=== PATIENT | male | born 1940 | race Caucasian/White ===

== ENCOUNTER 2018-09-11 22:20 | Observation (INO) | payer OTHER, MEDICARE ==
--- OUTSIDE RECORDS SUMMARY | 2018-09-11 22:22 | XMS REPORT | Encounter Summary ---
:1940 Author Care Team Providers Name Role Phone Conner Maldonado MD Primary Care Provider [phone] Reason for Visit Follow Up Visit Instructions 1. Otitis media tympanogram 2. Polyp of middle ear 3. Tinnitus 4. Hearing loss Discussion Note: None recorded.Patient educational handouts: No information available. Plan of Care Patient Instructions Patient discharged with the following per Dr. Freire Follow up in 3 months If any other problems patient is to call my office Patient verbalized understanding the instructions given along with my office staff Reminders Provider Appointments Follow up Estelle Freire, 10/26/2018 11:00AM Lab None recorded. Referral None recorded. Procedures None recorded. Surgeries None recorded. Imaging Tympanogram In-House Results 07/06/2018 Medications Name Start Date alprazolam 2 mg tablet Take 1 tablet 3 times a day by oral route. azithromycin 250 mg tablet Ciprodex 0.3 %-0.1 % ear drops,suspension INSTILL 4 DROPS INTO AFFECTED EAR(S) BY OTIC ROUTE 2 TIMES PER DAY FOR 7 DAYS gabapentin 300 mg capsule hydrochlorothiazide 12.5 mg capsule hydrocodone 7.5 mg-acetaminophen 325 mg tablet levothyroxine 50 mcg tablet losartan 100 mg-hydrochlorothiazide 12.5 mg tablet pantoprazole 40 mg tablet,delayed release pravastatin 20 mg tablet prednisolone acetate 1 % eye drops,suspension Shingrix (PF) 50 mcg/0.5 mL intramuscular suspension, kit Suprep Bowel Prep Kit 17.5 gram-3.13 gram-1.6 gram oral solution testosterone cypionate 200 mg/mL intramuscular oil Medications Administered None recorded. Vitals Height Weight BMI 5 ft 8 in 219.5 lbs 33.4 kg/m2 Lab Results Date Name Specimen Result Interpretation Description Value Range Status Address 07/06/2018 Tympanogram Right Type B In-House Curve Flat Results: For Internal Use Only Left Type C In-House Peak is on Results: For Left Internal Use Only 06/15/2018 Tympanogram Right Type B In-House Curve Flat Results: For Internal Use Only Left Type A In-House Normal Results: For Internal Use Only Allergies Code Code System Name Reaction Severity Status Onset 2670 RxNorm Codeine Other Moderate Active Problems Name Status Onset Date Source Serous Otitis Media Active Encounter Tinnitus Active Encounter Bleeding from Ear Active Encounter Otalgia Active Encounter Hearing Loss Active Encounter Chronic Sinusitis Active Encounter Lesion of Larynx Active Encounter Leukoplakia Active Encounter Hoarse Active Encounter Procedures Date Name Performed by Prostate Ca Screening; Favian Information not available Cardiac Surgery Procedure Information not available Appendectomy Information not available 06/15/2018 Tympanogram In-House Results For Internal Use Only 01333 07/06/2018 Tympanogram In-House Results For Internal Use Only 73222 Vaccine List None recorded. Social History Smoking Status Former Smoker Past Encounters 07/06/2018 Otitis Media; Polyp of Middle Ear; Tinnitus; Hearing Loss Estelle Freire MD: [address] [place] [address], [address], [place] [address], Ph. 06/15/2018 Polyp of Middle Ear; Otitis Media; Tinnitus Estelle Freire MD: [address] [place] [address], [address], [place] [address], Ph. History of Present Illness None recorded. Review of Systems ENT ROS Reported By: Patient ENMT: ENMT: ear pain, hearing loss, hoarseness; fluid in right ear, ringing in both ears Physical Exam None recorded.
[2018-09-11 23:37] LABS: Absolute Lymphocytes (CBC) 0.9 K/uL (0.7-4.9); Absolute Monocytes 0.6 K/uL (0.1-1.3); Absolute Neutrophil 6.7 K/uL (1.8-8.0); Basophils % 0.9 % (0-1.3); Eosinophils % 0.2 % (0-4.4); Hematocrit 52.6 % (39.6-49.0); Lymphocytes % 11.3 % (15.3-44.8); MPV 8.4 fL (7.6-11.3); Monocytes % 7.1 % (3.3-12.3); RBC Red Blood Cell Count 5.66 M/uL (4.33-5.43)
[2018-09-11 23:44] LABS: Protime INR 1.08
[2018-09-11 23:51] LABS: ALT/SGPT 25 U/L (12-78); AST/SGOT 13 U/L (15-37); Alkaline Phosphatase 65 U/L (45-117); BUN Blood Urea Nitrogen 19 mg/dL (7-18); Bicarbonate 31 mmol/L (21-32); Bilirubin Direct 0.2 mg/dL (0-0.2); Bilirubin Total 0.7 mg/dL (0.2-1.0); Glucose Level 116 mg/dL (74-106); NT PRO-BNP 486 pg/mL (<450); Protein, Total 7.7 g/dL (6.4-8.2); Sodium Level 138 mmol/L (136-145); Troponin (Emerg Dept Use Only) < 0.02 ng/mL (0.0-0.045)
[2018-09-12] MEDS ORDERED: NA CHLORIDE 0.9% 1,000 ML ONE ×2 (01:51→03:46)
--- NOTE | 2018-09-12 03:20 | EDPHYS ---
Physician Documentation [facility] Name: Reford Derrell Age: 78 yrs Sex: Male : 1940 Arrival Date: 09/11/2018 Time: 22:27 Bed 7 Private MD: ED Physician Kristopher Long HPI: 09/11 23:05 This 78 yrs old Male presents to ER via Ambulatory with complaints of cp abdominal distention. 23:05 The patient presents to the emergency department with diarrhea, abdominal distention. cp Onset: The symptoms/episode began/occurred today. Associated signs and symptoms: Pertinent positives: belching, Pertinent negatives: abdominal pain, constipation, fever, GI bleeding, vomiting, chest pain. Severity of symptoms: in the emergency department the symptoms are unchanged despite home interventions. Historical: - Allergies: 22:32 Codeine; lp1 - Home Meds: 22:32 aspirin 81 mg Oral chew 1 tab once daily [Active]; Hydrochlorothiazide Oral [Active]; lp1 losartan Oral [Active]; Alprazolam Oral [Active]; - PMHx: 22:32 High Cholesterol; Hypertension; lp1 - PSHx: 22:32 CABG; Appendectomy; lp1 - Immunization history:: Adult Immunizations up to date. - Social history:: Smoking status: Patient/guardian denies using tobacco. - Ebola Screening: : No symptoms or risks identified at this time. ROS: 23:10 Constitutional: Negative for body aches, chills, fever, poor PO intake. cp 23:10 Eyes: Negative for injury, pain, redness, and discharge. cp 23:10 ENT: Negative for drainage from ear(s), ear pain, sore throat, difficulty swallowing, difficulty handling secretions. 23:10 Cardiovascular: Negative for chest pain, edema, palpitations. 23:10 Respiratory: Negative for cough, shortness of breath, wheezing. 23:10 Abdomen/GI: Positive for diarrhea, abdominal distension, flatulence, Negative for abdominal pain, vomiting, constipation, dysphagia, black/tarry stool, rectal bleeding. 23:10 Back: Negative for pain at rest, pain with movement, radiated pain. 23:10 : Negative for urinary symptoms. 23:10 Skin: Negative for cellulitis, rash. 23:10 Neuro: Negative for altered mental status, headache, weakness. 23:10 All other systems are negative. Exam: 23:15 Constitutional: The patient appears in no acute distress, alert, awake, cp non-diaphoretic, non-toxic, well developed, well nourished, uncomfortable. 23:15 Head/Face: Normocephalic, atraumatic. cp 23:15 Eyes: Periorbital structures: appear normal, Conjunctiva: normal, no exudate, no injection, Sclera: no appreciated abnormality, Lids and lashes: appear normal, bilaterally. 23:15 ENT: External ear(s): are unremarkable, Nose: is normal, Mouth: Lips: moist, Oral mucosa: pink and intact, moist, Posterior pharynx: Airway: no evidence of obstruction, patent, Uvula: midline, swelling, is not appreciated, erythema, that is mild, exudate, is not appreciated. 23:15 Neck: ROM/movement: is normal, is supple, without pain, no range of motions limitations, no meningismus, no nuchal rigidity. 23:15 Chest/axilla: Inspection: normal, Palpation: is normal, no crepitus, no tenderness. 23:15 Cardiovascular: Rate: normal, Rhythm: regular, Heart sounds: murmur, systolic, rub, not appreciated, gallop, not appreciated, Edema: is not appreciated, JVD: is not appreciated. 23:15 Respiratory: the patient does not display signs of respiratory distress, Respirations: normal, no use of accessory muscles, no retractions, no splinting, no tachypnea, labored breathing, is not present, Breath sounds: are clear throughout, no decreased breath sounds, no stridor, no wheezing. 23:15 Abdomen/GI: Inspection: distension, that is mild, Bowel sounds: active, all quadrants, Palpation: soft, in all quadrants, nontender, in all quadrants, rebound tenderness, is not appreciated, voluntary guarding, is not appreciated, involuntary guarding, is not appreciated. 23:15 Back: pain, is absent, ROM is normal. 23:15 Skin: cellulitis, is not appreciated, no rash present. Vital Signs: 22:30 BP 164 / 90; Pulse 98; Resp 18; Temp 99.1(O); Pulse Ox 99% on R/A; Weight 88.45 kg (R); lp1 Height 5 ft. 8 in. (172.72 cm); Pain 8/10; 23:00 BP 135 / 84 LA; Pulse 88; Resp 19 S; Pulse Ox 94% on R/A; rv 23:30 BP 149 / 87 LA; Pulse 87; Resp 21 S; Pulse Ox 93% on R/A; rv 0306 00:00 BP 170 / 96 LA; Pulse 81; Resp 19 S; Pulse Ox 94% on R/A; rv 00:30 BP 161 / 94; Pulse 83; Resp 18; Pulse Ox 94% on R/A; rv 01:00 BP 165 / 95 LA; Pulse 84; Resp 20 S; Pulse Ox 95% on R/A; rv 01:45 BP 180 / 90 LA; Pulse 84; Resp 16 S; Pulse Ox 97% on R/A; rv 04:03 BP 173 / 97; Pulse 80; Resp 18; Pulse Ox 96% on R/A; ea 05:30 BP 182 / 92; Pulse 83; Resp 18; Pulse Ox 97% on R/A; ea 07:00 BP 142 / 81; Pulse 88; Resp 16; Pulse Ox 94% ; bp 03 22:30 Body Mass Index 29.65 (88.45 kg, 172.72 cm) lp1 MDM: 09/11 22:53 Patient medically screened. cp 09/12 03:05 Data reviewed: vital signs, nurses notes, lab test result(s), EKG, radiologic studies, cp CT scan, plain films. 03:05 Test interpretation: by ED physician or midlevel provider: ECG, plain radiologic cp studies. 09/11 23:01 Order name: Basic Metabolic Panel; Complete Time: 00:26 cp 09/12 01:43 Interpretation: Normal except: GLUC 116; BUN 19; GFR 64. cp 09/11 23:01 Order name: CBC with Diff; Complete Time: 23:44 cp 09/12 00:27 Interpretation: Normal except: RBC 5.66; HCT 52.6; LYM% 11.3; RUBIN% 80.5. cp 09/11 23:01 Order name: LFT's; Complete Time: 00:26 cp 09/11 23:01 Order name: Magnesium; Complete Time: 00:26 cp 09/11 23:01 Order name: NT PRO-BNP; Complete Time: 00:26 cp 09/11 23: Order name: PT-INR; Complete Time: 00:26 cp 09/12 01:43 Interpretation: Reviewed. cp 09/11 23:01 Order name: Troponin (emerg Dept Use Only); Complete Time: 00:26 cp 09/11 23:01 Order name: XRAY Chest (1 view) cp 09/11 23:44 Order name: Lipase; Complete Time: 00:26 cp 09/11 23:45 Order name: CT Abd/Pelvis - W/Contrast: give oral contrast cp 09/11 23:01 Order name: EKG; Complete Time: 23:01 cp 09/11 23:01 Order name: Cardiac monitoring; Complete Time: 23:12 cp 09/11 23:01 Order name: EKG - Nurse/Tech; Complete Time: 23:12 cp 09/11 23:01 Order name: IV Saline Lock; Complete Time: 23:20 cp 09/11 23:01 Order name: Labs collected and sent; Complete Time: 23:20 cp 09/11 23:01 Order name: O2 Per Protocol; Complete Time: 23:12 cp 09/11 23:01 Order name: O2 Sat Monitoring; Complete Time: 23:12 cp Administered Medications: 01:43 Drug: NS 0.9% 500 ml Route: IV; Rate: bolus; Site: left antecubital; rv 03:56 Follow up: Response: No adverse reaction; IV Status: Completed infusion; IV Intake: ea 500ml 03:55 Drug: NS 0.9% 1000 ml Route: IV; Rate: 100 ml/hr; Site: left antecubital; ea 04:55 Follow up: Response: No adverse reaction; IV Status: Infusion continued upon admission ea 03:55 Drug: Ciprofloxacin 400 mg Volume: 200 ml; Route: IVPB; Infused Over: 60 mins; Site: ea left antecubital; 04:55 Follow up: Response: No adverse reaction; IV Status: Completed infusion; IV Intake: ea 200ml 03:55 Drug: metroNIDAZOLE 500 mg Volume: 100 ml; Route: IVPB; Infused Over: 30 mins; Site: ea left antecubital; 04:55 Follow up: Response: No adverse reaction; IV Status: Completed infusion; IV Intake: ea 100ml Disposition: 11:11 Co-signature as Attending Physician, Kristopher CARRILLO I agree with the assessment and mac plan of care. Disposition: 09/12/18 03:20 Hospitalization ordered by Ryder Moraes for Observation. Preliminary diagnosis is Ileus, unspecified - small bowel vs early obstruction. - Bed requested for Telemetry/MedSurg (observation). - Status is Observation. bp - Condition is Stable. - Problem is new. - Symptoms have improved. UTI on Admission? No Signatures: Dispatcher [employer] EDMS Ariella El RN Kristopher Bass MD MD cha Pena, Laura RN RN lp1 Kristopher Elkins PA PA cp Lexi Rudolph RN RN ea Peltier, Brian, RN RN Dl Polk RN RN rv Corrections: (The following items were deleted from the chart) 00:27 00:26 Normal except: RBC 5.66; HCT 52.6. cp cp 03:32 03:11 NG Tube ordered. cp tl2 04:56 03:20 Hospitalization Ordered by Ryder Moraes MD for Observation. Preliminary mw diagnosis is Ileus, unspecified - small bowel vs early obstruction. Bed requested for Telemetry/MedSurg (observation). Status is Observation. Condition is Stable. Problem is new. Symptoms have improved. UTI on Admission? No. cp 07:59 04:56 09/12/2018 03:20 Hospitalization Ordered by Ryder Moraes MD for Observation. bp Preliminary diagnosis is Ileus, unspecified - small bowel vs early obstruction. Bed requested for Telemetry/MedSurg (observation). Status is Observation. Condition is Stable. Problem is new. Symptoms have improved. UTI on Admission? No. mw
--- NOTE | 2018-09-12 03:20 | ER ---
Nurse's Notes [facility] Name: Soy Dove Age: 78 yrs Sex: Male : 1940 Arrival Date: 09/11/2018 Time: 22:27 Bed 7 Private MD: Diagnosis: Ileus, unspecified-small bowel vs early obstruction Presentation: 09/11 22:27 Presenting complaint: Patient states: "I had an upper GI procedure today by Dr. Roberto pitts and they said I would be bloated but it seems to have gotten worse now after I had lunch"; Patient states taking 18 Gaz-X pills, 8 Zantac pills with no relief, continued bloating. Transition of care: patient was not received from another setting of care. Onset of symptoms was September 11, 2018. Risk Assessment: Do you want to hurt yourself or someone else? Patient reports no desire to harm self or others. Initial Sepsis Screen: Does the patient meet any 2 criteria? No. Patient's initial sepsis screen is negative. Does the patient have a suspected source of infection? No. Patient's initial sepsis screen is negative. Care prior to arrival: None. 22:27 Method Of Arrival: Ambulatory lp1 22:27 Acuity: POPPY 3 lp1 Historical: - Allergies: 22:32 Codeine; lp1 - Home Meds: 22:32 aspirin 81 mg Oral chew 1 tab once daily [Active]; Hydrochlorothiazide Oral [Active]; lp1 losartan Oral [Active]; Alprazolam Oral [Active]; - PMHx: 22:32 High Cholesterol; Hypertension; lp1 - PSHx: 22:32 CABG; Appendectomy; lp1 - Immunization history:: Adult Immunizations up to date. - Social history:: Smoking status: Patient/guardian denies using tobacco. - Ebola Screening: : No symptoms or risks identified at this time. Screenin:32 Abuse screen: Denies threats or abuse. Denies injuries from another. Nutritional lp1 screening: No deficits noted. Tuberculosis screening: No symptoms or risk factors identified. Fall Risk None identified. Assessment: 22:35 General: Appears in no apparent distress. comfortable, Behavior is calm, cooperative, ca1 appropriate for age. Pain: Complains of pain in abdomen Pain does not radiate. Pain currently is 8 out of 10 on a pain scale. Pain began. Neuro: Level of Consciousness is awake, alert, obeys commands, Oriented to person, place, time, situation. Cardiovascular: Heart tones S1 S2 present Capillary refill < 3 seconds Patient's skin is warm and dry. Respiratory: Airway is patent Respiratory effort is even, unlabored, Respiratory pattern is regular, symmetrical, Breath sounds are clear bilaterally. GI: Abdomen is round non-distended, Bowel sounds present X 4 quads. Abd is soft X 4 quads Abdomen is tender to palpation in umbilical area Reports bloating, diarrhea, nausea. : EENT: No signs and/or symptoms were reported regarding the EENT system. Derm: Skin is intact, is healthy with good turgor, Skin is pink, warm \\T\\ dry. Musculoskeletal: Circulation, motion, and sensation intact. Capillary refill < 3 seconds. 09/12 00:48 Reassessment: Patient appears in no apparent distress at this time. No changes from rv previously documented assessment. Patient and/or family updated on plan of care and expected duration. Pain level reassessed. Patient is alert, oriented x 3, equal unlabored respirations, skin warm/dry/pink. 02:42 Reassessment: Patient appears in no apparent distress at this time. Patient and/or rv family updated on plan of care and expected duration. Pain level reassessed. Patient is alert, oriented x 3, equal unlabored respirations, skin warm/dry/pink. 03:32 Reassessment: Pt refused NG tube stating that he "doesn't think he has a blockage and tl2 he will talk to the surgeon himself". PA at bedside discussing risks of refusal with patient. Awaiting assessment from Dr. Shafer. 07:00 Reassessment: RECD REPORT FROM YULI POLANCO. 78YO WM P/W ABD PAIN AND BLOATING AFTER UPPER bp GI. ADMIT IN PROCESS FOR POSSIBLE ILEUS. Vital Signs: 09/11 22:30 BP 164 / 90; Pulse 98; Resp 18; Temp 99.1(O); Pulse Ox 99% on R/A; Weight 88.45 kg (R); lp1 Height 5 ft. 8 in. (172.72 cm); Pain 8/10; 23:00 BP 135 / 84 LA; Pulse 88; Resp 19 S; Pulse Ox 94% on R/A; rv 23:30 BP 149 / 87 LA; Pulse 87; Resp 21 S; Pulse Ox 93% on R/A; rv 03/06 00:00 BP 170 / 96 LA; Pulse 81; Resp 19 S; Pulse Ox 94% on R/A; rv 00:30 BP 161 / 94; Pulse 83; Resp 18; Pulse Ox 94% on R/A; rv 01:00 BP 165 / 95 LA; Pulse 84; Resp 20 S; Pulse Ox 95% on R/A; rv 01:45 BP 180 / 90 LA; Pulse 84; Resp 16 S; Pulse Ox 97% on R/A; rv 04:03 BP 173 / 97; Pulse 80; Resp 18; Pulse Ox 96% on R/A; ea 05:30 BP 182 / 92; Pulse 83; Resp 18; Pulse Ox 97% on R/A; ea 07:00 BP 142 / 81; Pulse 88; Resp 16; Pulse Ox 94% ; bp 09/11 22:30 Body Mass Index 29.65 (88.45 kg, 172.72 cm) lp1 ED Course: 09/11 22:27 Patient arrived in ED. es 22:30 Triage completed. lp1 22:30 Arm band placed on left wrist. lp1 22:35 Patient has correct armband on for positive identification. Bed in low position. Call ca1 light in reach. Side rails up X 1. Pulse ox on. NIBP on. Warm blanket given. 22:35 No provider procedures requiring assistance completed. ca1 22:53 Kristopher Elkins PA is PHCP. cp 22:53 Kristopher Long MD is Attending Physician. cp 23:15 Inserted saline lock: 20 gauge in left antecubital area, using aseptic technique. Blood rv collected. 23:21 Basic Metabolic Panel Sent. rv 23:21 CBC with Diff Sent. rv 23:21 LFT's Sent. rv 23:22 Magnesium Sent. rv 23:22 NT PRO-BNP Sent. rv 23:42 XRAY Chest (1 view) In Process Unspecified. EDMS 03/06 02:[address] via wheelchair. kw1 02:38 CT Abd/Pelvis - W/Contrast: give oral contrast In Process Unspecified. EDMS 03:18 Ryder Moraes MD is Hospitalizing Provider. cp 04:03 Patient admitted, IV remains in place. ea 07:10 Ezekiel Bullard, RN is Primary Nurse. bp Administered Medications: 01:43 Drug: NS 0.9% 500 ml Route: IV; Rate: bolus; Site: left antecubital; rv 03:56 Follow up: Response: No adverse reaction; IV Status: Completed infusion; IV Intake: ea 500ml 03:55 Drug: NS 0.9% 1000 ml Route: IV; Rate: 100 ml/hr; Site: left antecubital; ea 04:55 Follow up: Response: No adverse reaction; IV Status: Infusion continued upon admission ea 03:55 Drug: Ciprofloxacin 400 mg Volume: 200 ml; Route: IVPB; Infused Over: 60 mins; Site: ea left antecubital; 04:55 Follow up: Response: No adverse reaction; IV Status: Completed infusion; IV Intake: ea 200ml 03:55 Drug: metroNIDAZOLE 500 mg Volume: 100 ml; Route: IVPB; Infused Over: 30 mins; Site: ea left antecubital; 04:55 Follow up: Response: No adverse reaction; IV Status: Completed infusion; IV Intake: ea 100ml Intake: 03:56 IV: 500ml; Total: 500ml. ea 04:55 IV: 200ml; Total: 700ml. ea 04:55 IV: 100ml; Total: 800ml. ea Outcome: 03:20 Decision to Hospitalize by Provider. cp 03:56 Instructed on the need for admit. ea 04:45 Admitted to ER Hold. Please see [facility] for further documentation. tl2 04:45 Condition: stable 07:43 Admitted to Med/surg accompanied by tech, family with patient, via wheelchair, room bp 211, with chart, Report called to LUIS ARMANDO POLANCO 07:59 Patient left the ED. bp Signatures: Dispatcher [employer] EDFabi Campo Laura, RN RN lp1 Kristopher Elkins PA PA cp Yuli Irizarry RN RN tl2 Lexi Rudolph RN RN ea Peltier, Brian, RN RN bp Kadi Graves kw1 Dl Pang RN RN rv Acob, Cheryl RN RN ca1
[2018-09-12] MEDS ORDERED: CIPROFLOXACIN 400mg IV 400 MG/200 ML BAG IV ONE (03:46)
[2018-09-12] MEDS ORDERED: METRONIDAZOLE 500mg IVPB 500 MG/100 ML BAG IV ONE (03:47)
--- NOTE | 2018-09-12 04:26 | P.HP ---
Certification for Inpatient Patient admitted to: Observation With expected LOS: <2 Midnights Practitioner: I am a practitioner with admitting privileges, knowledge of patient current condition, hospital course, and medical plan of care. Services: Services provided to patient in accordance with Admission requirements found in Title 42 Section 412.3 of the Code of Federal Regulations Patient History Date of Service: 09/12/18 Reason for admission: SBO vs ileus History of Present Illness: Mr Dove is a 78 years old male with history of CAD, HTN, dylipiemia, COPD, who had an EGD done today by Dr Mejia. After the procedure, he went to eat a chicken sandwich. Subsequently, he start feeling bloating, with abdominal distention. He denied nausea or vomiting. Last bowel movement was this morning. The patient took several pills of Zantac and Gas-X-pills without improvement. Since he had this symptoms in the past and were consistent with a SBO, came to ED for evaluation. Lab work shows normal WBC count, no fever. CT abd/pelvis shows multiple air-fluid level in the small bowell concerning for ileus vs low grade SBO. Allergies codeine Allergy (Intermediate, Verified 05/30/17 21:46) Shortness of breath Home medications list reviewed: Yes Home Medications: Hydrocodone Bit/Acetaminophen [Hydrocodon-Acetaminoph 7.5-325] 1 tab PO TID Losartan/Hydrochlorothiazide [Losartan-Hctz 100-12.5 mg Tab] 1 tab PO DAILY Pravastatin Sodium [Pravachol] 20 mg PO DAILY 03/23/18 - Past Medical/Surgical History Diabetic: No -: htn -: Cad -: copd -: hyperlipidemia -: prostate surgery -: triple bypass -: CABG -: left foot surgery -: cataract surgery- both eyes - Family History Father -: Other (see notes) Notes: CHF Mother Notes: pneumonia - Social History Smoking Status: Former smoker Alcohol use: Yes CD- Drugs: No Caffeine use: Yes Place of Residence: Home Review of Systems 10-point ROS is otherwise unremarkable Physical Examination - Physical Exam General: Alert, In no apparent distress HEENT: Atraumatic, PERRLA, Mucous membr. moist/pink, EOMI, Sclerae nonicteric Neck: Supple, 2+ carotid pulse no bruit, No LAD, Without JVD or thyroid abnormality Respiratory: Clear to auscultation bilaterally, Normal air movement Cardiovascular: Regular rate/rhythm, Normal S1 S2 Gastrointestinal: Hypoactive, No tenderness, Distended Musculoskeletal: No tenderness Integumentary: No rashes Neurological: Normal speech, Normal strength at 5/5 x4 extr, Normal tone, Normal affect Lymphatics: No axilla or inguinal lymphadenopathy - Studies Laboratory Data (last 24 hrs) 09/11/18 23:15: Lipase 114 09/11/18 23:15: PT 12.7 H, INR 1.08 09/11/18 23:15: WBC 8.3, Hgb 17.9, Hct 52.6 H, Plt Count 236 09/11/18 23:15: Sodium 138, Potassium 4.0, BUN 19 H, Creatinine 1.12, Glucose 116 H, Magnesium 2.0, Total Bilirubin 0.7, AST 13 L, ALT 25, Alkaline Phosphatase 65 Assessment and Plan - Problems (Diagnosis) (1) COPD (chronic obstructive pulmonary disease) with chronic bronchitis Current Visit: No Status: Acute (2) SBO (small bowel obstruction) Onset Date: 03/26/18 Current Visit: No Status: Acute (3) Coronary artery disease Onset Date: 09/01/17 Current Visit: No Status: Chronic Qualifiers: Coronary Disease-Associated Artery/Lesion type: bypass graft [place] vs. transplanted heart: [place] heart Associated angina: without angina Qualified Code(s): I25.810 - Atherosclerosis of coronary artery bypass graft(s) without angina pectoris (4) Essential hypertension Onset Date: 09/01/17 Current Visit: No Status: Chronic - Plan Will admit the patient to the hospital due to SBO vs ileus post EGD procedure. He refused NGT placement. He is already better, less distended. Will keep him NPO, IV fluids, order an abdominal series to evaluate progression of the obstruction. Consult surgery team for evaluation and recommendations. - Advance Directives Does patient have a Living Will: Yes Does patient have a Durable POA for Healthcare: No - Code Status/Comfort Care Code Status Assessed: Yes Code Status: Full Code
[2018-09-12] MEDS ORDERED: ONDANSETRON 4 MG/2 ML VIAL IV PRN (04:42)
[2018-09-12] MEDS: NA CHLORIDE 0.9% 1,000 ML IV SCH ×4 (05:00→23:57)
[2018-09-12] MEDS ORDERED: PNEUMOCOCCAL VACCINE 0.5 ML IMVAC ONE (08:00)
[2018-09-12] MEDS ORDERED: INFLUENZA VACCINE (for 3y+) 0.5 ML DOSE IMVAC ONE (08:00)
[2018-09-12 08:15] VITALS: O2SAT 94
--- NOTE | 2018-09-12 08:22 | RAD REPORT ---
EXAM DESCRIPTION: RAD - Chest Single View - 09/11/2018 11:42 pm CLINICAL HISTORY: ABDOMINAL DISTENTION Chest pain. COMPARISON: Chest Single View dated 03/23/2018; Chest Pa And Lat (2 Views) dated 09/02/2017; Chest Sin gle View dated 08/31/2017; Chest Single View dated 07/11/2017 FINDINGS: Portable technique limits examination quality. The lungs are mildly emphysematous but clear. The heart is moderately enlarged in size with sternotom y wires present. No displaced fractures. IMPRESSION: No acute intrathoracic process suspected.
[2018-09-12 08:41] VITALS: BMI 29.9
--- NOTE | 2018-09-12 10:50 | RAD REPORT ---
EXAM DESCRIPTION: RAD - Abdomen Acute Series - 09/12/2018 10:32 am CLINICAL HISTORY: Abdominal pain FINDINGS: Free air is not seen beneath the diaphragm. The lungs appear clear of acute infiltrate. Air is present throughout large and small bowel in a nonspecific fashion. I suspect this represents a a gastroenteritis.
[2018-09-12] MEDS ORDERED: HOME MED 1 EA UNK (Alprazolam [Alprazolam] 2 MG) PO SCH (11:30)
--- NOTE | 2018-09-12 12:15 | RAD REPORT ---
EXAM DESCRIPTION: CT Abdomen and Pelvis With Intravenous Contrast CLINICAL HISTORY: The patient is 78 years old and is Male; ABDOMINAL DISTENTION TECHNIQUE: Axial computed tomography images of the abdomen and pelvis with intravenous contrast. S agittal and coronal reformatted images were created and reviewed. This CT exam was performed using one or more of the following dose reduction techniques: automated exposure control, adjustment of t he mA and/or kV according to patient size, and/or use of iterative reconstruction technique. COMPARISON: CT abdomen and pelvis with IV contrast dated March 23, 2018. FINDINGS: LUNG BASES: Lung bases are clear. HEART: Visualized heart is unremarkable. Partial visualization of sternotomy wire. ABDOMEN: LIVER: Unremarkable. No mass. GALLBLADDER AND BILE DUCTS: Unremarkable. No calcified stones. No ductal dilation. PANCREAS: Unremarkable. No mass. No ductal dilation. SPLEEN: Unremarkable. No splenomegaly. ADRENALS: Unremarkable. No mass. KIDNEYS AND URETERS: Bilateral subcentimeter renal hypodensities, likely cysts. No hydronephrosis. STOMACH AND BOWEL: Multiple mildly distended small bowel loops with air-fluid levels. However, con trast is seen throughout the small bowel. Terminal ileum is normal in caliber. There is a fluid level in the transverse colon. Mild fluid distention of the rectum. No mucosal thickening. PELVIS: APPENDIX: Prior appendectomy. BLADDER: The bladder is decompressed. REPRODUCTIVE: Marked heterogenous enlargement of the prostate measuring 6 x 4.8 x 4.2 cm. Calcific ation of the central zone also present. ABDOMEN and PELVIS: INTRAPERITONEAL SPACE: Unremarkable. No free air. No significant fluid collection. BONES/JOINTS: See above. SOFT TISSUES: Unremarkable. VASCULATURE: Atherosclerotic effusion of the abdominal aorta and iliac vasculature. No abdominal aortic aneurysm. LYMPH NODES: Unremarkable. No enlarged lymph nodes. IMPRESSION: 1. Multiple mildly distended small bowel loops with air-contrast levels. Terminal ileu m is normal in caliber and fluid-filled. Findings could be suggestive of small bowel ileus or low-gra de obstruction. 2. Marked heterogenous enlargement of the prostate Electronically signed by: Stephan Mcnally DO 09/12/2018 2:46 AM DIRECT MAIL CLERK Due to temporary technical issues with the PACS/Fluency reporting system, reports are being signed by the in house radiologist as a courtesy to ensure prompt reporting. The interpreting radiologist is f ully responsible for the content of the report.
--- NOTE | 2018-09-12 12:35 | EKG ---
Test Date: 2018-09-11 Test Time: 23:17:08 Enrollment Management Director: PRISCILA MEASUREMENT RESULTS: Intervals: Rate: 84 SD: 160 QRSD: 90 QT: 356 QTc: 420 [place]: P: 57 SD: 160 QRS: -13 T: 81 INTERPRETIVE STATEMENTS: Normal sinus rhythm Possible Left atrial enlargement Left ventricular hypertrophy Cannot rule out Septal infarct, age undetermined Abnormal ECG Compared to ECG 03/23/2018 01:16:03 T-wave abnormality no longer present Possible ischemia no longer present Myocardial infarct finding still present Electronically Signed On 09-12-18 12:34:53 [employer]ANT ENGINEER by Vish Gray
--- NOTE | 2018-09-12 17:23 | PN ---
Date of Progress Note: 09/12/2018 Subjective: The patient is seen and examined. Chart reviewed and case discussed with RN. The patie nt states he feels better, able to pass some gas and had multiple bowel movements last night. Medications: List reviewed. Code Status: Full. Physical Examination: Vital Signs: Temperature 99.1, heart rate 84, blood pressure 165/84, respirations 17, and O2 of 97% on room air. General: Awake, alert, and oriented x3. Elderly male, obese, somewhat ill appearing. CV: S1 and S2. Regular rate and rhythm. Peripheral pulses present. Respiratory: Moving air well bilaterally. No wheezing or stridor. Gastrointestinal: Abdomen is soft, nontender, and nondistended. Positive bowel sounds. No guarding or rigidity. Extremities: No clubbing, cyanosis, or edema. Neurologic: Nonfocal. Laboratory Data: Pending. Acute abdominal series personally reviewed, shows free air not seen benea th the diaphragm. Lungs appear clear of acute infiltrate. Air is present throughout the large and s mall bowel in a nonspecific fashion, likely represents gastroenteritis. Assessment And Plan: A 78-year-old male with, 1.Small bowel obstruction. The patient is now passing gas and loose stools. I appreciate Dr. Peg holloway's input. We will advance to clear liquids. Continue ambulation with assist. 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 Continue albuterol as needed. 3.Coronary artery disease, [place] artery and [place] heart without angina, status post coronary arter y bypass grafting. 4.Essential hypertension, stable. We will resume home medications. 5.Mixed hyperlipidemia. Continue statin. 6.Gastrointestinal and deep venous thrombosis prophylaxis addressed. PLAN: Advance diet. Follow up with surgical recommendations. /JANAK Voice ID: [id number] Report ID: [id number]
--- NOTE | 2018-09-12 17:29 | CON ---
Date of Consultation: 09/12/2018 Diagnosis: Ileus. History Of Present Illness: This is a case of a 78-year-old patient, who recently had an EGD done. After that procedure, he went out and ate a chicken sandwich with water and developed bloating and di stention. He got concerned and came to the ER. He was admitted to the hospital. He feels better ri ght now, is passing gas, having bowel movement. No dysuria, hematuria, hematochezia, melena. No rec ent traveling out of the country. No hematemesis. Allergies: CODEINE. Past Medical Problems: Hypertension, coronary artery disease, COPD. Past Surgical History: Includes coronary artery bypass, left foot surgery, cataract surgery, prostat e surgery. Family History: Noncontributory. Social History: He does not smoke. He drinks alcohol just occasionally. Review of Systems: Ten points otherwise remarkable. Physical Examination: General: Patient is awake and alert. No distress. HEENT: Pupils are equal and reactive, anicteric. Neck: Supple. Chest: Clear. Abdomen: Soft and depressible. No guarding, rebound, no peritoneal signs. Extremities: Good capillary refill. Laboratory Data: Blood work shows WBC count of 8.3, hemoglobin of 17.9. Imaging was reviewed, CAT scan and an x-ray from this morning. No free air. Assessment: This is a 78-year-old patient who developed an ileus after an esophagogastroduodenoscopy done. Patient feels a lot better. Right now, there is no surgical plan at this moment. 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 He may advance his diet. JASPREET/JANAK Voice ID: [id number] Report ID: [id number]
[2018-09-12] MEDS ORDERED: GABAPENTIN 100 MG CAP PO SCH (21:00)
[2018-09-12] MEDS ORDERED: ALPRAZOLAM 1 MG TABLET PO SCH (21:00)
[2018-09-13 06:23] LABS: Absolute Lymphocytes (CBC) 1.4 K/uL (0.7-4.9); Absolute Monocytes 0.5 K/uL (0.1-1.3); Absolute Neutrophil 2.7 K/uL (1.8-8.0); Basophils % 0.7 % (0-1.3); Eosinophils % 3.6 % (0-4.4); Hematocrit 46.1 % (39.6-49.0); Lymphocytes % 29.2 % (15.3-44.8); MPV 8.2 fL (7.6-11.3); Monocytes % 11.2 % (3.3-12.3); RBC Red Blood Cell Count 4.95 M/uL (4.33-5.43)
[2018-09-13 06:41] LABS: Albumin 3.2 g/dL (3.4-5.0); Bilirubin Total 0.7 mg/dL (0.2-1.0); Potassium 3.9 mmol/L (3.5-5.1); Protein, Total 6.1 g/dL (6.4-8.2)
[2018-09-13] MEDS ORDERED: GABAPENTIN 100 MG CAP PO SCH (09:00)
[2018-09-13] MEDS ORDERED: LOSARTAN POTASSIUM 50 MG TABLET PO SCH (09:00)
[2018-09-13] MEDS ORDERED: HOME MED 1 EA UNK (Mesalamine [Mesalamine] 1.2 GM) PO SCH (09:00)
[2018-09-13] MEDS ORDERED: hydroCHLOROthiazide 12.5 MG CAP PO SCH (09:00)
[2018-09-13] MEDS ORDERED: MESALAMINE 400 MG CAPSULE.DR PO SCH (09:00)
[2018-09-13] MEDS ORDERED: PANTOPRAZOLE 40MG TABLET PO SCH (09:00)
[2018-09-13] MEDS: NA CHLORIDE 0.9% 1,000 ML IV SCH (11:00)
[2018-09-13 12:09] VITALS: BP 162/88; TEMP 98.7
--- NOTE | 2018-09-14 06:55 | DS ---
Date of Discharge: 09/13/2018 Consultants: Dr. Valeriy Faustni with General Surgery. Discharge Diagnoses: 1.Small bowel obstruction, status post esophagogastroduodenoscopy. 2.Chronic obstructive pulmonary disease with emphysema. 3.Coronary artery disease, [place] artery, [place] heart without angina, status post coronary artery b ypass grafting. 4.Essential hypertension. 5.Mixed hyperlipidemia. 6.Obesity, BMI of 30. Hospital Course: The patient is a 78-year-old male with past medical history of coronary artery dise ase, hypertension, dyslipidemia, COPD, who had EGD done by GI physician, and had feelings of bloating and abdominal distention. The patient came into the ER. His workup revealed small bowel obstructio n. CT scan showed multiple air-fluid levels in the small bowel, concerning for ileus. This is likel y secondary to the EGD. The patient refused NG tube placement. The patient was treated with conserv ative management. He was ambulated, he did start passing some stool, and had significant amount of g as. Acute abdominal series was done, which showed air present throughout the large and small bowel i n nonspecific fashion. His lungs were clear of infiltrate. He was seen by Dr. Faustin, who agreed with conservative management. He did not recommend any surgical intervention at this time. The kortney ent's diet was advanced slowly, and he was able to tolerate his diet. He was then able to tolerate a soft diet. He did not have any further abdominal distention, pain, nausea, or vomiting. He was the n cleared for discharge, and sent home in a stable condition. Activity: As tolerated. Medications: As per medication reconciliation list. Followup: Follow up with primary care physician in 2 to 3 days. Return to ER for worsening conditio n. Follow up with GI doctor as needed. Diet: [place] diet for the next few days, and then resume a heart healthy diet. Physical Examination: General: Awake, alert, oriented x3. No acute distress. Elderly male, obese. CV: S1, S2. No murmurs. Respiratory: Moving air well bilaterally. Abdomen: Abdomen is soft, nontender, nondistended. Positive bowel sounds. Extremities: No clubbing, cyanosis, edema. Neurologic: Nonfocal. SA/MODL Voice ID: [id number] Report ID: [id number]
== END 2018-09-13 14:29 | disposition home or self-care (01) ==
LOC: ER 22:20 → ERHOLD 09-12 04:07 → 2ND 09-12 07:44
PROVIDERS: ADMIT Internal Medicine; ATTEND Internal Medicine
DX: K56.609 Unspecified intestinal obstruction, unspecified as to partial versus complete obstruction (principal); I25.10 Atherosclerotic heart disease of native coronary artery without angina pectoris; J44.9 Chronic obstructive pulmonary disease, unspecified; I10 Essential (primary) hypertension; E78.2 Mixed hyperlipidemia; E66.9 Obesity, unspecified; Z68.30 Body mass index [BMI] 30.0-30.9, adult; Z95.1 Presence of aortocoronary bypass graft; Z87.891 Personal history of nicotine dependence
CPT/HCPCS: 96365; 96361; 96368; 93005; 85025 ×2; 80048; 36415 ×2; 83735 ×2; 85610; 80076; 84484; 83690; 80053; 83880; 74177; 74022; 71045; 99285; Q9967; J7030 ×4; J0744; G0378 ×2

== ENCOUNTER 2019-05-11 18:25 | Inpatient (IN) | payer OTHER, MEDICARE ==
[2019-05-11 18:53] LABS: Absolute Lymphocytes (CBC) 1.3 K/uL (0.7-4.9); Basophils % 0.3 % (0-1.3); Hematocrit 55.2 % (39.6-49.0); Lymphocytes % 6.6 % (15.3-44.8); MPV 8.2 fL (7.6-11.3); RBC Red Blood Cell Count 6.05 M/uL (4.33-5.43)
[2019-05-11] MEDS ORDERED: ONDANSETRON 4 MG/2 ML VIAL ONE (18:53)
[2019-05-11 19:10] LABS: Albumin 4.3 g/dL (3.4-5.0); Bilirubin Direct 0.2 mg/dL (0-0.2); Potassium 3.8 mmol/L (3.5-5.1); Protein, Total 8.1 g/dL (6.4-8.2)
[2019-05-11 19:43] LABS: Blood Morphology Comment NOT SEEN (NOT SEEN); Platelet Estimate ADEQ; Urine White Blood Cell Casts OK
--- NOTE | 2019-05-11 20:14 | RAD REPORT ---
EXAM DESCRIPTION: CT - Abdomen Pelvis W Contrast - 05/11/2019 7:44 pm CLINICAL HISTORY: Abdominal pain COMPARISON: September 2018 TECHNIQUE: Computed axial tomography of the abdomen pelvis was obtained. 100 cc Isovue-300 was admin istered intravenously. Oral contrast was not requested which limits evaluation of bowel. All CT scans are performed using dose optimization technique as appropriate and may include automated exposure control or mA/KV adjustment according to patient size. FINDINGS: The liver, spleen, pancreas, adrenal and kidneys appear unremarkable. There is no evidence of diverticulitis. The colon is decompressed Jejunum and proximal ileum are moderately dilated. Distal ileum is decompressed Gastric distention Small inguinal hernias The prostate gland is markedly enlarged Small fluid collection within the region of the right iliacus muscle may indicate bursitis IMPRESSION: Mechanical small bowel obstruction
[2019-05-11] MEDS ORDERED: FENTANYL CITR 100 MCG/2 ML ONE (20:25)
[2019-05-11] MEDS ORDERED: ACETAMINOPHEN 500 MG TAB PO PRN (20:39)
[2019-05-11] MEDS ORDERED: HYDROMORPHONE HCL 1 MG/ML INJ IV PRN (20:39)
[2019-05-11] MEDS ORDERED: ONDANSETRON 4 MG/2 ML VIAL IV PRN (20:39)
--- NOTE | 2019-05-11 20:39 | EDPHYS ---
Physician Documentation [facility] Name: Refbrice Dove Age: 78 yrs Sex: Male : 1940 Arrival Date: 05/11/2019 Time: 18:29 Bed 6 Private MD: ED Physician Cristóbal Aguilar HPI: 05/11 18:35 This 78 yrs old Male presents to ER via Ambulatory with complaints of jmm Abdominal Pain. 18:35 The patient presents with abdominal pain. Onset: The symptoms/episode began/occurred jmm today. The symptoms do not radiate. Associated signs and symptoms: Pertinent positives: vomiting. The symptoms are described as achy. Modifying factors: The symptoms are alleviated by nothing, the symptoms are aggravated by. This is a 78 year old male with a history of bowel obstruction, htn, hlp that presents to the ED with complaints of abdominal pain with 2 episodes of vomiting today. Patient has had similar episodes with previous bowel obstructions. . Historical: - Allergies: 18:42 Codeine; mg2 - Home Meds: 18:42 Alprazolam Oral [Active]; Hydrochlorothiazide Oral [Active]; mg2 18:43 aspirin 81 mg Oral chew 1 tab once daily [Active]; losartan Oral [Active]; mg2 - PMHx: 18:42 High Cholesterol; Hypertension; bowel obstruction; mg2 - Immunization history:: Adult Immunizations up to date. - Social history:: Smoking status: Patient/guardian denies using tobacco, Patient uses alcohol, but reports only rare drinking. - Ebola Screening: : Patient negative for fever greater than or equal to 101.5 degrees Fahrenheit, and additional compatible Ebola Virus Disease symptoms Patient denies exposure to infectious person Patient denies travel to an Ebola-affected area in the 21 days before illness onset No symptoms or risks identified at this time. ROS: 18:35 Constitutional: Negative for fever, chills, and weight loss, Cardiovascular: Negative jm for chest pain, palpitations, and edema. 18:35 Back: Negative for injury and pain, MS/Extremity: Negative for injury and deformity, Skin: Negative for injury, rash, and discoloration, Neuro: Negative for headache, weakness, numbness, tingling, and seizure. 18:35 Abdomen/GI: Positive for abdominal pain, nausea and vomiting, Negative for diarrhea. 18:35 All other systems are negative. Exam: 18:35 Constitutional: This is a well developed, well nourished patient who is awake, alert, jmm and in no acute distress. Head/Face: atraumatic. Eyes: EOMI, no conjunctival erythema appreciated ENT: Moist Mucus Membranes Neck: Trachea midline, Supple Chest/axilla: Normal chest wall appearance and motion. Cardiovascular: Regular rate and rhythm. No edema appreciated Respiratory: Normal respirations, no respiratory distress appreciated 18:35 Back: Normal ROM Skin: General appearance color normal MS/ Extremity: Moves all extremities, no obvious deformities appreciated, no edema noted to the lower extremities Neuro: Awake and alert, normal gait Psych: Behavior is normal, Mood is normal, Patient is cooperative and pleasant 18:35 Abdomen/GI: Inspection: distension, Bowel sounds: normal, Palpation: mild abdominal tenderness, in all quadrants. Vital Signs: 18:43 BP 168 / 107; Pulse 110; Resp 20 S; Pulse Ox 93% on R/A; Weight 95.25 kg; Height 5 ft. iw 8 in. (172.72 cm); Pain 10/10; 18:57 Temp 98(O); mg2 19:14 BP 165 / 102; Pulse 102; Resp 18; Pulse Ox 94% on 2 lpm NC; mg2 20:20 Pulse 106; Resp 18; Pulse Ox 100% on R/A; mg2 20:29 BP 177 / 100; mg2 21:36 BP 163 / 92; Pulse 93; Resp 18; Temp 98.6(O); Pulse Ox 94% on 2 lpm NC; mg2 18:43 Body Mass Index 31.93 (95.25 kg, 172.72 cm) iw MDM: 18:39 Patient medically screened. [facility] 20:37 Data reviewed: vital signs, nurses notes. Counseling: I had a detailed discussion with [facility] the patient and/or guardian regarding: the historical points, exam findings, and any diagnostic results supporting the discharge/admit diagnosis, lab results, radiology results, the need for further work-up and treatment in the hospital. ED course: I discussed the patient with Dr. Hightower and Dr. Christie whom accepted admission. . 05/11 18:35 Order name: Basic Metabolic Panel; Complete Time: 19:18 mg2 05/11 18:35 Order name: CBC with Diff; Complete Time: 19:43 mg2 05/11 18:35 Order name: Creatinine for Radiology; Complete Time: 19:03 [facility] [place] 05/11 18:35 Order name: Hepatic Function; Complete Time: 19:18 [facility] [place] 05/11 18:35 Order name: Lipase; Complete Time: 19:18 [facility] [place] 05/11 18:48 Order name: Troponin (emerg Dept Use Only); Complete Time: 19:18 [facility] 05/11 19:09 Order name: CBC Smear Scan; Complete Time: 19:43 [facility] 05/11 20:46 Order name: CBC with Automated Diff [facility] 05/11 20:47 Order name: CBC with Automated Diff [facility] 05/11 20:47 Order name: Comprehensive Metabolic Panel [facility] 05/11 20:47 Order name: Comprehensive Metabolic Panel [facility] 05/11 20:47 Order name: Lipase [facility] 05/11 20:47 Order name: Lipase [facility] 05/11 20:47 Order name: Magnesium [facility] 05/11 18:45 Order name: CT Abd/Pelvis - IV Contrast Only; Complete Time: 20:22 [facility] 05/11 20:46 Order name: CONS Physician Consult [facility] 05/11 20:47 Order name: Magnesium [facility] 05/11 20:47 Order name: Phosphorus [facility] 05/11 20:47 Order name: Phosphorus [facility] 05/11 20:47 Order name: Protime (+INR) [facility] 05/11 20:47 Order name: Protime (+INR) [facility] 05/11 20:47 Order name: PTT, Activated Partial Thromb [facility] 05/11 20:47 Order name: PTT, Activated Partial Thromb [facility] 05/11 20:49 Order name: Abdomen Acute Series [facility] 05/11 20:49 Order name: Abdomen Acute Series [facility] 05/11 22:26 Order name: Urine Dipstick--Ancillary (enter results) ar[facility] 05/11 18:35 Order name: IV Saline Lock; Complete Time: 18:41 [facility] [place] 05/11 18:35 Order name: Labs collected and sent; Complete Time: 18:41 [facility] [place] 05/11 18:48 Order name: EKG - Nurse/Tech; Complete Time: 18:56 [facility] 05/11 20:30 Order name: NG Tube; Complete Time: 20:56 [facility] 05/11 20:46 Order name: NPO EDMS Administered Medications: 18:57 Drug: Zofran 4 mg Route: IVP; Site: right forearm; mg2 21:56 Follow up: Response: No adverse reaction mg2 20:26 Drug: fentaNYL (PF) 50 mcg Route: IVP; Site: right forearm; mg2 21:55 Follow up: Response: No adverse reaction mg2 21:35 Drug: Flagyl 500 mg Volume: 100 ml; Route: IVPB; Rate: 200 ml/hr; Infused Over: 30 mg2 mins; Site: right forearm; 21:54 Follow up: IV Status: Infusion continued upon admission mg2 21:53 Drug: Cipro 400 mg Volume: 200 ml; Route: IVPB; Infused Over: 60 mins; Site: right mg2 forearm; 21:55 Follow up: Response: No adverse reaction; IV Status: Infusion continued upon admission mg2 Disposition: 05/12 07:06 Co-signature as Attending Physician, Cristóbal Aguilar MD. rn Disposition: 05/11/19 20:38 Hospitalization ordered by Rex Christie for Inpatient Admission. Preliminary diagnosis is Bowel Obstruction. - Bed requested for Telemetry/MedSurg (Inpatient). - Status is Inpatient Admission. mg2 - Condition is Stable. - Problem is an acute exacerbation. - Symptoms have improved. UTI on Admission? No Signatures: Dispatcher [employer] EDMS Noel Simmons PA PA [facility] Marquita Guido RN RN Cristóbal Aguilar MD MD rn Garcia, Cindy, RN RN cg Gardose, Michele, RN RN mg2 Corrections: (The following items were deleted from the chart) 05/11 21:36 20:38 Hospitalization Ordered by Rex Christie MD for Inpatient Admission. Preliminary cg diagnosis is Bowel Obstruction. Bed requested for Telemetry/MedSurg (Inpatient). Status is Inpatient Admission. Condition is Stable. Problem is an acute exacerbation. Symptoms have improved. UTI on Admission? No. vijay 22:42 21:36 05/11/2019 20:38 Hospitalization Ordered by Rex Christie MD for Inpatient mg2 Admission. Preliminary diagnosis is Bowel Obstruction. Bed requested for Telemetry/MedSurg (Inpatient). Status is Inpatient Admission. Condition is Stable. Problem is an acute exacerbation. Symptoms have improved. UTI on Admission? No. cg
--- NOTE | 2019-05-11 20:39 | ER ---
Nurse's Notes [facility] Tristen Name: Soy Dove Age: 78 yrs Sex: Male : 1940 Arrival Date: 05/11/2019 Time: 18:29 Bed 6 Private MD: Diagnosis: Bowel Obstruction Presentation: 05/11 18:43 Presenting complaint: Patient states: abd pain/distention since last night, vomited iw twice today, hx of bowel obstruction, last BM today and was normal. Transition of care: patient was not received from another setting of care. Onset of symptoms was May 10, 2019. Risk Assessment: Do you want to hurt yourself or someone else? Patient reports no desire to harm self or others. Initial Sepsis Screen: Does the patient meet any 2 criteria? No. Patient's initial sepsis screen is negative. Does the patient have a suspected source of infection? No. Patient's initial sepsis screen is negative. Care prior to arrival: None. 18:43 Method Of Arrival: Ambulatory iw 18:43 Acuity: POPPY 3 iw Historical: - Allergies: 18:42 Codeine; mg2 - Home Meds: 18:42 Alprazolam Oral [Active]; Hydrochlorothiazide Oral [Active]; mg2 18:43 aspirin 81 mg Oral chew 1 tab once daily [Active]; losartan Oral [Active]; mg2 - PMHx: 18:42 High Cholesterol; Hypertension; bowel obstruction; mg2 - Immunization history:: Adult Immunizations up to date. - Social history:: Smoking status: Patient/guardian denies using tobacco, Patient uses alcohol, but reports only rare drinking. - Ebola Screening: : Patient negative for fever greater than or equal to 101.5 degrees Fahrenheit, and additional compatible Ebola Virus Disease symptoms Patient denies exposure to infectious person Patient denies travel to an Ebola-affected area in the 21 days before illness onset No symptoms or risks identified at this time. Screenin:42 Abuse screen: Denies threats or abuse. Denies injuries from another. Nutritional mg2 screening: No deficits noted. Tuberculosis screening: No symptoms or risk factors identified. Fall Risk IV access (20 points). Assessment: 18:43 General: Appears in no apparent distress. comfortable, Behavior is calm, cooperative. mg2 Pain: Complains of pain in abdomen Pain does not radiate. Quality of pain is described as aching, Pain began gradually. Neuro: Level of Consciousness is awake, alert, obeys commands, Oriented to person, place, time, situation. Cardiovascular: Capillary refill < 3 seconds Patient's skin is warm and dry. Respiratory: Airway is patent Respiratory effort is even, unlabored, Respiratory pattern is regular, symmetrical. GI: Bowel sounds present X 4 quads. Abd is soft and non tender Reports lower abdominal pain, upper abdominal pain, vomiting. EENT: No signs and/or symptoms were reported regarding the EENT system. Derm: Skin is intact, is healthy with good turgor, Skin is pink, warm \T\ dry. normal. Musculoskeletal: Circulation, motion, and sensation intact. Capillary refill < 3 seconds. 21:58 Reassessment: called for report but nurse is still busy with another patient. she will mg2 call me back as per COLLIN Garcia. Vital Signs: 18:43 BP 168 / 107; Pulse 110; Resp 20 S; Pulse Ox 93% on R/A; Weight 95.25 kg; Height 5 ft. iw 8 in. (172.72 cm); Pain 10/10; 18:57 Temp 98(O); mg2 19:14 BP 165 / 102; Pulse 102; Resp 18; Pulse Ox 94% on 2 lpm NC; mg2 20:20 Pulse 106; Resp 18; Pulse Ox 100% on R/A; mg2 20:29 BP 177 / 100; mg2 21:36 BP 163 / 92; Pulse 93; Resp 18; Temp 98.6(O); Pulse Ox 94% on 2 lpm NC; mg2 18:43 Body Mass Index 31.93 (95.25 kg, 172.72 cm) ED Course: 18:29 Patient arrived in ED. jg7 18:33 Noel Simmons PA is PHCP. jmm 18:33 Cristóbal Augilar MD is Attending Physician. jmm 18:41 No provider procedures requiring assistance completed. Inserted saline lock: 20 gauge mg2 in right forearm, using aseptic technique. Blood collected. 18:43 Arm band placed on. iw 18:44 Triage completed. iw 18:44 Patient has correct armband on for positive identification. Pulse ox on. NIBP on. Door mg2 closed. 18:50 Jonathan Morales, COLLIN is Primary Nurse. mg2 19:43 CT completed. Patient tolerated procedure well. Patient moved back from CT. kw1 19:44 CT Abd/Pelvis - IV Contrast Only In Process Unspecified. EDMS 20:38 Rex Christie MD is Hospitalizing Provider. jmm 21:35 NGT: inserted 16 Fr. via left nare. verified placement of air over stomach, verified mg2 return of gastric contents, to intermittent suction. Returned gastric contents. Returned bile. Patient tolerated well. Patient admitted, IV remains in place. Administered Medications: 18:57 Drug: Zofran 4 mg Route: IVP; Site: right forearm; mg2 21:56 Follow up: Response: No adverse reaction mg2 20:26 Drug: fentaNYL (PF) 50 mcg Route: IVP; Site: right forearm; mg2 21:55 Follow up: Response: No adverse reaction mg2 21:35 Drug: Flagyl 500 mg Volume: 100 ml; Route: IVPB; Rate: 200 ml/hr; Infused Over: 30 mg2 mins; Site: right forearm; 21:54 Follow up: IV Status: Infusion continued upon admission mg2 21:53 Drug: Cipro 400 mg Volume: 200 ml; Route: IVPB; Infused Over: 60 mins; Site: right mg2 forearm; 21:55 Follow up: Response: No adverse reaction; IV Status: Infusion continued upon admission mg2 Output: 21:56 Gastric: 1800ml (NGT); Total: 1800ml. mg2 Outcome: 20:38 Decision to Hospitalize by Provider. jmm 22:07 Admitted to Tele accompanied by tech, via wheelchair, room 406, with oxygen, with mg2 chart, Report called to COLLIN Elliott 22:07 Condition: stable 22:07 Instructed on the need for admit, Demonstrated understanding of instructions. 22:42 Patient left the ED. mg2 Signatures: Dispatcher [employer] EDMS Noel Simmons PA PA jmm Williams, Irene, RN RN Kadi Graves kw1 Jonathan Morales RN RN mg2 Kiley Bergerg7 Corrections: (The following items were deleted from the chart) 22:07 21:36 BP 163 / 92; Pulse 93bpm; Resp 18bpm; Pulse Ox 94% 2 lpm Nasal Cannula; mg2 mg2
[2019-05-11] MEDS ORDERED: CIPROFLOXACIN 400mg IV 400 MG/200 ML BAG IV ONE (21:33)
[2019-05-11] MEDS ORDERED: METRONIDAZOLE 500mg IVPB 500 MG/100 ML BAG IV ONE (21:33)
[2019-05-11 22:44] LABS: Urine Blood NEGATIVE (NEG); Urine Glucose NEGATIVE (NEG); Urine Protein NEGATIVE (NEG); Urine Specific Gravity 1.015 (1.005-1.030)
[2019-05-11 22:58] VITALS: BMI 31.4
[2019-05-12] MEDS: METRONIDAZOLE 500mg IVPB 500 MG/100 ML BAG IV SCH ×5 (00:46→23:24)
[2019-05-12] MEDS: NA CHLORIDE 0.9% 1,000 ML IV SCH ×3 (00:52→23:25)
[2019-05-12 06:41] LABS: Basophils % 0.2 % (0-1.3); Lymphocytes % 7.6 % (15.3-44.8); MPV 8.2 fL (7.6-11.3); RBC Red Blood Cell Count 5.61 M/uL (4.33-5.43)
[2019-05-12 06:55] LABS: Albumin 3.8 g/dL (3.4-5.0); Bilirubin Total 1.2 mg/dL (0.2-1.0); Magnesium 2.1 mg/dL (1.8-2.4); Phosphorus 2.8 mg/dL (2.5-4.9); Potassium 3.9 mmol/L (3.5-5.1); Protein, Total 7.4 g/dL (6.4-8.2); Protime INR 1.05
[2019-05-12] MEDS ORDERED: KCL 20 MEQ/100 mL IVPB 20 MEQ/100 ML BAG IV SCH (08:00)
[2019-05-12] MEDS: Levofloxacin500mg IV 500 MG/100 ML BAG IV SCH (08:37)
[2019-05-12] MEDS: ENOXAPARIN 30 MG/0.3 ML SQ SCH (08:37)
--- NOTE | 2019-05-12 08:52 | P.HP ---
Certification for Inpatient Patient admitted to: Inpatient With expected LOS: >2 Midnights Patient will require the following post-hospital care: None Practitioner: I am a practitioner with admitting privileges, knowledge of patient current condition, hospital course, and medical plan of care. Services: Services provided to patient in accordance with Admission requirements found in Title 42 Section 412.3 of the Code of Federal Regulations Patient History Date of Service: 05/11/19 Reason for admission: Small-bowel obstruction History of Present Illness: Patient is a 78-year-old gentleman who comes into the hospital with abdominal discomfort. Patient was eating at a restaurant and afterwards developed severe abdominal discomfort along with nausea and vomiting. He came to the emergency room and CT scan revealed a mechanical small bowel obstruction. Patient was given an NG tube and IV hydration. General surgery was notified and they wanted to admit the patient. Patient will be admitted to the hospital for further evaluation. Allergies codeine Allergy (Intermediate, Verified 05/30/17 21:46) Shortness of breath Home Medications: Hydrocodone Bit/Acetaminophen [Hydrocodon-Acetaminoph 7.5-325] 7.5 - 325 mg PO TID 03/23/18 Losartan/Hydrochlorothiazide [Losartan-Hctz 100-12.5 mg Tab] 12.5 mg PO DAILY ALPRAZolam [Alprazolam] 2 mg PO BEDTIME 09/12/18 Gabapentin [Neurontin*] 300 mg PO TID 09/12/18 Pantoprazole Sodium 40 mg PO DAILY 09/12/18 Calcium/Magnesium/Zinc [Mswhtpt-Sfeaglejx-Tcej Tablet] 1 each PO DAILY 05/11/19 Cholecalciferol (Vitamin D3) [Vitamin D3] 4 tab PO DAILY 05/11/19 Cyanocobalamin [Vitamin B-12*] 1,000 mcg PO DAILY 05/11/19 Glucosamine/D3/Boswellia Dee [Osteo Bi-Flex Tablet] 1 each PO DAILY 05/11/19 Krill/Om-3/Dha/Epa/Phospho/Ast [Krill Oil 500 mg Softgel] 1 each PO DAILY Multivitamin [Multiple Vitamins] 1 each PO DAILY 05/11/19 Pravastatin Sodium 20 mg pe PO DAILY 05/11/19 Thyroid Tab [[place] Thyroid] 180 mg PO DAILY 05/11/19 - Past Medical/Surgical History Has patient received pneumonia vaccine in the past: Yes Diabetic: No -: Hypertension -: CAD -: Chronic obstructive pulmonary disease -: hyperlipidemia -: prostate surgery -: triple bypass -: CABG -: left foot surgery -: cataract surgery- both eyes -: appedectomy - Family History Father Medical History: Other (see notes) Notes: CHF Mother Notes: pneumonia - Social History Smoking Status: Former smoker Alcohol use: Yes CD- Drugs: No Caffeine use: Yes Place of Residence: Home Review of Systems 10-point ROS is otherwise unremarkable Physical Examination - Vital Signs Temperature: 98.7 F Blood Pressure: 160/95 Pulse: 84 Respirations: 18 Pulse Ox (%): 96 - Physical Exam General: Alert, In no apparent distress, Oriented x3 HEENT: Atraumatic, PERRLA, Mucous membr. moist/pink, Other ( NG tube in place), EOMI, Sclerae nonicteric Neck: Supple, 2+ carotid pulse no bruit, No LAD, Without JVD or thyroid abnormality Respiratory: Clear to auscultation bilaterally, Normal air movement Cardiovascular: Regular rate/rhythm, Normal S1 S2, No murmurs Gastrointestinal: Normal bowel sounds, Soft and benign, Non-distended, No tenderness Musculoskeletal: No clubbing, No swelling, No tenderness Integumentary: No rashes Neurological: Normal gait, Normal speech, Normal strength at 5/5 x4 extr, Normal tone, Sensation intact, Cranial nerves 3-12 intact, Normal affect Lymphatics: No axilla or inguinal lymphadenopathy - Studies Laboratory Data (last 24 hrs) 05/11/19 18:40: Creatinine 1.09 05/11/19 18:40: WBC 19.4 H, Hgb 19.3 H, Hct 55.2 H, Plt Count 221 05/11/19 18:40: Sodium 141, Potassium 3.8, BUN 30 H, Creatinine 1.09, Glucose 131 H, Total Bilirubin 1.0, AST 25, ALT 35, Alkaline Phosphatase 72, Lipase 113 Assessment & Plan - Problems (Diagnosis) (1) Small bowel obstruction Current Visit: Yes Status: Acute (2) COPD (chronic obstructive pulmonary disease) with chronic bronchitis Current Visit: No Status: Acute (3) Coronary artery disease Onset Date: 09/01/17 Current Visit: No Status: Chronic Qualifiers: (4) Essential hypertension Onset Date: 09/01/17 Current Visit: No Status: Chronic (5) Hyperlipidemia Onset Date: 07/12/17 Current Visit: No Status: Chronic Qualifiers: - Plan -management per surgery -NG tube in place -IV hydration and IV antibiotics -NPO -strict blood pressure and blood sugar control -monitor electrolytes and blood count closely -Dc [place] catheter in 24 hr -pain control Discharge Plan: Home Plan to discharge in: Greater than 2 days - Advance Directives Does patient have a Living Will: Yes Does patient have a Durable POA for Healthcare: Yes - Code Status/Comfort Care Code Status Assessed: Yes Code Status: Full Code Critical Care: No Time Spent Managing PTS Care (In Minutes): 45
[2019-05-12] MEDS ORDERED: LORazepam 2 MG/ML VIAL IV PRN (10:53)
[2019-05-12] MEDS ORDERED: SODIUM CHLORIDE 0.9% 10ML INJ IV PRN (10:53)
--- NOTE | 2019-05-12 10:53 | P.PN ---
Subjective Date of Service: 05/12/19 Primary Care Provider: Dr. Maldonado Chief Complaint: Small-bowel obstruction Subjective: Other (Patient had BM and passage of gas this morning. Less distention noted. NG tube in place.) Physical Examination - Vital Signs Temperature: 98.7 F Blood Pressure: 160/95 Pulse: 84 Respirations: 18 Pulse Ox (%): 96 - Physical Exam General: Alert, Other (NG tube in place.) HEENT: Atraumatic Neck: Supple Respiratory: Clear to auscultation bilaterally, Normal air movement Cardiovascular: Normal pulses, Regular rate/rhythm Gastrointestinal: Normal bowel sounds, Soft and benign, Non-distended, No masses , No rebound, No guarding, Tenderness (Minimal pain to the abdomen. Less distention noted as reported by patient.) Musculoskeletal: No erythema, No tenderness, No warmth Integumentary: No erythema, No warmth, No cyanosis Neurological: Normal speech, Normal strength at 5/5 x4 extr, Normal tone, Normal affect - Studies Laboratory Data (last 24 hrs) 05/11/19 18:40: Creatinine 1.09 05/11/19 18:40: WBC 19.4 H, Hgb 19.3 H, Hct 55.2 H, Plt Count 221 05/11/19 18:40: Sodium 141, Potassium 3.8, BUN 30 H, Creatinine 1.09, Glucose 131 H, Total Bilirubin 1.0, AST 25, ALT 35, Alkaline Phosphatase 72, Lipase 113 Medications List Reviewed: Yes Assessment & Plan Discharge Plan: Home Plan to discharge in: Greater than 2 days Physician Review Additional Text: Impression: Nausea, vomiting, abdominal pain secondary to mechanical small bowel obstruction Hypertension Hyperlipidemia Hypothyroidism GERD Obesity, BMI 31.4 Plan: Nausea, vomiting, abdominal pain secondary to mechanical small bowel obstruction : Case discussed with surgery. Continue with NG tube. Continue monitor closely. Patient NPO at this time. Will monitor closely. Bowel rest to be continued. Will reassess tomorrow. Likely discharge in the next 1-3 days. Hypertension: Will provide medication IV. Hyperlipidemia: Hold home medication at this time. Hypothyroidism: Hold home medication at this time. GERD: Will continue with medication IV Obesity, BMI 31.4: Will address lifestyle modification education. Time Spent Managing Pts Care (In Minutes): 55
[2019-05-12] MEDS: HYDRALAZINE HCL 20 MG/ML VIAL IV PRN ×2 (12:08→20:41)
--- NOTE | 2019-05-12 12:12 | RAD REPORT ---
EXAM DESCRIPTION: RAD - Abdomen Acute Series - 05/12/2019 6:26 am CLINICAL HISTORY: SBO COMPARISON: Chest Pa And Lat (2 Views) dated 04/03/2019; Abdomen Acute Series dated 09/12/2018; Chest S marcelo View dated 09/11/2018; Chest Single View dated 03/23/2018; Abdomen Pelvis W Contrast dated 2018 FINDINGS: Multiple small bowel loops are dilated in the upper abdomen compatible with mild to modera te mechanical bowel obstruction. Severe of obstruction appears mildly improved since the comparative CT study. Enteric tube tip is in the stomach. No pneumoperitoneum.
--- NOTE | 2019-05-12 12:14 | CON ---
Date of Consultation: 05/12/2019 Reason For Consultation: Small bowel obstruction. History Of Present Illness: Patient is a 78-year-old gentleman, who is feeling unwell since Monday n ight, had 1 episode of nausea and vomiting. He is passing gas, did have a bowel movement yesterday, last night actually and his pain was diffuse initially and now it is better. He is awake, alert, in no distress at this time. He has an NG tube in place and he had a CAT scan done, and abdominal x-ray done this morning. No sore throat, runny nose, cough, headaches, or dizziness. No chest pain. Review of Systems: Otherwise unremarkable. Past Medical History: Significant for hypercholesterolemia, hypertension, and previous history of sergey wel obstruction in September of this year. Past Surgical History: Appendectomy approximately 22 years ago. Allergies: INCLUDE CODEINE. Social History: He does not smoke. Drinks very occasionally. Family History: Noncontributory. Physical Examination: Vital Signs: Stable. He is currently afebrile. General: He is awake, alert, oriented x3. Head and Neck: Cranial nerves 2 through 12 grossly within normal limits. No neck masses. No JVD. Throat clear. Neck is supple. Chest: Clear. Heart: S1 and S2. Abdomen: Soft, nondistended. Positive bowel sounds. Hypoactive in nature. No tenderness. No rebo und, rigidity or guarding. Extremities: Adequately perfused. Nontender. Neuro: Nonfocal. CT of the abdomen and pelvis reviewed shows mechanical small bowel obstruction with jejunum and proxi mal ileum moderately dilated. Distal ileum is decompressed. Gastric is distended and the colon is d ecompressed. There is no free air or abscess. His abdominal x-ray I looked at this morning but asif madrigal report is not out. On the x-ray he still has dilated small bowel but there is air in the colon. Assessment: Small-bowel obstruction, slowly improving. Recommendation: Continue n.p.o. NG tube, IV fluid, IV antibiotics. We will check another x-ray sienna rrow. Do serial abdominal exams. There is no need for any acute surgical intervention. Patient cli nically is stable. We will follow this patient while in the hospital. MARTY/JANAK Voice ID: [id number] Report ID: [id number]
--- NOTE | 2019-05-13 05:24 | EKG ---
Test Date: 2019-05-11 Test Time: 18:58:53 Sewing Trimmer: JULI MEASUREMENT RESULTS: Intervals: Rate: 105 OR: 164 QRSD: 100 QT: 352 QTc: 465 [place]: P: 67 OR: 164 QRS: -2 T: 98 INTERPRETIVE STATEMENTS: Sinus tachycardia Possible Left atrial enlargement Left ventricular hypertrophy with repolarization abnormality Cannot rule out Septal infarct, age undetermined Abnormal ECG Compared to ECG 09/11/2018 23:17:08 Sinus rhythm no longer present Myocardial infarct finding still present Electronically Signed On 05-13-19 05:23:50 BUILDING CARPENTER by Vish Gray
[2019-05-13] MEDS: METRONIDAZOLE 500mg IVPB 500 MG/100 ML BAG IV SCH ×2 (05:26→12:00)
[2019-05-13 05:53] LABS: Absolute Lymphocytes (CBC) 1.1 K/uL (0.7-4.9); Basophils % 0.5 % (0-1.3); Hematocrit 48.9 % (39.6-49.0); Lymphocytes % 10.5 % (15.3-44.8); MPV 8.3 fL (7.6-11.3); RBC Red Blood Cell Count 5.32 M/uL (4.33-5.43)
[2019-05-13 05:56] LABS: Potassium 3.9 mmol/L (3.5-5.1)
[2019-05-13] MEDS: HYDRALAZINE HCL 20 MG/ML VIAL IV PRN (05:57)
--- NOTE | 2019-05-13 08:16 | RAD REPORT ---
EXAM DESCRIPTION: RAD - Abdomen Single View - 05/13/2019 5:58 am CLINICAL HISTORY: SBO Pain COMPARISON: Abdomen Pelvis W Contrast dated 05/11/2019 FINDINGS: Improvement in a small bowel obstruction pattern is seen since the prior study. Mildly dil ated upper abdominal small bowel loops persists, however mildly improved since prior study. No free a ir.
--- NOTE | 2019-05-13 08:29 | RAD REPORT ---
EXAM DESCRIPTION: RAD - Abdomen W Erect - 05/13/2019 7:57 am CLINICAL HISTORY: SBO Pain COMPARISON: Abdomen W Erect dated 03/25/2018; Abdomen Single View dated 05/13/2019; Abdomen Pelvis W Contrast dated 05/11/2019 FINDINGS: A few stacked small bowel loops persist in the upper abdomen caliber overall, there has be en moderate improvement in the previously noted SBO. No pneumoperitoneum. No pathologic calcification .
[2019-05-13] MEDS: ENOXAPARIN 30 MG/0.3 ML SQ SCH (08:43)
[2019-05-13] MEDS: Levofloxacin500mg IV 500 MG/100 ML BAG IV SCH (08:44)
[2019-05-13] MEDS ORDERED: KCL 20 MEQ/100 mL IVPB 20 MEQ/100 ML BAG IV SCH (09:00)
[2019-05-13] MEDS ORDERED: PANTOPRAZOLE 40 MG INJ IVP SCH (09:00)
[2019-05-13 09:55] VITALS: O2SAT 95
[2019-05-13 12:58] VITALS: TEMP 97.6
[2019-05-13] MEDS: NA CHLORIDE 0.9% 1,000 ML IV SCH (13:00)
[2019-05-13 13:05] VITALS: BP 152/78
--- NOTE | 2019-05-13 14:36 | P.DS ---
Admission Date: 05/11/19 Discharge Date: 05/13/19 Primary Care Provider: Dr. Maldonado Disposition: ROUTINE DISCHARGE Discharge Condition: GOOD Reason for Admission: Small-bowel obstruction Consultations: General surgery - Problems (1) Small bowel obstruction Current Visit: Yes Status: Acute (2) Coronary artery disease Onset Date: 09/01/17 Current Visit: No Status: Chronic Qualifiers: Coronary Disease-Associated Artery/Lesion type: circle artery [place] vs. transplanted heart: circle heart Associated angina: without angina Qualified Code(s): I25.10 - Atherosclerotic heart disease of circle coronary artery without angina pectoris (3) Essential hypertension Onset Date: 09/01/17 Current Visit: No Status: Chronic (4) GERD (gastroesophageal reflux disease) Current Visit: No Status: Chronic Qualifiers: Esophagitis presence: with esophagitis Qualified Code(s): K21.0 - Gastro- esophageal reflux disease with esophagitis (5) Hyperlipidemia Onset Date: 07/12/17 Current Visit: No Status: Chronic Qualifiers: Hyperlipidemia type: mixed hyperlipidemia Brief History of Present Illness: Patient is a 78-year-old gentleman who comes into the hospital with abdominal discomfort. Patient was eating at a restaurant and afterwards developed severe abdominal discomfort along with nausea and vomiting. He came to the emergency room and CT scan revealed a mechanical small bowel obstruction. Patient was given an NG tube and IV hydration. General surgery was notified and they wanted to admit the patient. Patient will be admitted to the hospital for further evaluation. Hospital Course: Overall during the hospital stay patient remained stable Patient was initially admitted to the hospital for nausea vomiting was found to have small bowel obstruction mechanical in nature. General surgery was consulted. Patient was kept NPO and NG tube was placed. Was also started on IV antibiotics here in the hospital. IV fluids as well. Patient had marked improvement in his symptoms. Was passing gas and had a bowel movement in next 24 hr. At that time patient's NG tube was clamped and patient pulled out his NG tube for his diet was advanced. Once patient was feeling better. Patient was advanced to a clear liquid diet which she tolerated well and then to soft liquid diet as well. Once patient was tolerating his diet well and has lab work had marked improvement he was discharged home under stable condition was asked to follow up with general surgery about 1-2 days post discharge. Patient demonstrate understanding and thus was discharged home under stable condition Vital Signs/Physical Exam: Temp Pulse Resp BP Pulse Ox 97.6 F 95 H 18 152/78 H 97 05/13/19 12:00 05/13/19 12:00 05/13/19 12:00 05/13/19 13:00 05/13/19 12:00 General: Alert, In no apparent distress HEENT: Atraumatic, PERRLA, EOMI Neck: Supple, JVD not distended Respiratory: Clear to auscultation bilaterally, Normal air movement Cardiovascular: Regular rate/rhythm, Normal S1 S2 Gastrointestinal: Normal bowel sounds, No tenderness Musculoskeletal: No tenderness Integumentary: No rashes Neurological: Normal speech, Normal tone, Normal affect Lymphatics: No axilla or inguinal lymphadenopathy Laboratory Data at Discharge: WBC 10.3 K/uL (4.3-10.9) D 05/13/19 05:27 Hgb 16.9 g/dL (13.6-17.9) 05/13/19 05:27 Hct 48.9 % (39.6-49.0) 05/13/19 05:27 Plt Count 220 K/uL (152-406) 05/13/19 05:27 PT 12.4 SECONDS (9.5-12.5) 05/12/19 05:34 INR 1.05 05/12/19 05:34 APTT 30.1 SECONDS (24.3-36.9) 05/12/19 05:34 Sodium 142 mmol/L (136-145) 05/13/19 05:27 Potassium 3.9 mmol/L (3.5-5.1) 05/13/19 05:27 BUN 32 mg/dL (7-18) H 05/13/19 05:27 Creatinine 1.01 mg/dL (0.55-1.3) 05/13/19 05:27 Glucose 134 mg/dL (74-106) H 05/13/19 05:27 Phosphorus 2.8 mg/dL (2.5-4.9) 05/12/19 05:34 Magnesium 2.0 mg/dL (1.8-2.4) 05/13/19 05:27 Total Bilirubin 1.2 mg/dL (0.2-1.0) H 05/12/19 05:34 AST 14 U/L (15-37) L 05/12/19 05:34 ALT 26 U/L (12-78) 05/12/19 05:34 Alkaline Phosphatase 60 U/L (45-117) 05/12/19 05:34 Lipase 88 U/L (73-393) 05/12/19 05:34 Home Medications: Hydrocodone Bit/Acetaminophen [Hydrocodon-Acetaminoph 7.5-325] 7.5 - 325 mg PO TID 03/23/18 Losartan/Hydrochlorothiazide [Losartan-Hctz 100-12.5 mg Tab] 12.5 mg PO DAILY ALPRAZolam [Alprazolam] 2 mg PO BEDTIME 09/12/18 Gabapentin [Neurontin*] 300 mg PO TID 09/12/18 Pantoprazole Sodium 40 mg PO DAILY 09/12/18 Calcium/Magnesium/Zinc [Fnipsmc-Lrcofwnvd-Ohqd Tablet] 1 each PO DAILY 05/11/19 Cholecalciferol (Vitamin D3) [Vitamin D3] 4 tab PO DAILY 05/11/19 Cyanocobalamin [Vitamin B-12*] 1,000 mcg PO DAILY 05/11/19 Glucosamine/D3/Boswellia Dee [Osteo Bi-Flex Tablet] 1 each PO DAILY 05/11/19 Krill/Om-3/Dha/Epa/Phospho/Ast [Krill Oil 500 mg Softgel] 1 each PO DAILY Multivitamin [Multiple Vitamins] 1 each PO DAILY 05/11/19 Pravastatin Sodium 20 mg pe PO DAILY 05/11/19 Thyroid Tab [[place] Thyroid*] 180 mg PO DAILY 05/11/19 Diet: ADA Activity: Ad bryan Followup: Kurt Hightower MD [ACTIVE - CAN ADMIT] - 1 Week (surgery- Call to schedule an appointment )
--- NOTE | 2019-05-13 15:33 | PN ---
Date of Progress Note: 05/13/2019 Subjective: Patient is awake, alert. No complaints. He says that the NG tube fell out. He has had a couple of bowel movements. NG tube . Laboratory Data: His laboratory data reviewed. White count is normal. There is a left shift, [facility] er. Chemistry reviewed. Objective: ABDOMEN: Soft, nondistended, nontender. Positive bowel sounds. VITAL SIGNS: stable, afebrile. Assessment: Small bowel obstruction, resolving. Recommendations: Advance diet if tolerated, GI soft. Can be discharged home. Patient was advised f or small frequent meals. Follow up on his colonoscopy, was told to avoid big heavy meals. MARTY/JANAK Voice ID: [id number] Report ID: [id number]
== END 2019-05-13 14:10 | disposition home or self-care (01) | DRG 390 ==
LOC: ER 18:25 → SUPCPDRO 18:25 → ERHOLD 20:51 → 4TH 22:07
PROVIDERS: ADMIT Hospitalist; ATTEND Hospitalist
DX: K56.609 Unspecified intestinal obstruction, unspecified as to partial versus complete obstruction (principal); I25.10 Atherosclerotic heart disease of native coronary artery without angina pectoris; I10 Essential (primary) hypertension; K21.9 Gastro-esophageal reflux disease without esophagitis; E78.5 Hyperlipidemia, unspecified; E03.9 Hypothyroidism, unspecified; E66.9 Obesity, unspecified; Z68.31 Body mass index [BMI] 31.0-31.9, adult; Z95.1 Presence of aortocoronary bypass graft
CPT/HCPCS: 36415; 74018; 74019; 74022; 74177; 80048; 80053; 80076; 81003; 83690; 83735; 84100; 84484; 85025; 85610; 85730; 93005; 96365; 96375; 99285; C9113; J0360; J0744; J1650; J2405; J3010; J7030; Q9967

== ENCOUNTER 2019-08-17 21:14 | Inpatient (IN) | payer OTHER, MEDICARE ==
[2019-08-17] MEDS ORDERED: AZITHROMYCIN 500 MG INJ IVPB ONE (21:35)
[2019-08-17] MEDS ORDERED: NA CHLORIDE 0.9% 250 ML ONE (21:36)
[2019-08-17] MEDS ORDERED: CEFTRIAXONE/SWI 1gm 1 GM/10 ML SYR ONE (21:36)
[2019-08-17 21:54] LABS: Absolute Lymphocytes (CBC) 0.5 K/uL (0.7-4.9); Basophils % 0.3 % (0-1.3); Hematocrit 41.2 % (39.6-49.0); Lymphocytes % 4.9 % (15.3-44.8); MPV 8.5 fL (7.6-11.3); RBC Red Blood Cell Count 4.36 M/uL (4.33-5.43)
[2019-08-17 21:58] LABS: Protime INR 1.23
--- NOTE | 2019-08-17 22:08 | ER ---
Nurse's Notes [facility] Name: Syo Dove Age: 79 yrs Sex: Male : 1940 Arrival Date: 08/17/2019 Time: 21:17 Bed 16 Private MD: Diagnosis: Other pneumonia, unspecified organism;Other specified sepsis Presentation: 08/17 21:28 Presenting complaint: EMS states: they were toned out for report of pt with dyspnea, bb productive cough, and fever x 3 days pt O2 sats on room air on their arrival were 87%. Transition of care: patient was not received from another setting of care. Onset of symptoms was August 14, 2019. Risk Assessment: Do you want to hurt yourself or someone else? Patient reports no desire to harm self or others. Initial Sepsis Screen: Does the patient meet any 2 criteria? RR > 20 per min. Temp <36.0*C (96.8*F)) or > 38.3*C (100.9*F). HR > 90 bpm. Yes Does the patient have a suspected source of infection? Yes: Productive cough/pneumonia If YES to both, name of provider notified: Joseph Garcia MD Care prior to arrival: Medication(s) given: Albuterol Neb x 1, Atrovent Neb x 1, Tylenol, 1000 mg, IV initiated. 18 GA, in the left forearm, Glucose check: 187 Med neb given. Oxygen administered. via nasal cannula. 21:28 Method Of Arrival: EMS: [facility] bb 21:28 Acuity: POPPY 2 bb Historical: - Allergies: 21:39 Codeine; bb - Home Meds: 21:39 Alprazolam Oral [Active]; aspirin 81 mg Oral chew 1 tab once daily [Active]; bb Hydrochlorothiazide Oral [Active]; losartan Oral [Active]; - PMHx: 21:39 bowel obstruction; High Cholesterol; Hypertension; bb - PSHx: 21:39 CABG; CPAP; bb - Immunization history:: Adult Immunizations up to date. - Coronavirus screen:: The patient has NOT traveled to [place], [place], or [place] in the past 14 days. Proceed with normal triage process as indicated. - Social history:: Smoking status: unknown. - Ebola Screening: : No symptoms or risks identified at this time. Screenin:37 Abuse screen: Denies threats or abuse. Denies injuries from another. Nutritional ls4 screening: No deficits noted. Tuberculosis screening: No symptoms or risk factors identified. Fall Risk None identified. Assessment: 21:20 General: Appears distressed, uncomfortable, Behavior is calm, cooperative. Pain: Denies ls4 pain. Neuro: No deficits noted. Cardiovascular: Denies chest pain, Heart tones S1 S2 Capillary refill < 3 seconds Clubbing of nail beds is absent JVD is absent Pulses are 2+ in right radial artery and left radial artery Edema is absent. Respiratory: Reports shortness of breath cough that is labored breathing Airway is patent Respiratory effort is labored, Respiratory pattern is regular, symmetrical, tachypnea Breath sounds are diminished bilaterally. the patient has severe shortness of breath. GI: No deficits noted. : No deficits noted. Derm: Skin is clammy, Skin is flushed, Skin temperature is warm. Musculoskeletal: No deficits noted. Vital Signs: 21:20 BP 147 / 72; Pulse 124; Resp 28 S; Temp 102.8(O); Pulse Ox 87% on R/A; Weight 95.25 kg bb (R); Height 5 ft. 8 in. (172.72 cm) (R); Pain 0/10; 21:21 Weight 95.25 kg; ls4 22:20 BP 116 / 69; Pulse 104; Resp 22; Pulse Ox 95% on 4 lpm NC; ls4 23:33 BP 109 / 66; Pulse 98; Resp 25; Temp 98.7(O); Pulse Ox 94% on 4 lpm NC; Pain 3/10; ls4 21:20 Body Mass Index 31.93 (95.25 kg, 172.72 cm) ED Course: 21:17 Patient arrived in ED. tw4 21:19 Gerri Tomlin, RN is Primary Nurse. ls4 21:20 Patient has correct armband on for positive identification. Allergy band placed. Bed in ls4 low position. Call light in reach. Side rails up X2. media monitor on. Pulse ox on. NIBP on. 21:21 Joseph Garcia MD is Attending Physician. tw4 21:23 No provider procedures requiring assistance completed. Inserted saline lock: 18 gauge ls4 Maintain EMS IV. Dressing intact. Good blood return noted. Site clean \T\ dry. Gauge \T\ site: 18g lac. Oxygen administration via nasal cannula \T\ 3L/min Response to oxygen therapy: 92 %. 21:32 Chest Single View XRAY In Process Unspecified. EDMS 21:37 Triage completed. bb 21:39 Arm band placed on Patient placed in an exam room, on a stretcher, on oxygen, on bb groundwater monitoring technician, on pulse oximetry. 21:55 Troponin (Emerg Dept Use Only) Sent. ls4 22:01 Kalia Woods is Hospitalizing Provider. tw4 22:26 Notified ED physician of a critical lab result(s). Bands of 19% Dr Garcia notified. bb 22:34 Oxygen administration via nasal cannula \T\ 4L/min Response to oxygen therapy: 95%. ls4 02 00:34 Patient admitted, IV remains in place. intact. ls4 Administered Medications: 08/17 21:22 Drug: NS 0.9% (30 ml/kg) 30 ml/kg Route: IV; Rate: bolus; Site: left antecubital; ls4 23:55 Follow up: IV Status: Completed infusion; IV Intake: 2900ml ls4 21:22 Drug: Rocephin - (cefTRIAXone) 1 grams Route: IVPB; Rate: calculated rate; Infused ls4 Over: 10 mins; Site: left antecubital; 21:32 Follow up: IV Status: Completed infusion; IV Intake: 10ml ls4 21:32 Drug: Zithromax 500 mg Route: IVPB; Infused Over: 1 hrs; Site: left antecubital; ls4 22:32 Follow up: Response: No adverse reaction; IV Status: Completed infusion; IV Intake: ls4 250ml 22:00 Drug: Motrin 800 mg Route: PO; ls4 22:30 Follow up: Response: No adverse reaction; Marked relief of symptoms ls4 Intake: 21:32 IV: 10ml; Total: 10ml. ls4 22:32 IV: 250ml; Total: 260ml. ls4 23:55 IV: 2900ml; Total: 3160ml. ls4 Outcome: 22:03 Decision to Hospitalize by Provider. tw4 23:35 Condition: stable ls4 08/18 00:32 Admitted to Tele via stretcher, room 404, with oxygen, on monitor, with chart, Report ls4 called to LALO POLANCOoperations administrative assistant instructions given to patient, Instructed on the need for admit, Demonstrated understanding of 00:34 Patient left the ED. ls4 Signatures: Dispatcher [employer] Berta Acuña RN RN Joseph Curry MD MD 4 Gerri Tomlin RN RN ls4 Corrections: (The following items were deleted from the chart) 08/17 23:55 23:47 IV Status: Completed infusion; IV Intake: 2700ml ls4 ls4 08/18 00:00 08/17 23:33 BP 109 / 66; Pulse 98bpm; Resp 16bpm; Pulse Ox 94% 4 lpm Nasal Cannula; ls4 Temp 98.7F Oral; Pain 3/10; ls4
[2019-08-17 22:14] LABS: ALT/SGPT 32 U/L (12-78); AST/SGOT 22 U/L (15-37); Albumin 2.8 g/dL (3.4-5.0); Alkaline Phosphatase 76 U/L (45-117); Amylase Level 19 U/L (25-115); BUN Blood Urea Nitrogen 28 mg/dL (7-18); Bicarbonate 24 mmol/L (21-32); Bilirubin Direct 0.6 mg/dL (0-0.2); Bilirubin Total 1.5 mg/dL (0.2-1.0); CKMB Creatine Kinase MB < 1.0 ng/mL (0.3-3.6); Creatine Phosphokinase 55 U/L (39-308); Glucose Level 159 mg/dL (74-106); Lipase 51 U/L (73-393); Potassium 3.5 mmol/L (3.5-5.1); Protein, Total 6.2 g/dL (6.4-8.2); Sodium Level 140 mmol/L (136-145); Troponin (Emerg Dept Use Only) 0.03 ng/mL (0.0-0.045)
[2019-08-17] MEDS ORDERED: IBUPROFEN 400 MG TAB ONE (22:19)
[2019-08-17 22:27] LABS: Blood Morphology Comment NOT SEEN (NOT SEEN); Platelet Estimate ADEQ
--- NOTE | 2019-08-17 23:12 | P.HP ---
Certification for Inpatient Patient admitted to: Inpatient With expected LOS: >2 Midnights Practitioner: I am a practitioner with admitting privileges, knowledge of patient current condition, hospital course, and medical plan of care. Services: Services provided to patient in accordance with Admission requirements found in Title 42 Section 412.3 of the Code of Federal Regulations Patient History Date of Service: 08/17/19 Reason for admission: Shortness of breath History of Present Illness: 79-year-old man with a history of COPD, coronary artery disease, status post CABG, obstructive sleep apnea and hypertension called EMS due to progressing shortness of breath of 2 days duration. Patient reports feeling sick over the past couple of days. He has been coughing for 2 days. He stated that cough is productive of greenish to brownish sputum. He stated he uses CPAP every night. He woke up from sleep this evening and felt very short of breath. EMS found him with oxygen saturation of 87%. Chest x-ray in the ED demonstrated right lung pneumonia. Patient was febrile with temperature up to 102, and tachycardic, meeting criteria for sepsis. Patient is admitted for further management of pneumonia with sepsis. Allergies codeine Allergy (Intermediate, Verified 05/30/17 21:46) Shortness of breath Home Medications: Hydrocodone Bit/Acetaminophen [Hydrocodon-Acetaminoph 7.5-325] 7.5 - 325 mg PO TID 03/23/18 ALPRAZolam [Alprazolam] 2 mg PO BEDTIME 09/12/18 Gabapentin [Neurontin*] 300 mg PO TID 09/12/18 Pantoprazole Sodium 40 mg PO DAILY 09/12/18 Calcium/Magnesium/Zinc [Hhvcxzo-Uwfpbqaxi-Qekx Tablet] 1 each PO DAILY 05/11/19 Cholecalciferol (Vitamin D3) [Vitamin D3] 4 tab PO DAILY 05/11/19 Cyanocobalamin [Vitamin B-12*] 1,000 mcg PO DAILY 05/11/19 Glucosamine/D3/Boswellia Dee [Osteo Bi-Flex Tablet] 1 each PO DAILY 05/11/19 Krill/Om-3/Dha/Epa/Phospho/Ast [Krill Oil 500 mg Softgel] 1 each PO DAILY Multivitamin [Multiple Vitamins] 1 each PO DAILY 05/11/19 Pravastatin Sodium 20 mg pe PO DAILY 05/11/19 Thyroid Tab [Gilmer Thyroid*] 180 mg PO DAILY 05/11/19 Losartan Potassium 1 tab PO DAILY 08/18/19 hydroCHLOROthiazide [Hydrochlorothiazide*] 1 tab PO DAILY 08/18/19 - Past Medical/Surgical History Diabetic: No -: Hypertension -: CAD -: Chronic obstructive pulmonary disease -: hyperlipidemia -: prostate surgery -: triple bypass -: CABG -: left foot surgery -: cataract surgery- both eyes -: appedectomy - Family History Father -: Other (see notes) Notes: CHF Mother Notes: pneumonia - Social History Alcohol use: Yes CD- Drugs: No Caffeine use: Yes Review of Systems Other: General: No unintentional weight loss. Eyes: No eye discharge, CVS: No chest pain, no palpitation, no lightheadedness. GI: No abdominal pain, no nausea no vomit, no constipation, no diarrhea. Genitourinary: No dysuria, no urinary frequency, no incontinence, no hematuria. Musculoskeletal: No joint pains, or joint swelling, no gait instability. Neurology: No headache, no asymmetric weakness, no problem with swallowing. Except as documented, all other systems reviewed and negative. Physical Examination - Physical Exam General: Alert, In no apparent distress, Oriented x3 HEENT: Mucous membr. moist/pink, Sclerae nonicteric Neck: Supple, JVD not distended Respiratory: Normal air movement, Crackles/rales (Bilateral) Cardiovascular: No edema, Normal S1 S2, Other (Tachycardic, regular rhythm.) Capillary refill: <2 Seconds Gastrointestinal: Normal bowel sounds, Soft and benign, Non-distended, No tenderness Musculoskeletal: No swelling, No erythema Integumentary: No rashes Neurological: Normal speech, Normal strength at 5/5 x4 extr, Cranial nerves 3- 12 intact - Studies Laboratory Data (last 24 hrs) 08/17/19 21:30: PT 14.4 H, INR 1.23, APTT 26.0 08/17/19 21:30: WBC 10.9, Hgb 13.7, Hct 41.2, Plt Count 168 08/17/19 21:30: Sodium 140, Potassium 3.5, BUN 28 H, Creatinine 1.15, Glucose 159 H, Total Bilirubin 1.5 H, AST 22, ALT 32, Alkaline Phosphatase 76, Amylase 19 L, Lipase 51 L 08/17/19 21:19: APTT Cancelled Assessment and Plan - Problems (Diagnosis) (1) Acute respiratory failure with hypoxia Current Visit: Yes Status: Acute (2) Pneumonia Onset Date: 09/01/17 Current Visit: No Status: Acute (3) COPD with acute exacerbation Current Visit: Yes Status: Acute (4) Sepsis Current Visit: No Status: Acute (5) Essential hypertension Onset Date: 09/01/17 Current Visit: No Status: Chronic (6) Obstructive sleep apnea Current Visit: Yes Status: Chronic - Plan Admit to the medical floor Schedule nebs, oral prednisone. IV Rocephin and Zithromax Follow blood cultures. Obtain sputum culture Follow blood cultures Nasal swab for flu screen Supplemental oxygen as needed CPAP at night. - Advance Directives Does patient have a Living Will: Yes Does patient have a Durable POA for Healthcare: Yes
--- NOTE | 2019-08-17 23:18 | RAD REPORT ---
EXAM DESCRIPTION: RAD - Chest Single View - 08/17/2019 9:28 pm CLINICAL HISTORY: COUGH Chest pain. COMPARISON: Abdomen Acute Series dated 05/12/2019; Chest Pa And Lat (2 Views) dated 04/03/2019; Abdome n Acute Series dated 09/12/2018; Chest Single View dated 09/11/2018 FINDINGS: Portable technique limits examination quality. Mild interstitial pulmonary edema suspected. The heart is mildly enlarged in size. No displaced fract ures.Sternotomy wires noted. IMPRESSION: Mild CHF.
[2019-08-17] MEDS ORDERED: NA CHLORIDE 0.9% 1,000 ML ONE (23:46)
[2019-08-18] MEDS ORDERED: ONDANSETRON 4 MG/2 ML VIAL IV PRN (00:31)
[2019-08-18] MEDS ORDERED: ACETAMINOPHEN 500 MG TAB PO PRN (00:31)
[2019-08-18] MEDS: NA CHLORIDE 0.9% 1,000 ML IV SCH ×3 (00:31→23:22)
[2019-08-18 00:50] VITALS: BMI 33.4
[2019-08-18] MEDS: ALBUTEROL 2.5 MG/3 ML NEB SOL NEB SCH ×4 (02:00→20:00)
[2019-08-18] MEDS: IPRATROPIUM BROM 0.5MG/2.5ML NEB SCH ×6 (02:00→20:00)
[2019-08-18 02:08] LABS: Urine Appearance TURBID; Urine Bilirubin NEGATIVE (NEG); Urine Blood NEGATIVE (NEG); Urine Color DK YELLOW; Urine Glucose NEGATIVE (NEG); Urine Protein 1+ (NEG); Urine Specific Gravity >=1.030 (1.005-1.030); Urine Urobilinogen 0.2 mg/dL (0.2-1.0); Urine pH 5.5 (5.0-7.0)
[2019-08-18 03:42] LABS: Urine Bacteria <20 /HPF (NONE SEEN); Urine Culture Reflex Order NOT NEEDED; Urine RBC <5 /HPF (NONE SEEN)
[2019-08-18 05:36] LABS: Basophils % 0.2 % (0-1.3); Hematocrit 38.3 % (39.6-49.0); Lymphocytes % 9.9 % (15.3-44.8); MPV 8.4 fL (7.6-11.3); RBC Red Blood Cell Count 4.09 M/uL (4.33-5.43)
[2019-08-18 05:37] LABS: Protime INR 1.23
[2019-08-18 05:57] LABS: Magnesium 2.1 mg/dL (1.8-2.4); Phosphorus 2.4 mg/dL (2.5-4.9); Potassium 3.9 mmol/L (3.5-5.1)
[2019-08-18] MEDS: ENOXAPARIN 40 MG/0.4 ML SQ SCH (07:53)
[2019-08-18] MEDS: CEFTRIAXONE/SWI 1gm 1 GM/10 ML SYR IVP SCH ×2 (07:54→20:54)
[2019-08-18] MEDS: POTASS/SODIUM PHOSPHATE 1 PKT POWD.PACK PO SCH ×3 (07:54→11:07)
[2019-08-18] MEDS: predniSONE 20 MG TAB PO SCH (07:54)
[2019-08-18] MEDS ORDERED: CEFTRIAXONE 1 GM/NS 50 ML 1 GM/50 ML BAG IV SCH (09:00)
[2019-08-18] MEDS ORDERED: POTASSIUM 25 MEQ EFFERV TAB PO ONE (09:00)
--- NOTE | 2019-08-18 09:23 | P.PN ---
Subjective Date of Service: 08/18/19 Chief Complaint: Shortness of breath Subjective: No new changes, C/O voiced (still cough , SOB improving - he has questions about his home CPAP use as he is worried he uses a high pressure at 20 mmhg) Review of Systems General: Weakness, Malaise Physical Examination - Vital Signs Temperature: 98.2 F Blood Pressure: 144/65 Pulse: 92 Respirations: 18 Pulse Ox (%): 95 - Physical Exam General: In no apparent distress, Oriented x3, Cooperative HEENT: Atraumatic, Normocephalic, PERRLA, Mucous membr. moist/pink Neck: 2+ carotid pulse no bruit, JVD not distended Respiratory: Normal air movement, Crackles/rales Cardiovascular: No edema, Regular rate/rhythm, Normal S1 S2 Gastrointestinal: Normal bowel sounds, Soft and benign, Non-distended Musculoskeletal: No clubbing, No swelling Neurological: Normal speech, Normal tone, Sensation intact, Cranial nerves 3-12 intact - Studies Laboratory Data (last 24 hrs) 08/17/19 21:30: PT 14.4 H, INR 1.23, APTT 26.0 08/17/19 21:30: WBC 10.9, Hgb 13.7, Hct 41.2, Plt Count 168 08/17/19 21:30: Sodium 140, Potassium 3.5, BUN 28 H, Creatinine 1.15, Glucose 159 H, Total Bilirubin 1.5 H, AST 22, ALT 32, Alkaline Phosphatase 76, Amylase 19 L, Lipase 51 L 08/17/19 21:19: APTT Cancelled Microbiology Data (last 24 hrs): 08/17/19 21:30 Blood - Blood Anaerobic Blood Culture - Final Medications List Reviewed: Yes Assessment & Plan Physician Review: Patient Assessed, Agree with Above Assessment and Plan Physician Review Additional Text: # Right PNA -on abx -c/w regime -follow blood cx and sputum c/s -no growth till date # COPD excarbation -improving , will wean o2 down to 2 L now -c/w steroids /nebs #OBSA- on home cpap , c/w use here -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
[2019-08-18] MEDS: GUAIFENESIN 600 MG SA TAB PO SCH ×2 (09:47→20:54)
[2019-08-18] MEDS ORDERED: AZITHROMYCIN IV 500 MG in NA CHLORIDE 0.9% 250 ML IVPB SCH (21:00)
--- NOTE | 2019-08-19 00:41 | EDPHYS ---
Physician Documentation [facility] Name: Refbrice Dove Age: 79 yrs Sex: Male : 1940 Arrival Date: 08/17/2019 Time: 21:17 Bed 16 Private MD: ED Physician Joseph Garcia HPI: 08/18 05:59 This 79 yrs old Male presents to ER via EMS with complaints of SOB. tw4 05:59 The patient has shortness of breath at rest. Onset: The symptoms/episode began/occurred tw4 3 day(s) ago. Duration: The symptoms are continuous, and are steadily getting worse. The patient's shortness of breath has no apparent modifying factors. Associated signs and symptoms: Pertinent positives: productive cough, fever. Severity of symptoms: At their worst the symptoms were moderate in the emergency department the symptoms are unchanged. The patient has not experienced similar symptoms in the past. Historical: - Allergies: 08/17 21:39 Codeine; bb - Home Meds: 21:39 Alprazolam Oral [Active]; aspirin 81 mg Oral chew 1 tab once daily [Active]; bb Hydrochlorothiazide Oral [Active]; losartan Oral [Active]; - PMHx: 21:39 bowel obstruction; High Cholesterol; Hypertension; bb - PSHx: 21:39 CABG; CPAP; bb - Immunization history:: Adult Immunizations up to date. - Coronavirus screen:: The patient has NOT traveled to [place], [place], or [place] in the past 14 days. Proceed with normal triage process as indicated. - Social history:: Smoking status: unknown. - Ebola Screening: : No symptoms or risks identified at this time. ROS: 08/18 05:59 Neck: Negative for injury, pain, and swelling, Cardiovascular: Negative for chest pain, tw4 palpitations, and edema, Abdomen/GI: Negative for abdominal pain, nausea, vomiting, diarrhea, and constipation, Back: Negative for injury and pain, MS/Extremity: Negative for injury and deformity, Skin: Negative for injury, rash, and discoloration, Neuro: Negative for headache, weakness, numbness, tingling, and seizure. Constitutional: Positive for fatigue, fever, malaise. Respiratory: Positive for cough, dyspnea on exertion, shortness of breath, wheezing, Negative for hemoptysis, orthopnea, pleurisy. Exam: 05:59 Head/Face: Normocephalic, atraumatic. Eyes: Pupils equal round and reactive to light, tw4 extra-ocular motions intact. Lids and lashes normal. Conjunctiva and sclera are non-icteric and not injected. Cornea within normal limits. Periorbital areas with no swelling, redness, or edema. Chest/axilla: Normal chest wall appearance and motion. Nontender with no deformity. No lesions are appreciated. Cardiovascular: Regular rate and rhythm with a normal S1 and S2. No gallops, murmurs, or rubs. Normal PMI, no JVD. No pulse deficits. 05:59 Constitutional: The patient appears in obvious distress, moderately distressed, obviously ill. 05:59 Respiratory: moderate respiratory distress is noted, Respirations: asymmetrical chest movement, Breath sounds: rhonchi, that are moderate, are scattered. Vital Signs: 08/17 21:20 BP 147 / 72; Pulse 124; Resp 28 S; Temp 102.8(O); Pulse Ox 87% on R/A; Weight 95.25 kg bb (R); Height 5 ft. 8 in. (172.72 cm) (R); Pain 0/10; 21:21 Weight 95.25 kg; ls4 22:20 BP 116 / 69; Pulse 104; Resp 22; Pulse Ox 95% on 4 lpm NC; ls4 23:33 BP 109 / 66; Pulse 98; Resp 25; Temp 98.7(O); Pulse Ox 94% on 4 lpm NC; Pain 3/10; ls4 21:20 Body Mass Index 31.93 (95.25 kg, 172.72 cm) bb MDM: 22:00 Patient medically screened. tw4 08/18 05:59 Differential diagnosis: Anemia Anxiety Reaction reactive airway disease, Sepsis. Data tw4 reviewed: vital signs, nurses notes. Counseling: I had a detailed discussion with the patient and/or guardian regarding: the historical points, exam findings, and any diagnostic results supporting the discharge/admit diagnosis. 06:13 Antibiotic administration: Rocephin and Zithromax given. Data interpreted: Pulse tw4 oximetry: Interpretation: hypoxia. Plan: O2 by NC applied. Test interpretation: by ED physician or midlevel provider: ECG, plain radiologic studies. Physician consultation: Kalia Woods regarding admission, to the telemetry unit. patient's condition, and will see patient in ED. 06:14 ED course: Pt met criteria for sepsis alert and was treated per sepsis protocol. tw4 antibiotics were initiated within one hour of arrival, Pt received IVF resuscitation 30cc.kg. 08/17 21:19 Order name: Amylase, Serum tw4 08/17 21:19 Order name: Basic Metabolic Panel tw4 08/17 21:19 Order name: Blood Culture Adult (2) tw4 08/17 21:19 Order name: CBC with Diff tw4 08/17 21:19 Order name: Ckmb tw4 08/17 21:19 Order name: CPK tw4 08/17 21:19 Order name: Lactate tw4 08/17 21:19 Order name: LFT's tw4 08/17 21:19 Order name: Lipase tw4 08/17 21:19 Order name: Procalcitonin tw4 08/17 21:19 Order name: Protime (+inr) tw4 08/17 21:19 Order name: Urine Microscopic Only tw4 08/17 21:19 Order name: Chest Single View XRAY tw4 08/17 21:29 Order name: Amylase Level EDMS 08/17 21:29 Order name: Basic Metabolic Panel EDMS 08/17 21:29 Order name: Blood Culture EDMS 08/17 21:29 Order name: CBC with Automated Diff EDMS 08/17 21:29 Order name: CKMB Creatine Kinase MB EDMS 08/17 21:30 Order name: Creatine Phosphokinase EDMS 08/17 21:30 Order name: Lactate EDMS 08/17 21:30 Order name: Liver (Hepatic) Function EDMS 08/17 21:30 Order name: Lipase EDMS 08/17 21:30 Order name: Procalcitonin EDMS 08/17 21:30 Order name: Protime (+INR) EDMS 08/17 21:51 Order name: PTT, Activated Partial Thromb EDMS 08/17 21:52 Order name: Troponin (Emerg Dept Use Only) EDMS 08/17 22:25 Order name: Manual Differential EDMS 08/17 21:19 Order name: Accucheck; Complete Time: 22:02 tw4 08/17 21:19 Order name: Cardiac monitoring; Complete Time: 22:02 tw4 08/17 21:19 Order name: EKG - Nurse/Tech; Complete Time: 21:55 tw4 08/17 21:19 Order name: IV Saline Lock - Large Bore; Complete Time: 21:56 tw4 08/17 21:19 Order name: Labs collected and sent; Complete Time: 22:02 tw4 08/17 21:19 Order name: O2 Per Protocol; Complete Time: 22:02 tw4 08/17 21:19 Order name: O2 Sat Monitoring tw4 08/17 21:19 Order name: Urine Dipstick-Ancillary (obtain specimen) tw4 EC:59 Rate is 122 beats/min. Rhythm is regular, Sinus tachycardia with Occasional PVCs. QRS tw4 [place] is Normal. TN interval is normal. QRS interval is normal. QT interval is normal. No Q waves. T waves are Peaked in leads V1, V2. No ST changes noted. Clinical impression: Sinus tachycardia. Interpreted by me. Reviewed by me. Administered Medications: 08/17 21:22 Drug: NS 0.9% (30 ml/kg) 30 ml/kg Route: IV; Rate: bolus; Site: left antecubital; ls4 23:55 Follow up: IV Status: Completed infusion; IV Intake: 2900ml ls4 21:22 Drug: Rocephin - (cefTRIAXone) 1 grams Route: IVPB; Rate: calculated rate; Infused ls4 Over: 10 mins; Site: left antecubital; 21:32 Follow up: IV Status: Completed infusion; IV Intake: 10ml ls4 21:32 Drug: Zithromax 500 mg Route: IVPB; Infused Over: 1 hrs; Site: left antecubital; ls4 22:32 Follow up: Response: No adverse reaction; IV Status: Completed infusion; IV Intake: ls4 250ml 22:00 Drug: Motrin 800 mg Route: PO; ls4 22:30 Follow up: Response: No adverse reaction; Marked relief of symptoms ls4 Disposition: 08/18 06:13 Critical Care:. tw4 Disposition: 08/17/19 22:03 Hospitalization ordered by Kalia Woods for Inpatient Admission. Preliminary diagnosis are Other pneumonia, unspecified organism, Other specified sepsis. - Bed requested for Telemetry/MedSurg (Inpatient). - Status is Inpatient Admission. ls4 - Condition is Stable. - Problem is new. - Symptoms have improved. Critical care time excluding procedures: 06:13 Critical care time: Bedside Care: 30 minutes, Consultation: 5 minutes. Total time: 35 tw4 minutes Signatures: Dispatcher [employer] EDIL Berta Fischer, RN RN Bhumi Noel RN RN cg Wadley, Terrence, MD [facility] Gerri Tomlin RN RN ls4 Corrections: (The following items were deleted from the chart) 08/17 21:51 21:25 PTT, ACTIVATED+COAG.LAB.BRZ ordered. EDIL EDMS 21:51 21:25 TROPONIN (EMERG DEPT USE ONLY)+C.LAB.BRZ ordered. EDIL EDMS 22:25 21:56 CBC Smear Scan ordered. [facility] EDMS 23:21 22:03 Hospitalization Ordered by Kalia Woods for Inpatient Admission. Preliminary cg diagnosis is Other pneumonia, unspecified organism; Other specified sepsis. Bed requested for Telemetry/MedSurg (Inpatient). Status is Inpatient Admission. Condition is Stable. Problem is new. Symptoms have improved. tw4 08/18 00:34 08/17 23:21 08/17/2019 22:03 Hospitalization Ordered by Kalia Woods for Inpatient ls4 Admission. Preliminary diagnosis is Other pneumonia, unspecified organism; Other specified sepsis. Bed requested for Telemetry/MedSurg (Inpatient). Status is Inpatient Admission. Condition is Stable. Problem is new. Symptoms have improved. cg
[2019-08-19] MEDS: IPRATROPIUM BROM 0.5MG/2.5ML NEB SCH ×4 (03:45→12:00)
[2019-08-19] MEDS: ALBUTEROL 2.5 MG/3 ML NEB SOL NEB SCH ×3 (03:45→14:00)
[2019-08-19 04:24] LABS: Albumin 2.8 g/dL (3.4-5.0); Bilirubin Total 0.5 mg/dL (0.2-1.0); Phosphorus 3.4 mg/dL (2.5-4.9); Potassium 3.7 mmol/L (3.5-5.1); Protein, Total 6.3 g/dL (6.4-8.2)
[2019-08-19 04:30] LABS: Absolute Lymphocytes (CBC) 1.1 K/uL (0.7-4.9); Basophils % 0.6 % (0-1.3); Hematocrit 38.3 % (39.6-49.0); Lymphocytes % 13.2 % (15.3-44.8); MPV 9.1 fL (7.6-11.3); RBC Red Blood Cell Count 4.09 M/uL (4.33-5.43)
[2019-08-19] MEDS ORDERED: POTASSIUM CL SA 10 MEQ TAB PO ONE (04:57)
[2019-08-19 06:08] LABS: Magnesium 2.2 mg/dL (1.8-2.4)
[2019-08-19] MEDS: CEFTRIAXONE/SWI 1gm 1 GM/10 ML SYR IVP SCH (07:33)
[2019-08-19] MEDS: predniSONE 20 MG TAB PO SCH (07:37)
[2019-08-19] MEDS: GUAIFENESIN 600 MG SA TAB PO SCH (07:37)
[2019-08-19] MEDS: ENOXAPARIN 40 MG/0.4 ML SQ SCH (07:37)
--- NOTE | 2019-08-19 09:21 | EKG ---
Test Date: 2019-08-17 Test Time: 21:15:46 Rig Builder: JULI MEASUREMENT RESULTS: Intervals: Rate: 122 WY: 164 QRSD: 92 QT: 318 QTc: 453 [place]: P: 59 WY: 164 QRS: -10 T: 97 INTERPRETIVE STATEMENTS: Sinus tachycardia with occasional premature ventricular complexes Left ventricular hypertrophy with repolarization abnormality Abnormal ECG Compared to ECG 05/11/2019 18:58:53 Ventricular premature complex(es) now present Myocardial infarct finding no longer present Electronically Signed On 08-19-19 09:21:10 CRUSHER OPERATOR by Vish Gray
[2019-08-19 12:03] VITALS: BP 110/60; TEMP 97.6
[2019-08-19 12:16] VITALS: O2SAT 94
--- NOTE | 2019-08-19 12:24 | P.CNS ---
Date of Consult: 08/19/19 Reason for Consult: Weakness and shortness of breath Chief Complaint: Shortness of breath History of Present Illness: Patient is 79 years of age admitted with weakness patient has chronic shortness of breath he has obstructive sleep apnea a problem with compliance a loss saw him a couple of weeks ago in the clinic and prescribed him Lunesta apparently is not helping a.m. is still not resting well feels fine now the chronic dyspnea with normal pulmonary function tests possible diastolic dysfunction Allergies codeine Allergy (Intermediate, Verified 05/30/17 21:46) Shortness of breath Home Medications: Hydrocodone Bit/Acetaminophen [Hydrocodon-Acetaminoph 7.5-325] 7.5 - 325 mg PO TID 03/23/18 ALPRAZolam [Alprazolam] 2 mg PO BEDTIME 09/12/18 Gabapentin [Neurontin*] 300 mg PO TID 09/12/18 Pantoprazole Sodium 40 mg PO DAILY 09/12/18 Calcium/Magnesium/Zinc [Mwzheer-Cpyunbrky-Nhyh Tablet] 1 each PO DAILY 05/11/19 Cholecalciferol (Vitamin D3) [Vitamin D3] 4 tab PO DAILY 05/11/19 Cyanocobalamin [Vitamin B-12*] 1,000 mcg PO DAILY 05/11/19 Glucosamine/D3/Boswellia Dee [Osteo Bi-Flex Tablet] 1 each PO DAILY 05/11/19 Krill/Om-3/Dha/Epa/Phospho/Ast [Krill Oil 500 mg Softgel] 1 each PO DAILY Multivitamin [Multiple Vitamins] 1 each PO DAILY 05/11/19 Pravastatin Sodium 20 mg pe PO DAILY 05/11/19 Thyroid Tab [Gardena Thyroid*] 180 mg PO DAILY 05/11/19 Losartan Potassium 1 tab PO DAILY 08/18/19 hydroCHLOROthiazide [Hydrochlorothiazide*] 1 tab PO DAILY 08/18/19 - Past Medical/Surgical History Diabetic: No -: Hypertension -: CAD -: hyperlipidemia -: Possible diastolic dysfunction -: prostate surgery -: triple bypass -: CABG -: left foot surgery -: cataract surgery- both eyes -: appedectomy - Family History Father Medical History: Other (see notes) Notes: CHF Mother Notes: pneumonia - Social History Smoking Status: Unknown if ever smoked Alcohol use: Yes CD- Drugs: No Caffeine use: Yes Place of Residence: Home Review of Systems 10-point ROS is otherwise unremarkable Physical Examination Temp Pulse Resp BP Pulse Ox 97.6 F 70 16 110/60 94 08/19/19 12:00 08/19/19 12:00 08/19/19 12:00 08/19/19 12:00 08/19/19 12:00 General: Alert, Oriented x3 HEENT: Atraumatic Neck: Supple Respiratory: Clear to auscultation bilaterally, Friction rub Cardiovascular: Regular rate/rhythm, Normal S1 S2 - Problems (1) Weakness Current Visit: Yes Status: Acute Plan: Patient is 79 years of age admitted with weakness chronic dyspnea possible underlying diastolic dysfunction by an echo done in 2017 patient has had normal pulmonary function tests recently for response to bronchodilator is feeling well now no evidence of sepsis laboratory data is unremarkable vital signs stable oxygenation satisfactory patient Welsh is a portable oxygen concentrator at home uses rated night this problems sleeping not resting with Lunesta some interstitial changes no evidence of pneumonia I recommend adding some mild spironolactone and follow up with me in 2 weeks
--- NOTE | 2019-08-20 02:14 | DS ---
Date of Discharge: 08/19/2019 Hospital Course: This patient is a 79-year-old gentleman, who presented for shortness of breath. He has a history of COPD, coronary artery disease, status post CABG, sleep apnea, and hypertension. He had been short of breath for 2 days PTA_. This was associated with coughing with greenish sputum. EMS was called and found his oxygen saturation 87%. Chest x-ray in the ED demonstrated right lung pneumonia. He has temperature up to 102 with tachycardia. He meets criteria for sepsis. He was admitted and was treated with IV Rocephin and azithromycin. He also received nebulization treatment. He was put on steroids. Blood culture negative. Influenza screen negative. He has been getting much better with the above treatment. Pulmonology was consulted. He agreed with treatment and thought there is a component of diastolic dysfunction and recommended adding spironolactone. The patient is getting much better and cubing machine tender has recommended discharge. Instructed him to follow cubing machine tender in 2 weeks. Physical Examination: Vital Signs: Temperature 97.6, pulse 70, respiratory rate 16, blood pressure 110/60. HEENT: Unremarkable. PERRLA. EOMI. Chest: Decreased breath sounds. No respiratory distress. No wheezing. Heart: Normal S1 and S2. No murmur. Abdomen: Soft, nontender. Bowel sounds present. Neuro: Patient is awake, alert, and oriented x3. No distress. Skin: No rashes. No eczema. Extremities: No edema. No cyanosis. Laboratory Data: WBC 8, hemoglobin 12.9, platelet 163. Sodium 142, potassium 3.7, creatinine 1.18. Discharge Diagnoses: 1. Pneumonia. 2. Chronic obstructive pulmonary disease exacerbation. 3. Hypertension. 4. Coronary artery disease. 5. Diastolic congestive heart failure. Discharge Medications: 1. Levaquin 500 mg daily for 5 days. 2. Prednisone tapering 40 mg daily for 2 days, 20 mg daily for 2 days, and then 10 mg daily. 3. Spironolactone 25 mg daily. Discharge Instructions: 1. Please follow PCP in 1 week. 2. Please follow cubing machine tender in 2 weeks. Discharge Activity: As tolerated. I spent at least 30 minutes for discharge including physical examination, patient education, and instruction. QT/MODL Voice ID: [id number] Report ID: [id number]
== END 2019-08-19 14:30 | disposition home or self-care (01) | DRG 193 ==
LOC: ER 21:14 → ERHOLD 23:17 → 4TH 08-18 00:19
PROVIDERS: ADMIT Internal Medicine; ATTEND Internal Medicine
DX: J18.9 Pneumonia, unspecified organism (principal); J96.01 Acute respiratory failure with hypoxia; J44.0 Chronic obstructive pulmonary disease with (acute) lower respiratory infection; I50.32 Chronic diastolic (congestive) heart failure; J44.1 Chronic obstructive pulmonary disease with (acute) exacerbation; G47.33 Obstructive sleep apnea (adult) (pediatric); I25.10 Atherosclerotic heart disease of native coronary artery without angina pectoris; Z95.1 Presence of aortocoronary bypass graft; I11.0 Hypertensive heart disease with heart failure
CPT/HCPCS: 36415; 71045; 80048; 80053; 80061; 80076; 81001; 82150; 82550; 82553; 83605; 83690; 83735; 84100; 84145; 84484; 85025; 85610; 85730; 87040; 87804; 93005; 94640; 94760; 96365; 96366; 96375; 97162; 99285; J0456; J0696; J1650; J7030; J7512

== ENCOUNTER 2022-04-25 04:54 | Inpatient (IN) | payer OTHER, MEDICARE ==
--- OUTSIDE RECORDS SUMMARY | 2022-04-25 04:57 | XMS REPORT | Continuity of Care Document ---
:1940 Author Organization [facility] t Address [address] [place] [address] Care Team Providers Name Role Phone Conner Maldonado MD Primary Care Physician Unavailable Mikael Awan MD Attending Clinician MIKAEL AWAN Attending Clinician Unavailable MIKAEL AWAN Attending Clinician Unavailable Rolando Attending Clinician Unavailable Rajwandy_P Attending Clinician Unavailable MIKAEL AWAN Admitting Clinician Unavailable Rolando Admitting Clinician Unavailable Rajwandy_P Admitting Clinician Unavailable Payers Payer Name Policy Type Policy Number Effective Date Expiration Date S suha MEDICARE A B [id number] 2006 00:00:00 [facility] [id number] 2021 HEALTHCARE 00:00:00 [place] B-[place]: [id number] 2006 [employer] 00:00:00 [facility] [id number] 2006 OPTION - PLAN F 00:00:00 (MEDICARE SUPPLEMENT) Problems Condition Condition Condition Status Onset Resolution Last Treating Co mments Source Name Details Category Date Date Treatment Clinician Date Serous Serous Problem Active [facility] ot[facility] Tinnitus Tinnitus Problem Active [facility] Bleeding Bleeding Problem Active [facility] from ear from [facility] Otalgia Otalgia Problem Active [facility] Hearing Hearing Problem Active [facility] loss Loss [facility] Chronic Chronic Problem Active [facility] sinusitis Sinusitis [facility] Lesion of Lesion of Problem Active [facility] larynx Larynx [facility] Leukoplaki Leukoplaki Problem Active [facility] Hoarse Hoarse Problem Active [facility] Allergies, Adverse Reactions, Alerts Allergy Allergy Status Severity Reaction(s) Onset Inactive Treating Comm ents Source Name Type Date Date Clinician Marta Propensi Active Hallucinatio B aylor ty to ns 4 College adverse 00:00: of reaction 00 Medicin s to e drug CODEINE Allergy Active Other [facility] Codeine Allergy Active Moderate Other [facility] to da substanc [facility] Group Social History Social Habit Start Date Stop Date Quantity Comments Source Alcohol intake 2021-11-10 2021-11-10 Ex-drinker [facility] Col lege 00:00:00 00:00:00 (finding) of Medicine Exposure to 2021-10-30 2021-11-09 Not sure [facility] Collehipolito e SARS-CoV-2 00:00:00 15:14:00 of Medicine (event) Tobacco use and 2021-09-01 2021-09-01 Former smokeless [facility] exposure 00:00:00 00:00:00 tobacco user of Medicine Tobacco Comment 2021-09-01 2021-09-01 stopped smoking [facility] 00:00:00 00:00:00 in 1986 of Medicine Sex Ass[birth year] At [birth year] [facility] Co llege 00:00:00 00:00:00 of Medicine Smoking Status Start Date Stop Date Source Ex-smoker 2021-09-01 00:00:00 2021-09-01 00:00:00 [facility] Kirk gillis of Medicine Medications Ordered Filled Start Stop Current Ordering Indication Dosage Frequency Signature Comments Components Source Medication Medication Date Date Medication? Clinician (SIG) Name Name pantoprazol Yes 20mg Take 20 mg Pravin e 5-04 by mouth [facility] (PROTONIX) 14:56: daily. of 20 MG 35 Medicin tablet e Vitamin E Yes Take by [facility] r 100 units 5-04 mouth. College CAPS 14:56: of 35 Medicin e Coenzyme Yes Take by [facility] Q10 (CO 5-04 mouth. [facility]nor Q-10) 300 14:56: of MG CAPS 35 Medicin e Calcium Yes Take by [facility] Carbonate-V 5-04 mouth. Colleg e it D-Min 14:56: of (CALCIUM 35 Medicin 1200) e [id number] MG-UNIT CHEW [place]-3 2021-0 Yes Take by [facility] Fatty Acids 5-04 mouth. Colleg e (OMEGA 3 14:56: of 500) 500 MG 35 Medicin CAPS e Aspirin 81 2021-0 Yes Take by [facility] MG CAPS 5-04 mouth. Milnor 14:56: of 35 Medicin e Cholecalcif 0 Yes Take by Berne iman demetria 5-04 mouth. [facility] (VITAMIN 14:56: of D3) 25 MCG 35 Medicin (1000 UT) e CAPS hydrocodone 0 Yes 1{tbl} Take 1 Ba ylor -acetaminop 4-25 Tablet by Col yanira doherty ([employer]) 00:00: mouth of 10-325 MG 00 Every 6 Medicin per tablet hours. e pantoprazol 0 Yes 20mg Take 20 mg [facility] e 2-23 by mouth [facility] (PROTONIX) 15:42: daily. of 20 MG 13 Medicin tablet e Vitamin E 0 Yes Take by B[facility] r 100 units 2- mouth. [facility] CAPS 15:42: of 13 Medicin e Coenzyme 2021-0 Yes Take by [facility] Q10 (CO 2-23 mouth. [facility]nor Q-10) 300 15:42: of MG CAPS 13 Medicin e Calcium 2021-0 Yes Take by [facility] Carbonate-V 2- mouth. Colleg e it D-Min 15:42: of (CALCIUM 13 Medicin 1200) e [id number] MG-UNIT CHEW [place]-3 0 Yes Take by [facility] Fatty Acids 2-23 mouth. Colleg e (OMEGA 3 15:42: of 500) 500 MG 13 Medicin CAPS e Aspirin 81 2021-0 Yes Take by [facility] MG CAPS 2-23 mouth. [facility]nor 15:42: of 13 Medicin e Cholecalcif 2021-0 Yes Take by Berne iman demetria 2- mouth. [facility] (VITAMIN 15:42: of D3) 25 MCG 13 Medicin (1000 UT) e CAPS losartan-hy 2021-0 Yes [facility] drochloroth 2-21 [facility] iazide 00:00: of (HYZAAR) 00 Medicin 100-12.5 MG e per tablet losartan-hy Yes [facility] drochloroth 2-[address] [facility] 00:[facility]: of (HYZAAR) 00 Medicin 100-12.5 MG e per tablet hydrocodone Yes TAKE 1 [facility] or -acetaminop 2-18 TABLET BY Col lege hen (NORCO) 00:00: MOUTH of 10-325 MG 00 EVERY 4 Medicin per tablet HOURS e NEEDED ketoconazol Yes APPLY [facility] (NIZORAL) 2-15 TOPICALLY Col lege 2 % shampoo 00:00: 3 TO 4 of 00 TIMES Medicin WEEKLY. e LEAVE ON FOR 5-10 MINUTES BEFORE RINSING ketoconazol Yes APPLY [facility] (NIZORAL) 2-15 TOPICALLY Col lege 2 % shampoo 00:00: 3 TO 4 of 00 TIMES Medicin WEEKLY. e LEAVE ON FOR 5-10 MINUTES BEFORE RINSING quetiapine Yes TAKE 1 [facility] (SEROQUEL) 2-14 TABLET BY Simba ege 100 MG 00:00: MOUTH of tablet 00 EVERY DAY Medicin AT BEDTIME e pravastatin Yes TAKE 1 [facility] (PRAVACHOL) 2-14 TABLET BY Col lege 20 MG 00:00: MOUTH of tablet 00 EVERY DAY Medicin e quetiapine Yes TAKE 1 [facility] (SEROQUEL) 2-14 TABLET BY Simba ege 100 MG 00:00: MOUTH of tablet 00 EVERY DAY Medicin AT BEDTIME e pravastatin Yes TAKE 1 [facility] (PRAVACHOL) 2-14 TABLET BY Col lege 20 MG 00:00: MOUTH of tablet 00 EVERY DAY Medicin e ARMOUR 2020-07 Yes TAKE 1 Pravin THYROID 180 2-15 TABLET BY Col lege MG tablet 00:00: MOUTH of 00 EVERY DAY Medicin e ARMOUR 2020-07 Yes TAKE 1 [facility] THYROID 180 2-15 TABLET BY Col lege MG tablet 00:00: MOUTH of 00 EVERY DAY Medicin e eszopiclone eszopiclone No eszopiclon [place] 2 mg tablet 2 mg tablet e 2 mg da tablet Medical Group Fluzone Fluzone No Fluzone [facility] [facility] High-Dose High-Dose High-Dose da Quad Quad [facility] (PF) 240 (PF) 240 (PF) 240 mcg/0.7 mL mcg/0.7 mL mcg/0.7 mL IM syringe IM syringe IM syringe ADMINISTER ADMINISTER ADMINISTER 0.7ML IN 0.7ML IN 0.7ML IN THE MUSCLE THE MUSCLE THE MUSCLE DIRECTED DIRECTED DIRECTED gabapentin gabapentin No gabapentin [place] 300 mg 300 mg 300 mg da capsule capsule capsule Medica l TAKE 1 TAKE 1 TAKE 1 Group CAPSULE BY CAPSULE BY CAPSULE BY MOUTH THREE MOUTH THREE MOUTH TIMES DAILY TIMES DAILY THREE TIMES DAILY hydrochloro hydrochloro No hydrochlor [facility] thiazide thiazide othiazide da 12.5 mg 12.5 mg 12.5 mg Medica l tablet tablet tablet Group hydrocodone hydrocodone No hydrocodon [facility] 7.5 7.5 e 7.5 da mg-acetamin mg-acetamin mg-acetami Medical ophen 325 ophen 325 nophen 325 Group mg tablet mg tablet mg tablet TAKE 1 TAKE 1 TAKE 1 TABLET BY TABLET BY TABLET BY MOUTH THREE MOUTH THREE MOUTH TIMES DAILY TIMES DAILY THREE TIMES DAILY hydroxychlo hydroxychlo No hydroxychl [place] roquine 200 roquine 200 oroquine da mg tablet mg tablet 200 mg Med ical TAKE 1 TAKE 1 tablet Group TABLET BY TABLET BY TAKE 1 MOUTH TWICE MOUTH TWICE TABLET BY DAILY DAILY MOUTH TWICE DAILY levothyroxi levothyroxi No levothyrox [place] ne 50 mcg ne 50 mcg ine 50 mcg da tablet tablet tablet Medical Group losartan losartan No losartan [facility] 100 100 100 da mg-hydrochl mg-hydrochl mg-hydroch Medical orothiazide orothiazide lorothiazi Group 12.5 mg 12.5 mg de 12.5 mg tablet TAKE tablet TAKE tablet 1 TABLET BY 1 TABLET BY TAKE 1 MOUTH EVERY MOUTH EVERY TABLET BY DAY DAY MOUTH EVERY DAY mesalamine mesalamine No mesalamine [facility] 1.2 gram 1.2 gram 1.2 gram da tablet,justin tablet,justin tablet,del Medical yed release yed release ayed G roup release metformin metformin No metformin [place] 500 mg 500 mg 500 mg da tablet tablet tablet Medical Group pantoprazol pantoprazol No pantoprazo [place] e 20 mg e 20 mg le 20 mg da tablet,justin tablet,justin tablet,del Medical yed release yed release ayed G roup TAKE 1 TAKE 1 release TABLET BY TABLET BY TAKE 1 MOUTH EVERY MOUTH EVERY TABLET BY DAY DAY MOUTH EVERY DAY pravastatin pravastatin No pravastati [facility] 20 mg 20 mg n 20 mg da tablet TAKE tablet TAKE tablet Medical 1 TABLET BY 1 TABLET BY TAKE 1 Group MOUTH EVERY MOUTH EVERY TABLET BY DAY DAY MOUTH EVERY DAY spironolact spironolact No spironolac [place] one 25 mg one 25 mg tone 25 mg da tablet tablet tablet Medical Group testosteron testosteron No testostero [place] e cypionate e cypionate ne d a 200 mg/mL 200 mg/mL cypionate Medical intramuscul intramuscul 200 mg/mL Group ar oil ar oil intramuscu INJECT 1 ML INJECT 1 ML lar oil IN THE IN THE INJECT 1 MUSCLE ONCE MUSCLE ONCE ML IN THE A WEEK A WEEK MUSCLE ONCE A WEEK trazodone trazodone No trazodone [place] 50 mg 50 mg 50 mg da tablet TAKE tablet TAKE tablet Medical 1 TABLET BY 1 TABLET BY TAKE 1 Group MOUTH EVERY MOUTH EVERY TABLET BY DAY AT DAY AT MOUTH BEDTIME BEDTIME EVERY DAY NEEDED NEEDED AT BEDTIME NEEDED zaleplon 10 zaleplon 10 No zaleplon [facility] mg capsule mg capsule 10 mg da capsule Medical Group alprazolam alprazolam No alprazolam [place] 2 mg tablet 2 mg tablet 2 mg d a Take 1 Take 1 tablet Medical tablet 3 tablet 3 Take 1 Group times a day times a day tablet 3 by oral by oral times a route. route. day by oral route. [place]ford Glenford No [place]ford [facility] Thyroid 180 Thyroid 180 Thyroid da mg tablet mg tablet 180 mg Med ical TAKE 1 TAKE 1 tablet Group TABLET BY TABLET BY TAKE 1 MOUTH EVERY MOUTH EVERY TABLET BY DAY ON AN DAY ON AN MOUTH EMPTY EMPTY EVERY DAY STOMACH STOMACH ON AN EMPTY STOMACH diclofenac diclofenac No diclofenac [place] 1 % topical 1 % topical 1 % d a gel APPLY gel APPLY topical Me dical TOPICALLY TOPICALLY gel APPLY Group TO THE TO THE TOPICALLY AFFECTED AFFECTED TO THE AREA FOUR AREA FOUR AFFECTED TIMES DAILY TIMES DAILY AREA FOUR FOR 25 DAYS FOR 25 DAYS TIMES DAILY FOR 25 DAYS doxepin 25 doxepin 25 No doxepin 25 [facility] mg capsule mg capsule mg capsule da TK 1 C PO TK 1 C PO TK 1 C PO Medical QHS QHS QHS Group doxepin 50 doxepin 50 No doxepin 50 [facility] mg capsule mg capsule mg capsule da TAKE 1 TAKE 1 TAKE 1 Medical CAPSULE BY CAPSULE BY CAPSULE BY Group MOUTH EVERY MOUTH EVERY MOUTH NIGHT AT NIGHT AT EVERY BEDTIME BEDTIME NIGHT AT BEDTIME Vital Signs Vital Name Observation Time Observation Value Comments Source Systolic blood 2021-11-10 19:55:00 148 mm[Hg] [facility] Medicine Diastolic blood 2021-11-10 19:55:00 72 mm[Hg] [facility] Medicine Heart rate 2021-11-10 19:55:00 68 /min [facility] Body height 2021-11-10 19:55:00 172.7 cm [facility] Body weight 2021-11-10 19:55:00 90.719 kg [facility] BMI 2021-11-10 19:55:00 30.41 kg/m2 [facility] HEIGHT 2021-11-01 09:23:00 172.7 cm WEIGHT 2021-11-01 09:23:00 89.721 kg HEIGHT 2021-10-29 11:02:00 172.7 cm WEIGHT 2021-10-29 11:02:00 90.719 kg HEIGHT 2021-09-13 10:00:00 172.7 cm WEIGHT 2021-09-13 10:00:00 93.7 kg HEIGHT 2021-09-13 10:00:00 172.7 cm WEIGHT 2021-09-13 10:00:00 93.7 kg Systolic blood 2021-09-01 19:36:00 166 mm[Hg] [facility] Medicine Diastolic blood 2021-09-01 19:36:00 87 mm[Hg] [facility] Medicine Heart rate 2021-09-01 19:36:00 80 /min [facility] Body height 2021-09-01 19:36:00 172.7 cm [facility] Body weight 2021-09-01 19:36:00 90.719 kg [facility] BMI 2021-09-01 19:36:00 30.41 kg/m2 [facility] BP Diastolic 2020-10-29 00:00:00 80 mm[Hg] [facility] Height 2020-10-29 00:00:00 68 [in_i] [facility] BMI (Body Mass 2020-10-29 00:00:00 32.1 kg/m2 [facility] Medical Index) Group BP Systolic 2020-10-29 00:00:00 144 mm[Hg] [facility] Body Weight 2020-10-29 00:00:00 211.3 [lb_av] [facility] BP Diastolic 2020-05-26 00:00:00 89 mm[Hg] [facility] Height 2020-05-26 00:00:00 68 [in_i] [facility] BMI (Body Mass 2020-05-26 00:00:00 32.7 kg/m2 [facility] Medical Index) Group BP Systolic 2020-05-26 00:00:00 153 mm[Hg] [facility] Body Weight 2020-05-26 00:00:00 215 [lb_av] [facility] BP Diastolic 2020-05-22 00:00:00 74 mm[Hg] [facility] Height 2020-05-22 00:00:00 68 [in_i] [facility] BMI (Body Mass 2020-05-22 00:00:00 32.7 kg/m2 [facility] Medical Index) Group BP Systolic 2020-05-22 00:00:00 163 mm[Hg] [facility] Body Weight 2020-05-22 00:00:00 215.1 [lb_av] [facility] Height 2018-07-06 00:00:00 68 [in_i] [facility] BMI (Body Mass 2018-07-06 00:00:00 33.4 kg/m2 [facility] Medical Index) Group Body Weight 2018-07-06 00:00:00 219.5 [lb_av] [facility] Procedures Procedure Date / Time Performing Clinician Source Performed TYMPANOMETRY 2018-07-06 00:00:00 [facility] TYMPANOMETRY 2018-06-15 00:00:00 [facility] Prostate Ca Screening; [facility] Plan of Care Planned Activity Planned Date Details Comments Source Future Scheduled 2021-11-16 BMI FOLLOW UP PLAN [facility] Test 16:19:46 [code = BMI FOLLOW UP Medici ne PLAN] Future Scheduled 2021-11-16 ZOSTER VACCINE (1 of [facility] of Test 16:19:46 2) [code = ZOSTER Medicine VACCINE (1 of 2)] Future Scheduled 2021-11-16 FALL SCREEN [code = [facility] of Test 16:19:46 FALL SCREEN] Medicine Future Scheduled 2021-11-16 Pneumococcal 65+ (1 of [facility] of Test 16:19:46 1 - PPSV23) [code = Medicine Pneumococcal 65+ (1 of 1 - PPSV23)] Future Scheduled 2021-11-16 MEDICARE IPPE (WELCOME [facility] of Test 16:19:46 TO MEDICARE) [code = Medicin e MEDICARE IPPE (WELCOME TO MEDICARE)] Future Scheduled 2021-11-16 FLU VACCINE > 6 MONTHS [facility] of Test 16:19:46 [code = FLU VACCINE > Medici ne 6 MONTHS] Future Scheduled 2021-11-16 COVID-19 Vaccine (1) [facility] of Test 16:19:46 [code = COVID-19 Medicine Vaccine (1)] Future Scheduled 2021-11-16 TETANUS SHOT (ADULT) [facility] [employer] [facility] 16:19:46 [code = TETANUS SHOT Medicin e (ADULT)] Future Scheduled 2021-09-10 COVID-19 Vaccine (1) [facility] [employer] [facility] 09:14:48 [code = COVID-19 Medicine Vaccine (1)] Future Scheduled 2021-09-10 TETANUS SHOT (ADULT) [facility] [employer] [facility] 09:14:48 [code = TETANUS SHOT Medicin e (ADULT)] Future Scheduled 2021-09-10 BMI FOLLOW UP PLAN [facility] 09:14:48 [code = BMI FOLLOW UP Medici ne PLAN] Future Scheduled 2021-09-10 ZOSTER VACCINE (1 of [facility] [employer] [facility] 09:14:48 2) [code = ZOSTER Medicine VACCINE (1 of 2)] Future Scheduled 2021-09-10 FALL SCREEN [code = [facility] of Test 09:14:48 FALL SCREEN] Medicine Future Scheduled 2021-09-10 Pneumococcal 65+ (1 of [facility] of Test 09:14:48 1 - PPSV23) [code = Medicine Pneumococcal 65+ (1 of 1 - PPSV23)] Future Scheduled 2021-09-10 FLU VACCINE > 6 MONTHS [facility] of Test 09:14:48 [code = FLU VACCINE > Medici ne 6 MONTHS] Future Scheduled 2021-09-10 MEDICARE IPPE (WELCOME [facility] of Test 09:14:48 TO MEDICARE) [code = Medicin e MEDICARE IPPE (WELCOME TO MEDICARE)] Encounters Start End Encounter Admission Attending Care Care Encounter Source Date/Time Date/Time Type Type Clinicians Facility Department ID 2021-11-10 2021-11-10 Office ELVIN Awan [id number] [facility] 14:30:00 15:45:32 Visit Mikael Penn AMBULATOR [id number] College Y [id number] Medi adele 800 e 2021-11-01 2021-11-01 Outpatient MICHEAL AWAN [facility] Surgery [id number] [facility] 08:18:00 18:20:00 MIKAEL 2021-10-29 2021-10-29 Outpatient [facility] [id number] [facility] 11:29:45 23:59:00 2021-10-29 2021-10-29 Outpatient MICHEAL AWAN [facility] [id number] [facility] 15:29:30 11:24:00 MIKAEL 2021-10-29 2021-10-29 Outpatient [facility] [id number] [facility] 00:00:00 00:00:00 2021-10-29 2021-10-29 Outpatient [facility] [id number] [facility] 00:00:00 00:00:00 2021-09-13 2021-09-13 Outpatient MICHEAL AWAN [facility] Surgery [id number] [facility] 10:33:00 14:09:00 MIKAEL 2021-09-01 2021-09-01 Office ELVIN AAWN [id number] [facility] 12:43:59 15:52:34 Visit MIKAEL AMBULATOR [id number] College Y [id number] [facility] 800 e 2020-10-29 2020-10-29 Preet Desmond Desmond_[place] - [id number] [id number] [facility] 00:00:00 00:00:00 : Jerrell Ontiveros [address] [facility] [address], [facility], Otolaryngol [facility] [address] , Ph. 2020-05-28 2020-05-28 Outpatient Yan_W MM[place] [id number] [place] 09:45:00 09:45:00 1119 [facility] 2020-05-27 2020-05-27 Outpatient Yan_W [place] [id number] [place] 02:22:00 02:22:00 1118 [facility] 2020-05-26 2020-05-26 [place] - [id number] [id number] [place] 00:00:00 00:00:00 DERRICK Ontiveros [address] [facility] [address], [facility], Otolaryngol [facility] [address] , Ph. 2020-05-25 2020-05-25 Outpatient Yan_W MM[place] [id number] [place] 06:01:00 06:01:00 1116 [facility] 2020-05-22 2020-05-22 Desmond Granados_W [place] - [id number] [id number] [place] 00:00:00 00:00:00 DERRICK Ontiveros [address] [facility], [facility] Group [address], [facility], Otolaryngol [place] [facility] [place] [address] , Ph. 2020-05-04 2020-05-04 Outpatient Yan_W MMG MM[place] [id number] [place] 09:53:00 09:53:00 1026 [facility] 2018-11-05 2018-11-05 Outpatient Raju_P MMG MM[place] [id number] [place] 03:17:00 03:17:00 0429 Medical Group 2018-07-06 2018-07-06 [place] - [id number] [facility] 00:00:00 00:00:00 MD Tani: [address] [place] [address], [place] [facility] [address], [facility], [facility] [place] [address] , Ph. 2018-06-15 2018-06-15 [place] - [id number] [place] 00:00:00 00:00:00 MD Tani: [address] [place] [address], [place] [facility] [address], [facility], [facility] [place] [address] , Ph. Results Test Description Test Time Test Comments Results Result Comments Source SARS-COV2/RT-PCR ([facility]) 2021-10-30 01:40:45 Test Item Value Reference Range Interpretation Comme nts SARS-COV2/RT-PCR (test code = 5838304) Negative Negative Negative result for this test determines that SARS-CoV-2 RNA was not present in the specimen above the Limit of Detection (LOD). However, Negative results do not preclude SARS-CoV-2 infection and should not be used as the sole basis for treatment or patient management decisions. Negative results must be combined with clinical observations, patient history, and epidemiological information. A false negative result may occur if a specimen is improperly collected, transported, or handled. A false negative result should be considered if patient's recent exposures or clinical presentation indicate that COVID-19 (SARS-CoV-2) is likely and diagnostic tests for other causes of illness are negative. Re-testing should be considered in cases of suspected false negatives.The limit of detection for this assay is 100 copies/mL.This SARS-CoV-2 test is a real-time RT_PCR test intended for the qualitative detection of nucleic acid from SARS-CoV-2 in a nasopharyngeal swab specimen collected from individuals suspected of COVID-19 by their healthcare provider.This test has not been Food and Drug Administration (FDA) cleared or approved. This is a modified version of an approved Emergency Use Authorization (EUA) and is in the process of review by the FDA. Once authorized by the FDA, the issued EUA will be effective until the declaration that circumstances exist justifying the authorization of the emergency use of in vitro diagnostic tests for detection and/or diagnosis of COVID-19 is terminated under Section 564(b)(2) of the Act or the EUA is revoked under Section 564(g) of the Act.Testing was performed using [employer] SARS-CoV-2 assay.Fact Sheet for Healthcare Providers:https://www.MedCPU/yuri/RT SARS-CoV-2 HCP Fact Sheet 51- 125766.pdfFact Sheet for Healthcare Patients:https://www.MedCPU/yuri/RT SARS-CoV-2 Patient Fact Sheet EN 51-208623C6.pdfBASIC METABOLIC [id number] 16:53:09 Test Item Value Reference Range Interpretation Comments SODIUM (BEAKER) 140 meq/L 136-145 (test code = 381) POTASSIUM (BEAKER) 3.9 meq/L 3.5-5.1 (test code = 379) CHLORIDE (BEAKER) 105 meq/L 98-107 (test code = 382) CO2 (BEAKER) (test 25 meq/L 22-29 code = 355) BLOOD UREA NITROGEN 36 mg/dL 7-21 H (BEAKER) (test code = 354) CREATININE (BEAKER) 1.10 mg/dL 0.57-1.25 (test code = 358) GLUCOSE RANDOM 144 mg/dL 70-105 H (BEAKER) (test code = 652) CALCIUM (BEAKER) 9.6 mg/dL 8.4-10.2 (test code = 697) EGFR (BEAKER) (test 64 mL/min/1.73 ESTIMA CHELA GFR IS code = 1092) sq m NOT ACCURATE CREATININE CLEARANCE IN PREDICTING GLOMERULAR FILTRATION RATE . ESTIMATED GFR I S NOT APPLICABLE FOR DIALYSIS PATIEN TS. Histology Technician ID - [id number] 16:24:17 Test Item Value Reference Range Interpretation Comments HEMOGLOBIN (BEAKER) (test code = 14.7 GM/DL 13.7-17.5 410) Histology Technician ID - [id number] METABOLIC [id number] 12:05:23 Test Item Value Reference Range Interpretation Comments SODIUM (BEAKER) 140 meq/L 136-145 (test code = 381) POTASSIUM (BEAKER) 4.1 meq/L 3.5-5.1 (test code = 379) CHLORIDE (BEAKER) 105 meq/L 98-107 (test code = 382) CO2 (BEAKER) (test 28 meq/L 22-29 code = 355) BLOOD UREA NITROGEN 25 mg/dL 7-21 H (BEAKER) (test code = 354) CREATININE (BEAKER) 1.10 mg/dL 0.57-1.25 (test code = 358) GLUCOSE RANDOM 107 mg/dL 70-105 H (BEAKER) (test code = 652) CALCIUM (BEAKER) 9.2 mg/dL 8.4-10.2 (test code = 697) EGFR (BEAKER) (test 64 mL/min/1.73 ESTIMA CHELA GFR IS code = 1092) sq m NOT ACCURATE CREATININE CLEARANCE IN PREDICTING GLOMERULAR FILTRATION RATE . ESTIMATED GFR I S NOT APPLICABLE FOR DIALYSIS PATIEN TS. Histology Technician ID - [id number] 11:44:38 Test Item Value Reference Range Interpretation Comments HEMOGLOBIN (BEAKER) (test code = 14.6 GM/DL 13.7-17.5 410) Histology Technician ID - [id number] 11:34:47 Test Item Value Reference Range Interpretation Comments POC-GLUCOSE METER 104 mg/dL 70-110 : Notified RN/MD: (ADAM) (test code = TESTED AT [facility] [id number]) [facility], [id number]: Histology Technician/Techni leny ID = [id number] for MYRON SPENCER [id number] 10:49:28 Test Item Value Reference Range Interpretation Comments Right (test code = Type B Curve Flat Right) Left (test code = Left) Type C Peak is on Left [id number] 10:50:41 Test Item Value Reference Range Interpretation Comments Right (test code = Right) Type B Curve Flat Left (test code = Left) Type A Normal [facility]
[2022-04-25 06:25] LABS: Absolute Lymphocytes (CBC) 0.7 K/uL (0.7-4.9); Hematocrit 42.5 % (39.6-49.0); MPV 8.3 fL (7.6-11.3); RBC Red Blood Cell Count 4.57 M/uL (4.33-5.43)
[2022-04-25 06:42] LABS: Potassium 3.6 mmol/L (3.5-5.1); Troponin High Sensitivity 36.2 pg/mL (<58.9)
--- NOTE | 2022-04-25 11:26 | RAD REPORT ---
EXAM DESCRIPTION: RAD - Chest Single View - 04/25/2022 5:48 am CLINICAL HISTORY: hypoxia FINDINGS: Mild bilateral pulmonary opacities likely interstitial pulmonary edema. Cardiomegaly Pacemaker leads in place. Postsurgical changes involve the chest. Small pleural effusions
[2022-04-25] MEDS ORDERED: LORazepam 2 MG/ML VIAL ONE (11:27)
--- NOTE | 2022-04-25 11:49 | RAD REPORT ---
EXAM DESCRIPTION: CT - Chest For Pe Angio - 04/25/2022 11:34 am CLINICAL HISTORY: Shortness of breath COMPARISON: None. TECHNIQUE: Dynamically enhanced axial 3 mm thick images of the chest were obtained during administra tion of <100> mL Isovue 370 IV contrast. Coronal and oblique reconstruction images were generated and reviewed. Exam utilizes a protocol for optimal evaluation of pulmonary arterial tree. Maximum intensity projections 3D imaging was utilized All CT scans are performed using dose optimization technique as appropriate and may include automated exposure control or mA/KV adjustment according to patient size. FINDINGS: A pulmonary embolus is not seen. A thoracic aortic aneurysm is not noted. Small bilateral pleural effusions. A pericardial effusion is not seen. Mild bilateral interstitial lung opacities IMPRESSION: Negative for a pulmonary embolism. Mild CHF
--- NOTE | 2022-04-25 12:23 | EDPHYS ---
Physician Documentation [facility] Name: Soy Dove Age: 81 yrs Sex: Male : 1940 Arrival Date: 04/25/2022 Time: 04:55 Bed 2 Private MD: ED Physician Iris Alexis HPI: 04/25 05:20 This 81 yrs old Male presents to ER via Unassigned with complaints of Breathing ms3 Difficulty. 05:20 81-year-old male with past medical history of asbestosis, coronary artery disease ms3 presents for shortness of breath that became worse at 430. Patient states he has had congestion and shortness of breath for 2 days. Patient denies pain at this time. Patient states his symptoms are better after walking around. Patient denies inciting factors. Patient denies fevers, chills, nausea, vomiting.. Historical: - Allergies: 05:22 Codeine; bb - Home Meds: 05:22 Unable to obtain [Active]; bb - PMHx: 05:22 bowel obstruction; High Cholesterol; Hypertension; Coronary atherosclerosis; bb - PSHx: 05:22 bypass; bb - Immunization history:: Moderna x 3. - Social history:: Smoking status: Patient/guardian denies using tobacco, but has a distant history of tobacco abuse. ROS: 05:20 Constitutional: Negative for fever, and chills. Neck: Negative for injury, pain, and ms3 swelling, Cardiovascular: Negative for chest pain, and palpitations. Abdomen/GI: Negative for abdominal pain, nausea, vomiting, diarrhea, and constipation, MS/Extremity: Negative for injury and deformity, Skin: Negative for injury, rash, and discoloration. 05:20 Respiratory: Positive for shortness of breath. 05:20 All other systems are negative. Exam: 05:20 Constitutional: This is a well developed, well nourished patient who is awake, alert, ms3 and in no acute distress. Head/Face: Normocephalic, atraumatic. Neck: Trachea midline, no cervical lymphadenopathy. Supple, full range of motion without nuchal rigidity, or vertebral point tenderness. No Meningismus. Chest/axilla: Normal chest wall appearance and motion. Nontender with no deformity. Cardiovascular: Regular rate and rhythm with a normal S1 and S2. No gallops, murmurs, or rubs. Normal PMI, no JVD. No pulse deficits. 05:20 Respiratory: the patient does not display signs of respiratory distress, Respirations: normal, Breath sounds: decreased breath sounds, that are moderate, are heard in the left posterior lower lobe. 05:36 ECG was reviewed by the Attending Physician. ms3 Vital Signs: 05:16 BP 161 / 82; Pulse 98; Resp 22 S; Temp 97.8(O); Pulse Ox 88% on R/A; Weight 90.72 kg bb (R); Height 5 ft. 8 in. (172.72 cm) (R); Pain 0/10; 05:33 BP 147 / 71; Pulse 90; Resp 18; Pulse Ox 90% on 2 lpm NC; tw5 05:38 Pulse Ox 91% on 4 lpm NC; tw5 06:39 BP 125 / 80; Pulse 89; Resp 18; Pulse Ox 93% on 6 lpm NC; tw5 07:21 BP 134 / 74; Pulse 83; Resp 18; Pulse Ox 95% on 6 lpm NC; ll1 10:52 BP 136 / 78; Pulse 97; Resp 20; Pulse Ox 97% on 6 lpm NC; jd3 12:00 BP 141 / 89; Pulse 89; Resp 18; Pulse Ox 97% on 6 lpm NC; ll1 13:55 Pulse 87; Resp 20; ll1 14:12 BP 153 / 95; Pulse 89; Resp 18; Pulse Ox 95% on 6 lpm NC; ll1 15:18 BP 149 / 86; Pulse 91; Resp 18; Pulse Ox 100% 6 lpm ; ll1 16:20 BP 138 / 84; Pulse 92; Resp 18; Pulse Ox 99% on 6 lpm NC; ll1 16:48 BP 146 / 77; Pulse 91; Resp 19; Pulse Ox 99% on 6 lpm NC; ll1 05:16 Body Mass Index 30.41 (90.72 kg, 172.72 cm) bb MDM: 05:14 Patient medically screened. ms3 05:20 Differential diagnosis: Bronchitis Chronic Obstructive Pulmonary Disease pneumonia, ms3 pulmonary edema, Pulmonary Embolism. 07:53 Transition of care: After a detail discussion of the patient's case, care is ms3 transferred to Iris Alexis MD. 12:21 ED course: Labs and imaging reviewed. CTA negative for PE. Mild CHF present. BNP sent sd2 for further evaluation. Will admit to hospitalist at this time. . 04/25 05:16 Order name: COVID-19 SARS RT PCR (Document "Date of Onset" if Symptomatic) bb 04/25 05:20 Order name: Basic Metabolic Panel ms3 04/25 05:20 Order name: CBC with Diff ms3 04/25 05:20 Order name: D-Dimer ms3 04/25 05:20 Order name: Troponin HS ms3 04/25 06:00 Order name: SARS-COV-2 RT PCR EDMS 04/25 06:29 Order name: CBC with Automated Diff EDMS 04/25 06:42 Order name: Basic Metabolic Panel EDMS 04/25 06:42 Order name: Troponin High Sensitivity EDMS 04/25 06:50 Order name: D-Dimer EDMS 04/25 12:06 Order name: BNP sd2 04/25 15:24 Order name: CBC with Automated Diff EDMS 04/25 15:24 Order name: CBC with Automated Diff EDMS 04/25 15:24 Order name: Comprehensive Metabolic Panel EDMS 04/25 05:20 Order name: XRAY Chest (1 view) ms3 04/25 05:20 Order name: EKG; Complete Time: 05:21 ms3 04/25 05:20 Order name: Cardiac monitoring; Complete Time: 05:37 ms3 04/25 05:20 Order name: EKG - Nurse/Tech; Complete Time: 05:33 ms3 04/25 11:06 Order name: Chest For Pe Angio; Complete Time: 12:03 EDMS 04/25 15:24 Order name: CONS Physician Consult EDMS 04/25 15:24 Order name: Heart Healthy EDMS 04/25 15:24 Order name: Echo with Doppler EDMS 04/25 15:24 Order name: Echo with Doppler EDMS 04/25 15:24 Order name: Comprehensive Metabolic Panel EDMS 04/25 15:24 Order name: Magnesium EDMS 04/25 15:24 Order name: Magnesium EDMS 04/25 15:24 Order name: NT PRO-BNP EDMS 04/25 15:24 Order name: NT PRO-BNP EDMS 04/25 05:20 Order name: IV Saline Lock; Complete Time: 05:37 ms3 04/25 05:20 Order name: Labs collected and sent; Complete Time: 05:37 ms3 04/25 05:20 Order name: O2 Per Protocol; Complete Time: 05:37 ms3 04/25 05:20 Order name: O2 Sat Monitoring; Complete Time: 05:37 ms3 EC:36 Rate is 91 beats/min. Rhythm is regular. QRS [place] is Normal. MO interval is normal. ms3 Clinical impression: NSR w/ Non-specific ST/T Changes. Interpreted by me. Reviewed by me. Administered Medications: 11:33 Drug: Ativan (LORazepam) 0.5 mg Route: IVP; Site: right forearm; ll1 11:51 Follow up: Response: No adverse reaction; RASS: Alert and Calm (0) ll1 Disposition Summary: 04/25/22 12:23 Hospitalization Ordered Hospitalization Status: Inpatient Admission sd2 Provider: Rex Christie2 Location: Telemetry/MedSurg (Inpatient) sd2 Condition: Stable sd2 Problem: an acute exacerbation sd2 Symptoms: have improved sd2 Bed/Room [facility]: [facility] Room Assignment: 426(04/25/22 16:06) ja1 Diagnosis - Acute respiratory failure with hypoxia sd2 Forms: - Medication Reconciliation Form sd2 - SBAR form sd2 Signatures: Dispatcher [employer] EDDanitza Calvo Brenda RN RN bb Vincent Greene RN RN ja1 Concepción Perry RN RN ll1 Epifanio Chatman DO DO ms3 Iris Alexis MD MD sd2 Corrections: (The following items were deleted from the chart) 14:07 12:23 sd2 bd 14:12 14:07 232 bd bd 16:06 14:12 bd ja1
--- NOTE | 2022-04-25 12:23 | ER ---
Nurse's Notes [facility] Name: Soy Dove Age: 81 yrs Sex: Male : 1940 Arrival Date: 04/25/2022 Time: 04:55 Bed 2 Private MD: Diagnosis: Acute respiratory failure with hypoxia Presentation: 04/25 05:16 Chief complaint: Patient states: he has been having difficulty breathing for several bb days but woke up this morning with worsening of symtoms. Coronavirus screen: difficulty breathing, Client presents with at least one sign or symptom that may indicate coronavirus-19. Ebola Screen: No symptoms or risks identified at this time. Initial Sepsis Screen: Does the patient meet any 2 criteria? RR > 20 per min. HR > 90 bpm. Yes Does the patient have a suspected source of infection? Yes: Other: difficulty breathing, hypoxia. Risk Assessment: Do you want to hurt yourself or someone else? Patient reports no desire to harm self or others. Onset of symptoms was April 23, 2022. 05:16 Method Of Arrival: Ambulatory bb 05:16 Acuity: POPPY 3 bb Triage Assessment: 15:19 General: Appears in no apparent distress. Behavior is cooperative, appropriate for age. ll1 Respiratory: Reports shortness of breath Onset: The symptoms/episode began/occurred at an unknown time. the patient has moderate shortness of breath. Historical: - Allergies: 05:22 Codeine; bb - Home Meds: 05:22 Unable to obtain [Active]; bb - PMHx: 05:22 bowel obstruction; High Cholesterol; Hypertension; Coronary atherosclerosis; bb - PSHx: 05:22 bypass; bb - Immunization history:: Moderna x 3. - Social history:: Smoking status: Patient/guardian denies using tobacco, but has a distant history of tobacco abuse. Screenin:33 Abuse screen: Denies threats or abuse. Denies injuries from another. Nutritional tw5 screening: No deficits noted. Tuberculosis screening: No symptoms or risk factors identified. Fall Risk IV access (20 points). Assessment: 05:33 Pain: Denies pain. Neuro: No deficits noted. Cardiovascular: Rhythm is sinus rhythm tw5 with unifocal PVCs. Cardiovascular: feet purple. Respiratory: Airway is patent Trachea midline Respiratory effort is labored, Breath sounds are diminished. 06:39 Reassessment: No changes from previously documented assessment. Patient and/or family tw5 updated on plan of care and expected duration. Pain level reassessed. Pain: Denies pain. 06:39 General: Reports "I am okay I think.". tw5 07:00 Reassessment: No changes from previously documented assessment. Patient and/or family ll1 updated on plan of care and expected duration. Pain level reassessed. Report received from date night caregiver RN. 08:00 Reassessment: No changes from previously documented assessment. ll1 09:00 Reassessment: No changes from previously documented assessment. Patient and/or family ll1 updated on plan of care and expected duration. Pain level reassessed. 10:00 Reassessment: No changes from previously documented assessment. Patient and/or family ll1 updated on plan of care and expected duration. Pain level reassessed. 10:52 Reassessment: No changes from previously documented assessment. Patient and/or family jd3 updated on plan of care and expected duration. Pain level reassessed. 12:00 Reassessment: No changes from previously documented assessment. Patient and/or family ll1 updated on plan of care and expected duration. Pain level reassessed. 13:00 Reassessment: No changes from previously documented assessment. Patient and/or family ll1 updated on plan of care and expected duration. Pain level reassessed. 14:00 Reassessment: No changes from previously documented assessment. Patient and/or family ll1 updated on plan of care and expected duration. Pain level reassessed. 15:00 Reassessment: No changes from previously documented assessment. Patient and/or family ll1 updated on plan of care and expected duration. Pain level reassessed. Patient is alert, oriented x 3, equal unlabored respirations, skin warm/dry/pink. 16:00 Reassessment: No changes from previously documented assessment. Patient and/or family ll1 updated on plan of care and expected duration. Pain level reassessed. 16:46 Reassessment: No changes from previously documented assessment. Patient and/or family ll1 updated on plan of care and expected duration. Pain level reassessed. Patient is alert, oriented x 3, equal unlabored respirations, skin warm/dry/pink. 16:54 Reassessment: No changes from previously documented assessment. Patient and/or family ll1 updated on plan of care and expected duration. Pain level reassessed. Vital Signs: 05:16 BP 161 / 82; Pulse 98; Resp 22 S; Temp 97.8(O); Pulse Ox 88% on R/A; Weight 90.72 kg bb (R); Height 5 ft. 8 in. (172.72 cm) (R); Pain 0/10; 05:33 BP 147 / 71; Pulse 90; Resp 18; Pulse Ox 90% on 2 lpm NC; tw5 05:38 Pulse Ox 91% on 4 lpm NC; tw5 06:39 BP 125 / 80; Pulse 89; Resp 18; Pulse Ox 93% on 6 lpm NC; tw5 07:21 BP 134 / 74; Pulse 83; Resp 18; Pulse Ox 95% on 6 lpm NC; ll1 10:52 BP 136 / 78; Pulse 97; Resp 20; Pulse Ox 97% on 6 lpm NC; jd3 12:00 BP 141 / 89; Pulse 89; Resp 18; Pulse Ox 97% on 6 lpm NC; ll1 13:55 Pulse 87; Resp 20; ll1 14:12 BP 153 / 95; Pulse 89; Resp 18; Pulse Ox 95% on 6 lpm NC; ll1 15:18 BP 149 / 86; Pulse 91; Resp 18; Pulse Ox 100% 6 lpm ; ll1 16:20 BP 138 / 84; Pulse 92; Resp 18; Pulse Ox 99% on 6 lpm NC; ll1 16:48 BP 146 / 77; Pulse 91; Resp 19; Pulse Ox 99% on 6 lpm NC; ll1 05:16 Body Mass Index 30.41 (90.72 kg, 172.72 cm) ED Course: 04:55 Patient arrived in ED. ag3 04:56 Epifanio Chatman DO is Attending Physician. ms3 05:22 Triage completed. bb 05:22 Natacha Delcid is Primary Nurse. tw5 05:22 Arm band placed on Patient placed in an exam room, on a stretcher, on oxygen, on bb cardiac tech, on pulse oximetry. 05:33 COVID-19 SARS RT PCR (Document "Date of Onset" if Symptomatic) Sent. jb4 05:33 EKG done, by ED staff, reviewed by Epifanio Chatman DO. tw5 05:37 No apparent distress. Awaiting lab results. tw5 05:37 Patient has correct armband on for positive identification. Placed in gown. Bed in low tw5 position. Call light in reach. Side rails up X 1. Client placed on continuous cardiac and pulse oximetry monitoring. NIBP monitoring applied. Door closed. Moved to private room. Warm blanket given. Verbal reassurance given. 05:37 Troponin HS Sent. tw5 05:37 D-Dimer Sent. tw5 05:37 CBC with Diff Sent. tw5 05:37 Basic Metabolic Panel Sent. tw5 05:37 Initial lab(s) drawn, by ED staff, sent to lab. Inserted saline lock: 18 gauge in right tw5 antecubital area, using aseptic technique. Blood collected. Started by Alan NR. 05:38 Oxygen administration via nasal cannula \\T\\ 4L/min. tw5 06:48 Notified ED physician of a critical lab result(s). DDimer of [id number] Dr Chatman notified. bb 07:54 Attending Physician role handed off by Epifanio Chatman DO ms3 07:54 Iris Alexis MD is Attending Physician. ms3 10:10 XRAY Chest (1 view) In Process Unspecified. EDMS 10:51 Assisted to bathroom. jd3 11:36 Chest For Pe Angio In Process Unspecified. EDMS 12:22 Rex Christie MD is Hospitalizing Provider. sd2 16:52 No provider procedures requiring assistance completed. Patient did not have IV access ll1 during this emergency room visit. Administered Medications: 11:33 Drug: Ativan (LORazepam) 0.5 mg Route: IVP; Site: right forearm; ll1 11:51 Follow up: Response: No adverse reaction; RASS: Alert and Calm (0) ll1 Medication: 05:33 VIS not applicable for this client. tw5 Outcome: 12:23 Decision to Hospitalize by Provider. sd2 16:53 Admitted to Med/surg accompanied by tech, via wheelchair, room 426, with chart, Report ll1 called to Roslyn Hudson RN 16:53 Condition: stable 16:53 Instructed on the need for admit. 17:37 Patient left the ED. ll1 Signatures: Dispatcher [employer] EDMS Berta Fischer RN RN Jonatan Trevino RN RN Lars Mcintyre RN RN jd3 Jojo Ball3 Concepción Perry RN RN ll1 Epifanio Chatman, DO DO ms3 Natacha Delcid tw5 Iris Alexis MD MD sd2 Corrections: (The following items were deleted from the chart) 07:21 07:00 Reassessment: No changes from previously documented assessment. Patient and/or ll1 family updated on plan of care and expected duration. Pain level reassessed. Patient is alert, oriented x 3, equal unlabored respirations, skin warm/dry/pink. Report received from date night caregiver RN ll1
[2022-04-25] MEDS ORDERED: ONDANSETRON 4 MG/2 ML VIAL IV PRN (15:16)
[2022-04-25] MEDS ORDERED: ACETAMINOPHEN 500 MG TAB PO PRN (15:16)
[2022-04-25] MEDS: METOPROLOL TAR 25 MG TAB PO SCH ×2 (15:30→20:53)
--- NOTE | 2022-04-25 15:30 | P.HP ---
Certification for Inpatient Patient admitted to: Inpatient With expected LOS: >2 Midnights Patient will require the following post-hospital care: None Practitioner: I am a practitioner with admitting privileges, knowledge of patient current condition, hospital course, and medical plan of care. Services: Services provided to patient in accordance with Admission requirements found in Title 42 Section 412.3 of the Code of Federal Regulations Patient History Date of Service: 04/25/22 Reason for admission: Shortness of breath History of Present Illness: Patient is an 81-year-old gentleman who came to the hospital with difficulty breathing. Patient was hypoxic with oxygen saturations in the 70s. Patient has a questionable history of asbestosis as well as a history of diastolic heart failure. Patient also has obstructive sleep apnea. Patient was very tachypneic on arrival. Patient was started on nebs, steroids, and antibiotics. Patient was placed on 8 L of oxygen to keep oxygen saturations greater than 90%. Patient was brought into the emergency room for further evaluation. Patient is clinically feeling better. We will continue to wean down patient's O2. We will get an echocardiogram as well as pulmonary consultation. Allergies codeine Allergy (Intermediate, Verified 05/30/17 21:46) Shortness of breath Home Medications: Hydrocodone Bit/Acetaminophen [Hydrocodon-Acetaminoph 7.5-325] 7.5 - 325 mg PO TID 03/23/18 ALPRAZolam [Alprazolam] 2 mg PO BEDTIME 09/12/18 Gabapentin [Neurontin*] 300 mg PO TID 09/12/18 Pantoprazole Sodium 40 mg PO DAILY 09/12/18 Calcium/Magnesium/Zinc [Njdleav-Uiikldgab-Kpbo Tablet] 1 each PO DAILY 05/11/19 Cholecalciferol (Vitamin D3) [Vitamin D3] 4 tab PO DAILY 05/11/19 Cyanocobalamin [Vitamin B-12*] 1,000 mcg PO DAILY 05/11/19 Glucosamine/D3/Boswellia Dee [Osteo Bi-Flex Tablet] 1 each PO DAILY 05/11/19 Krill/Om-3/Dha/Epa/Phospho/Ast [Krill Oil 500 mg Softgel] 1 each PO DAILY 05/11/19 Multivitamin [Multiple Vitamins] 1 each PO DAILY 05/11/19 Pravastatin Sodium 20 mg pe PO DAILY 05/11/19 Thyroid Tab [[place] Thyroid*] 180 mg PO DAILY 05/11/19 Losartan Potassium 1 tab PO DAILY 08/18/19 hydroCHLOROthiazide [Hydrochlorothiazide*] 1 tab PO DAILY 08/18/19 Levofloxacin [Levaquin] 500 mg PO DAILY 5 Days #5 tablet 08/19/19 Prednisone [Sterapred Ds] 10 mg PO DAILY #20 tab.ds.pk 08/19/19 Spironolactone [Aldactone*] 25 mg PO DAILY #30 tab 08/19/19 - Past Medical/Surgical History Diabetic: No -: Hypertension -: CAD -: Chronic obstructive pulmonary disease -: hyperlipidemia -: Possible diastolic dysfunction -: prostate surgery -: triple bypass -: CABG -: left foot surgery -: cataract surgery- both eyes -: appedectomy - Family History Father Medical History: Other (see notes) Notes: CHF Mother Notes: pneumonia - Social History Smoking Status: Never smoker Alcohol use: Yes CD- Drugs: No Caffeine use: Yes Review of Systems 10-point ROS is otherwise unremarkable Physical Examination - Vital Signs Temperature: 99 F Blood Pressure: 130/80 Pulse: 80 Respirations: 24 Pulse Ox (%): 95 - Physical Exam General: Alert, In no apparent distress, Oriented x3 HEENT: Atraumatic, PERRLA, Mucous membr. moist/pink, EOMI, Sclerae nonicteric Neck: Supple, 2+ carotid pulse no bruit, No LAD, Without JVD or thyroid abnormality Respiratory: Diminished, Expiratory wheezes Cardiovascular: Regular rate/rhythm, Normal S1 S2, No murmurs, Systolic murmur Gastrointestinal: Normal bowel sounds, Soft and benign, Non-distended, No tenderness, No rebound, No guarding Musculoskeletal: No clubbing, No swelling, No tenderness Integumentary: No rashes Neurological: Normal gait, Normal speech, Normal strength at 5/5 x4 extr, Normal tone, Sensation intact, Cranial nerves 3-12 intact, Normal affect Lymphatics: No axilla or inguinal lymphadenopathy - Studies Laboratory Data (last 24 hrs) 04/25/22 06:13: WBC 10.20, Hgb 13.8, Hct 42.5, Plt Count 172 04/25/22 06:13: Sodium 139, Potassium 3.6, BUN 32 H, Creatinine 1.28, Glucose 99 Assessment & Plan - Problems (Diagnosis) (1) Acute respiratory distress Current Visit: No Status: Acute (2) COPD with acute exacerbation Current Visit: No Status: Acute (3) Hypoxia Current Visit: No Status: Acute (4) History of coronary artery bypass graft Current Visit: Yes Status: Acute (5) Coronary artery disease Onset Date: 09/01/17 Current Visit: No Status: Chronic Qualifiers: (6) Essential hypertension Onset Date: 09/01/17 Current Visit: No Status: Chronic (7) Hyperlipidemia Onset Date: 07/12/17 Current Visit: No Status: Chronic Qualifiers: (8) Obstructive sleep apnea Current Visit: No Status: Chronic - Plan Plan: 1. Continue with albuterol and Atrovent nebs 2. Continue with IV steroids 3. Continue with IV diuretics 4. Pulmonary consultation 5. Echocardiogram 6. Repeat chest x-ray in the morning 7. Wean down O2 8. GI and DVT prophylaxis Discharge Plan: Home Plan to discharge in: Greater than 2 days - Advance Directives Does patient have a Living Will: Yes Does patient have a Durable POA for Healthcare: Yes - Code Status/Comfort Care Code Status Assessed: Yes Code Status: Full Code Critical Care: No Time Spent Managing PTS Care (In Minutes): 45
[2022-04-25] MEDS ORDERED: KCL 20 MEQ/100 mL IVPB 20 MEQ/100 ML BAG IV SCH (16:00)
[2022-04-25] MEDS ORDERED: POTASSIUM CL SA 10 MEQ TAB PO ONE (17:34)
[2022-04-25] MEDS: ENOXAPARIN 40 MG/0.4 ML SQ SCH (17:49)
[2022-04-25] MEDS: METHYLPREDNISOLONE 125 MG INJ IV SCH (17:50)
[2022-04-25] MEDS: FUROSEMIDE 40 MG/4 ML VIAL IV SCH (17:50)
[2022-04-25 18:16] VITALS: BMI 30.4
[2022-04-25] MEDS: IPRATROPIUM BROM 0.5MG/2.5ML NEB SCH (20:50)
[2022-04-25] MEDS: ALBUTEROL 2.5 MG/3 ML NEB SOL NEB SCH (20:50)
[2022-04-26] MEDS: METHYLPREDNISOLONE 125 MG INJ IV SCH ×3 (00:12→16:52)
[2022-04-26] MEDS: IPRATROPIUM BROM 0.5MG/2.5ML NEB SCH ×4 (01:10→20:10)
[2022-04-26] MEDS: ALBUTEROL 2.5 MG/3 ML NEB SOL NEB SCH ×4 (01:10→20:10)
[2022-04-26] MEDS ORDERED: DIPHENHYDRAMINE 25 MG TAB/CAP PO PRN (01:12)
[2022-04-26 05:34] LABS: Absolute Lymphocytes (CBC) 0.4 K/uL (0.7-4.9); Hematocrit 44.8 % (39.6-49.0); Lymphocytes % 8.4 % (15.3-44.8); MCV 92.1 fL (80-100); MPV 8.9 fL (7.6-11.3); RBC Red Blood Cell Count 4.87 M/uL (4.33-5.43)
[2022-04-26 05:54] LABS: Albumin 3.3 g/dL (3.4-5.0); Bilirubin Total 0.6 mg/dL (0.2-1.0); Magnesium 2.2 mg/dL (1.8-2.4); Phosphorus 3.9 mg/dL (2.5-4.9); Potassium 4.8 mmol/L (3.5-5.1)
[2022-04-26 06:44] LABS: Blood Morphology Comment NOT SEEN (NOT SEEN); Platelet Estimate ADEQ; White Blood Cell Scan OK (OK)
[2022-04-26] MEDS: ENOXAPARIN 40 MG/0.4 ML SQ SCH (08:48)
[2022-04-26] MEDS: FUROSEMIDE 40 MG/4 ML VIAL IV SCH ×2 (08:49→16:51)
[2022-04-26] MEDS: METOPROLOL TAR 25 MG TAB PO SCH ×2 (08:49→21:46)
--- NOTE | 2022-04-26 14:02 | ECHO ---
HEIGHT: 5 ft 8 in WEIGHT: 200 lb 0.054 oz DATE OF STUDY: 04/26/[address]: Rex Christie MD 2-DIMENSIONAL: YES M.MODE: YES DOPPLER: YES COLOR FLOW: YES TDS: NO PORTABLE: YES DEFINITY: NO BUBBLE STUDY: NO DIAGNOSIS: CONGESTIVE HEART FAILURE CARDIAC HISTORY: CATHERIZATION: YES SURGERY: YES PROSTHETIC VALVE: NO PACEMAKER: NO MEASUREMENTS (cm) DIASTOLIC (NORMALS) SYSTOLIC (NORMALS) IVSd 1.2 (0.6-1.2) LA Diam 3.8 (1.9-4.0) LVEF 55% LVIDd 5.1 (3.5-5.7) LVIDs 4.1 (2.0-3.5) %FS % LVPWd 1.3 (0.6-1.2) Ao Diam 3.2 (2.0-3.7) 2 DIMENSIONAL ASSESSMENT: RIGHT ATRIUM: NORMAL LEFT ATRIUM: ENLARGED RIGHT VENTRICLE: NORMAL LEFT VENTRICLE: NORMAL TRICUSPID VALVE: MILD TRICUSPID REGURGITATION MITRAL VALVE: MODERATE MITRAL REGURGITATION PULMONIC VALVE: NORMAL AORTIC VALVE: MILD AORTIC INSUFFICIENCY PERICARDIAL EFFUSION: NONE AORTIC ROOT: NORMAL LEFT VENTRICULAR WALL MOTION: NORMAL. DOPPLER/COLOR FLOW: SEE BELOW. COMMENTS: NORMAL LEFT VENTRICULAR EJECTION FRACTION 55-60% WITH NORMAL WALL MOTION. MODERATE DIASTOLIC DYSFUNCTION. SEVERE PULMONARY HYPERTENSION WITH RIGHT VENTRICULAR SYSTOLIC PRESSURE OF GREATER THAN 60mmHg. ELEVATED LEFT FILLING PRESSURE. MODERATE MITRAL REGURGITATION, MODERATE TRICUSPID REGURGITATION, AND MILD AORTIC INSUFFICIENCY. TECHNOLOGIST: ANASTASIYA GEE
--- NOTE | 2022-04-26 14:07 | EKG ---
Test Date: 2022-04-25 Test Time: 05:36:40 Bleacher Operator: MEASUREMENT RESULTS: Intervals: Rate: 91 UT: 168 QRSD: 106 QT: 382 QTc: 469 [place]: P: 46 UT: 168 QRS: -23 T: 108 INTERPRETIVE STATEMENTS: Sinus rhythm with premature supraventricular complexes Left ventricular hypertrophy with repolarization abnormality Abnormal ECG Compared to ECG 08/17/2019 21:15:46 Atrial premature complex(es) now present Sinus tachycardia no longer present Ventricular premature complex(es) no longer present Electronically Signed On 04-26-22 14:02:50 CDT by Juan Dockery
[2022-04-27] MEDS: METHYLPREDNISOLONE 125 MG INJ IV SCH ×2 (00:31→08:28)
[2022-04-27] MEDS: IPRATROPIUM BROM 0.5MG/2.5ML NEB SCH ×2 (01:54→08:50)
[2022-04-27] MEDS: ALBUTEROL 2.5 MG/3 ML NEB SOL NEB SCH ×2 (01:55→08:50)
[2022-04-27] MEDS: METOPROLOL TAR 25 MG TAB PO SCH (08:28)
[2022-04-27] MEDS: FUROSEMIDE 40 MG/4 ML VIAL IV SCH (08:29)
[2022-04-27] MEDS: ENOXAPARIN 40 MG/0.4 ML SQ SCH (08:29)
[2022-04-27 08:30] VITALS: BP 131/76
[2022-04-27 09:36] VITALS: O2SAT 96
[2022-04-27 10:03] VITALS: TEMP 97
== END 2022-04-27 11:18 | disposition home or self-care (01) | DRG 190 ==
LOC: ER 04:54 → ERHOLD 15:16 → 4TH 16:56
PROVIDERS: ADMIT Hospitalist; ATTEND Hospitalist
DX: J44.1 Chronic obstructive pulmonary disease with (acute) exacerbation (principal); J96.01 Acute respiratory failure with hypoxia; I10 Essential (primary) hypertension; E78.5 Hyperlipidemia, unspecified; G47.33 Obstructive sleep apnea (adult) (pediatric); I25.10 Atherosclerotic heart disease of native coronary artery without angina pectoris; Z88.5 Allergy status to narcotic agent; Z95.0 Presence of cardiac pacemaker; Z79.52 Long term (current) use of systemic steroids; Z90.49 Acquired absence of other specified parts of digestive tract; Z79.899 Other long term (current) drug therapy; Z20.822 Contact with and (suspected) exposure to COVID-19
CPT/HCPCS: 36415; 71045; 71275; 80048; 80053; 83735; 83880; 84100; 84484; 85025; 85379; 93005; 93306; 94640; 94760; 96374; 99285; J1650; J1940; J2930; Q9967; U0003

== ENCOUNTER 2022-05-21 22:52 | Inpatient (IN) | payer OTHER, MEDICARE ==
--- OUTSIDE RECORDS SUMMARY | 2022-05-21 22:56 | XMS REPORT | Continuity of Care Document ---
:1940 Author Organization [facility] t Address [address] [place] [address] Care Team Providers Name Role Phone Conner Maldonado MD Primary Care Physician Unavailable Mikael Awan MD Attending Clinician MIKAEL AWAN Attending Clinician Unavailable Mikael Awan MD Attending Clinician Nikos Dey MD Attending Clinician Samina Peng CRNA Attending Clinician [phone] Shoaib Valles MD Attending Clinician Cornelius Zarco CRNA Attending Clinician [phone] MIKAEL AWAN Attending Clinician Unavailable Rolando Attending Clinician Unavailable Tani_Topher Attending Clinician Unavailable MIKAEL AWAN Admitting Clinician Unavailable Rolando Admitting Clinician Unavailable Rajwandy_P Admitting Clinician Unavailable Payers Payer Name Policy Type Policy Number Effective Date Expiration Date Maday borden MEDICARE A B [id number] 2006 00:00:00 [facility] [id number] 2021 HEALTHCARE 00:00:00 [place]ICARE B-[place]: [id number] 2006 [place] 00:00:00 [facility] [id number] 2006 OPTION - PLAN F 00:00:00 (MEDICARE SUPPLEMENT) Problems Condition Condition Condition Status Onset Resolution Last Treating Co mments Source Name Details Category Date Date Treatment Clinician Date Obstructiv Obstructiv Disease Active [facility] ap[facility] 00 Center KD KD Disease Active [facility] (obstructi 3-07 [facility] kes ve sleep ve sleep 00:00: Medica l apnea) apnea) 00 Center Serous Serous Problem Active [place] otitis Otitis [...] ents Source Name Type Date Date Clinician Codeine Propensi Active Hallucinatio B aylor ty to ns 4-04 College adverse 00:00: of reaction 00 Medicin s to e drug Codeine Drug Active Other (See Other [facility] Allergy Comments) 10-11 reaction( Chacha es 00:00: s): Medical 00 [facility] tions CODEINE Allergy Active Other [facility]04 [facility] Codeine Allergy Active Moderate Other [place] [facility] to da substanc Medical e Group Social History Social Habit Start Date Stop Date Quantity Comments Source History SDOH [facility] Alcohol Frequency Medical Center History SDOH [facility] Alcohol Std Drinks Medica l Center History SDOH [facility] Alcohol Binge Medical Eloy ter Exposure to 2021-10-30 2021-11-09 Not sure Praviniman berg SARS-CoV-2 (event) 00:00:00 15:14:00 of Med icine Alcohol intake 2021-11-02 2021-11-02 [facility] alcohol Medical Center (finding) Cigarettes smoked 2021-10-29 2021-10-[address] [facility] current (pack per 00:00:00 00:00:00 Medical Center day) - Reported Tobacco use and 2021-10-29 2021-10-[address] [facility] kes exposure 00:00:00 00:00:00 Medical Center History SDOH 2021-10-29 2021-10-[address] [facility] Alcohol Comment 00:00:00 00:00:00 Medical C enter Tobacco Comment 2021-10-29 2021-10-29 quit [address] [facility] 00:00:00 00:00:00 turned [address] old Sex Assigned At [address] [facility] kemaday 00:00:00 00:00:00 Medical Center Smoking Status Start Date Stop Date Source Ex-smoker 2021-09-01 00:00:00 2021-09-01 00:00:00 [facility] Medicine Medications Ordered Filled Start Stop Current Ordering Indication Dosage Frequency Signature Comments Components Source Medication Medication Date Date Medication? Clinician (SIG) Name Name pantoprazol Yes 20mg Take 20 mg Pravin e 5-04 by mouth [place] (PROTONIX) 14:56: daily. of 20 MG 35 Medicin tablet e Vitamin E Yes Take by [facility] r 100 units - mouth. [place] CAPS 14:56: of 35 Medicin e Coenzyme Yes Take by [facility] Q10 (CO - mouth. [place] Q-10) 300 14:56: of MG CAPS 35 Medicin e Calcium Yes Take by [facility] Carbonate-V - mouth. Marie berg it D-Min 14:56: of (CALCIUM 35 Medicin 1200) e [id number] MG-UNIT CHEW Eldred-3 Yes Take by [facility] Fatty Acids -04 [facility]. [facility] ([facility]GA 3 14:56: of 500) 500 MG 35 Medicin CAPS e Aspirin 81 Yes Take by [facility] or MG CAPS -04 mouth. [place] 14:56: of 35 Medicin e Cholecalcif Yes Take by [facility] demetria -04 mouth. [place] (VITAMIN 14:56: of D3) 25 MCG 35 Medicin (1000 UT) e CAPS HYDROcodone Yes 1{tbl} Take [address] -acetaminop 4-25 tablet by Chacha doherty (SaveUpCO 18:30: mouth Medica l 10-325) 41 every 6 Center 10-325 mg (six) per tablet hours as needed for Pain. losartan-hy Yes 1{tbl} QD Take [address] drochloroth 4-25 tablet by Chacha merrill iazide 18:30: mouth Medical (HYZAAR) 41 every Center 100-12.5 mg morning . per tablet QUEtiapine Yes 100mg QD Take [address] (SEROquel) 4-25 mg by [facility] 100 MG 18:30: mouth Medical tablet 41 nightly. Center pravastatin 0 Yes 20mg QD Take [address] (PRAVACHOL) 4-25 by mouth Luke s 20 MG 18:30: every Medical tablet 41 morning . Center thyroid, 0 Yes QD Take by [facility] pork, 180 4-25 mouth [facility] mg Tab 18:30: every Medical 41 morning . Center pantoprazol Yes 20mg QD Take [address] e 4-25 by mouth [facility] (PROTONIX) 18:30: every Medica l 20 MG 41 morning . Center tablet aspirin 81 0 Yes 81mg QD Take [address] MG EC 4-25 by mouth [facility] tablet 18:30: daily. Medical 41 Center hydrocodone Yes 1{tbl} Take 1 Ba ylor -acetaminop 4-25 Tablet by Col yanira doherty (NORCO) 00:00: mouth of 10-325 MG 00 Every 6 Medicin per tablet hours. e amoxicillin 0 2021- No 1{tbl} Q.5D Take [address] -clavulanat 4-25 05-02 tablet by Chen berg 00:00: 23:59 mouth 2 Medical (Augmentin) 00 :00 (two) Center 875-125 mg times per tablet daily for 7 days. pantoprazol Yes 20mg Take 20 mg [facility] e 2-23 by mouth College (PROTONIX) 15:42: daily. of 20 MG 13 Medicin tablet e Vitamin E Yes Take by Julissa r 100 units 2-23 mouth. College CAPS 15:42: of 13 Medicin e Coenzyme Yes Take by [facility] Q10 (CO 2-23 mouth. [place] Q-10) 300 15:42: of MG CAPS 13 Medicin e Calcium Yes Take by [facility] Carbonate-V - mouth. Marie berg it D-Min 15:42: of (CALCIUM 13 Medicin 1200) e [id number] MG-UNIT CHEW Eldred-3 Yes Take by [facility] Fatty Acids 2- mouth. [facility] (OMEGA 3 15:42: of 500) 500 MG 13 Medicin CAPS e Aspirin 81 Yes Take by [place] or MG CAPS - mouth. [place] 15:42: of 13 Medicin e Cholecalcif Yes Take by [place] iman demetria - mouth. [place] (VITAMIN 15:42: of D3) 25 MCG 13 Medicin (1000 UT) e CAPS losartan-hy Yes [facility] drochloroth 2 [place] iazide 00:00: of (HYZAAR) 00 Medicin 100-12.5 MG e per tablet losartan-hy Yes [facility] drochloroth 08-30 [place] iazid 00:00: of (HYZAAR) 00 Medicin 100-12.5 MG [...] ON FOR 5-10 MINUTES BEFORE RINSING ketoconazol 0 Yes APPLY [facility] (NIZORAL) 2-15 [...] Medicin e ARMOUR 2020-07 Yes TAKE 1 [facility] THYROID 180 2-15 TABLET BY Col lege MG tablet 00:00: MOUTH of 00 EVERY DAY Medicin e eszopiclone eszopiclone No eszopiclon [place] 2 mg tablet 2 mg tablet e 2 mg da tablet Medical Group Fluzone Fluzone No Fluzone [place] High-Dose High-Dose High-Dose da [facility] (PF) 240 (PF) 240 (PF) [...] a route. route. day by oral route. [place] Thyroid 180 Thyroid 180 Thyroid da [...] Source Systolic blood 2021-11-10 19:55:00 148 mm[Hg] [facility] pressure Medicine Diastolic blood 2021-11-10 19:55:00 72 mm[Hg] [facility] pressure Medicine Heart rate 2021-11-10 19:55:00 68 /min [facility] Body height 2021-11-10 19:55:00 172.7 cm [facility] Body weight 2021-11-10 19:55:00 90.719 kg [facility] BMI 2021-11-10 19:55:00 30.41 kg/m2 [facility] HEIGHT 2021-11-01 09:23:00 172.7 cm WEIGHT 2021-11-01 09:23:00 89.721 kg HEIGHT 2021-10-29 11:02:00 172.7 cm WEIGHT 2021-10-29 11:02:00 90.719 kg HEIGHT 2021-11-01 09:23:00 172.7 cm WEIGHT 2021-11-01 09:23:00 89.721 kg HEIGHT 2021-10-29 11:02:00 172.7 cm WEIGHT 2021-10-29 11:02:00 90.719 kg HEIGHT 2021-09-13 10:00:00 172.7 cm WEIGHT 2021-09-13 10:00:00 93.7 kg HEIGHT 2021-09-13 10:00:00 172.7 cm WEIGHT 2021-09-13 10:00:00 93.7 kg HEIGHT 2021-09-13 10:00:00 172.7 cm WEIGHT 2021-09-13 10:00:00 93.7 kg Systolic blood 2021-09-01 19:36:00 166 mm[Hg] [facility] pressure Medicine Diastolic blood 2021-09-01 19:36:00 87 mm[Hg] [facility] pressure Medicine Heart rate 2021-09-01 19:36:00 80 /min [facility] Body height 2021-09-01 19:36:00 172.7 cm [facility] Body weight 2021-09-01 19:36:00 90.719 kg [facility] BMI 2021-09-01 19:36:00 30.41 kg/m2 [facility] BP Diastolic 2020-10-29 00:00:00 80 mm[Hg] [facility] Height 2020-10-29 00:00:00 68 [in_i] [facility] BMI (Body Mass 2020-10-29 00:00:00 32.1 kg/m2 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 BP Systolic 2020-10-29 00:00:00 144 mm[Hg] [facility] Body Weight 2020-10-29 00:00:00 211.3 [lb_av] [facility] BP Diastolic 2020-05-26 00:00:00 89 mm[Hg] [facility] Height 2020-05-26 00:00:00 68 [in_i] [facility] BMI (Body Mass 2020-05-26 00:00:00 32.7 [facility]/m[facility] BP Systolic 2020-05-26 00:00:00 153 mm[Hg] [facility] Body Weight 2020-05-26 00:00:00 215 [lb_av] [facility] BP Diastolic 2020-05-22 00:00:00 74 mm[Hg] [facility] Height 2020-05-22 00:00:00 68 [in_i] [facility] BMI (Body Mass 2020-05-22 00:00:00 32.7 kg/m2 [facility]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 BP Systolic 2020-05-22 00:00:00 163 mm[Hg] [facility] Body Weight 2020-05-22 00:00:00 215.1 [lb_av] [facility] Height 2018-07-06 00:00:00 68 [in_i] [facility] BMI (Body Mass 2018-07-06 00:00:00 33.4 kg/m2 [facility] Medical Index) Group Body Weight 2018-07-06 00:00:00 219.5 [lb_av] [facility] Systolic blood 2021-11-01 17:08:00 167 mm[Hg] [facility] Diastolic blood 2021-11-01 17:08:00 83 mm[Hg] [facility] Heart rate 2021-11-01 17:08:00 83 /min [facility] Body temperature 2021-11-01 17:08:00 36.56 Molly [facility] Respiratory rate 2021-11-01 17:08:00 14 /min [facility] Oxygen saturation in 2021-11-01 17:08:00 97 /min [facility] Arterial blood by Medical Ce nter Pulse oximetry Body height 2021-11-01 09:23:00 172.7 cm [facility] Body weight 2021-11-01 09:23:00 89.721 kg [facility] BMI 2021-11-01 09:23:00 30.08 kg/m2 [facility] Procedures Procedure Date / Time Performing Clinician Source Performed INSERTION, 2021-11-01 13:39:00 Mikael Awan [facility] NEUROSTIMULATOR, Center HYPOGLOSSAL SARS-COV2/RT-PCR ([facility] & 2021-10-29 15:58:00 Mikael Awan [facility] REF LABS) Center HEMOGLOBIN 2021-10-29 15:58:00 Jaciel Castaneda [facility] BASIC METABOLIC PANEL 2021-10-29 15:58:00 Jaciel Castaneda [facility] ENDOSCOPY, WITH SEDATION 2021-09-13 12:17:00 Mikael Awan [facility] HEMOGLOBIN 2021-09-13 11:28:00 Shoaib Valles [facility] BASIC METABOLIC PANEL 2021-09-13 11:28:00 Shoaib Valles [facility] POCT-GLUCOSE METER 2021-09-13 11:23:00 Mikael Awan [facility] TYMPANOMETRY 2018-07-06 00:00:00 [facility] TYMPANOMETRY 2018-06-15 00:00:00 [facility] Prostate Ca Screening; [facility] Plan of Care Planned Activity Planned Date Details Comments Source Future Scheduled 2022-03-10 INFLUENZA VACCINE (#1) [facility] Test 00:00:00 [code = INFLUENZA Medical Ce nter VACCINE (#1)] Future Scheduled 2021-11-16 COVID-19 Vaccine (1) [facility] Test 16:19:46 [code = COVID-19 Medicine Vaccine (1)] Future Scheduled 2021-11-16 TETANUS SHOT (ADULT) [facility] Test 16:19:46 [code = TETANUS SHOT Medicin e (ADULT)] Future Scheduled 2021-11-16 BMI FOLLOW UP PLAN [facility] Test 16:19:46 [code = BMI FOLLOW UP Medici ne PLAN] Future Scheduled 2021-11-16 ZOSTER VACCINE (1 of [facility] Test 16:19:46 2) [code = ZOSTER Medicine VACCINE (1 of 2)] Future Scheduled 2021-11-16 FALL SCREEN [code = [employer] [facility] Test 16:19:46 FALL SCREEN] Medicine Future Scheduled 2021-11-16 Pneumococcal 65+ (1 of [facility] of Test 16:19:46 1 - PPSV23) [code = Medicine Pneumococcal 65+ (1 of 1 - PPSV23)] Future Scheduled 2021-11-16 MEDICARE IPPE (WELCOME [facility] of Test 16:19:46 TO MEDICARE) [code = Medicin e MEDICARE IPPE (WELCOME TO MEDICARE)] Future Scheduled 2021-11-16 FLU VACCINE > 6 MONTHS [facility] Test 16:19:46 [code = FLU VACCINE > Medici ne 6 MONTHS] Future Scheduled 2021-09-10 COVID-19 Vaccine (1) [facility] of Test 09:14:48 [code = COVID-19 Medicine Vaccine (1)] Future Scheduled 2021-09-10 TETANUS SHOT (ADULT) [facility] of Test 09:14:48 [code = TETANUS SHOT Medicin e (ADULT)] Future Scheduled 2021-09-10 BMI FOLLOW UP PLAN [facility] of Test 09:14:48 [code = BMI FOLLOW UP Medici ne PLAN] Future Scheduled 2021-09-10 ZOSTER VACCINE (1 of [facility] of Test 09:14:48 2) [code = ZOSTER Medicine VACCINE (1 of 2)] Future Scheduled 2021-09-10 FALL SCREEN [code = [facility] or College of Test 09:14:48 FALL SCREEN] Medicine Future Scheduled 2021-09-10 Pneumococcal 65+ (1 of [facility] Test 09:14:48 1 - PPSV23) [code = Medicine Pneumococcal 65+ (1 of 1 - PPSV23)] Future Scheduled 2021-09-10 FLU VACCINE > 6 MONTHS [facility] Test 09:14:48 [code = FLU VACCINE > Medici ne 6 MONTHS] Future Scheduled 2021-09-10 MEDICARE IPPE (WELCOME [facility] Test 09:14:48 TO MEDICARE) [code = Medicin e MEDICARE IPPE (WELCOME TO MEDICARE)] Future Scheduled 2021-07-[address] [facility] Test 00:00:00 (12+) [code = Medical Center DEPRESSION SCREENING (12+)] Future Scheduled 2021-07-10 FALLS RISK SCREENING [facility] Test 00:00:00 [code = FALLS RISK Medical C enter SCREENING] Future Scheduled 2007-05-[address] [facility] Test 00:00:00 WELLNESS (YEAR 2 or Medical Center FIRST YEAR if no IPPE) [code = MEDICARE ANNUAL WELLNESS (YEAR 2 or FIRST YEAR if no IPPE)] Future Scheduled 2006 PNEUMOCOCCAL 65+ YRS [facility] Test 00:00:00 (1 - PCV) [code = Medical Ce nter PNEUMOCOCCAL 65+ YRS (1 - PCV)] Future Scheduled 1991 SHINGLES VACCINES ([address] [facility] Test 00:00:00 of 2) [code = SHINGLES Medic al Center VACCINES (1 of 2)] Future Scheduled 1960 DTAP/TDAP/TD VACCINES [facility] Test 00:00:00 (1 - Tdap) [code = Medical C enter DTAP/TDAP/TD VACCINES (1 - Tdap)] Future Scheduled 1940 COVID-19 VACCINE (#1) [facility] Test 00:00:00 [code = COVID-[address] VACCINE (#1)] Encounters Start End Encounter Admission Attending Care Care Encounter Source Date/Time Date/Time Type Type Clinicians Facility Department ID 2021-11-10 2021-11-10 Office ELVIN Awan [id number] [facility] 14:30:00 15:45:32 Visit Mikael Isamar AMBULATOR [id number] College Y [id number] of [id number] Medi adele 800 e 2021-11-01 2021-11-01 Outpatient MICHEAL AWAN [facility] Surgery [id number] [facility] 08:18:00 18:20:00 MIKAEL 2021-11-01 2021-11-01 Hospital [facility] [id number] 08:18:00 18:20:00 Encounter Mikael Penn [facility] 2021-11-01 2021-11-01 Anesthesia Nikos Dey [facility] [id number] [facility] 13:54:00 15:46:00 Event Samina Peng [facility] 2021-11-01 2021-11-01 Surgery [facility] [id number] 11:30:00 13:00:00 [facility] 2021-11-01 2021-11-01 Travel [facility] [id number] [facility] 00:[facility]00 00:00:00 [facility] 2021-10-29 2021-10-29 Outpatient EL [facility] [id number] [facility] 11:29:45 23:59:00 2021-10-29 2021-10-29 [facility] [id number] 11:25:00 23:59:00 Encounter [facility] 2021-10-29 2021-10-29 Outpatient LEBRON BOOTH SLE [id number] [facility] 15:29:30 11:24:00 [place] 2021-10-29 2021-10-29 [facility] [id number] 09:00:00 11:24:00 Encounter [facility] 2021-10-29 2021-10-29 Outpatient EL SLEH SLEH [id number] [facility] 00:00:00 00:00:00 2021-10-29 2021-10-29 Outpatient EL [facility]H [facility] [id number] [facility] 00:00:00 00:00:00 2021-09-13 2021-09-13 Outpatient LEBRON BOOTH Surgery [id number] [facility] 10:33:00 14:09:00 [place] 2021-09-13 2021-09-13 [facility] [id number] 10:33:00 14:09:00 Encounter [facility] 2021-09-13 2021-09-13 Anesthesia Shoaib Valles [facility] [id number] [facility] 12:21:00 12:48:00 Event Cornelius Zarco [facility] 2021-09-13 2021-09-13 Surgery [facility] [id number] 12:00:00 12:30:00 [facility] 2021-09-13 2021-09-13 Travel [facility] [id number] [facility] 00:00:00 00:00:00 [facility] 2021-09-01 2021-09-01 Office ELVIN AWAN [id number] [place] [address] 12:43:59 15:52:34 Visit MIKAEL AMBULATOR [id number] College Y [id number] [facility] 800 e 2020-10-29 2020-10-29 Preet Logan Desmond_[place] - [id number] [place] 00:00:00 00:00:00 MD: Jerrell Ontiveros [address] [facility] [address], [facility], [place] [address] , Ph. 2020-05-28 2020-05-28 Outpatient Yan_W MM[facility] MMG [id number] [place] 09:45:00 09:45:00 1119 [facility] 2020-05-27 2020-05-27 Outpatient Yan_W MMG MM[place] [id number] [place] 02:22:00 02:22:00 1118 [facility] 2020-05-26 2020-05-26 [place] GranadosW [place] - [id number] [place] 00:00:00 00:00:00 : Jerrell Ontiveros [address] [facility] [address], [facility], [place] [address] , Ph. 2020-05-25 2020-05-25 Outpatient Yan_W MMG MMG [id number] [place] 06:01:00 06:01:00 [facility]6 [facility] 2020-05-22 2020-05-22 [place] - [id number] [place] 00:00:00 00:00:00 : Jerrell Ontiveros [address] [facility] [address], [facility], [place] [address] , Ph. 2020-05-04 2020-05-04 Outpatient Desmond_W [facility] [id number] [place] 09:53:00 09:53:00 1026 [facility] 2018-11-05 2018-11-05 Outpatient Tani_P [facility] [id number] [place] 03:17:00 03:17:00 0429 [facility] 2018-07-06 2018-07-06 [place] - [id number] [place] 00:00:00 00:00:00 MD Tani: [address], [facility] [address] , Ph. 2018-06-15 2018-06-15 Estelle [facility] [place] - [id number] [place] 00:00:00 00:00:00 MD Tani: [address] [address], [facility] [address] , Ph. Results Test Description Test Time Test Comments Results Result Comments Source SARS-CoV2/RT-PCR (Asymptomatic ONLY) 2021-10-30 01:40:45 Test Item Value Reference Range Interpretation Comme nts SARS-COV2/RT-PCR (test code = Negative Negative 71596-6) RONAK (test code = RONAK) Negative result for this test determines that [...] be considered in cases of suspected false negatives. The limit of detection for this assay is 100 copies/mL. This SARS-CoV-2 test is a real-time RT_PCR test intended for the qualitative detection of nucleic acid from SARS-CoV-2 in a nasopharyngeal swab specimen collected from individuals suspected of COVID-19 by their healthcare provider. This test has not been Food and Drug [...] is revoked under Section 564(g) of the Act. Testing was performed using the Márquez SARS-CoV-2 assay. Fact Sheet for Healthcare Providers:https://www.griddig.Healtheo360 lela/yuri/RT SARS-CoV-2 HCP Fact Sheet 51-107433.pdf Fact Sheet for Healthcare Patients:https://www.griddig.Vigno tt/yuri/RT SARS-CoV-2 Patient Fact Sheet EN 51-078737M3.pdf Lab Interpretation (test code = Normal 17910-6) [facility])2021-10-30 01:40:45 Test Item Value Reference Range Interpretation Comments SARS-COV2/RT-PCR (test code = Negative Negative [id number]) Negative result for this test determines that [...] 564(g) of the Act.Testing was performed using [employer] SARS-CoV-2 assay.Fact Sheet for Healthcare Providers:https://www.dscout/yuri/RT SARS-CoV-2 HCP Fact Sheet 51- 812793.pdfFact Sheet for Healthcare Patients:https://www.dscout/yuri/RT SARS-CoV-2 Patient Fact Sheet EN 51-239497L1.pdfBASIC METABOLIC [id number] 16:53:09 Test Item Value Reference Range Interpretation [...] S NOT APPLICABLE FOR DIALYSIS PATIEN TS. [employer] ID - [id number] 16:24:17 Test Item Value Reference Range Interpretation Comments HEMOGLOBIN (BEAKER) (test code = 14.7 GM/DL 13.7-17.5 410) [employer] ID - [id number] METABOLIC [id number] 12:05:23 Test Item Value Reference Range Interpretation [...] S NOT APPLICABLE FOR DIALYSIS PATIEN TS. [employer] ID - [id number] 11:44:38 Test Item Value Reference Range Interpretation Comments HEMOGLOBIN (BEAKER) (test code = 14.6 GM/DL 13.7-17.5 410) [employer] ID - [id number]-Glucose [id number] 11:34:47 Test Item Value Reference Range Interpretation Comments POC-Glucose Meter (test 104 mg/dL 70-110 : No tified RN/MD: code = 1538) TESTED AT [facility] [address] [facility], 770 30: [employer] Professional/Techni leny ID = [id number] for MYRON VENTURA Lab Interpretation (test Normal code = 43327-4) [facility] [id number] 11:34:47 Test Item Value Reference Range Interpretation Comments POC-GLUCOSE METER 104 mg/dL 70-110 : Notified RN/: (ADAM) (test code = TESTED AT [facility] 6720 1538) [facility], [address]: [employer] Professional/Techni leny ID = [id number] for MYRON SPENCER [id number] 10:49:28 Test Item Value Reference Range Interpretation Comments Right (test code = Type B Curve Flat Right) Left (test code = Left) Type C Peak is on Left [id number] 10:50:41 Test Item Value Reference Range Interpretation Comments Right (test code = Right) Type B Curve Flat Left (test code = Left) Type A Normal [facility]
[2022-05-21] MEDS ORDERED: ASPIRIN 81 MG CHEWABLE TABLET ONE (23:20)
[2022-05-21 23:28] LABS: Absolute Lymphocytes (CBC) 1.3 K/uL (0.7-4.9); Hematocrit 43.9 % (39.6-49.0); Lymphocytes % 20.9 % (15.3-44.8); MCV 91.5 fL (80-100); MPV 8.2 fL (7.6-11.3)
[2022-05-21 23:49] LABS: Magnesium 2.2 mg/dL (1.8-2.4); Potassium 3.9 mmol/L (3.5-5.1); Troponin High Sensitivity 33.7 pg/mL (<58.9)
--- NOTE | 2022-05-22 00:04 | ER ---
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 Pt denies N/V/sweating. Coronavirus screen: Vaccine status: Patient reports receiving the 2nd dose of the covid vaccine. Client denies travel out of the [place] in the last 14 days. Ebola Screen: Patient negative for fever greater than or equal to 101.5 degrees Fahrenheit, and additional compatible Ebola Virus Disease symptoms Patient denies exposure to infectious person. Patient denies travel to an Ebola-affected area in the 21 days before illness onset. Initial Sepsis Screen: Does the patient meet any 2 criteria? No. Patient's initial sepsis screen is negative. Does the patient have a suspected source of infection? No. Patient's initial sepsis screen is negative. Risk Assessment: Do you want to hurt yourself or someone else? Patient reports no desire to harm self or others. Onset of symptoms was May 21, 2022 at 22:30. 23:09 Method Of Arrival: Ambulatory kb3 23:09 Acuity: POPPY 2 kb3 Triage Assessment: 23:11 General: Appears in no apparent distress. uncomfortable, Behavior is calm, cooperative. kb3 Pain: Complains of pain in anterior aspect of left upper chest and left breast Pain does not radiate. Pain currently is 4 out of 10 on a pain scale. Quality of pain is described as pressure, Pain began 30 min ago. Cardiovascular: Reports chest pain, shortness of breath, Denies diaphoresis, lightheadedness, syncope, vomiting. Respiratory: Reports shortness of breath at rest Airway is patent. Historical: - Allergies: 23:11 Codeine; kb3 - Home Meds: 23:11 Alprazolam Oral [Active]; aspirin 81 mg Oral chew 1 tab once daily [Active]; kb3 losartan-hydrochlorothiazide 100-25 mg oral tab [Active]; hydrocodone-acetaminophen 10-325 mg Oral tab 1 tab every 6 hours [Active]; - PMHx: 23:11 bowel obstruction; coronary atherosclerosis; High Cholesterol; Hypertension; KD; kb3 Chronic back pain; Asbestosis; - PSHx: 23:11 Coronary artery bypass graft; Inspire UAS-right chest wall; Bowel resection; kb3 - Immunization history:: Adult Immunizations up to date, Client reports receiving the 2nd dose of the Covid vaccine, Last tetanus immunization: up to date. - Social history:: Smoking status: Patient denies any tobacco usage or history of. Screenin:17 Abuse screen: Denies threats or abuse. Nutritional screening: No deficits noted. kl Tuberculosis screening: No symptoms or risk factors identified. Fall Risk None identified. Assessment: 23:30 General: Appears in no apparent distress. comfortable, Behavior is calm, cooperative. kl Pain: Complains of pain in chest and left breast and anterior aspect of left upper chest Pain currently is 3 out of 10 on a pain scale. at worst was 10 out of 10 on a pain scale. Quality of pain is described as aching, pressure, Pain began this am. Neuro: No deficits noted. Cardiovascular: Reports chest pain, Capillary refill < 3 seconds Rhythm is sinus rhythm. Respiratory: No deficits noted. GI: No deficits noted. No signs and/or symptoms were reported involving the gastrointestinal system. : No deficits noted. No signs and/or symptoms were reported regarding the genitourinary system. 05/22 00:30 Reassessment: No changes from previously documented assessment. Patient and/or family ll3 updated on plan of care and expected duration. Pain level reassessed. Patient is alert, oriented x 3, equal unlabored respirations, skin warm/dry/pink. 02:54 Reassessment: No changes from previously documented assessment. Patient and/or family ll3 updated on plan of care and expected duration. Pain level reassessed. Patient is alert, oriented x 3, equal unlabored respirations, skin warm/dry/pink. Vital Signs: 05/21 23:09 BP 161 / 102; Pulse 96; Resp 15; Temp 98; Pulse Ox 96% ; Weight 90.72 kg; Height 5 ft. kb3 8 in. (172.72 cm); Pain 4/10; 05/22 00:30 BP 138 / 77; Pulse 80; Resp 14; Pulse Ox 95% on R/A; ll3 02:00 BP 156 / 90; Pulse 89; Resp 18; Pulse Ox 94% on R/A; ll3 03:25 BP 139 / 79; Pulse 73; Resp 14; Pulse Ox 96% on R/A; ll3 11 23:09 Body Mass Index 30.41 (90.72 kg, 172.72 cm) kb3 ED Course: 05/21 22:55 Patient arrived in ED. bp1 23:01 Epifanio Chatman DO is Attending Physician. ms3 23:11 Triage completed. kb3 23:11 Arm band placed on right wrist. Patient placed in an exam room, on a stretcher, on kb3 value stream coach, on pulse oximetry. 23:17 Inserted saline lock: 20 gauge in right forearm, using aseptic technique. kl 23:19 Basic Metabolic Panel Sent. kl 23:19 CBC with Diff Sent. kl 23:19 Magnesium Sent. kl 23:19 NT PRO-BNP Sent. kl 23:19 Troponin HS Sent. kl 23:34 XRAY Chest (1 view) In Process Unspecified. EDMS 05/22 00:03 Easton Jang MD is Hospitalizing Provider. ms3 02:52 Sung Ornelas RN is Primary Nurse. ll3 02:54 Patient has correct armband on for positive identification. Placed in gown. Bed in low ll3 position. Call light in reach. Side rails up X 1. Client placed on continuous cardiac and pulse oximetry monitoring. NIBP monitoring applied. 02:54 No provider procedures requiring assistance completed. Patient maintains SpO2 ll3 saturation greater than 95% on room air. 03:52 Patient admitted, IV remains in place. kl Administered Medications: 05/21 23:22 Drug: Aspirin Chewable Tablet 324 mg Route: PO; ll3 05/22 06:37 Follow up: Response: No adverse reaction ll3 00:40 Drug: Lasix (furosemide) 20 mg Route: IVP; Site: right forearm; ll3 06:37 Follow up: Response: No adverse reaction ll3 Medication: 02:54 VIS not applicable for this client. ll3 Outcome: 00:03 Decision to Hospitalize by Provider. ms3 03:51 Admitted to ER Hold. Please see [facility] for further documentation. kl 03:51 Condition: stable 03:51 Instructed on the need for admit, Demonstrated understanding of instructions. 1114 05:18 Patient left the ED. faraz Signatures: Dispatcher [employer] EDMS Kadi Perry RN RN kl Ballard, Brenda, RN RN bb Sims, Marcus, DO DO ms3 Angelika Myers Lynsea, RN RN ll3 Nydia Nash RN RN kb3 Corrections: (The following items were deleted from the chart) 05/21 23:14 23:11 Home Meds: Hydrochlorothiazide Oral; kb3 kb3 23:14 23:11 Home Meds: losartan Oral; kb3 kb3 23:14 23:11 PSHx: bypass; kb3 kb3
--- NOTE | 2022-05-22 00:04 | EDPHYS ---
Physician Documentation [facility] Name: Refbrice Dove Age: 82 yrs Sex: Male : 1940 Arrival Date: 05/21/2022 Time: 22:55 Bed 28 Private MD: ED Physician Epifanio Chatman HPI: 05/22 00:31 This 82 yrs old Unknown Male presents to ER via Ambulatory with complaints of Chest ms3 Pressure, Shortness Of Breath. 00:31 The patient or guardian reports chest pain that is located primarily in the substernal ms3 area. Onset: acutely, today. The pain does not radiate. Associated signs and symptoms: Pertinent positives: shortness of breath, Pertinent negatives: abdominal pain, nausea, shortness of breath, vomiting. The chest pain is described as a pressure. Duration: The patient or guardian reports a single episode, that is still ongoing, but improving. Modifying factors: The symptoms are alleviated by nothing. the symptoms are aggravated by exertion. Severity of pain: At its worst the pain was severe in the emergency department the pain has improved. Historical: - Allergies: 05/21 23:11 Codeine; kb3 - Home Meds: 23:11 Alprazolam Oral [Active]; aspirin 81 mg Oral chew 1 tab once daily [Active]; kb3 losartan-hydrochlorothiazide 100-25 mg oral tab [Active]; hydrocodone-acetaminophen 10-325 mg Oral tab 1 tab every 6 hours [Active]; - PMHx: 23:11 bowel obstruction; coronary atherosclerosis; High Cholesterol; Hypertension; KD; kb3 Chronic back pain; Asbestosis; - PSHx: 23:11 Coronary artery bypass graft; Inspire UAS-right chest wall; Bowel resection; kb3 - Immunization history:: Adult Immunizations up to date, Client reports receiving the 2nd dose of the Covid vaccine, Last tetanus immunization: up to date. - Social history:: Smoking status: Patient denies any tobacco usage or history of. ROS: 23:13 Constitutional: Negative for fever, and chills. ENT: Negative for injury, pain, and ms3 discharge, Neck: Negative for injury, pain, and swelling, Respiratory: Negative for shortness of breath, cough, wheezing, and pleuritic chest pain. 23:13 MS/Extremity: Negative for injury and deformity, Skin: Negative for injury, rash, and discoloration. 23:13 Cardiovascular: Positive for chest pain. 23:13 All other systems are negative. Exam: 23:13 Constitutional: This is a well developed, well nourished patient who is awake, alert, ms3 and in no acute distress. Head/Face: Normocephalic, atraumatic. Eyes: Pupils equal round and reactive to light, extra-ocular motions intact. Lids and lashes normal. Conjunctiva and sclera are non-icteric and not injected. Periorbital areas with no swelling, redness, or edema. Neck: Trachea midline, no cervical lymphadenopathy. Supple, full range of motion without nuchal rigidity, or vertebral point tenderness. No Meningismus. Cardiovascular: Regular rate and rhythm with a normal S1 and S2. No gallops, murmurs, or rubs. Normal PMI, no JVD. No pulse deficits. Respiratory: Lungs have equal breath sounds bilaterally, clear to auscultation and percussion. No rales, rhonchi or wheezes noted. No increased work of breathing, no retractions or nasal flaring. Abdomen/GI: Soft, non-tender, with normal bowel sounds. No distension or tympany. No guarding or rebound. No evidence of tenderness throughout. Back: No spinal tenderness. No costovertebral tenderness. Full range of motion. Skin: Warm, dry with normal turgor. Normal color with no rashes, no lesions, and no evidence of cellulitis. MS/ Extremity: Pulses equal, no cyanosis. Neurovascular intact. Full, normal range of motion. 23:13 ECG was reviewed by the Attending Physician. Vital Signs: 23:09 BP 161 / 102; Pulse 96; Resp 15; Temp 98; Pulse Ox 96% ; Weight 90.72 kg; Height 5 ft. kb3 8 in. (172.72 cm); Pain 410; 05/22 00:30 BP 138 / 77; Pulse 80; Resp 14; Pulse Ox 95% on R/A; ll3 02:00 BP 156 / 90; Pulse 89; Resp 18; Pulse Ox 94% on R/A; ll3 03:25 BP 139 / 79; Pulse 73; Resp 14; Pulse Ox 96% on R/A; ll3 12 23:09 Body Mass Index 30.41 (90.72 kg, 172.72 cm) kb3 MDM: 00:03 Patient medically screened. ms3 00:32 Differential diagnosis: abnormal EKG, acute myocardial infarction, coronary artery ms3 disease congestive heart failure. HEART Score: History: Moderately Suspicious (1), ECG: Normal (0), Age: > or = 65 years (2), Risk Factors: > or = 3 Risk factors for atherosclerotic disease (2), [Hypercholesterolemia] [Hypertension] Troponin: < or = 1 x Normal Limit (0), Total Score = 5. The patient was given aspirin in the Emergency Department. Data reviewed: vital signs, nurses notes, lab test result(s), EKG, radiologic studies, and as a result, I will admit patient. Data interpreted: air sampling and monitoring: rate is 95 beats/min, rhythm is normal sinus rhythm, with no ectopy, Interpretation: normal rate, normal rhythm. Counseling: I had a detailed discussion with the patient and/or guardian regarding: the historical points, exam findings, and any diagnostic results supporting the discharge/admit diagnosis, lab results, radiology results, the need for further work-up and treatment in the hospital. ED course: Discussed case with Glen Tello NP and he accepts patient on behalf of Dr Jang.. 05/21 23:01 Order name: Basic Metabolic Panel; Complete Time: 00:01 ms3 05/21 23:01 Order name: CBC with Diff; Complete Time: 00:01 ms3 05/21 23:01 Order name: Magnesium; Complete Time: 00:01 ms3 05/21 23:01 Order name: NT PRO-BNP; Complete Time: 00:01 ms3 05/21 23:01 Order name: Troponin HS; Complete Time: 00:01 ms3 05/22 00:13 Order name: SARS RAPID; Complete Time: 04:56 ll3 05/22 04:57 Order name: CBC with Automated Diff; Complete Time: 17:53 EDMS 05/22 05:23 Order name: Comprehensive Metabolic Panel; Complete Time: 17:53 EDMS 05/22 05:23 Order name: Troponin High Sensitivity; Complete Time: 17:53 EDMS 05/22 05:23 Order name: Lipid Profile; Complete Time: 17:53 EDMS 05/22 11:09 Order name: Troponin High Sensitivity; Complete Time: 17:53 EDMS 05/23 03:11 Order name: CBC with Automated Diff EDMS 05/23 03:30 Order name: Comprehensive Metabolic Panel EDMS 05/23 05:00 Order name: Manual Differential EDMS 05/21 23:01 Order name: XRAY Chest (1 view) ms3 05/21 23:01 Order name: EKG; Complete Time: 23:02 ms3 05/21 23:01 Order name: Cardiac monitoring; Complete Time: 23:19 ms3 05/21 23:01 Order name: EKG - Nurse/Tech; Complete Time: 23:18 ms3 05/21 23:01 Order name: IV Saline Lock; Complete Time: 23:19 ms3 05/21 23:01 Order name: Labs collected and sent; Complete Time: 23:19 ms3 05/21 23:01 Order name: O2 Per Protocol; Complete Time: 23:19 ms3 05/21 23:01 Order name: O2 Sat Monitoring; Complete Time: 23:19 ms3 EC/12 23:13 Rate is 92 beats/min. Rhythm is regular. Right axis deviation noted. [place] interval is ms3 normal. QRS interval is normal. Interpreted by me. Reviewed by me. Administered Medications: 23:22 Drug: Aspirin Chewable Tablet 324 mg Route: PO; ll3 05/22 06:37 Follow up: Response: No adverse reaction ll3 00:40 Drug: Lasix (furosemide) 20 mg Route: IVP; Site: right forearm; ll3 06:37 Follow up: Response: No adverse reaction ll3 Disposition Summary: 05/22/22 00:03 Hospitalization Ordered Hospitalization Status: Observation ms3 Provider: Easton Jang ms3 Condition: Stable ms3 Problem: new ms3 Symptoms: are unchanged ms3 Bed/Room Type: Standard ms3 Location: Telemetry/MedSurg (observation)(05/23/22 03:09) cg Room Assignment: [facility](05/23/22 03:09) cg Diagnosis - Chest pain, unspecified ms3 - Heart failure, unspecified ms3 Forms: - Medication Reconciliation Form ms3 - SBAR form ms3 Signatures: Dispatcher [employer] EDMS Glen Tello, HERNANDEZ-C PRINTING TECHNICIAN-Cla1 Bhumi Noel RN RN Epifanio Chatman DO DO ms3 Sung Ornelas RN RN ll3 Nydia Nash RN RN kb3 Corrections: (The following items were deleted from the chart) 05/21 23:14 23:11 Home Meds: Hydrochlorothiazide Oral; kb3 kb3 23:14 23:11 Home Meds: losartan Oral; kb3 kb3 :14 23:11 PSHx: bypass; kb3 kb3 05/22 00:51 00:03 Telemetry/MedSurg (observation) ms3 cg 00:51 00:03 ms3 cg 05/23 03:09 05/22 00:51 [facility] ER HOLD cg cg 05/23 03:09 05/22 00:51 ERHOLD- cg cg
[2022-05-22] MEDS ORDERED: FUROSEMIDE 20 MG/ 2ML VIAL ONE ×2 (00:36→07:33)
--- NOTE | 2022-05-22 00:37 | P.HP ---
Certification for Inpatient Patient admitted to: Observation With expected LOS: <2 Midnights Patient will require the following post-hospital care: None Practitioner: I am a practitioner with admitting privileges, knowledge of patient current condition, hospital course, and medical plan of care. Services: Services provided to patient in accordance with Admission requirements found in Title 42 Section 412.3 of the Code of Federal Regulations <ClarissamatheusGlen Trevizo - Last Filed: 05/22/22 00:37> Patient History Date of Service: 05/22/22 Reason for admission: Chest pain History of Present Illness: 82-year-old male with history of CAD status post CABG, chronic diastolic ingestive heart failure, hypertension, KD, chronic pain presents emergency department for chest pain. He reports has been experiencing intermittent chest pressure all day with associated mild shortness of breath. He reports that his pain/dyspnea are associated with exertion. He was evaluated in the emergency department his first set of cardiac enzymes/troponin high-sensitivity was 33 x- ray shows pulmonary congestion, cardiomegaly. Patient reports 10 pound weight gain over the course last 1 week he was given aspirin in the ED, ED provider wishes to admit under observation for ACS rule out. - Past Medical/Surgical History Diabetic: No -: Hypertension -: CAD -: Chronic obstructive pulmonary disease -: hyperlipidemia -: Possible diastolic dysfunction -: prostate surgery -: triple bypass -: CABG -: left foot surgery -: cataract surgery- both eyes -: appedectomy -: inspire upper airway stimulator - Family History Father -: Other (see notes) Notes: CHF Mother Notes: pneumonia - Social History Smoking Status: Never smoker Alcohol use: Yes CD- Drugs: No Caffeine use: Yes Place of Residence: Home <Glen Tello - Last Filed: 05/22/22 00:37> Date of Service: 05/22/22 <Easton Jang - Last Filed: 05/22/22 09:46> Allergies codeine Allergy (Intermediate, Verified 05/30/17 21:46) Shortness of breath Home Medications: RX: Pravastatin Sodium 20 mg pe PO DAILY 05/11/19 RX: Thyroid Tab [Garner Thyroid*] 180 mg PO DAILY 05/11/19 RX: Ascorbic Acid [Vitamin C] 1,000 mg PO DAILY 04/25/22 RX: Aspirin Chewable [Aspirin Chewable*] 81 mg PO DAILY 04/25/22 RX: Calcium Carbonate [Calcium] 600 mg PO DAILY 04/25/22 RX: Cholecalciferol (Vitamin D3) [Vitamin D3] 6,000 unit PO DAILY 04/25/22 RX: Glucosamine/Chondr Dee A Sod [Osteo Bi-Flex Caplet] 2 each PO DAILY 04/25/22 RX: Hydrocodone Bit/Acetaminophen [Hydrocodon-Acetaminophn 10-325] 1 each PO Q4HP PRN 04/25/22 RX: Losartan/Hydrochlorothiazide [Losartan-Hctz 100-12.5 mg Tab] 1 each PO DAILY 04/25/22 RX: Magnesium Oxide [Magnesium] 400 mg PO DAILY 04/25/22 RX: Pantoprazole Sodium [Protonix] 20 mg PO DAILY 04/25/22 RX: S-Adenosylmethionine Sul Tosyl [Tiburcio-E] 400 mg PO DAILY 04/25/22 RX: Testosterone Cypionate [Testone Cik] 200 mg IM UD 04/25/22 RX: Ubidecarenone [Co Q-10] 300 mg PO DAILY 04/25/22 RX: Vitamin B Complex [Vitamin B Complex*] 1 cap PO DAILY 04/25/22 RX: Vitamin E (Dl,Tocopheryl Acet) [Vitamin E] 180 mg PO DAILY 04/25/22 Cefdinir [Omnicef] 300 mg PO BID #14 04/27/22 Cefdinir [Omnicef] 300 mg PO BID #14 tab 04/27/22 Furosemide [Lasix] 40 mg PO BIDL #60 tab 04/27/22 RX: Albuterol Neb [Proventil 0.083% Neb Soln] 2.5 mg NEB [id number] #60 amp 04/27/22 RX: Ipratropium Neb [Atrovent*] 0.5 mg NEB [id number] #60 amp 04/27/22 RX: Metoprolol Tartrate [Lopressor*] 25 mg PO BID #60 tab 04/27/22 predniSONE [Deltasone] 20 mg PO BID #11 tab 04/27/22 Review of Systems 10-point ROS is otherwise unremarkable Respiratory: Shortness of Breath, SOB with Excertion Cardiovascular: Chest Pain <AttemGlen jarvis Santhosh - Last Filed: 05/22/22 00:37> Physical Examination - Physical Exam General: Alert, In no apparent distress, Oriented x3 HEENT: Atraumatic, PERRLA, Mucous membr. moist/pink, EOMI, Sclerae nonicteric Neck: Supple, 2+ carotid pulse no bruit, No LAD, Without JVD or thyroid abnormality Respiratory: Clear to auscultation bilaterally, Normal air movement Cardiovascular: Regular rate/rhythm, Normal S1 S2 Capillary refill: <2 Seconds Gastrointestinal: Normal bowel sounds, No tenderness Musculoskeletal: No tenderness Integumentary: No rashes Neurological: Normal speech, Normal strength at 5/5 x4 extr, Normal tone, Normal affect - Studies Laboratory Data (last 24 hrs) 05/21/22 23:15: WBC 6.40, Hgb 14.5, Hct 43.9, Plt Count 188 05/21/22 23:15: Sodium 138, Potassium 3.9, BUN 29 H, Creatinine 1.18, Glucose 98, Magnesium 2.2 <Glen Tello - Last Filed: 05/22/22 00:37> - Studies Laboratory Data (last 24 hrs) 05/21/22 23:15: WBC 6.40, Hgb 14.5, Hct 43.9, Plt Count 188 05/21/22 23:15: Sodium 138, Potassium 3.9, BUN 29 H, Creatinine 1.18, Glucose 98, Magnesium 2.2 <Easton Jang - Last Filed: 05/22/22 09:46> Assessment and Plan - Plan Assessment: Chest pain R/O ACS-HX CAD/CABG Acute on chronic diastolic congestive heart failure HTN HLD KD S/P Inspire UAS Plan: Chest pain R/O ACS-HX CAD/CABG: Exertional chest pain, dyspnea, no hypoxia/tachycarida. Last stress test >10 years, last intervention 2012 with three vessel CABG. Trend trops, ASA, statin, beta cosmo. Cardiology consult. Last echo 04/26/2022 with EF 55-60%, diastolic dysfunction, severe pulmonary HTN. CTA on 04/26/2022 negative for PE. Acute on chronic diastolic congestive heart failure: Reports WAITE, 10lb weight gain this week. Added low dose iv lasix. recent echo above. HTN: Continue home meds. HLD:Continue home meds. KD S/P Inspire UAS: Functioning, no longer needs CPAP. DVT PPX: Lovenox Code status:Full Discharge Plan: Home Plan to discharge in: 24 Hours - Advance Directives Does patient have a Living Will: No Does patient have a Durable POA for Healthcare: Yes - Code Status/Comfort Care Code Status Assessed: Yes (Full code) Critical Care: No Time Spent Managing Pts Care (In Minutes): 70 <Glen eTllo - Last Filed: 05/22/22 00:37> Physician Review: Patient Assessed, Agree with Above Assessment and Plan <Easton Jang - Last Filed: 05/22/22 09:46>
[2022-05-22 01:00] LABS: SARS-CoV-2 Antigen Rapid Res Negative (Negative)
[2022-05-22 04:54] LABS: Absolute Lymphocytes (CBC) 1.4 K/uL (0.7-4.9); Hematocrit 43.6 % (39.6-49.0); Lymphocytes % 19.1 % (15.3-44.8); MCV 91.9 fL (80-100); MPV 8.6 fL (7.6-11.3); RBC Red Blood Cell Count 4.75 M/uL (4.33-5.43)
[2022-05-22 05:17] LABS: Albumin 3.4 g/dL (3.4-5.0); Bilirubin Total 0.9 mg/dL (0.2-1.0); Potassium 3.7 mmol/L (3.5-5.1); Protein, Total 6.6 g/dL (6.4-8.2)
[2022-05-22 05:23] LABS: Troponin High Sensitivity 67.6 pg/mL (<58.9)
[2022-05-22] MEDS: METOPROLOL TAR 25 MG TAB PO SCH ×2 (06:00→17:12)
[2022-05-22] MEDS ORDERED: METOPROLOL TAR 25 MG TAB ONE ×2 (06:36→17:03)
[2022-05-22] MEDS ORDERED: ASPIRIN EC 81 MG TAB PO ONE (07:33)
[2022-05-22] MEDS: ASPIRIN EC 81 MG TAB PO SCH (08:36)
[2022-05-22] MEDS: FUROSEMIDE 20 MG/ 2ML VIAL IV SCH (08:36)
[2022-05-22] MEDS ORDERED: ENOXAPARIN 40 MG/0.4 ML SQ ONE (08:38)
[2022-05-22] MEDS: ENOXAPARIN 40 MG/0.4 ML SQ SCH (08:39)
[2022-05-22] MEDS ORDERED: POTASSIUM CL SA 10 MEQ TAB PO ONE ×2 (10:39→10:52)
[2022-05-22] MEDS: ATORVASTATIN 40 MG TAB PO SCH (21:00)
[2022-05-22] MEDS ORDERED: ONDANSETRON 4 MG/2 ML VIAL IV PRN (22:02)
[2022-05-22] MEDS ORDERED: ATORVASTATIN 20 MG TAB ONE (22:07)
[2022-05-22] MEDS ORDERED: ONDANSETRON 4 MG/2 ML VIAL ONE (22:07)
[2022-05-23 03:00] LABS: Absolute Lymphocytes (CBC) 0.4 K/uL (0.7-4.9); Hematocrit 45.8 % (39.6-49.0); MCV 91.2 fL (80-100); MPV 8.2 fL (7.6-11.3); RBC Red Blood Cell Count 5.03 M/uL (4.33-5.43)
[2022-05-23 03:30] LABS: Albumin 3.1 g/dL (3.4-5.0); Bilirubin Total 1.9 mg/dL (0.2-1.0); Potassium 4.1 mmol/L (3.5-5.1); Protein, Total 6.4 g/dL (6.4-8.2)
[2022-05-23 05:00] LABS: Blood Morphology Comment NOT SEEN (NOT SEEN); Platelet Estimate ADEQ
[2022-05-23] MEDS: METOPROLOL TAR 25 MG TAB PO SCH ×2 (05:46→18:42)
[2022-05-23] MEDS: ENOXAPARIN 40 MG/0.4 ML SQ SCH (07:06)
[2022-05-23] MEDS: ASPIRIN EC 81 MG TAB PO SCH (07:35)
[2022-05-23] MEDS: FUROSEMIDE 20 MG/ 2ML VIAL IV SCH (09:00)
[2022-05-23] MEDS ORDERED: NA CHLORIDE 0.9% 500 ML ONE (12:29)
--- NOTE | 2022-05-23 12:40 | RAD REPORT ---
EXAM DESCRIPTION: RAD - Chest Single View - 05/21/2022 11:32 pm CLINICAL HISTORY: 82 years, Male, CHEST PAIN COMPARISON: 04/25/2022. FINDINGS: Single view of the chest was obtained portable. Prior films were compared. External EKG le ads within the [id number] limits diagnosis. Again there is a neurostimulator with the distal lead at the level of the right upper neck/jugular region. The heart is enlarged. Sternotomy wires and card iac clips correspond to previous CABG. Mild increased interstitial pulmonary markings suggest pulmona ry venous congestion. Costophrenic no significant pleural effusions. No focal areas of consolidations . The rest of the soft tissue and bony structures demonstrate to be unremarkable. IMPRESSION: Cardiomegaly with pulmonary venous congestion. Status post CABG. Electronically signed by: Jaciel Hernandez MD 05/21/2022 11:45 PM MED ADMIN Due to temporary technical issues with the PACS/Fluency reporting system, reports are being signed by the in house radiologists without review as a courtesy to insure prompt reporting. The interpreting radiologist is fully responsible for the content of the report.
[2022-05-23] MEDS ORDERED: ATROPINE SULF 1 MG/10 ML SYR IV ONE (13:12)
[2022-05-23] MEDS ORDERED: HEPARIN 10,000 UNIT/10 ML VIAL IV ONE (13:12)
[2022-05-23] MEDS ORDERED: FENTANYL CITR 100 MCG/2 ML ONE (13:12)
[2022-05-23] MEDS ORDERED: MIDAZOLAM HCL 2 MG/2 ML INJ ONE (13:12)
[2022-05-23] MEDS ORDERED: HEPA 1000U/500MLS 1,000 UNIT/500 ML BAG IV ONE (13:13)
--- NOTE | 2022-05-23 14:19 | P.PN ---
Date of Service: 05/23/22 Subjective Patient still having some chest discomfort. Scheduled for cardiac catheterization later today. Patient with a history of severe pulmonary hypertension. Physical Examination - Physical Exam General: Alert, In no apparent distress, Oriented x3 Respiratory: Clear to auscultation bilaterally, Normal air movement Cardiovascular: Regular rate/rhythm, Normal S1 S2 Gastrointestinal: Normal bowel sounds, No tenderness Neurological: No focal deficits Assessment and Plan - Assessment Assessment: -Unstable angina -History of coronary artery disease status post CABG -Acute on chronic diastolic congestive heart failure -HTN -HLD -KD S/P Inspire UAS - Plan Plan: -Chest pain R/O ACS-HX CAD/CABG: Exertional chest pain, dyspnea, no hypoxia/tachycarida. Last stress test >10 years, last intervention 2012 with three vessel CABG. Trend trops, ASA, statin, beta cosmo. Cardiology consult. Last echo 04/26/2022 with EF 55-60%, diastolic dysfunction, severe pulmonary HTN. CTA on 04/26/2022 negative for PE. -Acute on chronic diastolic congestive heart failure: Reports WAITE, 10lb weight gain this week. Added low dose iv lasix. recent echo above. -HTN: Continue home meds. -HLD:Continue home meds. -KD S/P Inspire UAS: Functioning, no longer needs CPAP. DVT PPX: Lovenox Code status:Full Discharge Plan: Home Plan to discharge in: 24 Hours
--- NOTE | 2022-05-23 14:45 | CON ---
Date of Consultation: 05/22/2022 Reason For Consultation: Chest pain. History Of Present Illness: An 82-year-old male with history of coronary artery disease, status post 3-vessel CABG a long time ago, who has history of diastolic heart failure, hypertension, dyslipidemi a, presented with worsening shortness of breath on minimal exertion and chest pressure. The patient started having symptoms a few months back, but in the past few days doing minimal activities triggers all the above symptoms. At the resting position, he is having no chest pain. Past Medical History: As outlined above in the HPI. Medications: Refer to reconciliation sheet for detailed list. Allergies: CODEINE. Family History: No premature coronary artery disease or cancer. Social History: Does not smoke or drink. Does not use any drugs. Review of Systems: All systems reviewed and they were negative except what mentioned in HPI. Physical Examination: Vital Signs: Reviewed. Head and Neck: Pupils are equal, reactive to light. Intact eye movements. No JVD. No cervical lym phadenopathy. Neck is supple. Thyroid is not enlarged. Lungs: Clear to auscultation bilaterally. No rhonchi, wheezing, or crackles. No accessory muscle u se. Heart: Regular rate and rhythm. No extra sounds. Abdomen: Soft, nontender. Bowel sounds positive. No organomegaly. No masses or hernia. No rigidi ty or rebound. Extremities: No edema, clubbing, or cyanosis. Intact pulses. Skin: No rash. Neurologic: Alert, awake, oriented x3. No acute focal deficits appreciated. Investigations: Troponin was 67, BUN 27, creatinine 1.03. Hemoglobin is 14.3. Assessment And Recommendations: 1.Chest pain and shortness of breath, typical angina symptoms. No coronary artery disease with elizabeth nary artery bypass graft in the past. Keep n.p.o. past midnight for coronary angiogram. This sounds like as his symptoms are more consistent with acute coronary syndrome. Baby aspirin to be started a nd hold off on anticoagulants unless the troponin increases substantially. 2.Congestive heart failure. Started on Lasix 40 mg IV daily and monitor BUN, creatinine, electrolyt es, and response to treatment. 3.Hypertension. Blood pressure is controlled. SR/MODL Voice ID: [id number] Report ID: [id number]
--- NOTE | 2022-05-23 15:10 | EKG ---
Test Date: 2022-05-21 Test Time: 23:13:03 Sales Manager [place]: JACKY MEASUREMENT RESULTS: Intervals: Rate: 92 IL: 150 QRSD: 110 QT: 374 QTc: 462 [place]: P: IL: 150 QRS: 209 T: 74 INTERPRETIVE STATEMENTS: Normal sinus rhythm Right superior axis deviation Incomplete right bundle branch block Abnormal ECG Compared to ECG 04/25/2022 05:36:40 Right superior axis now present Incomplete right bundle-branch block now present Atrial premature complex(es) no longer present Left ventricular hypertrophy no longer present Early repolarization no longer present Electronically Signed On 05-23-22 15:08:48 SALES AND SERVICE ENGINEER by Juan Dockery
--- NOTE | 2022-05-23 19:13 | PN ---
Date of Progress Note: 05/23/2022 Subjective: Seen by bedside, doing clinically well and feeling slightly better. Review of Systems: Positive on and off chest pain and shortness of breath on minimal exertion. No nausea, vomiting, or diarrhea. No abdominal pain. No dysuria, polyuria, or urinary urgency. All other systems reviewed and are negative. Physical Examination: Vital Signs: Reviewed. Head And Neck: Pupils are equal and reactive to light. Intact eye movements. No JVD. No cervical lymphadenopathy. Neck is supple. Thyroid is not enlarged. Lungs: Clear to auscultation bilaterally. No rhonchi, wheezing, or crackles. No accessory muscle u se. Heart: Regular rate and rhythm. No extra sounds. Abdomen: Soft, nontender. Bowel sounds positive. No organomegaly. No masses or hernia. No rigidi ty or rebound. Extremities: No edema, clubbing, or cyanosis. Intact pulses. Skin: No rashes. Neurologic: Alert, awake, oriented x3. No acute focal deficits appreciated. Investigations: Labs were reviewed. Assessment And Recommendation: 1.Chest pain with positive troponin and typical symptoms suggestive of unstable angina. Plan for co ronary angiogram today with bypass graft study. Further recommendations accordingly. 2.Shortness of breath, likely congestive heart failure. Please obtain echocardiogram and further recommendations after the coronary angiogram today. /JANAK Voice ID: [id number] Report ID: [id number]
[2022-05-23] MEDS: ATORVASTATIN 40 MG TAB PO SCH (20:57)
[2022-05-23 22:08] VITALS: BMI 30.2
--- NOTE | 2022-05-24 02:45 | OP ---
Date of Procedure: 05/23/2022 Surgeon: DESMOND CAMARA Procedure Performed: Selective coronary angiogram with bypass graft study. Indication: Non-ST elevation myocardial infarction and acute heart failure. Access: Right femoral artery 6-Citizen [place] closed with StarClose. Complications: None. Estimated Blood Loss: Bleeding less than 10 mL. Description Of Procedure: After risks, benefits, alternatives were explained, patient agreed to proc edure and signed informed consent. The patient was brought into the cardiac catheterization laborato ry and prepped and draped in sterile fashion. Then I accessed right femoral artery using micropunctu re kit and ultrasound guidance and placed a 6-Citizen [place] Cyril sheath and then took a 6-[place] JL4 cat heter into the aortic root, engaged left main, took standard views and exchanged for 6-[place] JR4 cat heter and engaged the RCA, SVG that is occluded to unknown artery and the SVG to OM and took standard views and then I exchanged for MIKEY catheter and engaged the PLEITEZ and took standard views and then be cause of the groin tortuosity, could not navigate the catheter very well to cross the aortic valve, s o decided to stop the procedure. Removed the catheter and sheath and placed StarClose with good hemo stasis. Findings: 1.Left main is large and normal. 2.LAD: Proximal diffuse 30% to 40% and then it becomes totally occluded in the mid section with pat ent PLEITEZ to distal LAD. 3.Left circumflex: Proximal 50%, then OM1 branch becomes 100% occluded. The rest of the left circu mflex is large and codominant with no significant disease. 4.RCA: Codominant circulation with proximal 50%, mid 50%, and diffuse 30% to 40%. Grafts: 1.Patent SVG to OM. 2.Patent PLEITEZ to LAD. 3.Occluded SVG graft, unknown to which artery it was connected as it seems like it could be to the R CA; however, RCA did not have significant disease. Conclusion: Severe [place] coronary artery disease as above with patent saphenous vein graft to obtus e marginal and patent left internal mammary artery to left anterior descending and occluded saphenous vein graft, which is his 3rd graft that I do not know where it was connected to originally. Recommendations: Nuclear stress test and echocardiogram and if the stress test shows ischemia, then we will target the diffuse moderate disease of the RCA. In the interim, diuretics for congestive hea rt failure symptoms. SR/MODL Voice ID: [id number] Report ID: [id number]
[2022-05-24] MEDS: METOPROLOL TAR 25 MG TAB PO SCH ×2 (06:00→17:43)
[2022-05-24 06:33] LABS: Absolute Lymphocytes (CBC) 1.5 K/uL (0.7-4.9); MCV 91.6 fL (80-100); MPV 8.4 fL (7.6-11.3); RBC Red Blood Cell Count 5.02 M/uL (4.33-5.43)
[2022-05-24 07:13] LABS: Magnesium 2.6 mg/dL (1.8-2.4); Potassium 4.6 mmol/L (3.5-5.1); Troponin High Sensitivity 37.9 pg/mL (<58.9)
[2022-05-24] MEDS: FUROSEMIDE 20 MG/ 2ML VIAL IV SCH (08:51)
[2022-05-24] MEDS: ENOXAPARIN 40 MG/0.4 ML SQ SCH (08:52)
[2022-05-24] MEDS: ASPIRIN EC 81 MG TAB PO SCH (08:52)
[2022-05-24] MEDS ORDERED: ALPRAZOLAM 0.5 MG TABLET PO ONE (11:44)
--- NOTE | 2022-05-24 19:09 | PN ---
Date of Progress Note: 05/24/2022 Subjective: Seen by bedside. No chest pain. Doing well. No significant shortness of breath. Review of Systems: No chest pain. No shortness of breath. No nausea, vomiting, or diarrhea. No abdominal pain. No dy suria, polyuria, or urinary urgency. No skin rash, headache. All other systems reviewed and they we re negative. Physical Examination: Vital Signs: Reviewed. Head and Neck: Pupils are equal, reactive to light. Intact eye movements. No JVD. No cervical lym phadenopathy. Neck is supple. Thyroid is not enlarged. Lungs: Clear to auscultation bilaterally. No rhonchi, wheezing, or crackles. No accessory muscle u se. Heart: Regular rate and rhythm. No extra sounds. Abdomen: Soft, nontender. Bowel sounds positive. No organomegaly. No masses or hernia. No rigidi ty or rebound. Extremities: No edema. No clubbing or cyanosis. Intact pulses. Skin: No rash. Neurologic: Alert, awake, oriented x3. No acute focal deficits appreciated. Investigations: BUN 44, creatinine 1.48. Assessment And Recommendations: 1.Chest pain, status post coronary angiogram. His heart is well vascularized. The PLEITEZ to LAD is p atent, SVG to OM is patent and the RCA has only moderate disease. There was a graft that is occluded , which I could not tell to which artery was attached to. It was probably to the RCA; however, the R CA does not look severe. I recommend evaluation as an outpatient of this tissue by outpatient stress test and echocardiogram. From Cardiology standpoint, the patient can be released once he is medical ly otherwise stable. 2.Acute renal failure, probably over diuresis. Stop the Lasix and re-evaluate labs in the morning. 3.Congestive heart failure. Appears to be euvolemic. SR/MODL Voice ID: [id number] Report ID: [id number]
[2022-05-24] MEDS: ATORVASTATIN 40 MG TAB PO SCH (21:34)
[2022-05-24 23:39] VITALS: O2SAT 95
[2022-05-25 04:54] LABS: Potassium 4.6 mmol/L (3.5-5.1)
[2022-05-25] MEDS: METOPROLOL TAR 25 MG TAB PO SCH (06:35)
[2022-05-25] MEDS: ENOXAPARIN 40 MG/0.4 ML SQ SCH (08:38)
[2022-05-25] MEDS: ASPIRIN EC 81 MG TAB PO SCH (08:38)
[2022-05-25 09:05] VITALS: BP 136/74; TEMP 97.4
== END 2022-05-25 11:57 | disposition home or self-care (01) | DRG 286 ==
LOC: ER 22:52 → ERHOLD 05-22 01:26 → 4TH 05-23 04:27 → OBSVTOIN 05-24 12:45
PROVIDERS: ADMIT Internal Medicine; ATTEND Hospitalist
PROC: 4A023N7 Measurement of Cardiac Sampling and Pressure, Left Heart, Percutaneous Approach (ICD-10-PCS; principal; 2022-05-24)
PROC: B2111ZZ Fluoroscopy of Multiple Coronary Arteries using Low Osmolar Contrast (ICD-10-PCS; 2022-05-24)
PROC: B2181ZZ Fluoroscopy of Left Internal Mammary Bypass Graft using Low Osmolar Contrast (ICD-10-PCS; 2022-05-24)
PROC: B2131ZZ Fluoroscopy of Multiple Coronary Artery Bypass Grafts using Low Osmolar Contrast (ICD-10-PCS; 2022-05-24)
DX: I25.110 Atherosclerotic heart disease of native coronary artery with unstable angina pectoris (principal); I50.33 Acute on chronic diastolic (congestive) heart failure; N17.9 Acute kidney failure, unspecified; I11.0 Hypertensive heart disease with heart failure; G89.29 Other chronic pain; M54.9 Dorsalgia, unspecified; J44.9 Chronic obstructive pulmonary disease, unspecified; G47.33 Obstructive sleep apnea (adult) (pediatric); E78.5 Hyperlipidemia, unspecified; Z95.1 Presence of aortocoronary bypass graft; Z88.5 Allergy status to narcotic agent; Z79.82 Long term (current) use of aspirin; Z90.49 Acquired absence of other specified parts of digestive tract; Z79.899 Other long term (current) drug therapy; Z20.822 Contact with and (suspected) exposure to COVID-19
CPT/HCPCS: 36415; 71045; 76937; 80048; 80053; 80061; 82607; 82947; 83735; 83880; 84484; 85025; 87811; 93005; 93455; 96374; 99285; C1887; C1893; J1644; J1650; J1940; J2250; J2405; J3010; J7040; Q9967

== ENCOUNTER 2022-08-05 11:10 | Day surgery (SDC) | payer OTHER, MEDICARE ==
[2022-08-03 15:18] LABS: Absolute Lymphocytes (CBC) 1.6 K/uL (0.7-4.9); Hematocrit 41.7 % (39.6-49.0); MPV 7.4 fL (7.6-11.3); RBC Red Blood Cell Count 4.74 M/uL (4.33-5.43)
--- NOTE | 2022-08-03 15:18 | RAD REPORT ---
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 COMPARISON: Chest Single View dated 05/21/2022; Chest Single View dated 04/25/2022; Chest Single Vie w dated 08/17/2019; Abdomen Acute Series dated 05/12/2019 FINDINGS: The lungs are emphysematous. Mildly prominent cardiac silhouette. Sternotomy wires. IMPRESSION: Possible COPD.
[2022-08-03 15:24] LABS: Protime INR 1.05
[2022-08-03 15:34] LABS: Potassium 3.7 mmol/L (3.5-5.1)
--- NOTE | 2022-08-04 18:11 | EKG ---
Test Date: 2022-08-03 Test Time: 14:53:55 Mandrel Maker: TOM MEASUREMENT RESULTS: Intervals: Rate: 73 NH: 190 QRSD: 104 QT: 392 QTc: 431 [place]: P: 64 NH: 190 QRS: -11 T: 38 INTERPRETIVE STATEMENTS: Normal sinus rhythm Voltage criteria for left ventricular hypertrophy Nonspecific ST and T wave abnormality Abnormal ECG Compared to ECG 05/21/2022 23:13:03 Left ventricular hypertrophy now present ST (T wave) deviation now present Right superior axis no longer present Incomplete right bundle-branch block no longer present Electronically Signed On 08-04-22 18:10:29 ETL SOFTWARE ENGINEER by Juan Dockery
[~2022-08-05 11:10] MED LIST: ASPIRIN 325 MG TAB ONE; ATROPINE SULF 1 MG/10 ML SYR IV ONE; CLOPIDOGREL 75 MG TABLET ONE; FENTANYL CITR 100 MCG/2 ML ONE; HEPA 1000U/500MLS 2,000 UNIT/1,000 ML BAG IV ONE; HEPARIN 10,000 UNIT/10 ML VIAL IV ONE; HEPARIN 5000 UNIT/ML 1 ML VIAL ONE; LIDOCAINE 1% 20 ML MDV ONE; MIDAZOLAM HCL 2 MG/2 ML INJ ONE; NITROGLYCERIN 100 MCG/ML SYR (for cath lab use only) IV ONE; NITROGLYCERIN/D5W 0 MG/0 ML BTL IV ONE; TICAGRELOR 90 MG TABLET PO ONE; VERAPAMIL HCL 10 MG/4 ML VIAL IV ONE
[2022-08-05] MEDS ORDERED: NA CHLORIDE 0.9% 500 ML ONE (11:15)
[2022-08-05 11:17] VITALS: TEMP 98
[2022-08-05] MEDS ORDERED: HEPA 1000U/500MLS 1,000 UNIT/500 ML BAG IV ONE (13:38)
--- NOTE | 2022-08-05 16:04 | OP ---
Date of Procedure: 08/05/2022 Surgeon: DESMOND CAMARA Procedures Performed: 1.Right coronary artery angiogram. 2.Peripheral angiogram with runoff. Indication: 1.Coronary artery disease with positive stress test. 2.Peripheral vascular disease on arterial Doppler. Access: Right femoral artery 6-[place] closed with manual pressure. Complications: None. Bleeding: Less than 10 mL. Total sedation time was 35 minutes. Description Of Procedure: After risks, benefits, alternatives were explained, the patient agreed to procedure and signed informed consent. The patient was brought into the [facility], prepped and draped in the usual sterile fashion. Then, I accessed the right femoral artery u sing micropuncture kit, fluoroscopy, and ultrasound guidance and placed a 6-[place] sheath an d took a 6-[place] 3DRC guide into the aortic root, engaged the RCA and there was significant dampenin g of pressure upon engagement, and the angiogram showed severely heavily calcified RCA from the ostiu m all the way to the mid, so decided to do this intervention in high level of care facility for ather ectomy and then I removed the guide and took a 6-[place] straight pigtail catheter into the distal aor ta, performed distal aortogram and runoff, and then removed the catheter and sheath was removed and m anual pressure was used for hemostasis. Findings: 1.Right coronary artery angiogram;. a.RCA is large and dominant with diffuse disease at about 80% ostial and 70% in the mid segment, hea vily calcified. 2.Peripheral angiogram;. a.Distal aorta is patent. No significant distal stenosis. b.Right common iliac, internal iliac artery, severe disease ranging between 70% to 80% and the commo n femoral artery on the right has about also 50% to 60% heavily calcified stenosis. Then, the right profunda appears to be patent. The right SFA with multiple areas of diffuse 30% to 40% stenosis. Th ere was a 3-vessel runoff below the knee with diffuse 20% to 30% stenosis. 3.Left common iliac is with 40% stenosis. Then, left common femoral artery appears normal. The lef t profunda is patent, the left SFA has diffuse multiple lesions of 50% to 60% and there was a 3-vesse l runoff with diffuse 30% to 40% stenosis. Conclusion: 1.Severe RCA stenosis. 2.Severe right iliac artery stenosis. Plan: 1.PCI of the RCA with atherectomy, access to be the right radial artery, avoid right groin due to to rtuosity and limited intervention today. The tortuosity in the groin arteries that did not allow a p liliam manipulation of the catheters, so the access will be right radial artery with atherectomy. 2.A staged intervention of the right common iliac at a later session as well with shockwave. SR/MODL Voice ID: [id number] Report ID: [id number]
[2022-08-05 20:25] VITALS: BP 146/57; O2SAT 97
== END 2022-08-05 20:26 | disposition home or self-care (01) ==
LOC: CCL 11:10
PROVIDERS: ATTEND Internal Medicine
DX: I25.10 Atherosclerotic heart disease of native coronary artery without angina pectoris (principal); I70.203 Unspecified atherosclerosis of native arteries of extremities, bilateral legs; I10 Essential (primary) hypertension; E78.5 Hyperlipidemia, unspecified; R09.89 Other specified symptoms and signs involving the circulatory and respiratory systems; Z87.891 Personal history of nicotine dependence; Z79.899 Other long term (current) drug therapy
CPT/HCPCS: 93005; 85025; 80048; 36415; 85610; 85347 ×2; 85730; 71046; 36200; 75630; 93454; 76937; C1893; Q9966; J2001; J1644 ×3; J2250; J3010; J7040; J0461

== ENCOUNTER 2022-11-22 16:22 | Emergency (ER) | payer OTHER, MEDICARE ==
--- OUTSIDE RECORDS SUMMARY | 2022-11-22 16:33 | XMS REPORT | Continuity of Care Document ---
:[address] [facility] [place], [place] t Address [address] [place] [address] [place] [id number] Care Team Providers Name Role Phone Conner Maldonado MD Primary Care Physician Unavailable Conner Zaldivar Attending Clinician Unavailable Mauro Morillo Attending Clinician Unavailable Mikael Awan MD Attending Clinician Mikael Awan MD Attending Clinician MIKAEL AWAN Attending Clinician Unavailable Nikos Dey MD Attending Clinician Samina Peng CRNA Attending Clinician [phone] Shelley Valles MD Attending Clinician Cornelius Zarco CRNA Attending Clinician [phone] MIKAEL AWAN Attending Clinician Unavailable Rolando Attending Clinician Unavailable Venita Attending Clinician Unavailable Conner Zaldivar Admitting Clinician Unavailable Physician, No Primary or Family Admitting Clinician Unavaila MIKAEL Gonzales Admitting Clinician Unavailable Rolando Admitting Clinician Unavailable Venita Admitting Clinician Unavailable Payers Payer Name Policy Type Policy Number Effective Date Expiration Date S ource MEDICARE B-[place]: [id number] 2006 [employer] 00:00:00 [facility] [id number] 2006 OPTION - PLAN F 00:00:00 (MEDICARE [...] ents Source Name Type Date Date Clinician No Known DA Active U [facility] Clear s 00:00: [place] 00 [facility] No Known DA Active U [facility] Allergie 4-03 Gonzalez s 00:00: [facility] 00 [facility] Codeine Propensi Active Hallucinatio B aylor ty to ns 4-04 College adverse 00:00: of reaction 00 Medicin s to e drug CODEINE Allergy [facility] Codeine Drug Active Other (See Other [facility] Allergy Comments) 404 reaction( [facility] es 00:00: s): Medical 00 [facility] tions No Known DA Active [place] [facility] 3-10 Clear Intolera 00:00: [place] n[place] 00 [facility] Codeine Allergy Active Moderate Other [place] [facility] to da substanc Medical e Group Social History Social Habit Start Date Stop Date Quantity Comments Source History SDOH [facility] Alcohol Frequency Medical Center History SDOH [facility] Alcohol Std Drinks Medica l Center History SDOH [facility] Alcohol Binge Medical [facility] [facility] History of tobacco Cigarette Smoker [facility] use Medical Center Exposure to 2021-10-30 2021-11-09 Not sure [facility] Marie berg SARS-CoV-2 (event) 00:00:00 15:14:00 of Med icine Alcohol intake 2021-11-02 2021-11-02 [facility] alcohol [facility] Center (finding) Tobacco use and 2021-10-29 2021-10-29 Smokeless tobacco [facility] exposure 00:[facility]00 00[facility]00:00 non-user Medical Center Alcohol Comment 2021-10-29 2021-10-[address] [facility] 00:00:00 00:00:00 [facility] Cigarettes smoked 2021-10-29 2021-10-[address] [facility] current (pack per 00:00:00 00:00:00 Medical Center day) - Reported Tobacco Comment 2021-10-29 2021-10-29 quit once he [facility] 00:00:00 00:00:00 turned 41 yrs old [facility] Sex Assigned At [birth year] ATA Thomas 00:00:00 00:00:00 [facility] Smoking Status Start Date Stop Date Source Ex-smoker 2021-09-01 00:00:00 2021-09-01 00:00:00 [facility] Medications Ordered Filled Start Stop Current Ordering Indication Dosage Frequency Signature Comments Components Source Medication Medication Date Date Medication? Clinician (SIG) Name Name pantoprazol Yes 20mg Take 20 mg [facility] e 5-04 by mouth College (PROTONIX) 14:56: daily. of 20 MG 35 Medicin tablet e Vitamin E Yes Take by [facility] r 100 units 5-04 mouth. College CAPS 14:56: of 35 Medicin e Coenzyme Yes Take by [facility] Q10 (CO 5-04 mouth. College Q-10) 300 14:56: of MG CAPS 35 Medicin e Calcium Yes Take by [facility] Carbonate-V 5-04 mouth. Marie e it D-Min 14:56: of (CALCIUM 35 Medicin 1200) e [id number] MG-UNIT CHEW [place]-3 Yes Take by [facility] Fatty Acids 5-04 [facility] 3 14:56: of 500) 500 MG 35 Medicin CAPS e Aspirin 81 Yes Take by [place] or MG CAPS 5-04 mouth. [place] 14:56: of 35 Medicin e Cholecalcif Yes Take by [place] iman demetria 5-04 mouth. [place] (VITAMIN 14:56: of D3) 25 MCG 35 Medicin (1000 UT) e CAPS losartan-hy Yes 1{tbl} QD Take [address] drochloroth 4-25 tablet by [place] es iazide 18:30: mouth Medical (HYZAAR) 41 every Center 100-12.5 mg morning . per tablet QUEtiapine Yes 100mg QD Take [address] (SEROquel) 4-25 mg by [facility] 100 MG 18:30: mouth Medical tablet 41 nightly. [place] pravastatin Yes 20mg QD Take [address] (PRAVACHOL) 4-25 by mouth Luke s 20 MG 18:30: every Medical tablet 41 morning . Center thyroid, 0 Yes QD Take by [facility] pork, 180 4-25 mouth [facility] mg Tab 18:30: every Medical 41 morning . [place] pantoprazol Yes 20mg QD Take [address] e 4-25 by mouth [facility]ukes (PROTONIX) 18:30: every Medica l 20 MG 41 morning . [place] tablet aspirin 81 Yes 81mg QD Take [address] MG EC 4-25 by mouth [facility] tablet 18:30: daily. Medical 41 Center HYDROcodone Yes 1{tbl} Take [address] -acetaminop 4-25 tablet by [place] es hen (NORCO 18:30: mouth Medica l 10-325) 41 every 6 Center 10-325 mg (six) per tablet hours as needed for Pain. losartan-hy Yes 1{tbl} QD Take [address] drochloroth 4-25 tablet by [place] es iazide 18:30: mouth Medical (HYZAAR) 41 every Center 100-12.5 mg morning . per tablet QUEtiapine Yes 100mg QD Take [address] (SEROquel) 4-25 mg by [facility]ukes 100 MG 18:30: mouth Medical tablet 41 nightly. Center pravastatin Yes 20mg QD Take [address] (PRAVACHOL) 4-25 by mouth Luke s 20 MG 18:30: every Medical tablet 41 morning . Center thyroid, Yes QD Take by [facility] pork, 180 4-25 mouth [facility]ukes mg Tab 18:30: every Medical 41 morning . Center pantoprazol Yes 20mg QD Take [address] e 4-25 by mouth [facility]ukes (PROTONIX) 18:30: every Medica l 20 MG 41 morning . Center tablet aspirin 81 Yes 81mg QD Take [address] MG EC 4-25 by mouth [facility] tablet 18:30: daily. Medical 41 Center HYDROcodone Yes 1{tbl} Take [address] -acetaminop 4-25 tablet by [place] merrill hen (NORCO 18:30: mouth Medica l 10-325) 41 every 6 Center 10-325 mg (six) per tablet hours as needed for Pain. losartan-hy Yes 1{tbl} QD Take [address] drochloroth 4-25 tablet by [place] iazide 18:30: mouth Medical (HYZAAR) 41 every Center 100-12.5 mg morning . per tablet QUEtiapine Yes 100mg QD Take [address] (SEROquel) 4-25 mg by [facility] 100 MG 18:30: mouth Medical tablet 41 nightly. Center pravastatin Yes 20mg QD Take [address] (PRAVACHOL) 4-25 by mouth Luke s 20 MG 18:30: every Medical tablet 41 morning . Center thyroid, Yes QD Take by [facility] pork, 180 4-25 mouth [facility]ukes mg Tab 18:30: every Medical 41 morning . Center pantoprazol Yes 20mg QD Take [address] e 4-25 by mouth [facility]ukes (PROTONIX) 18:30: every Medica l 20 MG 41 morning . Center tablet aspirin 81 Yes 81mg QD Take [address] MG EC 4-25 by mouth [facility] tablet 18:30: daily. Medical 41 Center HYDROcodone Yes 1{tbl} Take [address] -acetaminop 4-25 tablet by [place] doherty (NORCO 18:30: mouth Medica l 10-325) 41 every 6 Center 10-325 mg (six) per tablet hours as needed for Pain. HYDROcodone Yes 1{tbl} Take [address] -acetaminop 4-25 tablet by [place] doherty (NORCO 18:30: mouth Medica l 10-325) 41 every 6 Center 10-325 mg (six) per tablet hours as needed for Pain. losartan-hy Yes 1{tbl} QD Take [address] drochloroth 4-25 tablet by [place] es iazide 18:30: mouth Medical (HYZAAR) 41 every Center 100-12.5 mg morning . per tablet QUEtiapine Yes 100mg QD Take [address] (SEROquel) 4-25 mg by [facility] 100 MG 18:30: mouth Medical tablet 41 nightly. [place] pravastatin Yes 20mg QD Take [address] (PRAVACHOL) 4-25 by mouth Luke s 20 MG 18:30: every Medical tablet 41 morning . Center thyroid, Yes QD Take by [facility] pork, 180 4-25 mouth [facility]ukes mg Tab 18:30: every Medical 41 morning . [place] pantoprazol Yes 20mg QD Take [address] e 4-25 by mouth [facility]ukes (PROTONIX) 18:30: every Medica l 20 MG 41 morning . Center tablet aspirin 81 Yes 81mg QD Take [address] MG EC 4-25 by mouth [facility] tablet 18:30: daily. Medical 41 Center hydrocodone Yes 1{tbl} Take 1 [facility] -acetaminop 4-25 Tablet by Col yanira doherty (Deligic) 00:00: mouth of 10-325 MG 00 Every 6 Medicin per tablet hours. e amoxicillin 2021- No 1{tbl} Q.5D Take [address] -clavulanat 4-25 05-02 tablet by Chen kes e 00:00: 23:59 mouth 2 Medical (Augmentin) 00 :00 (two) Center 875-125 mg times per tablet daily for 7 days. amoxicillin 2022-0 2022- No 1{tbl} Q.5D Take [address] -clavulanat 4-25 05-02 tablet by Chen kes e 00:00: 23:59 mouth 2 Medical (Augmentin) 00 :00 (two) Center 875-125 mg times per tablet daily for 7 days. amoxicillin 2022-0 2022- No 1{tbl} Q.5D Take [address] -clavulanat 4-25 05-02 tablet by Chen kes e 00:00: 23:59 mouth 2 Medical (Augmentin) 00 :00 (two) Center 875-125 mg times per tablet daily for 7 days. pantoprazol 0 Yes 20mg Take 20 mg Pravin e 2-23 by mouth [place] (PROTONIX) 15:42: daily. of 20 MG 13 Medicin tablet e Vitamin E 0 Yes Take by [facility] r 100 units - mouth. [facility] 15:42: of 13 Medicin e Coenzyme 0 Yes Take by [facility] Q10 (CO - mouth. [place] Q-10) 300 15:42: of MG CAPS 13 Medicin e Calcium 0 Yes Take by [facility] Carbonate-V - mouth. Marie berg it D-Min 15:42: of (CALCIUM 13 Medicin 1200) e [id number] MG-UNIT CHEW [place]-3 0 Yes Take by [facility] Fatty Acids - mouth. Marie berg (OMEGA 3 15:42: of 500) 500 MG 13 Medicin CAPS e Aspirin 81 0 Yes Take by [facility] or MG CAPS - mouth. [place] 15:42: of 13 Medicin e Cholecalcif 0 Yes Take by [facility] demetria - mouth. [place] (VITAMIN 15:42: of D3) 25 MCG 13 Medicin (1000 UT) e CAPS losartan-hy 2021-0 Yes [facility] drochloroth 2- [place] iazide 00:00: of (HYZAAR) 00 Medicin 100-12.5 MG e per tablet losartan-hy 2021-0 Yes [facility] drochloroth 2- College iazide 00:00: of (HYZAAR) 00 Medicin 100-12.5 [...] Medicin e ARMOUR 2020-07 Yes TAKE 1 [facility] THYROID 180 2-15 TABLET BY [...] r High-Dose High-Dose High-Dose da [facility] (PF) 240 (PF) 240 (PF) [...] a route. route. day by oral route. [place] No [place] Thyroid 180 Thyroid 180 Thyroid da [...] Source Systolic blood 2021-11-10 19:55:00 148 mm[Hg] [facility] Medicine Diastolic blood 2021-11-10 19:55:00 72 mm[Hg] [facility] Medicine Heart rate 2021-11-10 19:55:00 68 /min [facility] Body height 2021-11-10 19:55:00 172.7 cm [facility] Body weight 2021-11-10 19:55:00 90.719 kg [facility] BMI 2021-11-10 19:55:00 30.41 kg/m2 [facility] HEIGHT 2021-11-01 09:23:00 172.7 cm WEIGHT 2021-11-01 [...] kg Systolic blood 2021-09-01 19:36:00 166 mm[Hg] [facility] Medicine Diastolic blood 2021-09-01 19:36:00 87 mm[Hg] [facility] Medicine Heart rate 2021-09-01 19:36:00 80 /min [facility] Body height 2021-09-01 19:36:00 172.7 cm [facility] Body weight 2021-09-01 19:36:00 90.719 kg [facility] BMI 2021-09-01 19:36:00 30.41 kg/m2 [facility] BP Diastolic 2020-10-29 00:00:00 80 mm[Hg] [facility] Height 2020-10-29 00:00:00 68 [in_i] [facility] BMI (Body Mass 2020-10-29 00:00:00 32.1 kg/m2 [facility] BP Systolic 2020-10-29 00:00:00 144 mm[Hg] [facility] Body Weight 2020-10-29 00:00:00 211.3 [lb_av] [facility] BP Diastolic 2020-05-26 00:00:00 89 mm[Hg] [facility] Height 2020-05-26 00:00:00 68 [in_i] [facility] BMI (Body Mass 2020-05-26 00:00:00 32.7 kg/m2 [facility] BP Systolic 2020-05-26 00:00:00 153 mm[Hg] [facility] Body Weight 2020-05-26 00:00:00 215 [lb_av] [facility] BP Diastolic 2020-05-22 00:00:00 74 mm[Hg] [facility] Height 2020-05-22 00:00:00 68 [in_i] [facility] BMI (Body Mass 2020-05-22 00:00:00 32.7 kg/m2 [facility] BP Systolic 2020-05-22 00:00:00 163 mm[Hg] [facility] Body Weight 2020-05-22 00:00:00 215.1 [lb_av] [facility] Height 2018-07-06 00:00:00 68 [in_i] [facility] BMI (Body Mass 2018-07-06 00:00:00 33.4 kg/m2 [facility] Body Weight 2018-07-06 00:00:00 219.5 [lb_av] [facility] Systolic blood 2021-11-01 17:08:00 167 mm[Hg] [facility] Diastolic blood 2021-11-01 17:08:00 83 mm[Hg] [facility] Heart rate 2021-11-01 17:08:00 83 /min [facility] Body temperature 2021-11-01 17:08:00 36.56 Molly [facility] Respiratory rate 2021-11-01 17:08:00 14 /min [facility] Oxygen saturation in 2021-11-01 17:08:00 97 /min [facility] Arterial blood by Medical Ce nter Pulse oximetry Body height 2021-11-01 09:23:00 172.7 cm [facility] Body weight 2021-11-01 09:23:00 89.721 kg [facility] BMI 2021-11-01 09:23:00 30.08 kg/m2 [facility] Procedures Procedure Date / Time Performing Clinician Source Performed INSERTION, 2021-11-01 13:39:00 Mikael Awan Isamar [facility] NEUROSTIMULATOR, Center HYPOGLOSSAL SARS-COV2/RT-PCR ([facility] & 2021-10-29 15:58:00 Mikael Awan Isamar [facility] REF LABS) Center HEMOGLOBIN 2021-10-29 15:58:00 Jaciel Castaneda [facility] BASIC METABOLIC PANEL 2021-10-29 15:58:00 Jaciel Castaneda [facility] ENDOSCOPY, WITH SEDATION 2021-09-13 12:17:00 Mikael Awan Isamar [facility] HEMOGLOBIN 2021-09-13 11:28:00 Shelley Valles [facility] BASIC METABOLIC PANEL 2021-09-13 11:28:00 Shelley Valles [facility] POCT-GLUCOSE METER 2021-09-13 11:23:00 Mikael Awan Isamar [facility] TYMPANOMETRY 2018-07-06 00:00:00 [facility] TYMPANOMETRY 2018-06-15 00:00:00 [facility] dical Group Prostate Ca Screening; [facility] Cardiac Surgery [facility] Appendectomy [facility] Plan of Care Planned Activity Planned Date Details Comments Source Future Scheduled 2023-03-[address] [facility] Test 00:00:00 (Season Ended) [code = Medic al Center INFLUENZA VACCINE (Season Ended)] Future Scheduled 2023-03-[address] [facility] Test 00:00:00 (Season Ended) [code = Medic al Center INFLUENZA VACCINE (Season Ended)] Future Scheduled 2023-03-[address] [facility] Test 00:00:00 (Season Ended) [code = Medic al Center INFLUENZA VACCINE (Season Ended)] Future Scheduled 2022-11-[address] [facility] Test 00:00:00 [facility]ing [facility] Medical Cente r Screening (12+) [code = Tobacco Cessation Counseling and Screening (12+)] Future Scheduled 2022-11-[address] [facility] Test 00:00:00 [facility]ing and Medical Cente r Screening (12+) [code = Tobacco Cessation Counseling and Screening (12+)] Future Scheduled 2022-11-[address] [facility] Test 00:00:00 Counseling and Medical Cente r Screening (12+) [code = Tobacco Cessation Counseling and Screening (12+)] Future Scheduled 2022-07-[address] [facility] Test 00:00:00 (12+) [code = Medical Center DEPRESSION SCREENING (12+)] Future Scheduled 2022-07-10 FALLS RISK SCREENING [facility] Test 00:00:00 [code = FALLS RISK Medical C enter SCREENING] Future Scheduled 2022-07-[address] [facility] Test 00:00:00 (12+) [code = Medical Center DEPRESSION SCREENING (12+)] Future Scheduled 2022-07-10 FALLS RISK SCREENING [facility] Test 00:00:00 [code = FALLS RISK Medical C enter SCREENING] Future Scheduled 2022-07-[address] [facility] Test 00:00:00 (12+) [code = Medical Center DEPRESSION SCREENING (12+)] Future Scheduled 2022-07-10 FALLS RISK SCREENING [facility] Test 00:00:00 [code = FALLS RISK Medical C enter SCREENING] Future Scheduled 2022-03-10 INFLUENZA VACCINE (#1) [facility] 00:00:00 [code = INFLUENZA Medical Ce nter VACCINE (#1)] Future Scheduled 2021-11-16 COVID-19 Vaccine (1) [facility] Test 16:19:46 [code = COVID-19 Medicine Vaccine (1)] Future Scheduled 2021-11-16 TETANUS SHOT (ADULT) [facility] Test 16:19:46 [code = TETANUS SHOT Medicin e (ADULT)] Future Scheduled 2021-11-16 BMI FOLLOW UP PLAN [facility] Test 16:19:46 [code = BMI FOLLOW UP Medici ne PLAN] Future Scheduled 2021-11-16 ZOSTER VACCINE (1 of [facility] Test 16:19:46 2) [code = ZOSTER Medicine VACCINE (1 of 2)] Future Scheduled 2021-11-16 FALL SCREEN [code = [facility] Test 16:19:46 FALL SCREEN] Medicine Future Scheduled 2021-11-16 Pneumococcal 65+ (1 of [facility] Test 16:19:46 1 - PPSV23) [code = Medicine Pneumococcal 65+ (1 of 1 - PPSV23)] Future Scheduled 2021-11-16 MEDICARE IPPE (WELCOME [facility] Test 16:19:46 TO MEDICARE) [code = Medicin e MEDICARE IPPE (WELCOME TO MEDICARE)] Future Scheduled 2021-11-16 FLU VACCINE > 6 MONTHS [facility] Test 16:19:46 [code = FLU VACCINE > Medici ne 6 MONTHS] Future Scheduled 2021-09-10 ZOSTER VACCINE (1 of [facility] Test 09:14:48 2) [code = ZOSTER Medicine VACCINE (1 of 2)] Future Scheduled 2021-09-10 FALL SCREEN [code = [facility] Test 09:14:48 FALL SCREEN] Medicine Future Scheduled 2021-09-10 Pneumococcal 65+ (1 of [facility] Test 09:14:48 1 - PPSV23) [code = Medicine Pneumococcal 65+ (1 of 1 - PPSV23)] Future Scheduled 2021-09-10 FLU VACCINE > 6 MONTHS [facility] Test 09:14:48 [code = FLU VACCINE > Medici ne 6 MONTHS] Future Scheduled 2021-09-10 MEDICARE IPPE (WELCOME [facility] Test 09:14:48 TO MEDICARE) [code = Medicin e MEDICARE IPPE (WELCOME TO MEDICARE)] Future Scheduled 2021-09-10 COVID-19 Vaccine (1) [facility] Test 09:14:48 [code = COVID-19 Medicine Vaccine (1)] Future Scheduled 2021-09-10 TETANUS SHOT (ADULT) [facility] Test 09:14:48 [code = TETANUS SHOT Medicin e (ADULT)] Future Scheduled 2021-09-10 BMI FOLLOW UP PLAN [facility] Test 09:14:48 [code = BMI FOLLOW UP Medici ne PLAN] Future Scheduled 2021-07-[address] [...] FIRST YEAR if no IPPE)] Future Scheduled 2007-05-[address] [facility] 00:00:00 WELLNESS (YEAR 2 or Medical Center FIRST YEAR if no IPPE) [code = MEDICARE ANNUAL WELLNESS (YEAR 2 or FIRST YEAR if no IPPE)] Future Scheduled 2007-05-[address] [facility] 00:00:00 WELLNESS (YEAR 2 or Medical Center FIRST YEAR if no IPPE) [code = MEDICARE ANNUAL WELLNESS (YEAR 2 or FIRST YEAR if no IPPE)] Future Scheduled 2007-05-[address] [facility] 00:00:00 WELLNESS (YEAR 2 or Medical Center FIRST YEAR if no IPPE) [code = MEDICARE ANNUAL WELLNESS (YEAR 2 or FIRST YEAR if no IPPE)] Future Scheduled 2006 PNEUMOCOCCAL 65+ YRS [facility] Test 00:00:00 (1 - PCV) [code = Medical Ce nter PNEUMOCOCCAL 65+ YRS (1 - PCV)] Future Scheduled 2006 PNEUMOCOCCAL 65+ YRS [facility] Test 00:00:00 (1 - PCV) [code = Medical Ce nter PNEUMOCOCCAL 65+ YRS (1 - PCV)] Future Scheduled 2006 PNEUMOCOCCAL 65+ YRS [facility] Test 00:00:00 (1 - PCV) [code = Medical Ce nter PNEUMOCOCCAL 65+ YRS (1 - PCV)] Future Scheduled 2006 PNEUMOCOCCAL 65+ YRS [facility] Test 00:00:00 (1 - PCV) [code = Medical Ce nter PNEUMOCOCCAL 65+ YRS (1 - PCV)] Future Scheduled 1991 SHINGLES VACCINES ([address] [facility] Test 00:00:00 of 2) [code = SHINGLES Medic al Center VACCINES (1 of 2)] Future Scheduled 1991 SHINGLES VACCINES ([address] [facility] Test 00:00:00 of 2) [code = SHINGLES Medic al Center VACCINES (1 of 2)] Future Scheduled 1991 SHINGLES VACCINES ([address] [facility] Test 00:00:00 of 2) [code = SHINGLES Medic al Center VACCINES (1 of 2)] Future Scheduled 1991 SHINGLES VACCINES ([address] [facility] Test 00:00:00 of 2) [code = SHINGLES Medic al Center VACCINES (1 of 2)] Future Scheduled 1960 DTAP/TDAP/TD VACCINES [facility] 00:00:00 (1 - Tdap) [code = Medical C enter DTAP/TDAP/TD VACCINES (1 - Tdap)] Future Scheduled 1960 DTAP/TDAP/TD VACCINES [facility] 00:00:00 (1 - Tdap) [code = Medical C enter DTAP/TDAP/TD VACCINES (1 - Tdap)] Future Scheduled 1960 DTAP/TDAP/TD VACCINES [facility] 00:00:00 (1 - Tdap) [code = Medical C enter DTAP/TDAP/TD VACCINES (1 - Tdap)] Future Scheduled 1960 DTAP/TDAP/TD VACCINES [facility] 00:00:00 (1 - Tdap) [code = Medical C enter DTAP/TDAP/TD VACCINES (1 - Tdap)] Future Scheduled 1941 COVID-19 VACCINE (#1) [facility] 00:00:00 [code = COVID-[address] VACCINE (#1)] Future Scheduled 1940 COVID-19 VACCINE (#1) [facility] 00:00:00 [code = COVID-[address] VACCINE (#1)] Future Scheduled 1941 COVID-19 VACCINE (#1) [facility] 00:00:00 [code = COVID-[address] VACCINE (#1)] Future Scheduled 1940 COVID-19 VACCINE (#1) [facility] 00:00:00 [code = COVID-[address] VACCINE (#1)] Encounters Start End Encounter Admission Attending Care Care Encounter Source Date/Time Date/Time Type Type Clinicians Facility Department ID 2022-11-08 2022-11-09 Inpatient KWESI Lowry INTE.02 [id number] [facility] 05:42:00 17:04:[address] [place] [address] 2022-10-11 2022-10-11 Outpatient [facility] DA[facility] BP0 [id number] [facility] 07:08:00 07:08:00 Duyen logan [facility] 2021-11-10 2021-11-10 Office LATA Awan [id number] [facility] 14:30:00 15:45:32 Visit Mikael Penn AMBULATOR [id number] College Y [id number] [facility] 800 e 2021-11-01 2021-11-01 [facility] Gómez [facility] [id number] [facility] [address] 08:18:00 18:20:00 Encounter Mikael Penn [facility] 2021-11-01 2021-11-01 Outpatient MICHEAL AWAN [facility] Surgery [id number] [facility] 08:18:00 18:20:00 MIKAEL 2021-11-01 2021-11-01 Anesthesia Nikos Dey [facility] [id number] [facility] [address] 13:54:00 15:46:00 Event Danish Samina [facility] 2021-11-01 2021-11-01 Surgery Gómez [facility] [id number] 11:30:00 [facility] 2021-11-01 Travel [facility] [id number] [facility] 00:[facility]00 00:00:00 [facility] 2021-10-29 2021-10-29 Outpatient [facility] [id number] [facility] 11:29:45 23:59:00 2021-10-29 2021-10-29 [facility] [id number] 11:25:00 23:59:00 Encounter [facility] 2021-10-29 2021-10-29 Outpatient CORINNA BOOTH [facility] [id number] [facility] 15:29:30 11:24:00 [place] 2021-10-29 2021-10-29 [facility] [id number] 09:00:00 11:24:00 Encounter [facility] 2021-10-29 2021-10-29 Outpatient EL [facility] [id number] [facility] 00:00:00 00:00:00 2021-10-29 2021-10-29 Outpatient EL [facility] [id number] [facility] 00:00:00 00:00:00 2021-09-13 2021-09-13 [facility] MICHEAL Awan [facility] [id number] 10:33:00 14:09:00 Encounter [facility] 2021-09-13 2021-09-13 Outpatient MICHEAL AWAN [facility] Surgery [id number] [facility] 10:33:00 14:09:00 [place] 2021-09-13 2021-09-13 Anesthesia Shelley Valles [facility] [id number] [facility] 12:21:00 12:48:00 Event Cornelius Zarco [facility] 2021-09-13 2021-09-13 Surgery Gómez [facility] [id number] 12:00:00 12:30:00 Mikael [facility] 2021-09-13 2021-09-13 Travel [facility] [id number] [facility] 00:[facility] 00:00:00 [facility] 2021-09-01 2021-09-01 Office ELVIN AWAN [id number] [place] [address] 12:43:59 15:52:34 Visit MIKAEL AMBULATOR [id number] College Y [id number] [facility] 800 e 2020-10-29 2020-10-29 Preet Desmond [place] - [id number] 021 [place] 00:00:00 00:00:00 MD: Jerrell Ontiveros [address] [facility] [address], [facility], Otolaryngol [place] [employer] [address] , Ph. 2020-05-28 2020-05-28 Outpatient Yan_W [place] [id number] [place] 09:45:00 09:45:00 1119 [facility] 2020-05-27 2020-05-27 Outpatient Yan_W MM[place] [id number] 020 [place] 02:22:00 02:22:00 1118 [facility] 2020-05-26 2020-05-26 Preet Logan Des[place] - [id number] 020 [place] 00:00:00 00:00:00 : Jerrell Ontiveros [address] [facility] [address], [facility], [place] [employer] [address] , Ph. 2020-05-25 2020-05-25 Outpatient Yan_W MM[place] [id number] [place] 06:01:00 06:01:00 1116 [facility] 2020-05-22 2020-05-22 Preet Logan Des[place] - [id number] 020 [place] 00:00:00 00:00:00 : Jerrell Ontiveros [address] [facility] [address], [facility], [place] [employer] [address] , Ph. 2020-05-04 2020-05-04 Outpatient Yan_W MM[place] [id number] 020 [place] 09:53:00 09:53:00 1026 [facility] 2018-11-05 2018-11-05 Outpatient Remingtonu_P MMG [facility] [id number] [id number] [place] 03:17:00 03:17:00 0429 [facility] 2018-07-06 2018-07-06 [place] - [id number] [place] 00:00:00 00:00:00 MD Tani: [address] [address], [facility] [address] , Ph. 2018-06-15 2018-06-15 [place] - [address] [place] 00:00:00 00:00:00 MD Tani: [address] [address], [facility] [address] , Ph. Results Test Description Test Time Test Comments Results Result Comments Source ACT-ISTAT 2022-11-09 11:05:00 Test Item Value Reference Range Interpretation Comme nts ACT-ISTAT (test code = ACTI) 239 SEC 74-137 H Performed by certified twisting press operator at [facility] BASIC METABOLIC [id number] 07:57:00 Test Item Value Reference Range Interpretation Comments SODIUM (test code = 141 mEq/L 134-147 N NA) POTASSIUM (test code 4.2 mEq/L 3.4-5.0 N = K) CHLORIDE (test code 106 mEq/L 100-108 N = CL) CARBON DIOXIDE (test 29 mEq/l 21-33 N code = CO2) ANION GAP (test code 10 0-20 N = GAP) GLUCOSE (test code = 97 mg/dL 70-110 N GLU) BLOOD UREA NITROGEN 21 mg/dL 7-18 H (test code = BUN) GLOMERULAR 60.8 70-80 L The Glomerular FILTRATION RATE Filtration R ate is a (test code = GFR) calculated parameterbased on serum Creatinine, pat ient age and sex. GFR va luesless than 60 mL/min/ 1.73 square meters a re indicative ofCh ronic Kidney Disease. Values less than 15 mL/min/1.73squa re meters indicate Kidney failure. The calculation for GFR is based on the CK D-EPI (2020) calculat ion. This formulais race indifferent and is the recommended for omar for GFRby the [facility] nal Kidney Foundati on for Adults.The GFR will not calculate if th e sex is unknown or if thepatient's ag e is <18 years. CREATININE (test 1.2 mg/dL 0.6-1.3 N code = CREAT) CALCIUM (test code = 10.3 mg/dL 8.0-10.5 N CA) CBC W/AUTO [id number] 07:46:00 Test Item Value Reference Range Interpretation Comments WHITE BLOOD CELL (test code = 5.2 x10 3/uL 4.5-11.0 N WBC) RED BLOOD CELL (test code = 4.66 x10 6/uL 4.00-5.60 N RBC) HEMOGLOBIN (test code = HGB) 15.0 g/dL 12.5-16.9 N HEMATOCRIT (test code = HCT) 46.6 % 37.5-50.7 N MEAN CELL VOLUME (test code = 100.0 fL 81.0-99.0 H MCV) MEAN CELL HGB (test code = MCH) 32.2 pg 27.0-33.0 N MEAN CELL HGB CONCETRATION 32.2 g/dL 33.0-37.0 L (test code = MCHC) RED CELL DISTRIBUTION WIDTH CV 13.2 % 11.5-14.5 N (test code = RDW) RED CELL DISTRIBUTION WIDTH SD 48.7 fL 37.0-54.0 N (test code = RDW-SD) PLATELET COUNT (test code = 193 x10 3/uL 150-400 N PLT) MEAN PLATELET VOLUME (test code 9.5 fL 7.0-9.0 H = MPV) NEUTROPHIL % (test code = NT%) 49.3 % 56.0-77.0 L IMMATURE GRANULOCYTE % (test 0.2 % 0.0-2.0 N code = IG%) LYMPHOCYTE % (test code = LY%) 35.9 % 14.0-32.0 H MONOCYTE % (test code = MO%) 11.3 % 4.8-9.0 H EOSINOPHIL % (test code = EO%) 2.5 % 0.3-3.7 N BASOPHIL % (test code = BA%) 0.8 % 0.0-2.0 N NUCLEATED RBC % (test code = 0.0 % 0-0 N NRBC%) NEUTROPHIL # (test code = NT#) 2.59 x10 3/uL 2.0-7.6 N IMMATURE GRANULOCYTE # (test 0.01 x10 3/uL 0.00-0.03 N code = IG#) LYMPHOCYTE # (test code = LY#) 1.88 x10 3/uL 1.0-3.8 N MONOCYTE # (test code = MO#) 0.59 x10 3/uL 0.1-0.8 N EOSINOPHIL # (test code = EO#) 0.13 x10 3/uL 0.0-0.2 N BASOPHIL # (test code = BA#) 0.04 x10 3/uL 0.0-0.2 N NUCLEATED RBC # (test code = 0.00 x10 3/uL 0.0-0.1 N NRBC#) MANUAL DIFF REQUIRED (test code NO = MDIFF) - XR CHEST 2 [id number] 00:00:00 [facility] A[facility]IS REFORD MICAH : 1940 Sex: M FAX: Juan Woods MD [phone] [place]: AISHWARY[address] St: PRE Name: ARI DOVE [facility] [place] : 1940 Age/S:82/M [address] [place] [address] Unit #: [id number] Loc: [place] [address] Phys: Juan Dockery MD Acct: [id number] Dis Date: Status: PRE SDC PHONE #: [phone] Exam Date: 11/04/2022 1728 FAX #: [phone] Reason: PREOP EXAMS: CPT CODE: [id number] XR CHEST 2 V 41686 PROCEDURE INFORMATION: Exam:XR Chest Exam date and time: 11/04/2022 5:26 PM Age: 82 years old Clinical indication: Pre-operative exam; Cardiovascular screening and respiratory screening exam; Additional info: Preop TECHNIQUE: Imaging protocol: Radiologic exam of the chest. Views: 2 views. PA and Lateral COMPARISON: No relevant prior studies available. 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 Lungs: Scattered pleuroparenchymal scarring. Left basilar opacities. Pleural spaces: No pleural effusion. No pneumothorax. Heart/Mediastinum: Heart size is within normal limits. Vasculature is unremarkable. There are multiple median sternotomy wires and surgical clips suggesting prior CABG. Bones/joints: No acute osseous abnormalities. IMPRESSION: Left basilar opacities may represent atelectasis and/or consolidation. at 0817 Reported and signed by: Billy Stout M.D. CC: Juan Dockery MD Technologist: RT Laura(R) Trnscrd Date/Time/By: 11/05/2022 (816) : By: [email or web address] Orig Print D/T: S: 11/05/2022 (816) PAGE 1 Signed ReportPROTHROMBIN [id number] 17:55:00 Test Item Value Reference Range Interpretation Comments PROTHROMBIN TIME 12.6 SECONDS 9.3-12.9 N PATIENT (test code = PTP) INTERNATIONAL NORMAL 1.1 0.8-1.2 N TARGET INR BY RATIO (test code = INDICATIO N Indication INR) INR1. Prophylax is of venous thrombos is 2.0 - 3.0 (orthoped ic surgery), Proph ylaxis of venous throm bosis (other than hig h-risk surgery), Treat ment of Deep Vein Thrombosis/Pulm onary Embolism, Preve ntion of systemic emb olism - Tissue heart va lves, Acute Myocardia l Infarction (to prevent systemic emboli sm), Valvular heart disease, Atrial Fibrillation, Bileaflet mecha nical valve in aortic position.2. Mec hanical prosthetic valv es (high risk), 2. 5 - 3.5 Presence of Lup us Anticoagulant o r Antiphospholipi d Antibodies, Pre vention of systemic emb olism - Acute Myocardia l Infarction (to prevent recurrent infar ct). BASIC METABOLIC [id number] 17:49:00 Test Item Value Reference Range Interpretation Comments SODIUM (test code = 141 mEq/L 134-147 N NA) POTASSIUM (test code 4.8 mEq/L 3.4-5.0 N = K) CHLORIDE (test code 105 mEq/L 100-108 N = CL) CARBON DIOXIDE (test 33 mEq/l 21-33 N code = CO2) ANION GAP (test code 8 0-20 N = GAP) GLUCOSE (test code = 138 mg/dL 70-110 H GLU) BLOOD UREA NITROGEN 22 mg/dL 7-18 H (test code = BUN) GLOMERULAR 55.2 70-80 L The Glomerular FILTRATION RATE Filtration R ate is a (test code = GFR) calculated parameterbased on serum Creatinine, pat ient age and sex. GFR va luesless than 60 mL/min/ 1.73 square meters a re indicative ofCh ronic Kidney Disease. Values less than 15 mL/min/1.73squa re meters indicate Kidney failure. The calculation forGFR is based on the CKD-EPI (2020) calculat ion. This formulais race indifferent and is the recommended for omra for GFRby the [facility] nal Kidney Foundati on for Adults.The GFR will not calculate if th e sex is unknown or if thepatient's ag e is <18 years. CREATININE (test 1.3 mg/dL 0.6-1.3 N code = CREAT) CALCIUM (test code = 9.6 mg/dL 8.0-10.5 N CA) CBC W/AUTO [id number] 17:41:00 Test Item Value Reference Range Interpretation Comments WHITE BLOOD CELL (test code = 5.6 x10 3/uL 4.5-11.0 N WBC) RED BLOOD CELL (test code = 4.30 x10 6/uL 4.00-5.60 N RBC) HEMOGLOBIN (test code = HGB) 13.8 g/dL 12.5-16.9 N HEMATOCRIT (test code = HCT) 42.8 % 37.5-50.7 N MEAN CELL VOLUME (test code = 99.5 fL 81.0-99.0 H MCV) MEAN CELL HGB (test code = MCH) 32.1 pg 27.0-33.0 N MEAN CELL HGB CONCETRATION 32.2 g/dL 33.0-37.0 L (test code = MCHC) RED CELL DISTRIBUTION WIDTH CV 13.1 % 11.5-14.5 N (test code = RDW) RED CELL DISTRIBUTION WIDTH SD 48.2 fL 37.0-54.0 N (test code = RDW-SD) PLATELET COUNT (test code = 197 x10 3/uL 150-400 N PLT) MEAN PLATELET VOLUME (test code 9.3 fL 7.0-9.0 H = MPV) NEUTROPHIL % (test code = NT%) 54.3 % 56.0-77.0 L IMMATURE GRANULOCYTE % (test 0.4 % 0.0-2.0 N code = IG%) LYMPHOCYTE % (test code = LY%) 29.5 % 14.0-32.0 N MONOCYTE % (test code = MO%) 12.2 % 4.8-9.0 H EOSINOPHIL % (test code = EO%) 2.9 % 0.3-3.7 N BASOPHIL % (test code = BA%) 0.7 % 0.0-2.0 N NUCLEATED RBC % (test code = 0.0 % 0-0 N NRBC%) NEUTROPHIL # (test code = NT#) 3.04 x10 3/uL 2.0-7.6 N IMMATURE GRANULOCYTE # (test 0.02 x10 3/uL 0.00-0.03 N code = IG#) LYMPHOCYTE # (test code = LY#) 1.65 x10 3/uL 1.0-3.8 N MONOCYTE # (test code = MO#) 0.68 x10 3/uL 0.1-0.8 N EOSINOPHIL # (test code = EO#) 0.16 x10 3/uL 0.0-0.2 N BASOPHIL # (test code = BA#) 0.04 x10 3/uL 0.0-0.2 N NUCLEATED RBC # (test code = 0.00 x10 3/uL 0.0-0.1 N NRBC#) MANUAL DIFF REQUIRED (test code NO = MDIFF) SARS-CoV2/RT-PCR (Asymptomatic ONLY)2021-10-30 01:40:45 Test Item Value Reference Range Interpretation Comments SARS-COV2/RT-PCR (test Negative Negative code = 61357-1) RONAK (test code = RONAK) Negative result [...] Márquez SARS-CoV-2 assay. Fact Sheet for Healthcare Providers:https://www.jessica silvaComposeright/yuri/RT SARS-CoV-2 HCP Fact Sheet 51-006962.pdf Fact Sheet for Healthcare Patients:https://www.rodger crewsComposeright/yuri/RT SARS-CoV-2 Patient Fact Sheet EN 51-307944D4.pdf Lab Interpretation Normal (test code = 44555-5) [facility]30 01:40:45 Test Item Value Reference Range Interpretation Comments SARS-COV2/RT-PCR (test Negative Negative code = 80693-0) RONAK (test code = RONAK) Negative result [...] the Act. Testing was performed using the Contur SARS-CoV-2 assay. Fact Sheet for Healthcare Providers:https://www.jessica silvaComposeright/yuri/RT SARS-CoV-2 HCP Fact Sheet 51-475923.pdf Fact Sheet for Healthcare Patients:https://www.rodger crewsComposeright/yuri/RT SARS-CoV-2 Patient Fact Sheet EN 51-734715F5.pdf Lab Interpretation Normal (test code = 92653-9) [facility])2021-10-30 01:40:45 Test Item Value Reference Range Interpretation Comments SARS-COV2/RT-PCR (test code = Negative Negative 5173740) Negative result for this test determines that [...] 564(g) of the Act.Testing was performed using Netadmin SARS-CoV-2 assay.Fact Sheet for Healthcare Providers:https://www.Carritus/yuri/RT SARS-CoV-2 HCP Fact Sheet 51- 458012.pdfFact Sheet for Healthcare Patients:https://www.Innometrics.COTA Track/yuri/RT SARS-CoV-2 Patient Fact Sheet EN 51-013454Y6.pdfBASIC METABOLIC [id number] 16:53:09 Test Item Value Reference Range Interpretation [...] 697) EGFR (BEAKER) (test 64 mL/min/1.73 ESTIMA ARVIN GFR IS code = 1092) sq m NOT ACCURATE CREATININE CLEARANCE IN PREDICTING GLOMERULAR FILTRATION RATE . ESTIMATED GFR I S NOT APPLICABLE FOR DIALYSIS PATIEN TS. Fashion Supervisor ID - [id number] 16:24:17 Test Item Value Reference Range Interpretation Comments HEMOGLOBIN (BEAKER) (test code = 14.7 GM/DL 13.7-17.5 410) Fashion Supervisor ID - [id number] METABOLIC [id number] 12:05:23 Test Item Value Reference Range Interpretation [...] 697) EGFR (BEAKER) (test 64 mL/min/1.73 ESTIMA ARVIN GFR IS code = 1092) sq m NOT ACCURATE CREATININE CLEARANCE IN PREDICTING GLOMERULAR FILTRATION RATE . ESTIMATED GFR I S NOT APPLICABLE FOR DIALYSIS PATIEN TS. Fashion Supervisor ID - [id number] 11:44:38 Test Item Value Reference Range Interpretation Comments HEMOGLOBIN (ADAM) (test code = 14.6 GM/DL 13.7-17.5 410) Fashion Supervisor ID - [id number]-Glucose [id number] 11:34:47 Test Item Value Reference Range Interpretation Comments POC-Glucose Meter (test 104 mg/dL 70-110 : No tified RN/MD: code = 1538) TESTED AT [facility] [address] [facility], [address]: Fashion Supervisor/Techni leny ID = [id number] for MYRON VENTURA Lab Interpretation (test Normal code = 95094-7) [facility] [id number] 11:34:47 Test Item Value Reference Range Interpretation Comments POC-GLUCOSE METER 104 mg/dL 70-110 : Notified RN/MD: (ADAM) (test code = TESTED AT [place] [address] 1538) [facility], [address]: Fashion Supervisor/Techni leny ID = [id number] for MYRON SPENCER [id number] 10:49:28 Test Item Value Reference Range Interpretation Comments Right (test code = Type B Curve Flat Right) Left (test code = Left) Type C Peak is on Left [facility] [id number] 10:50:41 Test Item Value Reference Range Interpretation Comments Right (test code = Right) Type B Curve Flat Left (test code = Left) Type A Normal [facility] Notes Date/Time Note Provider Source 2022-11-09 15:06:00-00:00 HCACL [facility] ([facility]) Hospitalist Discharge Summary REPORT#:[id number] REPORT STATUS: Signed DATE:11/09/22 TIME: 1506 PATIENT: ARI DOVE RAY UNIT #: [id number] ROOM/BED: 3397-1 : 41 AGE: 82 SEX: M ATTEND: Terrance Zaldivar MD ADM AUTHOR: Darby Yeboah * ALL edits or amendments must be made on the el Right [employer]/computer document * General Information Date of admission: Observation Start Date: 11/08/22 Date of admission: 11/08/22 Discharge date: 11/09/22 Discharge diagnosis: - Abnormal stress test - pending diagnostic hear t catheterization Hospital course: - Abnormal stress test - pending diagnostic hear t catheterization - Hypertension - Hyperlipidemia - Obstructive sleep apnea - Hx CAD/CABG x 3 PLAN: - Resume home medications - Heart healthy diet - NPO after MN - Anticipating left heart cath in am - Appreciate cardiology evaluation - Pain control if needed - Supplemental oxygen as needed - Cpap as needed nightly, patient refusing for n ow - SCS's for DVT prophylaxis for now - Aspirin - Following blood pressure trend, adjust medicat ions as needed - As needed antihypertensive - Continous telemetry monitoring, assessing for any ischemic changes - Plan discussed with patient 11/08/22 FFR negative, no intervention , Okay to discharge per cardiology Pt. condition on discharge: stable Free Text DxA P Notes Free text DxA P notes: - Abnormal stress test - pending diagnostic hear t catheterization - Hypertension - Hyperlipidemia - Obstructive sleep apnea - Hx CAD/CABG x 3 PLAN: - Resume home medications - Heart healthy diet - NPO after MN - Anticipating left heart cath in am - Appreciate cardiology evaluation - Pain control if needed - Supplemental oxygen as needed - Cpap as needed nightly, patient refusing for n ow - SCS's for DVT prophylaxis for now - Aspirin - Following blood pressure trend, adjust medicat ions as needed - As needed antihypertensive - Continous telemetry monitoring, assessing for any ischemic changes - Plan discussed with patient Med Rec Med Rec Discharge meds: Continue taking these medications: LOSARTAN/HCTZ (HYZAAR 100/12.5 MG) 100 MG-12.5 M G TAB 1 TABLET ORAL DAILY. PRAVASTATIN (PRAVACHOL) 20 MG TAB 20 MILLIGRAM ORAL DAILY. PANTOPRAZOLE DR (PROTONIX) 20 MG TAB.DR 20 MILLIGRAM ORAL DAILY. HYDROcodone/APAP (HYDROcodone/APAP 10/325) 10 MG -325 MG TAB 1 TABLET ORAL EVERY 6 HOURS. as needed for PAIN THYROID,PORK (ARMOUR THYROID) 180 MG TAB 180 MILLIGRAM ORAL DAILY. DOXEPIN (SINEquan) 100 MG CAP 100 MILLIGRAM ORAL DAILY. [PREVAGEN] (Unknown Strength) Unknown Dose ORAL DAILY. Melatonin (MELATONIN) 1 MG TAB 10 MILLIGRAM ORAL BEDTIME. MAGNESIUM OXIDE (MAG-OXIDE) 400 MG TAB 400 MILLIGRAM ORAL DAILY. diphenhydrAMINE (BENADRYL) 25 MG TAB 25 MILLIGRAM ORAL DAILY. MULTIVITAMIN (MULTIPLE VITAMIN) 1 TAB TAB 1 TABLET ORAL DAILY. OMEGA-3/DHA/EPA/FISH OIL (FISH OIL 500 MG SOFTGE L) 60 MG-90 MG-500 MG CAP 1 CAPSULE ORAL DAILY. VITAMIN E (AQUASOL E DROPS 50 UNITS/ML) (Unknown Strength) ORAL.CONC Unknown Dose ORAL DAILY. UBIDECARENONE (CO Q-10) 150 MG CAP 300 MILLIGRAM ORAL DAILY. VITAMIN B COMPLEX/VIT C (NEPHRO-JOI) 1 MG-60 MG -300 MCG TAB 1 TABLET ORAL DAILY. ASPIRIN EC (ECOTRIN) 81 MG TAB.EC 81 MILLIGRAM ORAL DAILY. CHOLECALCIFEROL (VITAMIN D3) (VITAMIN D3) 50 MCG (2,000 UNIT) CAP 2,000 UNITS ORAL DAILY. [COLLAGEN/BIOTIN] (Unknown Strength) Unknown Dose ORAL DAILY. ASCORBIC ACID (VITAMIN C) 1,000 MG TAB 1,000 MILLIGRAM ORAL DAILY. CALCIUM CARBONATE (CALTRATE 600 MG) 600 MG CALCI UM (1,500 MG) TAB 600 MILLIGRAM ORAL DAILY. ZINC ACETATE (GALZIN) 50 MG (ZINC) CAP 50 MILLIGRAM ORAL DAILY. TESTOSTERONE ENANTHATE OIL (DELATESTRYL) 200 MG/ ML VIAL 1 MILLILITERS INTRAMUSCULAR EVERY 7 DAYS. [TURMERIC] 1,000 MILLIGRAM ORAL DAILY. QUEtiapine (SEROquel) 300 MG TAB 400 MILLIGRAM ORAL BEDTIME. Comments: #90 - SIG Obtained From Kamran QUEtiapine (SEROquel) 400 MG TAB 400 MILLIGRAM ORAL BEDTIME. Comments: #90 - SIG Obtained From Kamran Objective VS/I O Last Documented: Result Date Time Pulse Ox 98 11/09 910 B/P 160/87 11/09 910 Temp 98.0 05/03 0911 Pulse 75 05/03 0911 Resp 16 11/09 0911 B/P Mean 0.0 11/09 0737 O2 Delivery Room air 11/09 07 24 hour I O ending at 0700: 11/09 0700 11/08 1900 Intake Total Output Total Balance Patient 88.636 kg Weight Weight Stated/Reported Measurement Method Head/Eyes: atraumatic, EOMI ENT: moist mucosal membranes Neck: non-tender, no masses or swelling Cardiovascular: normal capillary refill, regular rate rhythm Respiratory: aerating well, clear to auscultatio n, symmetric expansion Abdomen: non-tender, normal bowel sounds, soft Extremities: moves all Musculoskeletal: normal inspection Neuro/LABORATORY INSPECTOR: alert, oriented X 3, CNII-XII intact Lymphatics: neck normal Psychiatry: normal affect, normal mood Discharge Instructions PCP PCP follow-up: PCP: No Primary or Family Physician Discharge to: Home/Self Care Additional Discharge Routines: Pay Station Attendant Follow -Up Diet: Diabetic Additional instructions: per cardiology Discharge management: greater than 30 mins Time spent: Time spent on patient care (minutes): 35 at 2330 RPT #:[id number] END OF REPORT 2022-11-08 19:12:00-00:00 [facility]L [facility] Hospitalist History Physical REPORT#:[id number] REPORT STATUS: Signed DATE:11/08/22 TIME: 1911 PATIENT: ARI DOVE UNIT #: [id number] ROOM[address]BED: [address] : 41 AGE: 82 SEX: M ATTEND: Jaylene Zaldivar MD ADM AUTHOR: Mauri Mckenna APRN * ALL edits or amendments must be made on the el [employer]/computer document * History of Present Illness HPI Chief complaint: Abnormal stress test PCP: PCP: No Primary or Family Physician HPI: Hernandez Dove is an 82 ye ar old male with past history of CAD/CABG x 3, HTN, HLD, KD. Patient is followed outpatient by card iology. 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 He was referred to the hospital for diagnostic heart cathet erization that is set for tomorrow AM. Patient referred for observa tion in heart leipsic prior to cath tomorrow. Patient was offered CPAP for his sleep apnea, he said he no longer uses one. He currently denies any chest pain, no shor tness of breath, palpitations, sensory changes, sick contacts, nausea, vomiting, diarrh ea, sick contacts, recent illness. History Social History Smoking status for patients 13 years old or olde r: Former Smoker Date last smoked: 07/10/85 Medication/Allergy-Vaccine Hx Allergies: Coded Allergies: No Known Allergies (11/04/22) Review of Systems All systems rev neg: except as noted OBJECTIVE VS/I O: Vital Signs Date Temp Pulse Resp B/P B/P Mean Pulse Ox FiO 2 11/08 98.1 92 18 173/87 99 Last Documented: Result Date Time Pulse Ox 99 / 1520 B/P 173/87 / 1520 Temp 98.1 11/08 1520 Pulse 92 11/08 1520 Resp 18 11/08 1520 Patient Weight and BMI Weight (kg): 88.636 BMI: 29.7 Medications: Active Meds + DC'd Last 24 Hrs Aspirin (ASPIRIN) 81 MG DAILY PO Cholecalciferol (VITAMIN D) 2,000 INTL.UNITS SAMI LY PO (CKD) Losartan Potassium (COZAAR) 100 MG DAILY PO (UNV ) Hydrochlorothiazide (HYDRODIURIL) 12.5 MG Magnesium Oxide (MAG-OX 400) 400 MG DAILY PO Pravastatin Sodium (PRAVACHOL) 20 MG DAILY PO Vitamin B Complex/Vit C/Folic Acid (NEPHRO-JOI RX) 1 TAB DAILY PO Pantoprazole (PROTONIX) 40 MG DAILY@0600 PO Thyroid (ARMOUR THYROID) 180 MG DAILY 0600 PO Doxepin HCl (SINEquan) 100 MG BEDTIME PO (UNV) Hydrocodone Bitart/Acetaminophen (NORCO 10/325) 1 TAB Q6H PRN PO Aspirin (ASPIRIN) 81 MG ONCE ONE PO (DC) General appearance: alert, awake, oriented Head/Eyes: atraumatic, EOMI ENT: moist mucosal membranes Neck: non-tender, no masses or swelling Cardiovascular: normal capillary refill, regular rate rhythm Respiratory: aerating well, clear to auscultatio n, symmetric expansion Abdomen: non-tender, normal bowel sounds, soft Abdomen quadrants: LLQ normal bowel sounds, LUQ normal mayra l sounds, RLQ normal bowel sounds, RUQ normal bowel sounds Musculoskeletal: normal inspection Neuro/LABORATORY INSPECTOR: alert, oriented X 3, CNII-XII intact Lymphatics: neck normal Psychiatry: normal affect, normal mood Diagnosis, Assessment Plan Free Text A P: - Abnormal stress test - pending diagnostic hear t catheterization - Hypertension - Hyperlipidemia - Obstructive sleep apnea - Hx CAD/CABG x 3 PLAN: - Resume home medications - Heart healthy diet - NPO after MN - Anticipating left heart cath in am - Appreciate cardiology evaluation - Pain control if needed - Supplemental oxygen as needed - Cpap as needed nightly, patient refusing for n ow - SCS's for DVT prophylaxis for now - Aspirin - Following blood pressure trend, adjust medicat ions as needed - As needed antihypertensive - Continous telemetry monitoring, assessing for any ischemic changes - Plan discussed with patient at 1942 Electronically Signed by Conner Zaldivar MD on at 1459 RPT #:[id number] END OF REPORT 2022-11-04 16:21:00-00:00 [id number] [place] [address] PATIENT NAME: ARI DOVE ADMIT DATE: ACCOUNT NO: [id number] ROOM NO: AGE: 82 REPORT TYPE: eELECTROCARDIOGRAM REPORT SEX: M ADMITTING PHYSICIAN: ATTENDING PHYSICIAN:Juan Dockery MD Order: [id number] Test Reason : PRE OP Test Date/Time Stamp: MonNov 04 2022 16:21:46 Blood Pressure : / mmHG Vent. Rate : 082 BPM Atrial Rate : 082 BPM P-R Int : 196 ms QRS Dur : 110 ms QT Int : 374 ms P-R-T Axes : 062 001 -84 degree s QTc Int : 436 ms Normal sinus rhythm Voltage criteria for left ventricular hypertroph y Cannot rule out Septal infarct , age undetermine d ST and T wave abnormality, consider inferior isc hemia Abnormal ECG No previous ECGs available Confirmed by CHRISTOPHER AMEZQUITA MD ([id number]) on 11/05/2022 7:03:37 AM Referred By: No Physician Confirmed by:CHRISTOPHER KUMAR MD Electronically Signed by Christopher Amezquita MD on 10/09 04/01 at 0703 PATIENT NAME: ARI DOVE ACCOUNT #: [id number] 2022-10-11 11:49:00-00:00 [facility] ([facility]) Med Order Sheet REPORT #: [id number] REPORT STATUS: Signed DATE: 10/11/22 TIME: 1149 PATIENT: ARI DOVE UNIT #: [id number] ROOM #: BED: : 41 AGE: 82 SEX: M ATTEND: Mauro Butler MD ADM AUTHOR: Quoc Morillo MD ATTENTION *EDITS and/or ADDENDA must be made in Patient Ke eper for this note. * * Edits and ammendments created in [facility] are not visible * * in Patient Keeper or the legal medical record (HPF). * Discharge Medication Reconciliation DISCHARGE MEDICATION LIST Aspirin EC Tab (Ecotrin Tab) Dose: 81 MG PO DAILY Doxepin Cap (Sinequan Cap) Dose: 100 MG PO BEDTIME Furosemide Tab (Lasix Tab) Dose: 40 MG PO DAILY HYDROcodone/APAP 10/325 Tab ([place] 10/325 Tab) Dose: 1 TAB PO Q4H PRN pain scale 4-6 Losartan/HCTZ 100/25 Tab (Hyzaar 100-25 MG Tab) Dose: 1 TAB PO DAILY - 100/12.5 MG DAILY Pantoprazole Tab.DR (Protonix Tab) Dose: 20 MG PO DAILY Pravastatin Tab (Pravachol Tab) Dose: 20 MG PO DAILY Thyroid,armour tab (thyroid (pork)) Dose: 180 MG PO DAILY STOPPED HOSPITAL MEDICATIONS Dc'd: Acetaminophen Inj (Ofirmev Inj) 1000MG 400 MLS/HR IV PACUDc'd: Atropine 1 mg/10ml Syr (Atropine 1 mg/10ml Syr) 0.5MG IV PACU Q5MIN PRN symptomatic bradycardiaDc'd: Bupivacaine Liposome/Pf (Expare l 266 MG/20 Ml Vial) 133MG Injection PREOP ONCEDc'd: Celecoxib Cap (CeleBRE X Cap) 200MG PO PACUDc'd: Celecoxib Cap (CeleBREX Cap) 200MG PO PREOPDc'd: diphenhydrAMINE Inj (Benadryl Inj) 12.5MG IV PACU ONCE PRN itchingDc 'd: Fluconazole Inj (Diflucan Inj) 200MG IV PREOP ONCEDc'd: Flumazenil Inj (Ro mazicon Inj) 0.2MG IV PACU ASDIR PRN benzodiaz. reversal (max x5)Dc'd: Gent amicin Inj (Garamycin Inj) 320MG IV PREOP ONCEin Sodium Chloride 0.9% (NS) 100ML Dc'd: hydrALAZINE Inj (Apresoline Inj) 10MG IV P ACU Q10MIN PRN sbp>180 /or dbp>100 (max x2)Dc'd: HYDROmorphone Inj (Dilaudi d Inj) 0.5MG IV PACU Q10MIN PRN pain (score 7-10)(max x2 dose)Dc'd: Labetalo l Inj (Trandate Inj) 10MG IV PACU Q5MIN PRN see special instructionsDc'd: Mep eridine Inj (Demerol Inj) 12.5MG IV PACU ONCE PRN shiveringDc'd: morphine Inj 2MG IV PACU Q5MIN PRN pain (score 4-6) (max x3 dose)Dc'd: Naloxone Inj (Narcan Inj) 0.04MG IV PACU Q2MIN PRN narcotic reversal (max x8)Dc'd: oxyCOD ONE IR Tab (Roxicodone Tab) 5MG PO PACU Q4H PRN pain (score 4-6)Dc'd: P regabalin Cap (Lyrica Cap) 75MG PO PACUDc'd: Pregabalin Cap (Lyrica Cap) 75 MG PO PREOPDc'd: Promethazine Inj (Phenergan Inj) 6.25MG 100 MLS/ HR IV PACU ONCE PRN nausea and vomiting (x1 dose)in Sodium Chloride 0.9% (N S) 50ML Dc'd: racEPINEPHrine Neb Soln 2.25% (S-2 Neb Shelly n 2.25%) 0.5ML Neb PACU ASDIR PRN shortness of breathDc'd: Sodium Chloride 0.9 % (NS) 1000ML 125 MLS/HR IV PACU IV FLUIDDc'd: Sulfamethoxazole/Trimeth Inj (Bactrim Inj) 160MG PREOP ONCALLDc'd: Vancomycin Inj (Vancomycin Inj) 1000 MG IV PREOP ONCEin sodium chloride 0.9 % intravenous solution 250ML at 1149 ATTENTION *EDITS and/or ADDENDA must be made in Patient Ke eper for this note. * * Edits and ammendments created in [facility] are not visible * * in Patient Keeper or the legal medical record (HPF). * RPT #: [id number] END OF REPORT 2022-10-11 11:49:00-00:00 [facility] ([facility]) Operative Report REPORT #: [id number] REPORT STATUS: Signed DATE: 10/11/22 TIME: 1149 PATIENT: ARI DOVE UNIT #: [id number] ROOM #: BED: : 41 AGE: 82 SEX: M ATTEND: Mauro Butler MD ADM AUTHOR: Quoc Morillo MD ATTENTION *EDITS and/or ADDENDA must be made in Patient Ke eper for this note. * * Edits and ammendments created in [employer] are not visible * * in Patient Keeper or the legal medical record (HPF). 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 Coronary artery disease 3. Scrotal webbing POST-OPERATIVE DIAGNOSIS: same INDICATION(S): see descritpion NAME OF PROCEDURE: see description SURGEON: Mauro Morillo MD WATCH SUPERVISOR(S): WILLIAM Lugo ANESTHESIA: GETA ESTIMATED BLOOD LOSS: 30 ml's FINDINGS: see descritpion SPECIMEN(S) REMOVED AND/OR ALTERED: none COMPLICATION(S): none DRAIN(S): none -- DESCRIPTION -- DESCRIPTION OF TECHNIQUE/PROCEDURE: PROCEDURES: 1. Inflatable multi-component penile prosthesis insertion (51035) ( NS) 2. Ventral phalloplasty (93833) 3. Repair procedure of the penis (93044) 4. Injection of the penis with pharmacologic age nt to induce erection (26753) 5. Dorsal penile block (61992) FINDINGS: 1. Erection at the beginning of the case reveale d no penile curvature. 2. Right corpora measured: 22.5 cm (proximal rubén surement was 10.5cm ) 3. Left corpora measured: 22.5 cm (proximal 10.5 cm ) 4. Coloplast Titan inflatable penile pro sthesis with cylinders measuring 22 cm plus 1cm (trimmed to 0.5cm) RTE. 5. 125mL [place] reservoir was placed in right paravesical space and filled with 100 cc of sterile saline. 6. Teresita/Classic Prosthetic pump place d in a subdartos pouch in the anterior scrotum. 7. No Glans hypermobility. DISPOSITION: The patient was stable and extubate d at the end of the case. INDICATIONS FOR OPERATION: 82 yo male terrance dowd with history of CAD s/p CABG and vasculogenic erectile dysfunction. This patient has failed prolonged PDE-5 inhibitor rehabilitation therapy for vasculogeni c erectile dysfunction as demonstrated by penile doppler. I explained to h im the risks and the benefits of three-piece inflatable penile prosthesis plac ement. He understood these risks to include, but were not limited to, bleed ing, infection, mechanical device(s) failure, urethral injury, potential fo r vascular, bowel or bladder injury, infection requiring device explantation, penile shortening, need for device revision for rocket motor mechanic al failure or malposition, as well as postoperative discomfort. Understanding all of these risks, he elected to proceed to the operating room as described below. PROCEDURE IN DETAIL: After surgical cons ent was obtained from the patient, one gram of Vancomycin, 320mg of Gentamycin and 200 mg Diflucan was given intravenously. The patient was brought to the op erating room where general endotracheal anesthesia was administered without difficulty. He was then shaved with clippers and had a standard Chlorhexidine p reparation of the lower abdomen, perineum and genitals. He was then drap ed in the standard fashion. A comprehensive timeout was performed in a ccordance with the surgical checklist. The patient was identified as well as the surgic al procedure, allergies, prophylactic antibiotics, thromboprophylaxis, an d any additional required instrumentation. All staff p resent in the room were identified by name and role. I placed an Ioban tape over the patient's genita ls, and the penis and scrotum were exposed. A dorsal penile block was performe d with Exparel/Ropivacaine to minimize postoperative pain medications. The SKW retractor was brought to the field. A #15 blade blade was used to inc ise parallel with the shaft one finger breath from the peno-scrotal junction to the bas e of the corporal bodies, a wedge of redundant scrotal and proximal penile s haft skin and Dartos fascial tissue which was passed off the field. This crea arvin a debby-shaped surgical wound, through which the remainder of the proced ure was performed. This represents a ventral phalloplasty, which is expected to increase the perceived penile shaft length by appro ximately 30% from the preoperative apparent length, as well as provide maximal s urgical exposure through which the remainder of the procedure is performed. An 18-gauge angio-catheter was placed in the cor pora cavernosum and, while keeping pressure at the base of the penis, an ar tificial erection was induced with injectable saline and 0.25% marcaine with r esults as stated above. Retractor hook was placed at the dorsum of the u rethral meatus and the glans penis was retracted to the 12 o'clock position. A second piece of Ioban was placed over the genitals to avoid the implant fr om touching the penile or scrotal skin The surgical area was exposed and D artos tissue was dissected using both sharp and blunt dissection along with electrocautery. We then proceeded to place our nonpe netrating hooks giving us exposure to our incision. We then dissected over the right corpora and the n came across, dissecting off dartos tissue over the urethra and the right cor pus cavernosum. Four 2-0 Monocryl sutures were then placed in each corpor al body as stay sutures and a 1.5 cm corporotomy was performed bilaterally usi ng a 15 blade scalpel. The corpora was then dilated using a size 12 Fountain dilators bilaterally. A 13 Fountain dilators was also used to further dilate the proximal corporas. The corporal bodies were then measured bilat erally with a Jazmin needle introducer device. The left corporal body was measured as 2 2.5 cm long and the right corporal body measured 22.5 cm. The Coloplast Ti carrizales inflatable penile prosthesis with the cylinders of 22 cm plus 1cm (trimmed down to 0.5cm) rear tip extenders was selected and prepared for plac emmckenna in the back table. At this time, the right external inguinal ring was identified and a pediatric Winona was used to identify the inguinal floor. A ring forceps was then used to dissect the plane posterior to transvers diamond fascia into the right paravesical space and the pocket was mad e as far cephalad as possible. After the pocket was made a 125 cc conceal reservoir was placed into this space with the use of rubber shoded ring forceps and was filled with 1 00 cc normal saline. External gloves were then ch anged by all surgical personnel before handling the sterile penile implant. A sterile towel was also applied to the surgical field before placement of the implant on the surgical field. Attention was then turned to the right corpora. With the use of Jazmin needle introducer, a Brandon needle-suture connec arvin to cylinder was pulled through the glans penis. The distal part of the cylinder was then placeed into the distal corpora. Next, the proximal portion of the cylin soumya was placed into the proximal corpora while tension was held on the d istal suture to remove any kinks of the cylinder. The same procedure was pe rformed for the cylinder placement on the left corpora. Copious antibioti c irrigation was utilized throughout placement of the prosthesis. The damian orotomies were then closed using the previously placed 2-0 Monocryl stay thompson tures. The tubes between the reservoir and pump were then connected using the provided connectors. Next, a dartos pouch was created in the scrotum with Metzenbaum scissors and ring forceps. The pump was placed into t he newly created dartos pouch with the use of nasal speculum. The device was cycled and noted to be in proper position. The dartos pouch and fascia of the scr otum were then closed with a 3-0 Monocryl suture in a running fashion. All ex cess fluid was milked out of the scrotum to minimize the post-operative scrot um swelling. Hemostasis was achieved. The wound was copiously irrigated thro ughout the length of the procedure with antibiotic solution. The skin was then closed with 4-0 Monocryl suture in running fashion. The penile implant wa s inflated to about 60% for post-operative hemostasis and to prevent penile shrinkage. Antibiotic ointment was then applied over the in cision which was covered by a small piece of Telfa. This was then covered using a Tegaderm and the s crotum was wrapped in Kerlix followed by tape for fixation of the favian ssing. A protective collar was used to protect erected penis. The patient tolerated the procedure well without intraoperative complications. He was suc cessfully extubated and transferred to recovery room in stable condition. Signed in PatientKeeper by Mauro Bhagat MD on 10/11/22 at 11:52 at 1152 ATTENTION *EDITS and/or ADDENDA must be made in Patient Ke eper for this note. * * Edits and ammendments created in [employer] are not visible * * in Patient Keeper or the legal medical record (HPF). * [facility] #: [id number] END OF REPORT 2022-10-11 08:49:00-00:00 [id number] [address] PATIENT NAME: ARI DOVE ADMIT DATE: ACCOUNT NO: [id number] ROOM NO: AGE: 82 REPORT TYPE: eELECTROCARDIOGRAM SEX: M ADMITTING PHYSICIAN: ATTENDING PHYSICIAN: Mauro Morillo MD Order: [id number] Test Reason : PROTOCOL Test Date/Time Stamp: MonOct 11 2022 08:49:47 Blood Pressure : / mmHG Vent. Rate : 080 BPM Atrial Rate : 080 BPM P-R Int : 184 ms QRS Dur : 110 ms QT Int : 402 ms P-R-T Axes : 056 -13 107 degree s QTc Int : 463 ms Normal sinus rhythm Left ventricular hypertrophy with QRS widening a nd repolarization abnormality Abnormal ECG Confirmed by BRAULIO CARRILLO, KYLE Kim ([id number]) on 10/17 8:09:06 AM Referred By: Mauro Lau Confirmed by:KYLE RAMSEY MD at 0809 PATIENT NAME: ARI DOVE RAY ACCOUNT #: [id number]
--- NOTE | 2022-11-22 16:38 | ER ---
Nurse's Notes [facility] [place] Name: Soy Dove Age: 82 yrs Sex: Male : 1940 Arrival Date: 11/22/2022 Time: 16:22 Bed Waiting Private MD: Diagnosis: Cellulitis of right finger Presentation: 11/22 16:28 Chief complaint: Patient states: right pinky swelling, since last night, thought it was iw an ingrown hair. Coronavirus screen: At this time, the client does not indicate any symptoms associated with coronavirus-19. Ebola Screen: Patient negative for fever greater than or equal to 101.5 degrees Fahrenheit, and additional compatible Ebola Virus Disease symptoms Patient denies exposure to infectious person. Patient denies travel to an Ebola-affected area in the 21 days before illness onset. No symptoms or risks identified at this time. Initial Sepsis Screen: Does the patient meet any 2 criteria? No. Patient's initial sepsis screen is negative. Does the patient have a suspected source of infection? No. Patient's initial sepsis screen is negative. Risk Assessment: Do you want to hurt yourself or someone else? Patient reports no desire to harm self or others. Onset of symptoms was November 21, 2022. 16:28 Method Of Arrival: Ambulatory iw 16:28 Acuity: POPPY 4 iw Historical: - Allergies: 16:30 Codeine; iw - PMHx: 16:30 asbestosis; chronic back pain; Hypertension; bowel obstruction; coronary iw atherosclerosis; High Cholesterol; KD; - PSHx: 16:30 bowel resection; Coronary artery bypass graft; Inspire UAS-right chest wall; iw - Immunization history:: Adult Immunizations unknown. - Social history:: Smoking status: Patient denies any tobacco usage or history of. Screenin:[address] [facility] ED Fall Risk Assessment (Adult) History of falling in the last 3 months, iw including since admission. Abuse screen: Denies threats or abuse. Denies injuries from another. Nutritional screening: No deficits noted. Tuberculosis screening: No symptoms or risk factors identified. Assessment: 16:30 General: Appears in no apparent distress. Behavior is calm, cooperative. Pain: iw Complains of pain in dorsal aspect of middle phalanx of right little finger and dorsal aspect of proximal phalanx of right little finger. Neuro: Level of Consciousness is awake, alert, obeys commands, Oriented to person, place, time, situation, Moves all extremities. Cardiovascular: Patient's skin is warm and dry. Respiratory: Respiratory effort is even, unlabored, Respiratory pattern is regular. Derm: Abscess located on dorsal aspect of proximal phalanx of right little finger. Musculoskeletal: Range of motion: intact in all extremities. Vital Signs: 16:28 BP 163 / 85; Pulse 90; Resp 16; Temp 99; Pulse Ox 100% on R/A; iw ED Course: 16:23 Patient arrived in ED. am2 16:25 Epifanio Chatman DO is Attending Physician. ms3 16:30 Triage completed. iw 16:30 Arm band placed on. iw 16:30 Patient has correct armband on for positive identification. iw 16:32 No provider procedures requiring assistance completed. Patient did not have IV access iw during this emergency room visit. 16:36 Brooks Michelle MD is Referral Physician. ms3 16:45 Marquita Guido RN is Primary Nurse. iw Administered Medications: 16:45 Drug: Doxycycline PO 100 mg Route: PO; iw 17:00 Follow up: Response: No adverse reaction iw Medication: 16:31 VIS not applicable for this client. iw Outcome: 16:36 Discharge ordered by MD. ms3 16:45 Discharged to home ambulatory. iw 16:45 Condition: good 16:45 Discharge instructions given to patient, Instructed on discharge instructions, follow up and referral plans. medication usage, Demonstrated understanding of instructions, follow-up care, medications, Prescriptions given X 1. 16:45 Patient left the ED. iw Signatures: Marquita Guido RN RN Debbie Pineda am2 Epifanio Chatman DO DO ms3
--- NOTE | 2022-11-22 16:38 | EDPHYS ---
Physician Documentation [facility] Name: Refbrice Dove Age: 82 yrs Sex: Male : 1940 Arrival Date: 11/22/2022 Time: 16:22 Bed Waiting Private MD: ED Physician Epifanio Chatman HPI: 11/22 16:45 This 82 yrs old Male presents to ER via Ambulatory with complaints of right finger ms3 swelling. 16:45 82-year-old male with past medical history of asbestosis, chronic back pain, ms3 hypertension, bowel obstruction presents for right fifth digit swelling that has been ongoing for 1 day. Patient states pain is 10/10. Patient denies alleviating or inciting factors. Patient denies fevers, chills, nausea, vomiting, trauma.. Historical: - Allergies: 16:30 Codeine; iw - PMHx: 16:30 asbestosis; chronic back pain; Hypertension; bowel obstruction; coronary iw atherosclerosis; High Cholesterol; KD; - PSHx: 16:30 bowel resection; Coronary artery bypass graft; Inspire UAS-right chest wall; iw - Immunization history:: Adult Immunizations unknown. - Social history:: Smoking status: Patient denies any tobacco usage or history of. ROS: 16:45 Constitutional: Negative for fever, and chills. Neck: Negative for injury, pain, and ms3 swelling, Cardiovascular: Negative for chest pain, and palpitations. Respiratory: Negative for shortness of breath, cough, wheezing, and pleuritic chest pain, Abdomen/GI: Negative for abdominal pain, nausea, vomiting, diarrhea, and constipation, Back: Negative for injury and pain. 16:45 Neuro: Negative for headache, weakness, numbness, tingling. 16:45 Skin: Positive for cellulitis. 16:45 All other systems are negative. Exam: 16:45 Constitutional: This is a well developed, well nourished patient who is awake, alert, ms3 and in no acute distress. Head/Face: Normocephalic, atraumatic. Chest/axilla: Normal chest wall appearance and motion. Nontender with no deformity. Cardiovascular: Regular rate and rhythm with a normal S1 and S2. No gallops, murmurs, or rubs. Normal PMI, no JVD. No pulse deficits. Respiratory: Lungs have equal breath sounds bilaterally, clear to auscultation and percussion. No rales, rhonchi or wheezes noted. No increased work of breathing, no retractions or nasal flaring. Abdomen/GI: Soft, non-tender, with normal bowel sounds. No distension or tympany. No guarding or rebound. No evidence of tenderness throughout. 16:45 Skin: cellulitis, that is mild, on the dorsal aspect of proximal phalanx of right little finger and dorsal aspect of middle phalanx of right little finger. Vital Signs: 16:28 BP 163 / 85; Pulse 90; Resp 16; Temp 99; Pulse Ox 100% on R/A; iw MDM: 16:34 Patient medically screened. ms3 16:45 Data reviewed: vital signs, nurses notes, and as a result, I will discharge patient. I ms3 considered the following discharge prescriptions or medication management in the emergency department Medications were administered in the Emergency Department. See MAR. Test considered but Not performed: X-ray: X-ray not performed as patient denies history of trauma. Special discussion: I discussed with the patient/guardian in detail that at this point there is no indication for admission to the hospital. It is understood, however, that if the symptoms persist or worsen the patient needs to return immediately for re-evaluation. ED course: Discussed physical exam findings with patient. Patient to follow-up Dr. Michelle in 2 to 3 days. Patient understands and agrees with plan. All questions were answered. Return precautions discussed include worsening symptoms, or any other concerns.. Administered Medications: 16:45 Drug: Doxycycline PO 100 mg Route: PO; iw 17:00 Follow up: Response: No adverse reaction iw Disposition Summary: 11/22/22 16:36 Discharge Ordered Location: Home ms3 Condition: Stable ms3 Diagnosis - Cellulitis of right finger ms3 Followup: ms3 - With: Brooks Michelle MD - When: 2 - 3 days - Reason: Recheck today's complaints Discharge Instructions: - Discharge Summary Sheet ms3 - Cellulitis, Adult ms3 Forms: - Medication Reconciliation Form ms3 - Thank You Letter ms3 - Antibiotic Education ms3 - Prescription Opioid Use ms3 Prescriptions: - Doxycycline Hyclate 100 mg Oral Tablet - take 1 tablet by ORAL route every 12 hours; 20 tablet; Refills: 0, Product ms3 Selection Permitted Signatures: Marquita Guido, RN RN iw Lurdes, Epifanio, DO DO ms3
[2022-11-22] MEDS ORDERED: DOXYCYCLINE 100 MG CAP PO ONE (16:47)
[2022-11-22 16:50] VITALS: BP 163/85; TEMP 99; O2SAT 100
== END 2022-11-22 16:45 | disposition home or self-care (01) ==
LOC: ER 16:22
DX: L03.011 Cellulitis of right finger (principal); Z88.5 Allergy status to narcotic agent
CPT/HCPCS: 99283

== ENCOUNTER 2022-11-24 15:30 | Inpatient (IN) | payer OTHER, MEDICARE ==
--- OUTSIDE RECORDS SUMMARY | 2022-11-24 15:34 | XMS REPORT | Continuity of Care Document ---
:1940 Author Organization [facility] t Address [address] [place] [address] [place] [address] Care Team Providers Name Role Phone Conner Maldonado MD Primary Care Physician Unavailable Conner Zaldivar Attending Clinician Unavailable Mauro Morillo Attending Clinician Unavailable Mikael Awan MD Attending Clinician Mikael Awan MD Attending Clinician MIKAEL AWAN Attending Clinician Unavailable Nikos Dey MD Attending Clinician Samina Peng CRNA Attending Clinician [phone] Shelley Valles MD Attending Clinician Cornelius Zarco CRNA Attending Clinician [phone] MIKAEL AWAN Attending Clinician Unavailable Desmond_Anupama Attending Clinician Unavailable Tani_Topher Attending Clinician Unavailable Conner Zaldivar Admitting Clinician Unavailable Physician, No Primary or Family Admitting Clinician Unavaila ble MIKAEL AWAN Admitting Clinician Unavailable Rolando Admitting Clinician Unavailable Venita Admitting Clinician Unavailable Payers Payer Name Policy Type Policy Number Effective Date Expiration Date S ource MEDICARE B-[place]: [id number] 2006 [employer] 00:00:00 [facility] [id number] 2006 OPTION - PLAN F 00:00:00 (MEDICARE [...] U [facility] Allergie 4-28 Clear s 00:00: Lopez 00 [facility] No Known DA Active U [facility] Allergie 4-03 Gonzalez s 00:00: Health 00 [facility] CODEINE Allergy Active [facility] 00 Center Codeine Drug Active Other (See Other [facility] Allergy Comments) 404 reaction( Chacha es 00:00: s): Medical 00 [facility] t[facility] Codeine Propensi Active Hallucinatio B aylor ty to ns 4-04 College adverse 00:00: of reaction 00 Medicin s to e drug No Known DA Active [place] [facility] Drug 3-10 Clear Intolera 00:00: Lopez nces 00 [facility] Codeine Allergy Active Moderate Other [place] [...] Center Exposure to 2021-10-30 2021-11-09 Not sure [facility] Marie berg SARS-CoV-2 (event) 00:00:00 15:14:00 of Med icine Alcohol intake 2021-11-02 2021-11-02 [facility] (finding) Tobacco use and 2021-10-29 2021-10-29 Smokeless tobacco [facility] exposure 00:00[facility]00 00:00:00 non-user [facility] Center Alcohol Comment 2021-10-29 2021-10-[address] [facility] k[facility] 00:00:00 00:00:00 [facility] Cigarettes smoked 2021-10-29 2021-10-[address] [facility] current (pack per 00:00:00 00:00:00 Medical Center day) - Reported Tobacco Comment 2021-10-29 2021-10-29 quit [address] he [facility] 00:00:00 00:00:00 turned 41 yrs old [facility] Sex Ass[birth year] At [birth year] ATA Thomas 00:00:00 00:00:00 [facility] Smoking Status Start Date Stop Date Source Ex-smoker 2021-09-01 00:00:00 2021-09-01 00:00:00 [facility] Medications Ordered Filled Start Stop Current Ordering Indication Dosage Frequency Signature Comments Components Source Medication Medication Date Date Medication? Clinician (SIG) Name Name pantoprazol Yes 20mg Take 20 mg [facility] e 5-04 by mouth College (PROTONIX) 14:56: daily. of 20 MG 35 Medicin tablet e Vitamin E Yes Take by [facility] r 100 units 5-04 mouth. College CAPS 14:56: of 35 Medicin e Coenzyme Yes Take by [facility] Q10 (CO 5-04 mouth. College Q-10) 300 14:56: of MG CAPS 35 Medicin e Calcium Yes Take by [facility] Carbonate-V 5-04 mouth. Marie e it D-Min 14:56: of (CALCIUM 35 Medicin 1200) e [id number] MG-UNIT CHEW [place]-3 Yes Take by [facility] Fatty Acids 5-04 [facility]. [facility] (OMEGA 3 14:56: of 500) 500 MG 35 Medicin CAPS e Aspirin 81 Yes Take by [facility]l or MG CAPS 5-04 mouth. [place] 14:56: of 35 Medicin e Cholecalcif Yes Take by [place] im[facility] demetria 5-04 mouth. [place] (VITAMIN 14:56: of D3) 25 MCG 35 Medicin (1000 UT) e CAPS losartan-hy Yes 1{tbl} QD Take [address] drochloroth 4-25 tablet by Chacha es iazide 18:30: mouth Medical (HYZAAR) 41 every Center 100-12.5 mg morning . per tablet QUEtiapine Yes 100mg QD Take [address] (SEROquel) 4-25 mg by [facility] 100 MG 18:30: mouth Medical tablet 41 nightly. [place] pravastatin Yes 20mg QD Take [address] (PRAVACHOL) 4-25 by mouth Luke s 20 MG 18:30: every Medical tablet 41 morning . Center thyroid, 0 Yes QD Take by [facility] pork, 180 4-25 mouth [facility] mg Tab 18:30: every Medical 41 morning . [place] pantoprazol Yes 20mg QD Take [address] e 4-25 by mouth [facility] (PROTONIX) 18:30: every Medica l 20 MG 41 morning . [place] tablet aspirin 81 Yes 81mg QD Take [...] 4-25 by mouth [facility] tablet 18:30: daily. [facility] 41 Center HYDROcodone Yes 1{tbl} Take 1 [...] 4-25 by mouth [facility] tablet 18:30: daily. [facility] 41 Center HYDROcodone Yes 1{tbl} Take 1 [...] MG 18:30: mouth Medical tablet 41 nightly. [place] pravastatin Yes 20mg QD Take 20 mg [...] St -clavulanat 4-25 05-02 tablet by [facility] [employer] e 00:00: 23:59 mouth 2 Medical (Augmentin) 00 :00 (two) Center 875-125 mg times per tablet daily for 7 days. amoxicillin 2021- No 1{tbl} Q.5D Take [address] -clavulanat 4-25 05-02 tablet by Chen kes e 00:00: 23:59 mouth 2 Medical (Augmentin) 00 :00 (two) Center 875-125 mg times per tablet daily for 7 days. amoxicillin 2021- No 1{tbl} Q.5D Take [address] -clavulanat 4-25 05-02 tablet by Chen kes e 00:00: 23:59 mouth 2 Medical (Augmentin) 00 :00 (two) Center 875-125 mg times per tablet daily for 7 days. pantoprazol Yes 20mg Take 20 mg Pravin e 2-23 by mouth [place] (PROTONIX) 15:42: daily. of 20 MG 13 Medicin tablet e Vitamin E Yes Take by [place] r 100 units 09-01 mouth. [place] CAPS 15:42: of 13 Medicin e Coenzyme 0 Yes Take by [facility] Q10 (CO - mouth. [place] Q-10) 300 15:42: of MG CAPS 13 Medicin e Calcium Yes Take by [facility] Carbonate-V 09-01 mouth. Colleg e it D-Min 15:42: of (CALCIUM 13 Medicin 1200) e [id number] MG-UNIT CHEW [place]-3 Yes Take by [facility] Fatty Acids - mouth. [facility] oliva (OMEGA 3 15:42: of 500) 500 MG 13 Medicin CAPS e Aspirin 81 Yes Take by Marquettel or MG CAPS 09-01 mouth. [place] 15:42: of 13 Medicin e Cholecalcif Yes Take by [facility] demetria 09-01 mouth. [place] (VITAMIN 15:42: of D3) 25 MCG 13 Medicin (1000 UT) e CAPS losartan-hy 0 Yes [facility] drochloroth 2- [place] iazide 00:00: of (HYZAAR) 00 Medicin 100-12.5 MG e per tablet losartan-hy 0 Yes [facility] drochloroth 2- [place] iazide 00:00: of (HYZAAR) 00 Medicin 100-12.5 MG e per tablet hydrocodone Yes TAKE 1 [facility]l or -acetaminop 2-18 TABLET BY Col lege chas (NORCO) 00:00: MOUTH of 10-325 MG 00 EVERY 4 Medicin per tablet HOURS e NEEDED ketoconazol Yes APPLY [facility] r e (NIZORAL) 2-15 TOPICALLY Col lege 2 % shampoo 00:00: 3 TO 4 of 00 TIMES Medicin WEEKLY. e LEAVE ON FOR 5-10 MINUTES BEFORE RINSING ketoconazol 2021-0 Yes APPLY [facility] r e (NIZORAL) 2-15 [...] e ARMOUR 2020-07 Yes TAKE 1 [facility] THYROID 180 2-15 TABLET BY Col lege MG tablet 00:00: MOUTH of 00 EVERY DAY Medicin e ARMOUR 2020-07 Yes TAKE 1 [facility] THYROID 180 2-15 TABLET BY Col lege MG tablet 00:00: MOUTH of 00 EVERY DAY Medicin e eszopiclone eszopiclone No eszopiclon [place] 2 mg tablet 2 mg tablet e 2 mg da tablet Medical Group Fluzone Fluzone No Fluzone [place] [facility] High-Dose High-Dose High-Dose da [facility] (PF) 240 (PF) 240 (PF) [...] a route. route. day by oral route. [place] Thyroid 180 Thyroid 180 Thyroid da [...] Source Systolic blood 2021-11-10 19:55:00 148 mm[Hg] [facility] pressure Medicine Diastolic blood 2021-11-10 19:55:00 72 mm[Hg] [facility] pressure Medicine Heart rate 2021-11-10 19:55:00 68 /min [facility] Body height 2021-11-10 19:55:[address] [facility] Body weight 2021-11-10 19:55:[address] [facility] BMI 2021-11-10 19:55:00 30.41 kg/m2 [facility] ollege of Medicine HEIGHT 2021-11-01 09:23:00 [...] kg Systolic blood 2021-09-01 19:36:00 166 mm[Hg] [facility] of pressure Medicine Diastolic blood 2021-09-01 19:36:00 87 mm[Hg] [facility] of pressure Medicine Heart rate 2021-09-01 19:36:00 80 /min [facility] ollege of Medicine Body height 2021-09-01 19:36:00 [facility] weight 2021-09-01 19:36:00 90.719 [facility] BMI 2021-09-01 19:36:00 30.41 kg/m2 [facility] BP Diastolic 2020-10-29 00:00:00 80 mm[Hg] [facility] Height 2020-10-29 00:00:00 68 [in_i] [facility] BMI (Body Mass 2020-10-29 00:00:00 32.1 kg/m2 [facility] Index) Group BP Systolic 2020-10-29 00:00:00 144 mm[Hg] [facility] Body Weight 2020-10-29 00:00:00 211.3 [lb_av] [facility] BP Diastolic 2020-05-26 00:00:00 89 mm[Hg] [facility] Height 2020-05-26 00:00:00 68 [in_i] [facility] BMI (Body Mass 2020-05-26 00:00:00 32.7 kg/m2 [facility] Medical Index) Group BP Systolic 2020-05-26 00:00:00 153 mm[Hg] [facility] Body Weight 2020-05-26 00:00:00 215 [lb_av] [facility] BP Diastolic 2020-05-22 00:00:00 74 mm[Hg] [facility] Height 2020-05-22 00:00:00 68 [in_i] [facility] BMI (Body Mass 2020-05-22 00:00:00 32.7 kg/m2 [facility] Medical Index) Group BP Systolic 2020-05-22 00:00:00 163 mm[Hg] [facility] Body Weight 2020-05-22 00:00:00 215.1 [lb_av] [facility] Height 2018-07-06 00:00:00 68 [in_i] [facility] BMI (Body Mass 2018-07-06 00:00:00 33.4 kg/m2 [facility] Medical Index) Group Body Weight 2018-07-06 00:00:00 219.5 [lb_av] [facility] Systolic blood 2021-11-01 17:08:00 167 mm[Hg] [facility] Diastolic blood 2021-11-01 17:08:00 83 mm[Hg] [facility] Heart rate 2021-11-01 17:08:00 83 /min [facility] Body temperature 2021-11-01 17:08:[address] [facility] Respiratory rate 2021-11-01 17:08:00 14 /min [facility] Oxygen saturation in 2021-11-01 17:08:00 97 /min [facility] Arterial blood by Medical Ce nter Pulse oximetry Body height 2021-11-01 09:23:00 172.7 cm [facility] Body weight 2021-11-01 09:23:00 89.721 kg [facility] BMI 2021-11-01 09:23:00 30.08 kg/m2 [facility] Procedures Procedure Date / Time Performing Clinician Source Performed INSERTION, 2021-11-01 13:39:[address] [facility] NEUROSTIMULATOR, [place] HYPOGLOSSAL SARS-COV2/RT-PCR ([facility] & 2021-10-29 15:58:00 Mikael Awan [facility] REF LABS) Center HEMOGLOBIN 2021-10-29 15:58:00 Jaciel Castaneda [facility] BASIC METABOLIC PANEL 2021-10-29 15:58:00 Jaciel Castaneda [facility] ENDOSCOPY, WITH SEDATION 2021-09-13 12:17:00 Emperatriz Mikael [facility] HEMOGLOBIN 2021-09-13 11:28:00 Shelley Valles [facility] BASIC METABOLIC PANEL 2021-09-13 11:28:00 Shelley Valles [facility] POCT-GLUCOSE METER 2021-09-13 11:23:00 Mikael Awan [facility] TYMPANOMETRY 2018-07-06 00:00:00 [facility] TYMPANOMETRY 2018-06-15 00:00:00 [facility] Prostate Ca Screening; [facility] Cardiac [facility] Append[facility] Plan of Care Planned Activity Planned Date Details Comments Source Future Scheduled 2023-03-[address] [facility] Test 00:00:00 (Season Ended) [code = [facility] INFLUENZA VACCINE (Season Ended)] Future Scheduled 2023-03-[address] [facility] Test 00:00:00 (Season Ended) [code = [facility] INFLUENZA VACCINE (Season Ended)] Future Scheduled 2023-03-[address] [facility] Test 00:00:00 (Season Ended) [code = [facility] INFLUENZA VACCINE (Season Ended)] Future Scheduled 2023-03-[address] [facility] Test 00:00:00 (Season Ended) [code = [facility] INFLUENZA VACCINE (Season Ended)] Future Scheduled [...] (#1)] Future Scheduled 2021-11-16 COVID-19 Vaccine (1) [employer] [facility] of Test 16:19:46 [code = COVID-19 Medicine Vaccine (1)] Future Scheduled 2021-11-16 TETANUS SHOT (ADULT) [facility] of Test 16:19:46 [code = TETANUS SHOT Medicin e (ADULT)] Future Scheduled 2021-11-[address] UP PLAN [facility] of Test 16:19:46 [code = BMI FOLLOW UP Medici ne PLAN] Future Scheduled 2021-11-16 ZOSTER VACCINE (1 of [facility] of Test 16:19:46 2) [code = ZOSTER Medicine VACCINE (1 of 2)] Future Scheduled 2021-11-16 FALL SCREEN [code = [facility] of Test 16:19:46 FALL SCREEN] Medicine Future Scheduled 2021-11-16 Pneumococcal 65+ (1 of [facility] of Test 16:19:46 1 - PPSV23) [code = Medicine Pneumococcal 65+ (1 of 1 - PPSV23)] Future Scheduled 2021-11-16 MEDICARE IPPE (WELCOME [facility] of Test 16:19:46 TO MEDICARE) [code = Medicin e MEDICARE IPPE (WELCOME TO MEDICARE)] Future Scheduled 2021-11-16 FLU VACCINE > 6 MONTHS [facility] of Test 16:19:46 [code = FLU VACCINE > Medici ne 6 MONTHS] Future Scheduled 2021-09-10 COVID-19 Vaccine (1) [facility] of Test 09:14:48 [code = COVID-19 Medicine Vaccine (1)] Future Scheduled 2021-09-10 TETANUS SHOT (ADULT) [facility] of Test 09:14:48 [code = TETANUS SHOT Medicin e (ADULT)] Future Scheduled 2021-09-[address] UP PLAN [facility] of Test 09:14:48 [code = BMI FOLLOW UP Medici ne PLAN] Future Scheduled 2021-09-10 ZOSTER VACCINE (1 of [facility] of Test 09:14:48 2) [code = ZOSTER Medicine VACCINE (1 of 2)] Future Scheduled 2021-09-10 FALL SCREEN [code = [facility] of Test 09:14:48 FALL SCREEN] Medicine Future Scheduled 2021-09-10 Pneumococcal 65+ (1 of B [facility] of Test 09:14:48 1 - PPSV23) [code = Medicine Pneumococcal 65+ (1 of 1 - PPSV23)] Future Scheduled 2021-09-10 FLU VACCINE > 6 MONTHS B [facility] of Test 09:14:48 [code = FLU VACCINE > Medici ne 6 MONTHS] Future Scheduled 2021-09-10 MEDICARE IPPE (WELCOME B [facility] Test 09:14:48 TO MEDICARE) [code = Medicin [...] Clinicians Facility Department ID 2022-11-08 2022-11-09 Inpatient ABRIL Lowry INTE.02 [id number] [facility] 05:42:00 17:04:00 Conner Rome [facility] 2022-10-11 2022-10-11 Outpatient MICHEAL Camacho-Her [facility] BP0 [id number] [facility] 07:08:00 07:08:[address] [facility] 2021-11-10 2021-11-10 Office ELVIN Awan [id number] [facility] 14:30:00 15:45:32 Visit Mikael [facility] AMBULATOR [id number] College Y [id number] Medi adele 800 e 2021-11-01 2021[facility]11-01 [facility] [id number] 08:18:00 18:20:00 Encounter [facility] 2021-11-01 2021-11-01 Outpatient MICHEAL AWAN [facility] Surgery [id number] [facility] 08:18:00 18:20:00 DRIFT 2021-11-01 2021-11-[address] [facility] [id number] 13:54:00 15:46:00 Event Devontopherdaniel Samina [facility] 2021-11-01 2021-11-01 [facility] [id number] 11:30:00 13:00:00 [facility] 2021-11-01 2021-11-01 Travel [facility] [id number] [facility] 00:[facility]00 [facility] 2021-10-29 2021-10-29 Outpatient [facility] [id number] [facility] 11:29:45 23:59:00 2021-10-29 2021-10-29 [facility] [id number] 11:25:00 23:59:00 Encounter [facility] 2021-10-29 2021-10-29 Outpatient MICHEAL AWAN [facility] SLE [id number] SLE 15:29:30 11:24:00 DRIFT 2021-10-29 2021-10-29 [facility] [id number] 09:00:00 11:24:00 Encounter [facility] 2021-10-29 2021-10-29 Outpatient EL [facility]H [facility] [id number] [facility] 00:00:00 00:00:00 2021-10-29 2021-10-29 Outpatient EL [facility]H [facility]H [id number] [facility] 00:00:00 00:00:00 2021-09-13 2021-09-13 [facility] [id number] 10:33:00 14:09:00 Encounter Mikael [facility] 2021-09-13 2021-09-13 Outpatient EL EMPERATRIZ [facility] Surgery [id number] SLE 10:33:00 14:09:00 MIKAEL 2021-09-13 2021-09-[address] Shelley Preet [facility] [id number] 12:21:00 12:48:00 Event Cornelius Zarco [facility] 2021-09-13 2021-09-13 [facility] [id number] 12:00:00 12:30:00 Mikael [facility] 2021-09-13 2021-09-13 Travel [facility] [id number] [facility] 00:[facility]00 00[facility]00 [facility] 2021-09-01 2021-09-01 Office ELVIN AWAN [id number] [place] [address] 12:43:59 15:52:34 Visit MIKAEL AMBULATOR [id number] College Y [id number] [facility] [id number] [facility] 800 e 2020-10-29 2020-10-29 [place] - [id number] [place] 00:00:00 00:00:00 : Jerrell Ontiveros 0422 [facility], [facility] Suite [facility], [facility], Otolaryngol [facility] [address] , Ph. 2020-05-28 2020-05-28 Outpatient Desmond_W MM MMG [id number] [place] 09:45:00 09:45:00 1119 [facility] 2020-05-27 2020-05-27 Outpatient Desmond_W MMG MMG [id number] [place] 02:22:00 02:22:00 1118 [facility] 2020-05-26 2020-05-26 [place] - [id number] [place] 00:00:00 00:00:00 : Jerrell Ontiveros 1117 [facility] [address], [facility], Otolaryngol [facility] [address] , Ph. 2020-05-25 2020-05-25 Outpatient Yan_W MMG MMG [id number] [place] 06:01:00 06:01:00 1116 [facility] 2020-05-22 2020-05-22 Desmond Granados_W MMG [place] - [id number] [place] 00:00:00 00:00:00 : eJrrell Ontiveros 111[address] [facility] [address], [facility], Otolaryngol [facility] [address] , Ph. 2020-05-04 2020-05-04 Outpatient Yan_W MMG MMG [id number] [place] 09:53:00 09:53:00 1026 [facility] 2018-11-05 2018-11-05 Outpatient Raju_P MMG MMG [id number] [place] 03:17:00 03:17:00 0429 [facility] 2018-07-06 2018-07-06 [place] MMG [place] - [id number] [place] 00:00:00 00:00:00 MD Tani: [address] [address], [facility], [facility] [address] , Ph. 2018-06-15 2018-06-15 [place]G [place] - [phone] 8 [place] 00:00:00 00:00:00 MD Tani: [address] [address], [facility], [facility] [address] , Ph. Results Test Description Test Time Test Comments Results Result Comments Source ACT-ISTAT 2022-11-09 11:05:00 Test Item Value Reference Range Interpretation Comme nts ACT-ISTAT (test code = ACTI) 239 SEC 74-137 H Performed by certified nylon operator at [facility] BASIC METABOLIC [id number] 07:57:00 Test Item Value Reference Range Interpretation [...] the recommended for omar for GFRby the Natio nal Kidney Foundati on for Adults.The GFR will not calculate if th e sex is unknown or if thepatient's ag e is <18 years. CREATININE (test 1.2 mg/dL 0.6-1.3 N code = CREAT) CALCIUM (test code = 10.3 mg/dL 8.0-10.5 N CA) CBC W/AUTO [id number] 07:46:00 Test Item Value Reference Range Interpretation [...] NO = MDIFF) - XR CHEST 2 [id number] 00:00:00 [facility] TC LOPEZName: ARI DOVE : 1940 Sex: M FAX: Juan Woods MD [phone] [place]: St: PRE Name: ARI DOVE [facility] Tc Lopez : 1940 Age/S: 82/M [address] [place] [address] Unit #: [id number] Loc: [place] [address] Phys: Juan Dockery MD Acct: [id number] Dis Date: Status: PRE [facility] PHONE #: [phone] Exam Date: 11/04/20221727 FAX #: Reason: PREOP EXAMS: CPT CODE: [id number] XR CHEST 2 V 50392 PROCEDURE INFORMATION: Exam:XR Chest Exam date and time: 11/04/2022 5:26 PM Age: 82 years old Clinical indication: Pre-operativeexam; Cardiovascular screening and respiratory screening exam; Additional info: Preop TECHNIQUE: Imaging protocol: Radiologic exam of the chest. Views: 2 views. PA and Lateral COMPARISON: No relevant prior studies available. FINDINGS: Tubes, catheters and devices: Right pectoral implantable medical research assistant. Lungs: Scattered pleuroparenchymal scarring. Left basilar opacities. [...] Stout M.D. CC: Juan Dockery MD Technologist: Alexus Becerra RT(R) TrnscrdDate/Time/By: 11/05/2022 (08) : By: [email or web address] Orig Print D/T: S: 11/05/2022 (0817) PAGE 1 Signed R eportPROTHROMBIN [id number] 17:55:00 Test Item Value Reference Range Interpretation [...] (to prevent recurrent infar ct). BASIC METABOLIC [id number] 17:49:00 Test Item Value Reference Range Interpretation [...] the recommended for omar for GFRby the Natio nal Kidney Foundati on for Adults.The GFR will not calculate if th e sex is unknown or if thepatient's ag e is <18 years. CREATININE (test 1.3 mg/dL 0.6-1.3 N code = CREAT) CALCIUM (test code = 9.6 mg/dL 8.0-10.5 N CA) CBC W/AUTO [id number] 17:41:00 Test Item Value Reference Range Interpretation [...] Comments SARS-COV2/RT-PCR (test Negative Negative code = 20759-1) RONAK (test code = RONAK) Negative result [...] the Act. Testing was performed using the ZowPow SARS-CoV-2 assay. Fact Sheet for Healthcare Providers:https://www.jessica hornebenavidez/yuri/RT SARS-CoV-2 HCP Fact Sheet 51-468752.pdf Fact Sheet for Healthcare Patients:https://www.rodger crewsAnnovation BioPharma/yuri/RT SARS-CoV-2 Patient Fact Sheet EN 51-344380N2.pdf Lab Interpretation Normal (test code = 74446-5) [facility]Asymptomatic ONLY)2021-10-30 01:40:45 Test Item Value Reference Range Interpretation Comments SARS-COV2/RT-PCR (test Negative Negative code = 53141-0) RONAK (test code = RONAK) Negative result [...] the Act. Testing was performed using the ZowPow SARS-CoV-2 assay. Fact Sheet for Healthcare Providers:https://www.jessica hornebenavidez/yuri/RT SARS-CoV-2 HCP Fact Sheet 51-265730.pdf Fact Sheet for Healthcare Patients:https://www.rodger mossFreedcamp/yuri/RT SARS-CoV-2 Patient Fact Sheet EN 51-915777W6.pdf Lab Interpretation Normal (test code = 51239-1) [facility] ([facility] & REF LABS)2021-10-30 01:40:45 Test Item Value Reference Range Interpretation Comments SARS-COV2/RT-PCR (test code = Negative Negative 1283402) Negative result for this test determines that [...] 564(g) of the Act.Testing was performed using [employer] SARS-CoV-2 assay.Fact Sheet for Healthcare Providers:https://www.Highlighter/yuri/RT SARS-CoV-2 HCP Fact Sheet 51- 532397.pdfFact Sheet for Healthcare Patients:https://www.Highlighter/yuri/RT SARS-CoV-2 Patient Fact Sheet EN 51-762894F6.pdfBASIC METABOLIC [id number] 16:53:09 Test Item Value Reference Range Interpretation [...] S NOT APPLICABLE FOR DIALYSIS PATIEN TS. Arresting Gear Operator ID - [id number] 16:24:17 Test Item Value Reference Range Interpretation Comments HEMOGLOBIN (BEAKER) (test code = 14.7 GM/DL 13.7-17.5 410) Arresting Gear Operator ID - [id number] METABOLIC [id number] 12:05:23 Test Item Value Reference Range Interpretation [...] S NOT APPLICABLE FOR DIALYSIS PATIEN TS. Arresting Gear Operator ID - [id number] 11:44:38 Test Item Value Reference Range Interpretation Comments HEMOGLOBIN (BEAKER) (test code = 14.6 GM/DL 13.7-17.5 410) Arresting Gear Operator ID - [id number] [id number] 11:34:47 Test Item Value Reference Range Interpretation Comments POC-Glucose Meter (test 104 mg/dL 70-110 : No tified RN/MD: code = 1538) TESTED AT [facility] [address] [facility], [address]: Arresting Gear Operator/Techni leny ID = [id number] for MYRON VENTURA Lab Interpretation (test Normal code = 62395-5) [facility] [id number] 11:34:47 Test Item Value Reference Range Interpretation Comments POC-GLUCOSE METER 104 mg/dL 70-110 : Notified RN/MD: (BEAKER) (test code = TESTED AT [facility] 67[address] 1538) [facility], [address]: Arresting Gear Operator/Techni leny ID = [id number] for MYRON SPENCER [id number] 10:49:28 Test Item Value Reference Range Interpretation Comments Right (test code = Type B Curve Flat Right) Left (test code = Left) Type C Peak is on Left [id number] 10:50:41 Test Item Value Reference Range Interpretation Comments Right (test code = Right) Type B Curve Flat Left (test code = Left) Type A Normal [facility] Notes Date/Time Note Provider Source 2022-11-09 15:06:00-00:00 [facility] ([facility]) Hospitalist Discharge Summary REPORT#:[id number] REPORT STATUS: Signed DATE:11/09/22 TIME: 1505 PATIENT: ARI DOVE UNIT #: [id number] ROOM/BED: [place] [address] : 41 AGE: 82 SEX: M ATTEND: Jaylene Zaldivar MD ADM AUTHOR: Darby Yeboah * ALL edits or amendments must be made on the [employer]/computer document * General Information Date of admission: [...] 910 B/P 160/87 11/09 910 Temp 98.0 11/09 910 Pulse 75 11/09 910 Resp 16 11/09 910 B/P Mean 0.0 11/09 736 O2 Delivery Room air 11/09 736 24 hour I O ending at 0700: [...] soft Extremities: moves all Musculoskeletal: normal inspection Neuro/FINANCIAL ADVISOR TRAINEE: alert, oriented X 3, CNII-XII intact Lymphatics: neck normal Psychiatry: normal affect, normal mood Discharge Instructions PCP PCP follow-up: PCP: No Primary or Family Physician Discharge to: Home/Self Care Additional Discharge Routines: Billiard Parlor Manager Follow -Up Diet: Diabetic Additional instructions: per cardiology Discharge management: greater than 30 mins Time spent: Time spent on patient care (minutes): 35 at 2330 RPT #:[id number] END OF REPORT 2022-11-08 19:12:00-00:00 [facility] ([facility]) Hospitalist History Physical REPORT#:[id number] REPORT STATUS: Signed DATE:11/08/22 TIME: 1911 PATIENT: ARI DOVE UNIT #: [id number] ROOM/BED: 3397-1 : 41 AGE: 82 SEX: M ATTEND: Jaylene Zaldivar MD ADM AUTHOR: Mauri Mckenna APRN * ALL edits or amendments must be made on the el [employer]/computer document * History of Present Illness HPI Chief complaint: Abnormal stress test PCP: PCP: No Primary or Family Physician HPI: Hernandez Dove is an 82 ye ar old male with past history of CAD/CABG x 3, HTN, HLD, KD. Patient is followed outpatient by card iology. 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 He was referred to the hospital for diagnostic heart cathet erization that is set for tomorrow AM. Patient referred for observa tion in heart tower prior to cath tomorrow. 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: alert, oriented X 3, CNII-XII intact Lymphatics: [...] changes - Plan discussed with patient at 4322 Electronically Signed by Conner Zaldivar MD on at 1102 RPT #:[id number] END OF REPORT 2022-11-04 16:21:00-00:00 [id number] [place] [id number] PATIENT NAME: ARI DOVE ADMIT DATE: ACCOUNT NO: [id number] ROOM NO: AGE: 82 REPORT TYPE: eELECTROCARDIOGRAM REPORT SEX: M ADMITTING PHYSICIAN: ATTENDING PHYSICIAN:Juan Dockery MD Order: [id number] Test Reason : PRE OP Test Date/Time [...] PATIENT NAME: ARI DOVE ACCOUNT #: [id number] 2022-10-11 11:49:00-00:00 [facility] ([facility]) Med Order Sheet REPORT #: [id number] REPORT STATUS: Signed DATE: 10/11/22 TIME: 1149 PATIENT: ARI DOVE UNIT #: [id number] ROOM #: BED: : 41 AGE: 82 SEX: M ATTEND: Mauro Butler MD ADM AUTHOR: Quoc Morillo MD ATTENTION *EDITS and/or ADDENDA must be made in Patient eper for this note. * * Edits and ammendments created in [employer] are not visible * * in Patient Keeper or the legal medical record (HPF). * Discharge Medication Reconciliation DISCHARGE MEDICATION LIST Aspirin EC Tab (Ecotrin Tab) Dose: 81 MG PO DAILY Doxepin Cap (Sinequan Cap) Dose: 100 MG PO BEDTIME Furosemide Tab (Lasix Tab) Dose: 40 MG PO DAILY HYDROcodone/APAP 10/325 Tab (Jackson 10/325 Tab) Dose: 1 TAB PO Q4H [...] and/or ADDENDA must be made in [facility] for this note. * * Edits and ammendments created in [facility] are not visible * * in Patient Keeper or the legal medical record ([facility]). * RPT #: [id number] END OF REPORT 2022-10-11 11:49:00-00:00 [facility] ([facility]) Operative Report REPORT #: [id number] REPORT STATUS: Signed DATE: 10/11/22 TIME: 1149 PATIENT: ARI DOVE UNIT #: [id number] ROOM #: BED: : 41 AGE: 82 SEX: M ATTEND: Mauro Butler MD ADM AUTHOR: Quoc Morillo MD ATTENTION *EDITS and/or ADDENDA must be made in Patient [facility] for this note. * * Edits and ammendments created in [facility] are not visible * * in Patient Keeper or the legal medical record ([facility]). 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 Coronary artery disease 3. Scrotal webbing POST-OPERATIVE DIAGNOSIS: same INDICATION(S): see descritpion NAME OF PROCEDURE: see description SURGEON: Mauro Morillo MD OSTEOPATHIC PHYSICIAN(S): WILLIAM Lugo ANESTHESIA: GETA ESTIMATED BLOOD LOSS: 30 ml's FINDINGS: see descritpion SPECIMEN(S) REMOVED AND/OR ALTERED: none COMPLICATION(S): none DRAIN(S): none -- DESCRIPTION -- DESCRIPTION OF TECHNIQUE/PROCEDURE: PROCEDURES: 1. Inflatable multi-component penile prosthesis insertion (49858) ( NS) 2. Ventral phalloplasty (18635) 3. Repair procedure of the penis (21081) 4. Injection of the penis with pharmacologic age nt to induce erection (06535) 5. Dorsal penile block (80816) FINDINGS: 1. Erection at the beginning of the case reveale d no penile curvature. 2. Right corpora measured: 22.5 cm (proximal rubén surement was 10.5cm ) 3. Left corpora measured: 22.5 cm (proximal 10.5 cm ) 4. Coloplast Titan inflatable penile pro sthesis with cylinders measuring 22 cm plus 1cm (trimmed to 0.5cm) RTE. 5. 125mL [place] reservoir was placed in right paravesical space [...] the benefits of three-piece inflatable penile prosthesis taqueria dewitt. He understood these risks to include, but were not limited to, bleed ing, infection, mechanical device(s) failure, urethral injury, potential fo r vascular, bowel or bladder injury, infection requiring device explantation, penile shortening, need for device revision for knitting machine mechanic al failure or malposition, as well [...] extenders was selected and prepared for plac ement in the back table. At this time, the right external inguinal ring was identified and a pediatric Isi was used to identify the inguinal floor. [...] * * Edits and ammendments created in [employer] are not visible * * in Patient Keeper or the legal medical record (HPF). * RPT #: [id number] END OF REPORT 2022-10-11 08:49:00-00:00 [id number] [facility] [address] [place] [address] PATIENT NAME: ARI DOVE ADMIT DATE: ACCOUNT NO: [id number] ROOM NO: AGE: 82 REPORT TYPE: eELECTROCARDIOGRAM SEX: M ADMITTING PHYSICIAN: ATTENDING PHYSICIAN: Mauro Morillo MD Order: [id number] Test Reason : PROTOCOL Test Date/Time Stamp: [...] ECG Confirmed by BRAULIO CARRILLO, KYLE Kim ([id number]) on 10/17 8:09:06 AM Referred By: Mauro Lau Confirmed by:KYLE RAMSEY MD at 0809 PATIENT NAME: ARI DOVE ACCOUNT #: [id number]
[2022-11-24] MEDS ORDERED: ACETAMINOPHEN 500 MG TAB ONE (16:22)
[2022-11-24] MEDS ORDERED: ACETAMINOPHEN 500 MG TAB PO PRN (16:50)
[2022-11-24] MEDS ORDERED: FENTANYL CITR 100 MCG/2 ML ONE (16:54)
[2022-11-24 16:55] LABS: Absolute Lymphocytes (CBC) 0.9 K/uL (0.7-4.9); Hematocrit 41.7 % (39.6-49.0); Lymphocytes % 9.3 % (15.3-44.8); MCV 95.8 fL (80-100); MPV 7.6 fL (7.6-11.3); RBC Red Blood Cell Count 4.35 M/uL (4.33-5.43)
[2022-11-24] MEDS ORDERED: CEFEPIME 1 GM/VIAL ONE (16:55)
[2022-11-24] MEDS ORDERED: VANCOMYCIN 1 GM/VIAL ONE (16:55)
[2022-11-24] MEDS ORDERED: NA CHLORIDE 0.9% 250 ML ONE (16:55)
[2022-11-24] MEDS ORDERED: NA CHLORIDE 0.9% 100 ML ONE (16:55)
--- NOTE | 2022-11-24 16:56 | ER ---
Nurse's Notes [facility] Tristen Name: Soy Dove Age: 82 yrs Sex: Male : 1940 Arrival Date: 11/24/2022 Time: 15:30 Bed 9 Private MD: Diagnosis: Other synovitis and tenosynovitis, right hand-right fifth finger Presentation: 11/24 15:46 Chief complaint: Patient states: was seen about two days ago in ED for an injury to vg1 Right fifth digit, stated it has become worse; site appears to be red/purple, swollen, and hot to touch; pt states pain radiates from finger to elbow. Coronavirus screen: Vaccine status: Patient reports receiving the 2nd dose of the covid vaccine. Client denies travel out of the [place] in the last 14 days. Ebola Screen: Patient negative for fever greater than or equal to 101.5 degrees Fahrenheit, and additional compatible Ebola Virus Disease symptoms Patient denies exposure to infectious person. Patient denies travel to an Ebola-affected area in the 21 days before illness onset. Initial Sepsis Screen: Does the patient meet any 2 criteria? No. Patient's initial sepsis screen is negative. Does the patient have a suspected source of infection? No. Patient's initial sepsis screen is negative. Risk Assessment: Do you want to hurt yourself or someone else? Patient reports no desire to harm self or others. Onset of symptoms was November 22, 2022. 15:46 Method Of Arrival: Ambulatory vg1 15:46 Acuity: POPPY 3 vg1 Triage Assessment: 15:51 General: Appears uncomfortable, Behavior is calm, cooperative. Pain: Complains of pain vg1 in right hand Pain currently is 10 out of 10 on a pain scale. Pain began 2-3 days ago. Derm: Skin is red, Skin temperature is hot Wound noted dorsal aspect of proximal phalanx of right little finger. Musculoskeletal: Circulation, motion, and sensation intact. Historical: - Allergies: 15:51 Codeine; vg1 - PMHx: 15:51 asbestosis; bowel obstruction; chronic back pain; coronary atherosclerosis; High vg1 Cholesterol; Hypertension; KD; - PSHx: 15:51 bowel resection; Coronary artery bypass graft; Inspire UAS-right chest wall; vg1 - Immunization history:: Client reports receiving the 2nd dose of the Covid vaccine. - Social history:: Smoking status: Patient/guardian denies using tobacco, but has a distant history of tobacco abuse. Screenin:58 [facility] ED Fall Risk Assessment (Adult) History of falling in the last 3 months, kc6 including since admission No falls in past 3 months (0 pts) Confusion or Disorientation No (0 pts) Intoxicated or Sedated No (0 pts) Impaired Gait No (0 pts) Mobility Assist Device Used No (0 pt) Altered Elimination No (0 pt) Score/Fall Risk Level 0 - 2 = Low Risk Oriented to surroundings, Maintained a safe environment, Educated pt \T\ family on fall prevention, incl call for assistance when getting out of bed, Assessed \T\ reinforced patient's understanding of fall precautions, Hourly rounding (assess needs \T\ fall precautionary measures) done. Abuse screen: Denies threats or abuse. Denies injuries from another. Nutritional screening: No deficits noted. Tuberculosis screening: No symptoms or risk factors identified. Assessment: 16:01 General: Appears in no apparent distress. comfortable, Behavior is calm, cooperative, kc6 appropriate for age. Pain: Complains of pain in dorsal aspect of proximal phalanx of right little finger. Neuro: Milian Agitation-Sedation Scale (RASS): 0 - Alert and Calm Level of Consciousness is awake, alert, obeys commands, Oriented to person, place, time, situation, Appropriate for age. Cardiovascular: Capillary refill < 3 seconds. Respiratory: Airway is patent Trachea midline Respiratory effort is even, unlabored, Respiratory pattern is regular, symmetrical. GI: No signs and/or symptoms were reported involving the gastrointestinal system. : No signs and/or symptoms were reported regarding the genitourinary system. EENT: No signs and/or symptoms were reported regarding the EENT system. Derm: Skin is pink, warm \T\ dry. Wound noted dorsal aspect of proximal phalanx of right little finger Wound is site appears to be red and swollen and warm to touch. Musculoskeletal: No signs and/or symptoms reported regarding the musculoskeletal system. Circulation, motion, and sensation intact. Capillary refill < 3 seconds, Range of motion: intact in all extremities. 17:01 Reassessment: Patient appears in no apparent distress at this time. No changes from kc6 previously documented assessment. Patient and/or family updated on plan of care and expected duration. Pain level reassessed. Patient is alert, oriented x 3, equal unlabored respirations, skin warm/dry/pink. Vital Signs: 15:46 BP 137 / 68; Pulse 88; Resp 16; Temp 100.4(O); Pulse Ox 98% on R/A; Weight 86.18 kg; vg1 Height 5 ft. 8 in. ; Pain 10/10; 17:33 Temp 98.5(O); kc6 17:51 BP 153 / 79; Pulse 85; Resp 19 S; Pulse Ox 100% on R/A; kc6 15:46 Body Mass Index 28.89 (86.18 kg, 172.72 cm) vg1 15:46 Pain Scale: Adult vg1 ED Course: 15:32 Patient arrived in ED. ts1 15:40 Kristopher Elkins PA is PHCP. cp 15:40 Kristopher Long MD is Attending Physician. cp 15:49 Triage completed. vg1 15:51 Arm band placed on. vg1 15:58 Desi Musa RN is Primary Nurse. kc6 15:59 Patient has correct armband on for positive identification. Bed in low position. Call [facility] light in reach. Side rails up X 1. 16:54 Rex Christie MD is Hospitalizing Provider. cp 16:59 XRAY Hand RIGHT 3 View In Process Unspecified. EDMS 16:59 Chest Single View XRAY In Process Unspecified. EDMS 18:52 No provider procedures requiring assistance completed. Patient admitted, IV remains in kc6 place. Administered Medications: 16:29 Drug: Acetaminophen PO 1000 mg Route: PO; kc6 17:33 Follow up: Response: No adverse reaction; Temperature is decreased kc6 16:58 Drug: Cefepime IVPB 1 grams Route: IVPB; Rate: 200 ml/hr; Infused Over: 30 mins; Site: [facility] right forearm; 17:34 Follow up: Response: No adverse reaction; IV Status: Completed infusion; IV Intake: kc6 100ml 16:58 Drug: fentaNYL (PF) IVP 25 mcg Route: IVP; Site: right forearm; kc6 17:34 Follow up: Response: No adverse reaction; Pain is decreased; RASS: Alert and Calm (0) [facility] 17:33 Drug: vancoMYCIN IVPB 1 grams Route: IVPB; Infused Over: 2 hrs; Site: right forearm; kc6 Medication: 18:53 VIS not applicable for this client. kc6 Intake: 17:34 IV: 100ml; Total: 100ml. kc6 Outcome: 16:55 Decision to Hospitalize by Provider. cp 18:52 Admitted to Med/surg accompanied by tech, via wheelchair, room 220, with chart, Report clovis6 called to [place] 18:52 Condition: stable 18:52 Instructed on the need for admit. 18:53 Patient left the ED. kc6 Signatures: Dispatcher [employer] EDMS Kristopher Elkins PA PA cp Garcia, Victoria, RN RN vg1 Desi Musa RN RN kc6 Gisele Ceron, PAS PAS ts1
--- NOTE | 2022-11-24 16:56 | EDPHYS ---
Physician Documentation [facility] Name: Refbrice Dove Age: 82 yrs Sex: Male : 1940 Arrival Date: 11/24/2022 Time: 15:30 Bed 9 Private MD: ED Physician Kristopher Long HPI: 11/24 16:20 This 82 yrs old Male presents to ER via Ambulatory with complaints of Finger Injury. cp 16:20 The patient or guardian reports pain, swelling, tenderness. The complaints affect the right fifth finger. Context: resulted from an unknown cause. Onset: The symptoms/episode began/occurred for past several days. 16:20 Associated signs and symptoms: Pertinent positives: fever. Severity of symptoms: in the emergency department the symptoms are actually worse, moderately. The patient has been recently seen at the [facility] Emergency Department, this week, for similar complaints was given a prescription for antibiotics. Historical: - Allergies: 15:51 Codeine; vg1 - PMHx: 15:51 asbestosis; bowel obstruction; chronic back pain; coronary atherosclerosis; High vg1 Cholesterol; Hypertension; KD; - PSHx: 15:51 bowel resection; Coronary artery bypass graft; Inspire UAS-right chest wall; vg1 - Immunization history:: Client reports receiving the 2nd dose of the Covid vaccine. - Social history:: Smoking status: Patient/guardian denies using tobacco, but has a distant history of tobacco abuse. ROS: 16:30 Constitutional: Positive for fever, Negative for body aches, chills, poor PO intake. cp 16:30 Eyes: Negative for injury, pain, redness, and discharge. cp 16:30 ENT: Negative for drainage from ear(s), ear pain, sore throat, difficulty swallowing, difficulty handling secretions. 16:30 Cardiovascular: Negative for chest pain, palpitations. 16:30 Respiratory: Negative for cough, shortness of breath, wheezing. 16:30 MS/extremity: Positive for pain, swelling, tenderness, of the right fifth finger, Negative for paresthesias. 16:30 Neuro: Negative for altered mental status, headache. 16:30 All other systems are negative. Exam: 16:33 ECG was reviewed by the Attending Physician. cp 16:40 Head/Face: Normocephalic, atraumatic. cp 16:40 Constitutional: The patient appears in no acute distress, alert, awake, non-diaphoretic, non-toxic, well developed, well nourished. 16:40 Eyes: Periorbital structures: appear normal, Conjunctiva: normal, no exudate, no injection, Sclera: no appreciated abnormality, Lids and lashes: appear normal, bilaterally. 16:40 ENT: External ear(s): are unremarkable, Nose: is normal, Mouth: is normal, Posterior pharynx: is normal, airway is patent, no erythema, no exudate. 16:40 Neck: ROM/movement: is normal, is supple, without pain, no range of motions limitations. 16:40 Chest/axilla: Inspection: normal. 16:40 Cardiovascular: Rate: normal, Rhythm: regular, Edema: is not appreciated, JVD: is not appreciated. 16:40 Respiratory: the patient does not display signs of respiratory distress, Respirations: normal, no use of accessory muscles, no retractions, labored breathing, is not present, Breath sounds: are clear throughout, no decreased breath sounds, no stridor, no wheezing. 16:40 Abdomen/GI: Inspection: abdomen appears normal, Palpation: abdomen is soft and non-tender, in all quadrants. 16:40 Musculoskeletal/extremity: Extremities: noted in the right hand: circumferential swelling and erythema of right fifth finger, digit held in slight flexion, tenderness and pain along flexor and extensor tendons. Vital Signs: 15:46 BP 137 / 68; Pulse 88; Resp 16; Temp 100.4(O); Pulse Ox 98% on R/A; Weight 86.18 kg; vg1 Height 5 ft. 8 in. ; Pain 10/10; 17:33 Temp 98.5(O); kc6 17:51 BP 153 / 79; Pulse 85; Resp 19 S; Pulse Ox 100% on R/A; kc6 15:46 Body Mass Index 28.89 (86.18 kg, 172.72 cm) vg1 15:46 Pain Scale: Adult vg1 MDM: 15:56 Patient medically screened. [facility] 16:25 ED course: consult with DR Christie who will admit to hospitalist services after discussion.cp 16:55 Management of patient was discussed with the following: Windows Deployment Technician: DR Michelle will cp consult after discussion and requests admission to hospitalist service. 17:00 Management of patient was discussed with the following: Hospitalist: DR Christie will admit cp to hospitalist services after discussion. 17:45 Data reviewed: vital signs, nurses notes, lab test result(s), EKG, radiologic studies, cp plain films. 17:45 Consideration of Admission/Observation Patient was admitted/placed on observation. I cp considered the following discharge prescriptions or medication management in the emergency department Medications were administered in the Emergency Department. See SEP. 11/24 16:10 Order name: Blood Culture Adult (2) cp 11/24 16:10 Order name: CBC with Diff; Complete Time: 17:38 cp 11/24 17:38 Interpretation: Normal except: RUBIN% 81.2; LYM% 9.3. cp 11/24 16:10 Order name: CMP; Complete Time: 17:38 11/24 16:10 Order name: Lactate w/ 2H reflex if indic.; Complete Time: 17:38 cp 11/24 16:10 Order name: Protime (+inr); Complete Time: 17:38 11/24 16:10 Order name: Ptt, Activated; Complete Time: 17:38 cp 11/24 16:10 Order name: Urinalysis w/ reflexes cp 11/24 16:56 Order name: Basic Metabolic Panel EDPA 11/24 16:56 Order name: Basic Metabolic Panel EDPA 11/24 16:56 Order name: CBC with Automated Diff EDPA 11/24 16:56 Order name: CBC with Automated Diff EDPA 11/24 16:05 Order name: XRAY Hand RIGHT 3 View; Complete Time: 17:38 cp 11/24 16:10 Order name: Chest Single View XRAY; Complete Time: 17:38 cp 11/24 16:10 Order name: EKG; Complete Time: 16:11 cp 11/24 16:56 Order name: CONS Physician Consult EDPA 11/24 16:56 Order name: CONS Physician Consult EDPA 11/24 16:56 Order name: Heart Healthy EDPA 11/24 16:56 Order name: NPO EDPA 11/24 16:10 Order name: Accucheck; Complete Time: 16:28 cp 11/24 16:10 Order name: Cardiac monitoring; Complete Time: 16:28 cp 11/24 16:10 Order name: EKG - Nurse/Tech; Complete Time: 16:28 cp 11/24 16:10 Order name: IV Saline Lock - Large Bore; Complete Time: 16:29 cp 11/24 16:10 Order name: Labs collected and sent; Complete Time: 16:29 cp 11/24 16:10 Order name: O2 Per Protocol; Complete Time: 16:12 cp 11/24 16:10 Order name: O2 Sat Monitoring; Complete Time: 16:12 cp 11/24 16:10 Order name: Vital Signs; Complete Time: 16:29 cp 11/24 16:15 Order name: NPO; Complete Time: 16:16 cp EC:33 Rate is 81 beats/min. Rhythm is regular. TX interval is normal. QRS interval is cp prolonged at 104 msec. QT interval is normal. Interpreted by me. Reviewed by me. Administered Medications: 16:29 Drug: Acetaminophen PO 1000 mg Route: PO; kc6 17:33 Follow up: Response: No adverse reaction; Temperature is decreased [facility] 16:58 Drug: Cefepime IVPB 1 grams Route: IVPB; Rate: 200 ml/hr; Infused Over: 30 mins; Site: [facility] right forearm; 17:34 Follow up: Response: No adverse reaction; IV Status: Completed infusion; IV Intake: kc6 100ml 16:58 Drug: fentaNYL (PF) IVP 25 mcg Route: IVP; Site: right forearm; kc6 17:34 Follow up: Response: No adverse reaction; Pain is decreased; RASS: Alert and Calm (0) [facility] 17:33 Drug: vancoMYCIN IVPB 1 grams Route: IVPB; Infused Over: 2 hrs; Site: right forearm; kc6 Disposition Summary: 11/24/22 16:55 Hospitalization Ordered Hospitalization Status: Inpatient Admission cp Provider: Rex Christie cp Location: Telemetry/MedSurg (Inpatient) cp Condition: Stable cp Problem: an ongoing problem cp Symptoms: have improved cp Bed/Room Type: Standard cp Room Assignment: 220(11/24/22 18:18) Diagnosis - Other synovitis and tenosynovitis, right hand - right fifth finger cp Forms: - Medication Reconciliation Form cp - SBAR form cp Signatures: Dispatcher [employer] Radha Yu RN RN Kristopher Hawkins MD MD cha Page, Corey, PA PA cp Garcia, Victoria, RN RN vg1 Desi Musa RN RN kc6 Corrections: (The following items were deleted from the chart) 16:28 16:18 This 82 yrs old Male presents to ER via Ambulatory with complaints of Finger cp Injury. cp 18:18 16:55 cp dw
[2022-11-24] MEDS: NA CHLORIDE 0.9% 1,000 ML IV SCH (17:00)
[2022-11-24] MEDS: Levofloxacin500mg IV 500 MG/100 ML BAG IV SCH (17:00)
[2022-11-24 17:04] LABS: Protime INR 1.12
--- NOTE | 2022-11-24 17:09 | RAD REPORT ---
[facility] DES[facility] 4[facility]57 pm CLINICAL HISTORY: right hand swelling COMPARISON: Chest Pa And Lat (2 Views) dated 08/03/2022; Chest Single View dated 05/21/2022; Chest Si ngle View dated 04/25/2022; Chest Single View dated 08/17/2019 TECHNIQUE: Portable AP view of the chest. FINDINGS: Moderate cardiomegaly. Interstitial prominence and enlargement of the central vascular mar kings. No pneumothorax or effusion. The mediastinal contours are otherwise unremarkable, with sequela e of prior CABG again seen. Right chest wall nerve stimulator in place. . IMPRESSION: Findings suggestive of central congestion/ CHF as above.
[2022-11-24 17:13] LABS: Albumin 3.8 g/dL (3.4-5.0); Bilirubin Total 0.7 mg/dL (0.2-1.0); Protein, Total 7.6 g/dL (6.4-8.2)
--- NOTE | 2022-11-24 17:14 | RAD REPORT ---
EXAM DESCRIPTION: RAD - Hand Right 3 View - 11/24/2022 4:57 pm CLINICAL HISTORY: right small finger swelling COMPARISON: No comparisons TECHNIQUE: Right hand, 3 views. FINDINGS: No fracture is identified. Deformity along the midshaft fifth metacarpal suggestive of a r emote/healed fracture. Mild degenerative changes at the thumb base. There is no dislocation or periosteal reaction noted. No foreign body. Soft tissue swelling about the fifth digit IMPRESSION: Soft tissue swelling about the fifth digit. No acute osseus abnormality. .
[2022-11-24] MEDS ORDERED: Levofloxacin500mg IV 500 MG/100 ML BAG IV ONE (17:46)
[2022-11-24] MEDS ORDERED: NA CHLORIDE 0.9% 1,000 ML ONE (17:47)
[2022-11-24 20:00] VITALS: BMI 29.1
--- NOTE | 2022-11-24 22:02 | P.HP ---
Certification for Inpatient Patient admitted to: Inpatient With expected LOS: >2 Midnights Patient will require the following post-hospital care: None Practitioner: I am a practitioner with admitting privileges, knowledge of patient current condition, hospital course, and medical plan of care. Services: Services provided to patient in accordance with Admission requirements found in Title 42 Section 412.3 of the Code of Federal Regulations Patient History Date of Service: 11/24/22 Reason for admission: Cellulitis of the left fifth digit of the right hand History of Present Illness: Patient patient is an 82-year-old gentleman who came to the hospital with cellulitis of the fifth digit on the right hand. Patient has been trying to get indurated as an outpatient but symptoms are not improving. Patient decided to come into the emergency room for further evaluation. In the emergency room patient was started on IV antibiotics and hand surgery was consulted. Patient will be seen in the morning for possible surgical intervention.Patient has a history of coronary artery disease as well as peripheral arterial disease. Patient denies having any recent chest pain. Patient will have cardiology consultation for cardiac clearance in the morning. Allergies No Known Allergies Allergy (Verified 08/03/22 14:36) Home Medications: Pravastatin Sodium 20 mg pe PO DAILY 05/11/19 Thyroid Tab [[place] Thyroid*] 180 mg PO DAILY 05/11/19 Ascorbic Acid [Vitamin C] 1,000 mg PO DAILY 04/25/22 Aspirin Chewable [Aspirin Chewable*] 81 mg PO DAILY 04/25/22 Calcium Carbonate [Calcium] 600 mg PO DAILY 04/25/22 Cholecalciferol (Vitamin D3) [Vitamin D3] 6,000 unit PO DAILY 04/25/22 Glucosamine/Chondr Dee A Sod [Osteo Bi-Flex Caplet] 2 each PO DAILY 04/25/22 Hydrocodone Bit/Acetaminophen [Hydrocodon-Acetaminophn 10-325] 1 each PO Q4HP PRN 04/25/22 Losartan/Hydrochlorothiazide [Losartan-Hctz 100-12.5 mg Tab] 1 each PO DAILY 04/25/22 Magnesium Oxide [Magnesium] 400 mg PO DAILY 04/25/22 Pantoprazole Sodium [Protonix] 20 mg PO DAILY 04/25/22 S-Adenosylmethionine Sul Tosyl [Tiburcio-E] 400 mg PO DAILY 04/25/22 Testosterone Cypionate [Testone Cik] 200 mg IM UD 04/25/22 Ubidecarenone [Co Q-10] 300 mg PO DAILY 04/25/22 Vitamin B Complex [Vitamin B Complex*] 1 cap PO DAILY 04/25/22 Vitamin E (Dl,Tocopheryl Acet) [Vitamin E] 180 mg PO DAILY 04/25/22 Albuterol Neb [Proventil 0.083% Neb Soln] 2.5 mg NEB [id number] #60 amp 04/27/22 Furosemide [Lasix*] 40 mg PO BIDL #60 tab 04/27/22 Ipratropium Neb [Atrovent*] 0.5 mg NEB [id number] #60 amp 04/27/22 Metoprolol Tartrate [Lopressor*] 25 mg PO BID #60 tab 04/27/22 Clopidogrel Bisulfate [Plavix] 75 mg PO DAILY #30 tab 05/24/22 Potassium Chloride [K-Dur] 10 meq PO M,W,F #20 05/25/22 - Past Medical/Surgical History Has patient received pneumonia vaccine in the past: Yes Diabetic: No -: Hypertension -: CAD -: Chronic obstructive pulmonary disease -: hyperlipidemia -: Possible diastolic dysfunction -: prostate surgery -: triple bypass -: CABG -: left foot surgery -: cataract surgery- both eyes -: appedectomy -: inspire upper airway stimulator - Family History Father Medical History: Other (see notes) Notes: CHF Mother History Unknown: Yes Notes: pneumonia - Social History Smoking Status: Former smoker Alcohol use: No CD- Drugs: No Caffeine use: No Place of Residence: Home Review of Systems 10-point ROS is otherwise unremarkable Physical Examination - Vital Signs Temperature: 99.5 F Blood Pressure: 151/73 Pulse: 87 Respirations: 18 Pulse Ox (%): 97 - Physical Exam General: Alert, In no apparent distress, Oriented x3 HEENT: Atraumatic, PERRLA, Mucous membr. moist/pink, EOMI, Sclerae nonicteric Neck: Supple, 2+ carotid pulse no bruit, No LAD, Without JVD or thyroid abnormality Respiratory: Clear to auscultation bilaterally, Normal air movement Cardiovascular: Regular rate/rhythm, Normal S1 S2 Gastrointestinal: Normal bowel sounds, No tenderness Musculoskeletal: Erythema, Tenderness, Warmth Integumentary: No rashes, Tenderness/swelling, Erythema, Warmth Neurological: Normal gait, Normal speech, Normal strength at 5/5 x4 extr, Normal tone, Normal affect Lymphatics: No axilla or inguinal lymphadenopathy Other Physical/Emotional Findings: Fifth digit on the right hand with erythema tenderness and swelling - Studies Laboratory Data (last 24 hrs) 11/24/22 16:30: PT 12.3, INR 1.12, APTT 29.3 11/24/22 16:30: Sodium 137, Potassium 4.0, BUN 37 H, Creatinine 1.53 H, Glucose 141 H, Total Bilirubin 0.7, AST 16, ALT 25, Alkaline Phosphatase 90 11/24/22 16:30: WBC 9.50, Hgb 14.0, Hct 41.7, Plt Count 220 Assessment & Plan - Problems (Diagnosis) (1) Cellulitis of hand, right Current Visit: Yes Status: Acute (2) COPD (chronic obstructive pulmonary disease) with chronic bronchitis Current Visit: No Status: Acute (3) History of coronary artery bypass graft Current Visit: No Status: Acute (4) Coronary artery disease Onset Date: 09/01/17 Current Visit: No Status: Chronic Qualifiers: (5) Essential hypertension Onset Date: 09/01/17 Current Visit: No Status: Chronic (6) GERD (gastroesophageal reflux disease) Current Visit: No Status: Chronic (7) Hyperlipidemia Onset Date: 07/12/17 Current Visit: No Status: Chronic Qualifiers: (8) Obstructive sleep apnea Current Visit: No Status: Chronic - Plan 1. Continue with IV antibiotic 2. Continue with local wound care 3. Hand surgical consultation 4. Gentle IV hydration 5. Monitor CBC 6. Strict blood sugar monitoring 7. Pain control 8. GI and DVT prophylaxis Discharge Plan: Home Plan to discharge in: Greater than 2 days - Advance Directives Does patient have a Living Will: Yes Does patient have a Durable POA for Healthcare: Yes - Code Status/Comfort Care Code Status Assessed: Yes Code Status: Full Code Critical Care: No Time Spent Managing PTS Care (In Minutes): 40
[2022-11-24] MEDS: MORPHINE 2 MG/ML SYR IV PRN (23:39)
[2022-11-25 04:17] LABS: Absolute Lymphocytes (CBC) 1.1 K/uL (0.7-4.9); Lymphocytes % 9.4 % (15.3-44.8); MCV 95.4 fL (80-100); MPV 8.2 fL (7.6-11.3)
[2022-11-25 04:32] LABS: Potassium 3.8 mEq/L (3.5-5.1)
[2022-11-25] MEDS: NA CHLORIDE 0.9% 1,000 ML IV SCH (06:24)
--- NOTE | 2022-11-25 11:31 | P.CNS ---
Date of Consult: 11/25/22 Reason for Consult: Cellulitis Hand Requesting Physician: Rex Christie Chief Complaint: Cellulitis of the left fifth digit of the right hand History of Present Illness: Patient is an 82 yo male with a PMH of CAD, COPD, HTN and HLD who presented to the ED for right 5th digit cellulitis. The 5th digit is erythematous and warm. and is scheduled to undergo debridement today. Patient reports he noted redness and swelling of his hand starting on 3-4 days ago without improvement. Patient was started empirically on Levaquin and Vancomycin. ID consulted for cellulitis. Allergies codeine Allergy (Verified 11/25/22 11:56) Hives/Rash Home medications list reviewed: Yes Home Medications: Pravastatin Sodium 20 mg pe PO DAILY 05/11/19 Thyroid Tab [[place] Thyroid*] 180 mg PO DAILY 05/11/19 Ascorbic Acid [Vitamin C] 1,000 mg PO DAILY 04/25/22 Aspirin Chewable [Aspirin Chewable*] 81 mg PO DAILY 04/25/22 Calcium Carbonate [Calcium] 600 mg PO DAILY 04/25/22 Cholecalciferol (Vitamin D3) [Vitamin D3] 6,000 unit PO DAILY 04/25/22 Glucosamine/Chondr Dee A Sod [Osteo Bi-Flex Caplet] 2 each PO DAILY 04/25/22 Hydrocodone Bit/Acetaminophen [Hydrocodon-Acetaminophn 10-325] 1 each PO Q4HP PRN 04/25/22 Losartan/Hydrochlorothiazide [Losartan-Hctz 100-12.5 mg Tab] 1 each PO DAILY 04/25/22 Magnesium Oxide [Magnesium] 400 mg PO DAILY 04/25/22 Pantoprazole Sodium [Protonix] 20 mg PO DAILY 04/25/22 S-Adenosylmethionine Sul Tosyl [Tiburcio-E] 400 mg PO DAILY 04/25/22 Testosterone Cypionate [Testone Cik] 200 mg IM UD 04/25/22 Ubidecarenone [Co Q-10] 300 mg PO DAILY 04/25/22 Vitamin B Complex [Vitamin B Complex*] 1 cap PO DAILY 04/25/22 Vitamin E (Dl,Tocopheryl Acet) [Vitamin E] 180 mg PO DAILY 04/25/22 Albuterol Neb [Proventil 0.083% Neb Soln] 2.5 mg NEB [id number] #60 amp 04/27/22 Furosemide [Lasix*] 40 mg PO BIDL #60 tab 04/27/22 Ipratropium Neb [Atrovent*] 0.5 mg NEB [id number] #60 amp 04/27/22 Metoprolol Tartrate [Lopressor*] 25 mg PO BID #60 tab 04/27/22 Clopidogrel Bisulfate [Plavix] 75 mg PO DAILY #30 tab 05/24/22 Potassium Chloride [K-Dur] 10 meq PO M,W,F #20 05/25/22 - Past Medical/Surgical History Diabetic: No -: Hypertension -: CAD -: Chronic obstructive pulmonary disease -: hyperlipidemia -: Possible diastolic dysfunction -: prostate surgery -: triple bypass -: CABG -: left foot surgery -: cataract surgery- both eyes -: appedectomy -: inspire upper airway stimulator - Family History Father Medical History: Other (see notes) Notes: CHF Mother History Unknown: Yes Notes: pneumonia - Social History Smoking Status: Former smoker Alcohol use: No CD- Drugs: No Caffeine use: No Place of Residence: Home Review of Systems 10-point ROS is otherwise unremarkable Integumentary: As per HPI Physical Examination Temp Pulse Resp BP Pulse Ox 97.5 F 85 18 149/67 H 96 11/25/22 08:00 11/25/22 08:00 11/25/22 08:00 11/25/22 08:00 11/25/22 08:00 General: Alert, In no apparent distress, Oriented x3 HEENT: Atraumatic, Normocephalic Neck: Supple, JVD not distended Respiratory: Normal air movement, Diminished Cardiovascular: No edema, Normal pulses Gastrointestinal: Normal bowel sounds, Soft and benign, Non-distended Musculoskeletal: No clubbing, No swelling Integumentary: Erythema (right hand), Warmth (left hand), Other (cellulitis left 5th digit) Neurological: Normal speech, Normal tone, Normal affect Laboratory Data - Reviewed Microbiology Data - Reviewed Imagings Data: - Reviewed Conclusions/Impression: Problem List COPD HTN CAD Hx CABG Cellulitis Cellulitis, 5th Digit of Right Hand - Scheduled for debridement today 11/25 - Currently on Levaquin and Vancomycin - Wound culture 11/25: Pending Blood cultures 11/24: Pending Leukocytosis (WBC 11.3) Afebrile Recommendations - Continue current antibiotics for now. Awaiting wound culture results. - Monitor WBC and fever trends - Wound care per surgery team ID will follow up and monitor patient closely. Case discussed with Jay Aragon. Thank you Dr. Christie for consult.
[2022-11-25] MEDS ORDERED: propofoL 200 MG/20 ML VIAL IV ONE (12:43)
[2022-11-25] MEDS ORDERED: dexAMETHasone 10 MG/ML VIAL ONE (12:43)
[2022-11-25] MEDS ORDERED: FENTANYL CITR 100 MCG/2 ML ONE (12:43)
[2022-11-25] MEDS ORDERED: LIDOCAINE 1% MPF 30 ML VIAL ONE (12:44)
--- NOTE | 2022-11-25 13:26 | EKG ---
Test Date: 2022-11-24 Test Time: 16:23:49 Plant Culture Manager: MARIO MEASUREMENT RESULTS: Intervals: Rate: 81 NM: 186 QRSD: 104 QT: 358 QTc: 415 [place]: P: 66 NM: 186 QRS: 2 T: -45 INTERPRETIVE STATEMENTS: Normal sinus rhythm Moderate voltage criteria for LVH, may be normal variant Cannot rule out Septal infarct, age undetermined ST & T wave abnormality, consider inferolateral ischemia Abnormal ECG Compared to ECG 08/03/2022 14:53:55 Myocardial infarct finding now present Possible ischemia now present ST (T wave) deviation still present Electronically Signed On 11-25-22 13:25:30 CDT by Juan Dockery
[2022-11-25] MEDS ORDERED: SILVER SULFADIAZINE 1% 25 GM TOP ONE (13:27)
[2022-11-25] MEDS ORDERED: ONDANSETRON 4 MG/2 ML VIAL ONE (13:31)
[2022-11-25] MEDS: HYDROMORPHONE HCL 1 MG/ML INJ ONE ×3 (13:49→14:17)
[2022-11-25] MEDS ORDERED: MEPERIDINE HCL 25 MG/ML SYR IM PRN (13:51)
[2022-11-25] MEDS: FENTANYL CITR 100 MCG/2 ML ONE ×3 (14:05→14:24)
--- NOTE | 2022-11-25 14:43 | P.PN ---
Subjective Date of Service: 11/25/22 Patient is doing well. Scheduled for OR today. Review of Systems 10-point ROS is otherwise unremarkable Physical Examination - Vital Signs Temperature: 99.5 F Blood Pressure: 151/73 Pulse: 87 Respirations: 18 Pulse Ox (%): 97 - Physical Exam General: Alert, In no apparent distress, Oriented x3 Respiratory: Clear to auscultation bilaterally, Normal air movement Cardiovascular: Regular rate/rhythm, Normal S1 S2, No murmurs Gastrointestinal: Normal bowel sounds, Soft and benign, Non-distended, No tenderness Musculoskeletal: No clubbing, No swelling, No tenderness Integumentary: Tenderness/swelling, Erythema, Warmth Neurological: Sensation intact, Cranial nerves 3-12 intact Other Physical/Emotional Findings: Fifth digit on the right hand with erythema tenderness and swelling - Studies Laboratory Data (last 24 hrs) 11/24/22 16:30: PT 12.3, INR 1.12, APTT 29.3 11/24/22 16:30: Sodium 137, Potassium 4.0, BUN 37 H, Creatinine 1.53 H, Glucose 141 H, Total Bilirubin 0.7, AST 16, ALT 25, Alkaline Phosphatase 90 11/24/22 16:30: WBC 9.50, Hgb 14.0, Hct 41.7, Plt Count 220 Medications List Reviewed: Yes Assessment & Plan - Problems (Diagnosis) (1) Cellulitis of hand, right Current Visit: Yes Status: Acute (2) COPD (chronic obstructive pulmonary disease) with chronic bronchitis Current Visit: No Status: Acute (3) History of coronary artery bypass graft Current Visit: No Status: Acute (4) Coronary artery disease Onset Date: 09/01/17 Current Visit: No Status: Chronic Qualifiers: (5) Essential hypertension Onset Date: 09/01/17 Current Visit: No Status: Chronic (6) GERD (gastroesophageal reflux disease) Current Visit: No Status: Chronic (7) Hyperlipidemia Onset Date: 07/12/17 Current Visit: No Status: Chronic Qualifiers: (8) Obstructive sleep apnea Current Visit: No Status: Chronic - Plan Continue with plan of care as mentioned below: 1. Continue with IV antibiotic 2. Continue with local wound care 3. Hand surgical consultation 4. Gentle IV hydration 5. Monitor CBC 6. Strict blood sugar monitoring 7. Pain control 8. GI and DVT prophylaxis Discharge Plan: Home Plan to discharge in: Greater than 2 days - Advance Directives Does patient have a Living Will: Yes Does patient have a Durable POA for Healthcare: Yes - Code Status/Comfort Care Code Status: Full Code Critical Care: No Time Spent Managing PTS Care (In Minutes): 35
[2022-11-25] MEDS: Levofloxacin500mg IV 500 MG/100 ML BAG IV SCH (16:25)
[2022-11-25] MEDS: VANCOMYCIN 1 GM in NA CHLORIDE 0.9% 250 ML IVPB SCH (16:25)
--- NOTE | 2022-11-26 14:25 | CON ---
Date of Consultation: 11/26/2022 Reason For Consultation: Preop assessment before surgery. History Of Present Illness: An 82-year-old male, well known to me, has a past medical history of hyp ertension, coronary artery disease, COPD, hypertension, dyslipidemia, status post CABG, presented to the emergency room with cellulitis of the left 5th digit. Initially, he was seen in the ER, sent josue e on antibiotics, then came back with a lot worse condition and were contacted for preop assessment a nd surgery was approved due to the urgency. Saw him after the surgery. There are no cardiac complai nts. No chest pain and doing very well. Past Medical History: As outlined above in the HPI. Medications: Refer to reconciliation sheet for detailed list. Allergies: CODEINE. Family History: No premature coronary artery disease or cancer. Social History: He does not smoke or drink. Does not use any drugs. Review of Systems: All systems reviewed and they are negative except as mentioned in the HPI. Physical Examination: Vital Signs: Reviewed. Head and Neck: Pupils are equal, reactive to light. Intact eye movements. No JVD. No cervical lym phadenopathy. Neck is supple. Thyroid is not enlarged. Lungs: Clear to auscultation bilaterally. No rhonchi, rales, or crackles. No accessory muscle use. Heart: Regular rate and rhythm. No extra sounds. Abdomen: Soft, nontender. Bowel sounds positive. No organomegaly. No masses or hernia. No rigidi ty or rebound. Extremities: No edema, clubbing, or cyanosis. Intact pulses. Skin: No rash noted. Neurologic: Alert, awake, oriented x3. No acute focal deficits appreciated. Lymph Nodes: No cervical or axillary lymphadenopathy. Investigations: BUN 35, creatinine 1.1. Hemoglobin is 13.7. Assessment And Plan: 1.Preop assessment. Case was discussed with the surgeon beforehand and due to the urgency, we proce eded with the surgery without any further workup, and he is doing well. 2.Coronary artery disease. Does have significant coronary artery disease and also a peripheral vasc ular disease. Stated those things will be addressed on an outpatient basis. /CASSIDYL Voice ID: [id number] Report ID: [id number]
[2022-11-26] MEDS: Levofloxacin500mg IV 500 MG/100 ML BAG IV SCH (16:43)
[2022-11-26] MEDS: VANCOMYCIN 1 GM in NA CHLORIDE 0.9% 250 ML IVPB SCH (16:47)
[2022-11-26] MEDS ORDERED: VANCOMYCIN 500 MG in NA CHLORIDE 0.9% 100 ML IVPB ONE (20:00)
[2022-11-27 06:24] LABS: Absolute Lymphocytes (CBC) 1.8 K/uL (0.7-4.9); Hematocrit 38.8 % (39.6-49.0); MCV 95.5 fL (80-100); MPV 8.3 fL (7.6-11.3); RBC Red Blood Cell Count 4.07 M/uL (4.33-5.43)
[2022-11-27 06:44] LABS: Albumin 3.1 g/dL (3.4-5.0); Bilirubin Total 0.5 mg/dL (0.2-1.0); Magnesium 1.9 mg/dL (1.6-2.4); Potassium 4.1 mEq/L (3.5-5.1); Protein, Total 6.4 g/dL (6.4-8.2)
[2022-11-27] MEDS: MORPHINE 2 MG/ML SYR IV PRN ×2 (14:45→21:00)
[2022-11-27] MEDS: Levofloxacin500mg IV 500 MG/100 ML BAG IV SCH (16:05)
[2022-11-27] MEDS ORDERED: VANCOMYCIN 1.5 GM in NA CHLORIDE 0.9% 500 ML IVPB SCH (17:00)
[2022-11-28] MEDS: MORPHINE 2 MG/ML SYR IV PRN (02:02)
--- NOTE | 2022-11-28 02:14 | P.PN ---
Date of Service: 11/26/22 Subjective Patient is doing well. Scheduled to go back to OR Monday. Review of Systems 10-point ROS is otherwise unremarkable Physical Examination - Vital Signs reviewed - Physical Exam General: Alert, In no apparent distress, Oriented x3 Respiratory: Clear to auscultation bilaterally, Normal air movement Cardiovascular: Regular rate/rhythm, Normal S1 S2, No murmurs Gastrointestinal: Normal bowel sounds, Soft and benign, Non-distended, No tenderness Musculoskeletal: No clubbing, No swelling, No tenderness Integumentary: Dressing C/D/I Neurological: No focal deficits Assessment & Plan - Problems (Diagnosis) (1) Cellulitis of hand, right Current Visit: Yes Status: Acute (2) COPD (chronic obstructive pulmonary disease) with chronic bronchitis Current Visit: No Status: Acute (3) History of coronary artery bypass graft Current Visit: No Status: Acute (4) Coronary artery disease Onset Date: 09/01/17 Current Visit: No Status: Chronic (5) Essential hypertension Onset Date: 09/01/17 Current Visit: No Status: Chronic (6) GERD (gastroesophageal reflux disease) Current Visit: No Status: Chronic (7) Hyperlipidemia Onset Date: 07/12/17 Current Visit: No Status: Chronic (8) Obstructive sleep apnea Current Visit: No Status: Chronic - Plan Continue with POC as mentioned below: 1. Continue with IV antibiotic 2. Continue with local wound care 3. Hand surgical consultation appreciated 4. Heplock IV 5. Monitor CBC 6. Strict blood sugar monitoring 7. Pain control 8. GI and DVT prophylaxis
--- NOTE | 2022-11-28 02:17 | P.PN ---
Date of Service: 11/27/22 Subjective No new c/o. Scheduled to go back to OR in AM. Review of Systems 10-point ROS is otherwise unremarkable Physical Examination - Vital Signs reviewed - Physical Exam General: Alert, In no apparent distress, Oriented x3 Respiratory: Clear to auscultation bilaterally, Normal air movement Cardiovascular: Regular rate/rhythm, Normal S1 S2, No murmurs Gastrointestinal: Normal bowel sounds, Soft and benign, Non-distended, No tenderness Musculoskeletal: No clubbing, No swelling, No tenderness Integumentary: Dressing C/D/I Neurological: No focal deficits Assessment & Plan - Problems (Diagnosis) (1) Cellulitis of hand, right Current Visit: Yes Status: Acute (2) COPD (chronic obstructive pulmonary disease) with chronic bronchitis Current Visit: No Status: Acute (3) History of coronary artery bypass graft Current Visit: No Status: Acute (4) Coronary artery disease Onset Date: 09/01/17 Current Visit: No Status: Chronic (5) Essential hypertension Onset Date: 09/01/17 Current Visit: No Status: Chronic (6) GERD (gastroesophageal reflux disease) Current Visit: No Status: Chronic (7) Hyperlipidemia Onset Date: 07/12/17 Current Visit: No Status: Chronic (8) Obstructive sleep apnea Current Visit: No Status: Chronic - Plan Continue with POC as mentioned below: 1. Continue with IV antibiotic 2. Continue with local wound care 3. Hand surgical consultation appreciated 4. Heplock IV 5. Monitor CBC 6. Strict blood sugar monitoring 7. Pain control 8. GI and DVT prophylaxis
[2022-11-28] MEDS ORDERED: NA CHLORIDE 0.9% 1,000 ML ONE (08:58)
--- NOTE | 2022-11-28 09:26 | P.PN ---
Date of Service: 11/28/22 Chief Complaint: Cellulitis of the left fifth digit of the right hand Subjective: s/p debridement and closure of right hand 5th digit today 11/28. Tolerated procedure well. No acute events reported overnight. Denies any new complaints at this time. Physical Examination Temp Pulse Resp BP Pulse Ox 97.2 F 64 16 121/51 L 93 11/28/22 11:09 11/28/22 11:09 11/28/22 11:11/28/22 11:11/28/22 04:00 General: Alert, In no apparent distress, Oriented x3 HEENT: Atraumatic, Normocephalic Neck: Supple, JVD not distended Respiratory: Normal air movement, Diminished Cardiovascular: No edema, Normal pulses Gastrointestinal: Normal bowel sounds, Soft and benign, Non-distended Musculoskeletal: No clubbing, No swelling Integumentary: Right hand 5th digit dressing is clean dry and intact. Neurological: Normal speech, Normal tone, Normal affect Studies Laboratory Data - Reviewed Microbiology Data - Blood cultures 11/24: No growth to date Imagings Data: - Reviewed Medications List Reviewed: Yes Assessment and Plan Problem List COPD HTN CAD Hx CABG Cellulitis of right hand 5th digit Cellulitis, 5th Digit of Right Hand - S/p debridement 11/25 - Wound culture 11/25: 3+ staph coagulase positive - Currently on Levaquin and Vancomycin (11/24) - s/p debridement and closure on 11/28. Tolerated procedure well. Leukocytosis improving (WBC 8.6) Afebrile Recommendations - Continue Levaquin and Vancomycin for now. - Awaiting final wound culture and sensitivity reports. - Wound care per surgery team - Monitor WBC and fever trends ID will follow up and monitor patient closely. Case discussed with Shaista Aragon
[2022-11-28] MEDS ORDERED: propofoL 200 MG/20 ML VIAL IV ONE (09:30)
[2022-11-28] MEDS ORDERED: LIDOCAINE 2% MPF 5 ML VIAL ONE (09:31)
[2022-11-28] MEDS ORDERED: FENTANYL CITR 100 MCG/2 ML ONE (10:03)
[2022-11-28] MEDS: FENTANYL CITR 100 MCG/2 ML ONE ×4 (10:41→10:56)
--- NOTE | 2022-11-28 10:47 | OP ---
Surgeon: Brooks Michelle MD Preoperative Diagnosis: Open wound of the right little finger, hand. Postoperative Diagnosis: Open wound of the right little finger, hand. Procedure Performed: Debridement of skin and tissue, flap advancement closure. Anesthesia: General. Procedure In Detail: After satisfactory induction of general anesthesia, the right hand prepped with Betadine scrub and Betadine paint. Dry sterile drapes were applied in usual manner. The arm was el evated and exsanguinated with an Esmarch. Tourniquet was inflated to 250 mmHg. Hand was placed on t he roll lock table. A scalpel, tenotomy scissors, and forceps were used to debride skin and subcu ti ssue as needed. The wound was curetted and jet lavaged, irrigated with 3 L of dilute Betadine soluti on. The flaps were undermined and advanced, closed with 4-0 Prolene horizontal mattress simple sutur es with vertical mattress. Dressed with Xeroform, 2-inch Trae, Kerlix. The patient tolerated the p rocedure well and returned to recovery. VAHID/JANAK Voice ID: [id number] Report ID: [id number]
[2022-11-28] MEDS: MEPERIDINE HCL 25 MG/ML SYR ONE ×2 (11:00→11:05)
[2022-11-28 11:01] VITALS: O2SAT 95
[2022-11-28] MEDS ORDERED: HYDROMORPHONE HCL 1 MG/ML INJ ONE (11:11)
--- NOTE | 2022-11-28 14:17 | HP ---
Date of Admission: 11/24/2022 right ring finger. He did not know what caused this. He was started on antibiotics with no improvement. He has Physical Examination: He has marked swelling of the right little finger at the MCP joint with redness. Assessment: Infected right little finger. Plan: Incision and drainage. VAHID/JANAK Voice ID: [id number]
--- NOTE | 2022-11-28 14:17 | OP ---
Surgeon: Brooks Michelle MD Preoperative Diagnosis: Infected right little finger. Postoperative Diagnosis: Infected right little finger. Procedures Performed: Debridement of skin and tissue, incision and drainage of abscess. Anesthesia: General. Procedure In Detail: After satisfactory induction of general anesthesia, the right hand was prepped with Betadine scrub and Betadine paint. Dry sterile drapes were applied in usual manner. The arm wa s elevated. Tourniquet was inflated to 250 mmHg. Hand was placed on OR table. A zigzag incision wa s made over the dorsum of the right little finger metacarpal head area, pus, it was MRSA with appeara nce thick creamy. Cultures were taken. Then the wounds, after curetting, was jet lavaged with 3 L o f dilute Betadine solution. Tourniquet released. Electrocautery used for hemostasis. Wound packed Silvadene cream and quarter-inch Nu Gauze. 2 inch Trae and Kerlix were applied. The patient tolera arvin procedure well and returned to recovery. VAHID/JANAK Voice ID: [id number] Report ID: [id number]
[2022-11-28 16:16] VITALS: BP 136/72; TEMP 99
== END 2022-11-28 17:20 | disposition home or self-care (01) | DRG 581 ==
LOC: ER 15:30 → ERHOLD 16:50 → 2ND 18:24
PROVIDERS: ADMIT Hospitalist; ATTEND Hospitalist
PROC: 0JDJ0ZZ Extraction of Right Hand Subcutaneous Tissue and Fascia, Open Approach (ICD-10-PCS; 2022-11-25)
PROC: 0JBJ0ZZ Excision of Right Hand Subcutaneous Tissue and Fascia, Open Approach (ICD-10-PCS; principal; 2022-11-28 09:30)
DX: L03.011 Cellulitis of right finger (principal); G89.29 Other chronic pain; M54.9 Dorsalgia, unspecified; E78.00 Pure hypercholesterolemia, unspecified; I10 Essential (primary) hypertension; G47.33 Obstructive sleep apnea (adult) (pediatric); K21.9 Gastro-esophageal reflux disease without esophagitis; J44.9 Chronic obstructive pulmonary disease, unspecified; M65.841 Other synovitis and tenosynovitis, right hand; I25.10 Atherosclerotic heart disease of native coronary artery without angina pectoris; B95.62 Methicillin resistant Staphylococcus aureus infection as the cause of diseases classified elsewhere; Z88.5 Allergy status to narcotic agent; Z95.1 Presence of aortocoronary bypass graft; Z87.891 Personal history of nicotine dependence; Z79.82 Long term (current) use of aspirin; Z79.02 Long term (current) use of antithrombotics/antiplatelets; Z79.899 Other long term (current) drug therapy
CPT/HCPCS: 36415; 71045; 80048; 80053; 80202; 82947; 83605; 83735; 83880; 85025; 85610; 85730; 87040; 87070; 87075; 87077; 87186; 87205; 93005; 96365; 96375; 99283; 99285; J0692; J1100; J1170; J2001; J2175; J2270; J2405; J2704; J3010; J7030; J7040; J7050

== ENCOUNTER 2023-06-23 00:03 | Emergency (ER) | payer OTHER, MEDICARE ==
--- NOTE | 2023-06-23 02:49 | ER ---
Nurse's Notes [facility] Tristen Name: Soy Dove Age: 83 yrs Sex: Male : 1940 Arrival Date: 06/23/2023 Time: 00:03 Bed 11 Private MD: Diagnosis: Retention of urine, unspecified;Gross hematuria Presentation: 06/23 00:32 Chief complaint: Patient states: I peed blood earlier and now I cannot pee at all. jb4 Coronavirus screen: At this time, the client does not indicate any symptoms associated with coronavirus-19. Ebola Screen: No symptoms or risks identified at this time. Initial Sepsis Screen: Does the patient meet any 2 criteria? No. Patient's initial sepsis screen is negative. Does the patient have a suspected source of infection? No. Patient's initial sepsis screen is negative. Risk Assessment: Do you want to hurt yourself or someone else? Patient reports no desire to harm self or others. Onset of symptoms was June 23, 2023. Transition of care: patient was not received from another setting of care. 00:32 Method Of Arrival: Ambulatory jb4 00:32 Acuity: POPPY 3 jb4 Historical: - Allergies: 00:33 Codeine; jb4 - PMHx: 00:33 chronic back pain; Hypertension; High Cholesterol; bowel obstruction; asbestosis; jb4 coronary atherosclerosis; KD; - PSHx: 00:33 bowel resection; Coronary artery bypass graft; Inspire UAS-right chest wall; jb4 - Immunization history:: Adult Immunizations up to date. - Social history:: Smoking status: Patient denies any tobacco usage or history of. - Family history:: not pertinent. - Hospitalizations: : No recent hospitalization is reported. Screenin:45 [facility] ED Fall Risk Assessment (Adult) History of falling in the last 3 months, jb4 including since admission No falls in past 3 months (0 pts) Confusion or Disorientation No (0 pts) Score/Fall Risk Level 0 - 2 = Low Risk Oriented to surroundings, Maintained a safe environment. Abuse screen: Denies threats or abuse. Nutritional screening: No deficits noted. Tuberculosis screening: No symptoms or risk factors identified. Assessment: 00:45 General: Appears in no apparent distress. uncomfortable, Behavior is calm, cooperative, jb4 appropriate for age. Pain: Complains of pain in suprapubic area Pain does not radiate. Pain currently is 10 out of 10 on a pain scale. Neuro: Level of Consciousness is awake, alert, obeys commands, Oriented to person, place, time, situation. Cardiovascular: Patient's skin is warm and dry. Respiratory: Airway is patent Respiratory effort is even, unlabored, Respiratory pattern is regular, symmetrical. GI: No signs and/or symptoms were reported involving the gastrointestinal system. : No signs and/or symptoms were reported regarding the genitourinary system. EENT: No signs and/or symptoms were reported regarding the EENT system. Derm: Skin is intact, Skin is pink, warm \T\ dry. Musculoskeletal: Circulation, motion, and sensation intact. Range of motion: intact in all extremities. 01:00 Reassessment: Patient appears in no apparent distress at this time. Patient and/or jb4 family updated on plan of care and expected duration. Pain level reassessed. Patient is alert, oriented x 3, equal unlabored respirations, skin warm/dry/pink. 02:00 Reassessment: Patient appears in no apparent distress at this time. Patient and/or jb4 family updated on plan of care and expected duration. Pain level reassessed. Patient is alert, oriented x 3, equal unlabored respirations, skin warm/dry/pink. 03:00 Reassessment: Patient appears in no apparent distress at this time. Patient and/or jb4 family updated on plan of care and expected duration. Pain level reassessed. Patient is alert, oriented x 3, equal unlabored respirations, skin warm/dry/pink. 03:57 Reassessment: Patient appears in no apparent distress at this time. Patient and/or jb4 family updated on plan of care and expected duration. Pain level reassessed. Patient is alert, oriented x 3, equal unlabored respirations, skin warm/dry/pink. Vital Signs: 00:32 BP 186 / 96; Pulse 83; Resp 16; Pulse Ox 100% on R/A; Weight 81.65 kg (R); Height 5 ft. jb4 8 in. (R); Pain 10/10; 02:30 BP 152 / 80; Pulse 77; Resp 16; Pulse Ox 98% on R/A; jb4 03:30 BP 176 / 91; Pulse 81; Resp 16; Pulse Ox 100% on R/A; jb4 00:32 Body Mass Index 27.37 (81.65 kg, 172.72 cm) jb4 00:32 Pain Scale: Adult jb4 ED Course: 00:07 Patient arrived in ED. gm2 00:08 Cristóbal Aguilar MD is Attending Physician. rn 00:33 Triage completed. jb4 00:33 Arm band placed on right wrist. jb4 00:45 Patient has correct armband on for positive identification. Bed in low position. Call jb4 light in reach. Side rails up X 1. Client placed on continuous cardiac and pulse oximetry monitoring. NIBP monitoring applied. 02:48 Margarito Malone MD is Referral Physician. rn 03:59 No provider procedures requiring assistance completed. Patient did not have IV access jb4 during this emergency room visit. Administered Medications: No medications were administered Outcome: 02:49 Discharge ordered by MD. rn 03:59 Discharged to home ambulatory, jb4 03:59 Condition: stable 03:59 Discharge instructions given to patient, Instructed on discharge instructions, follow up and referral plans. medication usage, Demonstrated understanding of instructions, follow-up care, medications, Prescriptions given X 1, 04:00 Patient left the ED. jb4 Signatures: Cristóbal Aguilar MD MD rn Bryson, James, RN RN jb4 Johnna Sandoval gm2
--- NOTE | 2023-06-23 02:49 | EDPHYS ---
Physician Documentation [facility] Name: Soy Dove Age: 83 yrs Sex: Male : 1940 Arrival Date: 06/23/2023 Time: 00:03 Bed 11 Private MD: ED Physician Cristóbal Aguilar HPI: 06/23 00:29 This 83 yrs old Male presents to ER via Unassigned with complaints of Urinary rn Retention, Pain. 00:29 The patient presents with urinary symptoms, retention, unable to void. Onset: The rn symptoms/episode began/occurred last night. Modifying factors: The symptoms are alleviated by nothing, the symptoms are aggravated by nothing. Severity of symptoms: At their worst the symptoms were moderate, in the emergency department the symptoms are unchanged. The patient has experienced similar episodes in the past. Patient reports urinary retention, started last night, reports has had issues in the past with hematuria with similar retention. Recently placed on blood thinner after heart cath. Taking Plavix. Has not noticed any blood but unable to urinate for about an hour. Reports abdominal fullness. No fever. No trauma.. Historical: - Allergies: 00:33 Codeine; jb4 - PMHx: 00:33 chronic back pain; Hypertension; High Cholesterol; bowel obstruction; asbestosis; jb4 coronary atherosclerosis; KD; - PSHx: 00:33 bowel resection; Coronary artery bypass graft; Inspire UAS-right chest wall; jb4 - Immunization history:: Adult Immunizations up to date. - Social history:: Smoking status: Patient denies any tobacco usage or history of. - Family history:: not pertinent. - Hospitalizations: : No recent hospitalization is reported. ROS: 00:29 Constitutional: Negative for fever, chills, and weight loss, Cardiovascular: Negative rn for chest pain, palpitations, and edema, Respiratory: Negative for shortness of breath, cough, wheezing, and pleuritic chest pain, Abdomen/GI: Positive for suprapubic abdominal pain Back: Negative for injury and pain, : Positive for urinary retention MS/Extremity: Negative for injury and deformity, Skin: Negative for injury, rash, and discoloration, Neuro: Negative for headache, weakness, numbness, tingling, and seizure, Exam: 00:29 Constitutional: This is a well developed, well nourished patient who is awake, alert, rn appears uncomfortable and pacing Head/Face: Normocephalic, atraumatic. Cardiovascular: Regular rate and rhythm. No pulse deficits. Respiratory: No increased work of breathing, no retractions or nasal flaring. Abdomen/GI: Soft, mild suprapubic tenderness and fullness Neuro: Awake and alert, GCS 15, oriented to person, place, time, and situation. Cranial nerves II-XII grossly intact. Motor strength 5/5 in all extremities. Sensory grossly intact. Cerebellar exam normal. Normal gait. Vital Signs: 00:32 BP 186 / 96; Pulse 83; Resp 16; Pulse Ox 100% on R/A; Weight 81.65 kg (R); Height 5 ft. jb4 8 in. (R); Pain 10/10; 02:30 BP 152 / 80; Pulse 77; Resp 16; Pulse Ox 98% on R/A; jb4 03:30 BP 176 / 91; Pulse 81; Resp 16; Pulse Ox 100% on R/A; jb4 00:32 Body Mass Index 27.37 (81.65 kg, 172.72 cm) jb4 00:32 Pain Scale: Adult jb4 MDM: 00:08 Patient medically screened. rn 01:15 ED course: Improved after Gresham catheter placement, bloody urine obtained, as expected, rn approximately 250 cc. Nursing to irrigate until clears. 02:46 Differential diagnosis: nonspecific abdominal pain, urinary retention. Data reviewed: rn vital signs, nurses notes, and as a result, I will discharge patient. Counseling: I had a detailed discussion with the patient and/or guardian regarding the historical points, exam findings, and any diagnostic results supporting the discharge/admit diagnosis, the need for outpatient follow up, to return to the emergency department if symptoms worsen or persist or if there are any questions or concerns that arise at home. Response to treatment: the patient's symptoms have markedly improved after treatment, and as a result, I will discharge patient. Special discussion: I discussed with the patient/guardian in detail that at this point there is no indication for admission to the hospital. It is understood, however, that if the symptoms persist or worsen the patient needs to return immediately for re-evaluation. Based on the history and exam findings, there is no indication for further emergent testing or inpatient evaluation. I discussed with the patient/guardian the need to see the urologist for further evaluation of the symptoms. ED course: Urine is clear, will send home with Gresham catheter, urology follow-up and return precautions. Patient states will hold his Plavix until this completely resolves. Told him to be in contact with his logistics specialist as well.. 06/23 00:13 Order name: Gresham; Complete Time: 00:58 rn 06/23 00:59 Order name: Bladder Irrigation; Complete Time: 03:55 rn Administered Medications: No medications were administered Disposition Summary: 06/23/23 02:49 Discharge Ordered Notes: Location: Home rn Problem: new rn Symptoms: have improved rn Condition: Stable rn Diagnosis - Retention of urine, unspecified rn - Gross hematuria rn Followup: rn - With: Margarito Malone MD - When: As needed - Reason: Recheck today's complaints, Re-evaluation by your physician Discharge Instructions: - Discharge Summary Sheet rn - Indwelling Urinary Catheter Care, Adult rn - Hematuria, Adult rn - Acute Urinary Retention, Male rn Forms: - Medication Reconciliation Form rn - Thank You Letter rn - Antibiotic emergency room rn - Prescription Opioid Use rn - Patient Portal Instructions rn - Leadership Thank You Letter rn Prescriptions: - Cipro 500 mg Oral Tablet - take 1 tablet ORAL route every 12 hours for 7 days; 14 tablet; Refills: 0, rn Product Selection Permitted Signatures: Cristóbal Aguilar MD MD rn Bryson, James, RN RN jb4
[2023-06-23 04:39] VITALS: O2SAT 100
[2023-06-23 04:42] VITALS: BP 176/91
== END 2023-06-23 04:00 | disposition home or self-care (01) ==
LOC: ER 00:03
DX: R33.9 Retention of urine, unspecified (principal); R31.0 Gross hematuria; E78.00 Pure hypercholesterolemia, unspecified; I10 Essential (primary) hypertension; Z95.1 Presence of aortocoronary bypass graft; Z88.5 Allergy status to narcotic agent
CPT/HCPCS: 99283

== ENCOUNTER 2024-08-17 22:48 | Emergency (ER) | payer OTHER, MEDICARE ==
[2024-08-17] MEDS ORDERED: NA CHLORIDE 0.9% 500 ML ONE (23:44)
[2024-08-17] MEDS ORDERED: KETOROLAC 30 MG/ML INJ ONE (23:44)
[2024-08-17 23:50] LABS: Absolute Eosinophils 0.2 K/uL (0-0.5); Absolute Monocytes 0.6 K/uL (0.1-1.3); Absolute Neutrophil 6.3 K/uL (1.8-8.0); Basophils % 0.6 % (0-1.3); Eosinophils % 2.4 % (0-4.4); Hematocrit 30.5 % (39.6-49.0); Hemoglobin 10.6 g/dL (13.6-17.9); Lymphocytes % 12.7 % (15.3-44.8); MCH 31.8 pg (27.0-35.0); MCHC 34.8 g/dL (32.0-36.0); MCV 91.2 fL (80-100); MPV 6.6 fL (7.6-11.3); Monocytes % 7.4 % (3.3-12.3); Neutrophils % 76.9 % (41.7-73.7); Nucleated Red Blood Cells % 0.1 % (0-0); Platelets 288 thou/uL (152-406); RBC Red Blood Cell Count 3.34 M/uL (4.33-5.43); Red Cell Distribution Width 12.8 % (12.1-15.2)
[2024-08-18 00:06] LABS: Anion Gap 7.2 mEq/L (5.0-15.0); Potassium 4.2 mEq/L (3.5-5.1)
[2024-08-18] MEDS ORDERED: CLINDAMYCIN 900MG/D5W 900 MG/50 ML IVPB IV ONE (00:16)
--- NOTE | 2024-08-18 02:29 | RAD REPORT ---
CT NECK WITH IV CONTRAST CLINICAL INDICATION: Left ear swelling COMPARISON: None TECHNIQUE: CT images of the neck were obtained following adminstration of intravenous contrast. Multi planar reformats were provided. Dose lowering techniques such as automated exposure control, iterative reconstruction, and mA and/or kV adjustment for patient size was utilized for this examinat ion. FINDINGS: SOFT TISSUES: The left yan and periarticular soft tissue are thickened and edematous with increased vascularity, suggesting otitis externa. No focal collection or lesion. There is mild edema with increased vascularity at superior aspect of the left parotid, likely reactive. LYMPH NODES: Small cervical lymph nodes along bilateral cervical chains, more so on left, likely reac tive. AERODIGESTIVE TRACT: Patent. Elliott tonsils and nasopharyngeal mucosa are unremarkable. PARANASAL SINUSES: Clear. MASTOIDS: Partial opacification of left mastoid and middle ear cavity; otomastoiditis cannot be exclu ded. VESSELS: Unremarkable. BONES: No acute bony abnormality. Multilevel degenerative changes of spine and upper cervical vertebr ae. Status post previous sternal ostomy. 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 LUNG APICES: Clear. OTHER: None. IMPRESSION: 1. Findings are suggestive of left otitis externa. 2. Partial opacification of left mastoid and middle ear cavity; otomastoiditis cannot be excluded. 3. 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 Electronically signed by: Dorothy Siddiqui MD 08/18/2024 02:[address] [facility] Due to temporary technical issues with the PACS/[employer] reporting system, reports are being jeb d by the in-house radiologist without review as a courtesy to ensure prompt reporting the interpreting radiologist is fully responsible for the content of the report. Transcribed Date/Time: 08/18/2024 2:28 AM
--- NOTE | 2024-08-18 02:46 | ER ---
Nurse's Notes [facility] Tristen Name: Soy Dove Age: 84 yrs Sex: Male : 1940 Arrival Date: 08/17/2024 Time: 22:48 Bed 8 Private MD: Diagnosis: Otitis externa in other diseases classified elsewhere, left ear;Cellulitis of left external ear Presentation: 08/17 22:58 Chief complaint: Patient states: left ear pain from surgical site. Had skin cancer cp4 removed a week ago. Followed up with surgeon on . Finished antibiotics on . Coronavirus screen: Client denies travel out of the [place] in the last 14 days. At this time, the client does not indicate any symptoms associated with coronavirus-19. Ebola Screen: Patient negative for fever greater than or equal to 101.5 degrees Fahrenheit, and additional compatible Ebola Virus Disease symptoms Patient denies exposure to infectious person. Patient denies travel to an Ebola-affected area in the 21 days before illness onset. No symptoms or risks identified at this time. Initial Sepsis Screen: Does the patient meet any 2 criteria? No. Patient's initial sepsis screen is negative. Does the patient have a suspected source of infection? No. Patient's initial sepsis screen is negative. Risk Assessment: Do you want to hurt yourself or someone else? Patient reports no desire to harm self or others. Onset of symptoms was August 16, 2024. 22:58 Method Of Arrival: Ambulatory cp4 22:58 Acuity: POPPY 3 cp4 Triage Assessment: 23:01 General: Appears in no apparent distress. comfortable, Behavior is calm, cooperative, cp4 appropriate for age. Pain: Complains of pain in left ear Pain currently is 10 out of 10 on a pain scale. EENT: Reports pain in left ear. Neuro: Level of Consciousness is awake, alert, obeys commands, Oriented to person, place, time, situation. Cardiovascular: Patient's skin is warm and dry. Respiratory: Airway is patent Respiratory effort is even, unlabored. GI: No signs and/or symptoms were reported involving the gastrointestinal system. : No signs and/or symptoms were reported regarding the genitourinary system. Derm: No signs and/or symptoms reported regarding the dermatologic system. Musculoskeletal: No signs and/or symptoms reported regarding the musculoskeletal system. Historical: - Allergies: 23:01 Codeine; cp4 - Home Meds: 23:01 losartan Oral [Active]; Plavix 75 mg Oral tablet 1 tab daily [Active]; cp4 - PMHx: 23:01 asbestosis; bowel obstruction; chronic back pain; coronary atherosclerosis; High cp4 Cholesterol; Hypertension; KD; - PSHx: 23:01 bowel resection; Coronary artery bypass graft; Inspire UAS-right chest wall; cp4 - Immunization history:: Adult Immunizations up to date. - Infectious Disease History:: Denies. - Social history:: Smoking status: Patient denies any tobacco usage or history of. Screenin:03 [facility] ED Fall Risk Assessment (Adult) History of falling in the last 3 months, cp4 including since admission No falls in past 3 months (0 pts) Confusion or Disorientation No (0 pts) Intoxicated or Sedated No (0 pts) Impaired Gait No (0 pts) Mobility Assist Device Used No (0 pt) Altered Elimination No (0 pt) Score/Fall Risk Level 0 - 2 = Low Risk Oriented to surroundings, Maintained a safe environment, Assessed \T\ reinforced patient's understanding of fall precautions, Hourly rounding (assess needs \T\ fall precautionary measures) done. Abuse screen: Denies threats or abuse. Nutritional screening: No deficits noted. Tuberculosis screening: No symptoms or risk factors identified. Assessment: 23:03 Reassessment: No changes from previously documented assessment. cp4 Vital Signs: 22:58 BP 183 / 86; Pulse 78; Resp 18; Temp 98.7; Pulse Ox 100% ; Weight 79.38 kg; Height 5 cp4 ft. 8 in. ; Pain 10/10; 02/ 00:36 BP 172 / 80; Pulse 80; Resp 18; Pulse Ox 97% ; cp4 03:00 BP 176 / 82; Pulse 82; Resp 18; Pulse Ox 99% ; cp4 02 22:58 Body Mass Index 26.61 (79.38 kg, 172.72 cm) cp4 02 22:58 Pain Scale: Adult cp4 ED Course: 08/17 22:49 Patient arrived in ED. jj6 22:55 Kristopher Elkins PA is PHCP. cp 22:56 Kristopher Long MD is Attending Physician. cp 22:58 Marilu Beltran is Primary Nurse. cp4 23:01 Triage completed. cp4 23:01 Arm band placed on right wrist. Patient placed in waiting room. cp4 23:03 Bed in low position. Call light in reach. Side rails up X 1. cp4 23:03 No provider procedures requiring assistance completed. cp4 23:38 Inserted saline lock: 22 gauge in left antecubital area, using aseptic technique. Blood cp4 collected. Flushed with 10 mL NS. 08/18 01:02 Soft Tissue Neck W/Contr In Process Unspecified. EDMS 03:01 Provided Education on: cellulitis. cp4 03:01 intact, bleeding controlled, No redness/swelling at site. Pressure dressing applied. cp4 Administered Medications: 08/17 23:48 Drug: NS 0.9% IV 500 ml 500 ml IV at 1 bolus once; to be given as a bolus over 60 cp4 minutes Volume: 500 ml; Route: IV; Rate: 1 bolus; Site: left antecubital; 08/18 01:30 Follow up: IV Status: Completed infusion cp4 08/17 23:48 Drug: Ketorolac IVP 10 mg 10 mg IVP once Route: IVP; Site: left antecubital; cp4 08/18 00:14 Follow up: Response: No adverse reaction cp4 00:20 Drug: Clindamycin IVPB 900 mg IVPB once over 30 mins; (mix in 50 mL) Route: IVPB; cp4 Infused Over: 30 mins; Site: left antecubital; 01:30 Follow up: Response: No adverse reaction; IV Status: Completed infusion cp4 02:34 CANCELLED (Physician Discretion): [id number] mg 200 ml IVPB once over 60 mins cp 02:59 Drug: LevOfloxacin PO 750 mg PO once Route: PO; cp4 03:00 Follow up: Response: No adverse reaction cp4 Medication: 08/17 23:03 VIS not applicable for this client. cp4 Outcome: 08/18 02:45 Discharge ordered by . cp 03:01 Discharged to home ambulatory, cp4 03:01 Condition: stable 03:01 Discharge instructions given to patient, Instructed on discharge instructions, follow up and referral plans. medication usage, Demonstrated understanding of instructions, follow-up care, medications, Prescriptions given X 3, 03:02 Patient left the ED. cp4 Signatures: Dispatcher [employer] EDLA Kristopher Elkins, PA PA cp Gladys, Janey jj6 Marilu Beltran cp4
--- NOTE | 2024-08-18 02:46 | EDPHYS ---
Physician Documentation [facility] [place] Name: Refbrice Dove Age: 84 yrs Sex: Male : 1940 Arrival Date: 08/17/2024 Time: 22:48 Bed 8 Private MD: Kristopher Leyva HPI: 08/17 23:15 This 84 yrs old Male presents to ER via Ambulatory with complaints of Post Surgical cp Pain, Fever, Ear Pain, Drainage From Ear. 23:15 The patient presents with drainage, that is purulent, pain, that is acute, swelling, cp tenderness. The complaints affect the left ear. Onset: The symptoms/episode began/occurred today. Associated signs and symptoms: Pertinent negatives: fever, sinus trouble, sore throat, vomiting. 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 Historical: - Allergies: 23:01 Codeine; cp4 - Home Meds: 23:01 losartan Oral [Active]; Plavix 75 mg Oral tablet 1 tab daily [Active]; cp4 - PMHx: 23:01 asbestosis; bowel obstruction; chronic back pain; coronary atherosclerosis; High cp4 Cholesterol; Hypertension; KD; - PSHx: 23:01 bowel resection; Coronary artery bypass graft; Inspire UAS-right chest wall; cp4 - Immunization history:: Adult Immunizations up to date. - Infectious Disease History:: Denies. - Social history:: Smoking status: Patient denies any tobacco usage or history of. ROS: 23:20 Constitutional: Negative for body aches, chills, fever, poor PO intake, cp 23:20 Eyes: Negative for injury, pain, redness, and discharge, cp 23:20 ENT: Positive for drainage from ear(s), ear pain, Negative for sore throat, difficulty swallowing, difficulty handling secretions, 23:20 Cardiovascular: Negative for chest pain, palpitations, 23:20 Respiratory: Negative for cough, shortness of breath, wheezing, 23:20 Abdomen/GI: Negative for abdominal pain, nausea, vomiting, and diarrhea, 23:20 Neuro: Negative for altered mental status, 23:20 All other systems are negative, Exam: 23:25 Constitutional: The patient appears in no acute distress, alert, awake, non-toxic, well cp developed, well nourished, uncomfortable, 23:25 Head/face: Noted is swelling, that is mild, of the left ear, tenderness, that is mild, cp of the left ear, 23:25 Eyes: Periorbital structures: appear normal, Conjunctiva: normal, no exudate, no injection, Sclera: no appreciated abnormality, Lids and lashes: appear normal, bilaterally, 23:25 ENT: External ear(s): erythema, of the pinna of left ear, mild, pain with movement, that is moderate, of the pinna of left ear, swelling, of the pinna of left ear, mild, Ear canal(s): purulent discharge, in the left canal, mild, swelling, that is severe, of the left canal, Examination of the other ear shows no obvious abnormality, Nose: is normal, Mouth: Lips: moist, Oral mucosa: moist, Posterior pharynx: Airway: no evidence of obstruction, patent, Voice: is normal, 23:25 Chest/axilla: Inspection: normal, 23:25 Cardiovascular: Rate: normal, Rhythm: regular, 23:25 Respiratory: the patient does not display signs of respiratory distress, Respirations: normal, no use of accessory muscles, no retractions, labored breathing, is not present, Breath sounds: are clear throughout, no decreased breath sounds, no stridor, no wheezing, 23:25 Abdomen/GI: Exam negative for discomfort, distension, guarding, Inspection: abdomen appears normal, 23:25 Neuro: Orientation: to person, place \T\ time. Mentation: is normal, Vital Signs: 22:58 BP 183 / 86; Pulse 78; Resp 18; Temp 98.7; Pulse Ox 100% ; Weight 79.38 kg; Height 5 cp4 ft. 8 in. ; Pain 10; 08/18 00:36 BP 172 / 80; Pulse 80; Resp 18; Pulse Ox 97% ; cp4 03:00 BP 176 / 82; Pulse 82; Resp 18; Pulse Ox 99% ; cp4 08/17 22:58 Body Mass Index 26.61 (79.38 kg, 172.72 cm) 4 08/17 22:58 Pain Scale: Adult 4 MDM: 08/17 22:56 Medical Screening Exam initiated cp 23:50 Differential diagnosis: otitis media, otitis externa, ruptured TM, mastoiditis, sepsis. cp 08/18 02:45 Data reviewed: vital signs, nurses notes, lab test result(s), radiologic studies, CT cp scan, and as a result, I will discharge patient. 02:45 I considered the following discharge prescriptions or medication management in the emergency department Medications were administered in the Emergency Department. See MAR. Counseling: I had a detailed discussion with the patient and/or guardian regarding the historical points, exam findings, and any diagnostic results supporting the discharge/admit diagnosis, lab results, radiology results, the need for outpatient follow up, primary surgeon, to return to the emergency department if symptoms worsen or persist or if there are any questions or concerns that arise at home. Response to treatment: the patient's symptoms have mildly improved after treatment, and as a result, I will discharge patient. 08/17 23:05 Order name: CBC with Diff; Complete Time: 00:08 cp 08/18 00:08 Interpretation: Normal except: RBC 3.34; HGB 10.6; HCT 30.5; MPV 6.6; RUBIN% 76.9; LYM% cp 12.7. 08/17 23:05 Order name: BMP; Complete Time: 00:07 cp 08/18 00:07 Interpretation: Normal except: GLUC 120; BUN 29; GFR 77. cp 08/17 23:05 Order name: Lactate w/ 2H reflex if indic.; Complete Time: 00:07 cp 08/17 23:05 Order name: Wound Culture cp 08/18 00:53 Order name: Soft Tissue Neck W/Contr EDMS 08/17 23:05 Order name: IV; Complete Time: 23:38 cp Administered Medications: 08/17 23:48 Drug: NS 0.9% IV 500 ml 500 ml IV at 1 bolus once; to be given as a bolus over 60 cp4 minutes Volume: 500 ml; Route: IV; Rate: 1 bolus; Site: left antecubital; 08/18 01:30 Follow up: IV Status: Completed infusion cp4 08/17 23:48 Drug: Ketorolac IVP 10 mg 10 mg IVP once Route: IVP; Site: left antecubital; cp4 08/18 00:14 Follow up: Response: No adverse reaction cp4 00:20 Drug: Clindamycin IVPB 900 mg IVPB once over 30 mins; (mix in 50 mL) Route: IVPB; cp4 Infused Over: 30 mins; Site: left antecubital; 01:30 Follow up: Response: No adverse reaction; IV Status: Completed infusion cp4 02:34 CANCELLED (Physician Discretion): [id number] mg 200 ml IVPB once over 60 mins cp 02:59 Drug: LevOfloxacin PO 750 mg PO once Route: PO; cp4 03:00 Follow up: Response: No adverse reaction cp4 Disposition: 08/19 02:09 Chart complete. cp Disposition Summary: 08/18/24 02:45 Discharge Ordered Notes: Location: Home cp Problem: new cp Symptoms: have improved cp Condition: Stable cp Diagnosis - Otitis externa in other diseases classified elsewhere, left ear cp - Cellulitis of left external ear cp Followup: cp - With: Private Physician - When: 2 - 3 days - Reason: Recheck today's complaints Discharge Instructions: - Discharge Summary Sheet cp - Cellulitis, Adult cp - Otitis Externa cp Forms: - Medication Reconciliation Form cp - Antibiotic Education cp - Prescription Opioid Use cp - Patient Portal Instructions cp - Leadership Thank You Letter cp Prescriptions: - Clindamycin HCl 300 mg Oral Capsule - take 1 capsule ORAL route every 6 hours for 10 days; 40 capsule; Refills: 0, cp Product Selection Permitted - Ibuprofen 800 mg Oral Tablet - take 1 tablet ORAL route every 8 hours As needed take with food; 30 tablet; cp Refills: 0, Product Selection Permitted - levofloxacin 500 mg Oral tablet - take 1 tablet ORAL route once daily for 8-10 days continue taking morning of cp 08/19/2024; 9 tablet; Refills: 0, Product Selection Permitted Signatures: Dispatcher [employer] EDMS Kristopher Elkins PA PA cp Potter, Christina cp4 Corrections: (The following items were deleted from the chart) 08/17 23:06 23:06 CBC+H.LAB.BRZ ordered. EDMS EDMS 23:06 23:06 BASIC METABOLIC PANEL+C.LAB.BRZ ordered. EDMS EDMS 23:06 23:06 LACTATE+C.LAB.BRZ ordered. EDMS EDMS 23:06 23:06 Wound Culture+BA.LAB.BRZ ordered. EDMS EDMS 08/18 00:53 00:08 Facial Bones W/ Con \T\ MPR+CT.RAD.BRZ ordered. EDMS EDMS 02:34 02:33 Ciprofloxacin IVPB 400 mg 200 ml IVPB once over 60 mins ordered. cp cp
[2024-08-18] MEDS ORDERED: levoFLOXacin 250 MG TAB ONE (02:52)
[2024-08-18 04:25] VITALS: TEMP 98.7
[2024-08-18 04:35] VITALS: BP 176/82; O2SAT 99
== END 2024-08-18 03:02 | disposition home or self-care (01) ==
LOC: ER 22:48
DX: H60.8X2 Other otitis externa, left ear (principal); H60.12 Cellulitis of left external ear; Z98.890 Other specified postprocedural states; Z85.828 Personal history of other malignant neoplasm of skin
CPT/HCPCS: 96365; 96361; 87070; 85025; 80048; 36415; 87205; 83605; 70491; 96375; 99284; Q9967; J7040; 87077; 87186

== ENCOUNTER 2024-10-10 08:09 | Emergency (ER) | payer OTHER, MEDICARE ==
[2024-10-10 09:23] LABS: Absolute Basophils 0.1 K/uL (0-0.5); Absolute Eosinophils 0.1 K/uL (0-0.5); Absolute Lymphocytes (CBC) 1.3 K/uL (0.7-4.9); Absolute Monocytes 0.5 K/uL (0.1-1.3); Absolute Neutrophil 3.9 K/uL (1.8-8.0); Basophils % 1.5 % (0-1.3); Eosinophils % 1.9 % (0-4.4); Hemoglobin 13.9 g/dL (13.6-17.9); Lymphocytes % 21.9 % (15.3-44.8); MCH 30.7 pg (27.0-35.0); MCHC 33.2 g/dL (32.0-36.0); MCV 92.4 fL (80-100); MPV 7.6 fL (7.6-11.3); Monocytes % 7.9 % (3.3-12.3); Neutrophils % 66.8 % (41.7-73.7); Nucleated Red Blood Cells % 0.1 % (0-0); Platelets 263 thou/uL (152-406); RBC Red Blood Cell Count 4.55 M/uL (4.33-5.43); Red Cell Distribution Width 14.6 % (12.1-15.2)
[2024-10-10 09:30] LABS: PT Prothrombin Time 12.6 SECONDS (10-13.0); PTT, Activated Partial Thromb 31.4 SECONDS (27.2-37.4); Protime INR 1.11
[2024-10-10 09:44] LABS: Influenza A Ag Negative; Influenza B Ag Negative; SARS-CoV-2 Antigen Rapid Res Negative (Negative)
[2024-10-10 09:47] LABS: Albumin 3.9 g/dL (3.4-5.0); Anion Gap 9.6 mEq/L (5.0-15.0); Bilirubin Direct 0.2 mg/dL (0-0.2); Bilirubin Indirect, Calculated 0.8 mg/dL (0.2-0.8); Globulin 3.8 g/dL (2.3-3.5); Magnesium 1.9 mg/dL (1.6-2.4); Potassium 3.6 mEq/L (3.5-5.1); Protein, Total 7.7 g/dL (6.4-8.2); Troponin High Sensitivity 34.1 pg/mL (<58.9)
--- NOTE | 2024-10-10 09:59 | RAD REPORT ---
EXAMINATION: ONE VIEW CHEST XR CLINICAL INDICATION: DYSPNEA TECHNIQUE: Frontal chest projection is submitted. Examination is limited by patient positioning and t echnique. COMPARISON: 11/24/2022 FINDINGS: The lungs are well inflated and clear. The heart is upper limit of normal in size. Sternotomy wires. Right-sided stimulator device. IMPRESSION: No acute intrathoracic abnormalities.
--- NOTE | 2024-10-10 10:41 | ER ---
Nurse's Notes [facility] [place] Name: Soy Dove Age: 84 yrs Sex: Male : 1940 Arrival Date: 10/10/2024 Time: 08:09 Bed 6 Private MD: Diagnosis: Dyspnea, unspecified;Other malaise and fatigue Presentation: 10/10 08:18 Chief complaint: Patient states: SOB, fatigue, weak, no appetite for 3-4 days. Cant ll1 sleep well, took an old Lasix to help get fluid off. Coronavirus screen: Client denies travel out of the [place] in the last 14 days. difficulty breathing, fatigue, shortness of breath, Client presents with at least one sign or symptom that may indicate coronavirus-19. Standard/surgical mask placed on the client. Ebola Screen: Patient denies travel to an Ebola-affected area in the 21 days before illness onset. Initial Sepsis Screen: Does the patient meet any 2 criteria? No. Patient's initial sepsis screen is negative. Does the patient have a suspected source of infection? No. Patient's initial sepsis screen is negative. Risk Assessment: Do you want to hurt yourself or someone else? Patient reports no desire to harm self or others. Onset of symptoms was October 07, 2024. 08:18 Method Of Arrival: Ambulatory ll1 08:18 Acuity: POPPY 3 ll1 Triage Assessment: 08:22 General: Appears in no apparent distress. Behavior is calm, cooperative, appropriate ll1 for age, Reports fatigue for. Pain: Denies pain. Neuro: Reports weakness. Respiratory: Reports shortness of breath on exertion Onset: The symptoms/episode began/occurred 3-4 days, the patient has mild shortness of breath. GI: Reports no appetite. Historical: - Allergies: 08:18 Codeine; ll1 - PMHx: 08:18 asbestosis; bowel obstruction; chronic back pain; coronary atherosclerosis; High ll1 Cholesterol; Hypertension; KD; - PSHx: 08:18 bowel resection; Coronary artery bypass graft; Inspire UAS-right chest wall; ll1 - Immunization history:: Adult Immunizations up to date. - Social history:: Smoking status: Patient/guardian denies using tobacco, the patient reports quitting approximately 40 years ago. - Family history:: not pertinent. - Hospitalizations: : No recent hospitalization is reported. Screenin:46 Abuse screen: Denies threats or abuse. Denies injuries from another. Nutritional ss screening: No deficits noted. Tuberculosis screening: Never had TB. Assessment: 09:45 General: Appears comfortable, Behavior is calm, cooperative, Reports fatigue for 2-3 ss days, Denies fever. Neuro: Level of Consciousness is awake, alert, obeys commands, Oriented to person, place, time, situation. Respiratory: Reports shortness of breath since x 3 days Airway is patent Respiratory effort is even, unlabored, Respiratory pattern is regular, symmetrical, Breath sounds are clear bilaterally. GI: Patient currently denies diarrhea, nausea, vomiting. : No signs and/or symptoms were reported regarding the genitourinary system. EENT: Oral mucosa is moist. Derm: Skin is intact, is healthy with good turgor, Skin is pink, warm \T\ dry. normal. Musculoskeletal: Circulation, motion, and sensation intact. Range of motion: intact in all extremities, Swelling absent. Vital Signs: 08:18 BP 157 / 76; Pulse 81; Resp 18; Temp 97.5; Pulse Ox 99% on R/A; Weight 81.65 kg; Height ll1 5 ft. 8 in. ; Pain 0/10; 09:41 BP 119 / 88; Pulse 70; Resp 18; Pulse Ox 97% on R/A; Pain 0/10; ss 08:18 Body Mass Index 27.37 (81.65 kg, 172.72 cm) ll1 08:18 Pain Scale: Adult ll1 09:41 Pain Scale: Adult ss ED Course: 08:11 Patient arrived in ED. im 08:12 Cristóbal Aguilar MD is Attending Physician. rn 08:19 Triage completed. ll1 08:19 Arm band placed on. ll1 08:39 Ezekiel Bullard, COLLIN is Primary Nurse. bp 08:55 Initial lab(s) drawn, by me, sent to lab. First set of blood cultures drawn Second set kb4 of blood cultures drawn by me. 09:10 Inserted saline lock: 20 gauge in right forearm, using aseptic technique. Blood kb4 collected. Flushed with 10 mL NS. 09:49 XRAY CXR (1 view) In Process Unspecified. EDMS 10:48 No provider procedures requiring assistance completed. IV discontinued, intact, ss bleeding controlled, No redness/swelling at site. Pressure dressing applied. Administered Medications: No medications were administered Medication: 09:45 VIS not applicable for this client. ss Outcome: 10:41 Discharge ordered by . rn 10:48 Discharged to home ambulatory, ss 10:48 Condition: good 10:48 Discharge instructions given to patient, Instructed on discharge instructions, follow up and referral plans. Demonstrated understanding of instructions, follow-up care, 10:49 Patient left the ED. ss Signatures: Dispatcher [employer] EDMS Cristóbal Aguilar MD MD rn Blanchard, Shelby, RN RN ss Ezekiel Bullard RN RN Concepción Schreiber RN RN ll1 Bebe Do Kayla kb4 Corrections: (The following items were deleted from the chart) 09:42 09:41 BP 119 / 88; Pulse 70bpm; Resp 18bpm; Pulse Ox 97% RA; Pain 8/10, Adult; ss ss
--- NOTE | 2024-10-10 10:41 | EDPHYS ---
Physician Documentation [facility] Name: Soy Dove Age: 84 yrs Sex: Male : 1940 Arrival Date: 10/10/2024 Time: 08:09 Bed 6 Private MD: ED Physician Cristóbal Aguilar HPI: 10/10 10:33 This 84 yrs old Male presents to ER via Ambulatory with complaints of fatigue, General rn Weakness, Shortness Of Breath. 10:37 Patient reports mild shortness of breath and malaise for the last few days. 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 No chest pain. Patient reports took 40 mg of Lasix this morning and has been "7 times". Denies any blood in stool. Reports good appetite. No syncope. No chest pain. No fever or cough. Denies abdominal pain. No urinary symptoms. Patient reports having trouble sleeping for the last 3 days and is very fatigued.. Onset: The symptoms/episode began/occurred 3 day(s) ago. The patient has not experienced similar symptoms in the past. Historical: - Allergies: 08:18 Codeine; ll1 - PMHx: 08:18 asbestosis; bowel obstruction; chronic back pain; coronary atherosclerosis; High ll1 Cholesterol; Hypertension; KD; - PSHx: 08:18 bowel resection; Coronary artery bypass graft; Inspire UAS-right chest wall; ll1 - Immunization history:: Adult Immunizations up to date. - Social history:: Smoking status: Patient/guardian denies using tobacco, the patient reports quitting approximately 40 years ago. - Family history:: not pertinent. - Hospitalizations: : No recent hospitalization is reported. ROS: 10:37 Constitutional: Negative for fever, chills, and weight loss, Neck: Negative for injury, rn pain, and swelling, Cardiovascular: Negative for chest pain, palpitations, and edema, Respiratory: Negative for cough, positive for mild shortness of breath Abdomen/GI: Negative for abdominal pain, nausea, vomiting, diarrhea, and constipation, Back: Negative for injury and pain, : Negative for injury, bleeding, discharge, and swelling, MS/Extremity: Negative for injury and deformity, Skin: Negative for injury, rash, and discoloration, Neuro: Positive for generalized weakness and malaise Exam: 10:37 Constitutional: This is a well developed, well nourished patient who is awake, alert, rn and in no acute distress. Head/Face: Normocephalic, atraumatic. Cardiovascular: Regular rate and rhythm . No pulse deficits. Respiratory: Speaking full sentences, unlabored. No increased work of breathing, no retractions or nasal flaring. Abdomen/GI: Soft, non-tender MS/ Extremity: Pulses equal, no cyanosis. Neurovascular intact. Full, normal range of motion. Equal circumference. Neuro: Awake and alert, GCS 15, oriented to person, place, time, and situation. Cranial nerves II-XII grossly intact. Motor strength 5/5 in all extremities. Sensory grossly intact. Cerebellar exam normal. Normal gait. 10:41 ECG was reviewed by the Attending Physician. rn Vital Signs: 08:18 BP 157 / 76; Pulse 81; Resp 18; Temp 97.5; Pulse Ox 99% on R/A; Weight 81.65 kg; Height ll1 5 ft. 8 in. ; Pain 0/10; 09:41 BP 119 / 88; Pulse 70; Resp 18; Pulse Ox 97% on R/A; Pain 0/10; ss 08:18 Body Mass Index 27.37 (81.65 kg, 172.72 cm) ll1 08:18 Pain Scale: Adult ll1 09:41 Pain Scale: Adult ss MDM: 08:12 Medical Screening Exam initiated rn 10:37 Differential Diagnosis Congestive heart failure, pulmonary edema, dehydration, renal rn failure. Data reviewed: vital signs, nurses notes, lab test result(s), radiologic studies, plain films, and as a result, I will discharge patient. Counseling: I had a detailed discussion with the patient and/or guardian regarding the historical points, exam findings, and any diagnostic results supporting the discharge/admit diagnosis, lab results, the need for outpatient follow up, to return to the emergency department if symptoms worsen or persist or if there are any questions or concerns that arise at home. Special discussion: I discussed with the patient/guardian in detail that at this point there is no indication for admission to the hospital. It is understood, however, that if the symptoms persist or worsen the patient needs to return immediately for re-evaluation. Based on the history and exam findings, there is no indication for further emergent testing or inpatient evaluation. I discussed with the patient/guardian the need to see the primary care provider for further evaluation of the symptoms. ED course: No pulmonary edema on x-ray and no oxygen requirement. Mild elevation of BNP. Patient has Lasix at home, recommend taking it for the next 2 days and following up with PCP. No indication for emergent admission at this time. Recommend sleep. I have personally reviewed all of the results, including but not limited to blood tests and imaging deemed necessary to safely discharge this patient at this time. All results given to and printed out for patient. I personally went over all the results with the patient and answered all questions. Patient will follow-up with PCP and or specialist as discussed. Return precautions given and understood.. 10/10 08:24 Order name: BMP; Complete Time: 10:03 ll10/10 08:24 Order name: Blood Culture Adult (2) 10/10 08:24 Order name: CBC with Diff; Complete Time: 10:03 ll10/10 08:24 Order name: Hepatic Function; Complete Time: 10:03 ll10/10 08:24 Order name: Lipase; Complete Time: 10:03 10/10 08:24 Order name: Magnesium; Complete Time: 10:03 ll10/10 08:24 Order name: NT PRO-BNP; Complete Time: 10:03 ll10/10 08:24 Order name: PT-INR; Complete Time: 10:03 ll10/10 08:24 Order name: Ptt, Activated; Complete Time: 10:03 ll10/10 08:24 Order name: Troponin HS; Complete Time: 10:03 ll10/10 08:24 Order name: COVID-19 Ag + Flu A+B Ag; Complete Time: 10:03 ll10/10 08:24 Order name: XRAY CXR (1 view); Complete Time: 10:03 ll10/10 08:24 Order name: Cardiac monitoring; Complete Time: 09:06 ll10/10 08:24 Order name: EKG - Nurse/Tech; Complete Time: 09:44 ll10/10 08:24 Order name: IV Saline Lock; Complete Time: 09:06 ll10/10 08:24 Order name: Labs collected and sent; Complete Time: 09:12 ll10/10 08:24 Order name: O2 Per Protocol; Complete Time: 09:06 ll10/10 08:24 Order name: O2 Sat Monitoring; Complete Time: 09:06 ll1 EC:41 Rate is 77 beats/min. Rhythm is regular. QRS [place] is Normal. QT interval is normal. No rn Q waves. T waves are Normal. No ST changes noted. Clinical impression: NSR w/ Non-specific ST/T Changes. Interpreted by me. Reviewed by me. Administered Medications: No medications were administered Disposition Summary: 10/10/24 10:41 Discharge Ordered Notes: Location: Home rn Problem: an ongoing problem rn Symptoms: have improved rn Condition: Stable rn Diagnosis - Dyspnea, unspecified rn - Other malaise and fatigue rn Followup: rn - With: Private Physician - When: As needed - Reason: Recheck today's complaints, Re-evaluation by your physician Discharge Instructions: - Discharge Summary Sheet rn - Shortness of Breath, Adult rn - Fatigue rn Forms: - Medication Reconciliation Form rn - Antibiotic l d rn - Prescription Opioid Use rn - Patient Portal Instructions rn - Leadership Thank You Letter rn Signatures: Dispatcher [employer] [facility] Cristóbal Aguilar MD MD rn Lewis, Lynsay, RN RN [facility] Corrections: (The following items were deleted from the chart) 08:25 08:25 BASIC METABOLIC PANEL+C.LAB.BRZ ordered. EDMS EDMS 08:25 08:25 BLOOD CULTURE*+BA.LAB.BRZ ordered. EDMS EDMS 08:25 08:25 CBC+H.LAB.BRZ ordered. EDMS EDMS 08:25 08:25 HEPATIC FUNCTION+C.LAB.BRZ ordered. EDMS EDMS 08:25 08:25 LIPASE+C.LAB.BRZ ordered. EDMS EDMS 08:25 08:25 MAGNESIUM+C.LAB.BRZ ordered. EDMS EDMS 08:25 08:25 PROBNP+C.LAB.BRZ ordered. EDMS EDMS 08:25 08:25 PROTIME (+INR)+COAG.LAB.BRZ ordered. EDMS EDMS 08:25 08:25 PTT, ACTIVATED+COAG.LAB.BRZ ordered. EDMS EDMS 08:25 08:25 Troponin High Sensitivity+C.LAB.BRZ ordered. EDMS EDMS 08:25 08:25 COVID-19 Ag + Flu A+B Ag+I.LAB.BRZ ordered. EDMS EDMS 08:25 08:25 Chest Single View+RAD.RAD.BRZ ordered. EDMS EDMS
[2024-10-10 10:54] VITALS: TEMP 97.5
[2024-10-10 10:56] VITALS: BP 119/88; O2SAT 97
--- NOTE | 2024-10-11 13:26 | EKG ---
Test Date: 2024-10-10 Test Time: 09:34:02 Director Online Marketing: JOSE M MEASUREMENT RESULTS: Intervals: Rate: 77 SC: 190 QRSD: 106 QT: 400 QTc: 452 [place]: P: 60 SC: 190 QRS: 19 T: -57 INTERPRETIVE STATEMENTS: Normal sinus rhythm Left ventricular hypertrophy with repolarization abnormality Abnormal ECG Compared to ECG 11/24/2022 16:23:49 Early repolarization now present Myocardial infarct finding no longer present ST (T wave) deviation no longer present Possible ischemia no longer present Electronically Signed On 10-11-24 13:19:20 CDT by Olayinka Persaud
== END 2024-10-10 10:49 | disposition home or self-care (01) ==
LOC: ER 08:09
DX: R06.00 Dyspnea, unspecified (principal); R53.83 Other fatigue; R53.81 Other malaise; R53.1 Weakness; Z11.52 Encounter for screening for COVID-19; I10 Essential (primary) hypertension; Z95.1 Presence of aortocoronary bypass graft
CPT/HCPCS: 36415; 71045; 80048; 80076; 83690; 83735; 83880; 84484; 85025; 85610; 85730; 87040; 87428; 93005; 99283